=== PATIENT | female | born 1945 | race Caucasian/White ===

== ENCOUNTER 2021-06-27 00:18 | Inpatient (IN) | payer MEDICARE, OTHER, SELFPAY ==
--- NOTE | ~2021-06-27 | XR_ITS ---
EXAMINATION: XR CHEST CLINICAL INFORMATION: Possible aspiration. COMPARISON: None. TECHNIQUE: AP view of the chest was obtained. FINDINGS: The cardiomediastinal silhouette is within normal limits except for atherosclerotic disease of the thoracic aorta. There are questionable hazy airspace opacities in the left lower lobe/retrocardiac region with otherwise clear lungs. No pleural effusions or pneumothorax. No acute osseous abnormalities. XR/XR chest 1V IMPRESSION: Questionable hazy opacities in the left lower lobe in which developing infiltrate or aspiration cannot be excluded..
--- NOTE | ~2021-06-27 | US_ITS ---
EXAMINATION: US ABDOMEN LIMITED CLINICAL INFORMATION: Right upper quadrant pain, CT and cholelithiasis, thick wall/edema. (Gallbladder only per ordering). COMPARISON: CT abdomen and pelvis with contrast 06/27/2021. TECHNIQUE: Real-time imaging of the gallbladder. FINDINGS: The gallbladder is upper normal in size. There are gallstones. The gallbladder wall appears thickened and edematous. The gallbladder wall measures up to 0.6 cm. The communications technologist reports the patient is tender over the gallbladder. No pericholecystic fluid is seen. The common bile duct is normal in caliber measuring 0.6 cm US/US abdomen limited IMPRESSION: Gallstones, thickened edematous gallbladder wall and positive sonographic Mack's sign. Ultrasound appearance is concerning for acute cholecystitis. Further evaluation with HIDA scan may be helpful.
--- NOTE | ~2021-06-27 | MR_ITS ---
EXAMINATION: MR ABDOMEN WITHOUT CONTRAST CLINICAL INFORMATION: Elevated bilirubin. Rule out common bile duct stone. COMPARISON: Previous CT of the abdomen and pelvis and abdominal ultrasound from yesterday TECHNIQUE: MR abdomen is performed without gadolinium contrast. MRCP sequences were also performed. FINDINGS: LUNG BASES: The visualized lung bases are unremarkable. LIVER, GALLBLADDER, AND BILIARY TREE: The liver is normal in size, smooth in contour, and normal in signal. No focal hepatic lesion. The gallbladder is upper normal in size. There are gallstones in the gallbladder. There is gallbladder wall thickening and gallbladder wall edema. The gallbladder wall measures up to 9 mm in thickness. There is some stranding of the fat surrounding the gallbladder. There may be very mild intrahepatic biliary duct dilatation. The common bile duct does not appear dilated measuring 5 mm. No common bile duct stone is seen. The common bile duct abuts the gallbladder. There may be mass effect on the common bile duct/Mirizzi syndrome. There is a small amount of fluid seen surrounding the liver PANCREAS: Unremarkable. SPLEEN: Unremarkable. ADRENAL GLANDS: Unremarkable. KIDNEYS AND URETERS: The kidneys are normal in size and shape. No hydronephrosis. No perinephric stranding. GASTROINTESTINAL TRACT: There is diverticulosis of the colon. No bowel obstruction. There is a small amount of ascites adjacent to the liver. ABDOMINAL WALL: No significant hernia is appreciated. LYMPH NODES: No lymphadenopathy. VASCULAR: Unremarkable. OSSEOUS STRUCTURES: Marrow signal normal. There are degenerative changes of the spine. MR/MR MRCP IMPRESSION: Upper normal-size gallbladder, gallstones, gallbladder wall thickening and edema. Findings are suggestive of acute cholecystitis. Minimal intrahepatic biliary duct dilatation. The common bile duct does not appear dilated. No common bile duct stone is seen. There may be mass effect on the extrahepatic bile ducts from the abnormal gallbladder or Mirizzi syndrome. Small amount of ascites adjacent to the liver. Diverticulosis.
--- NOTE | ~2021-06-27 | CT_ITS ---
EXAMINATION: CT ABDOMEN AND PELVIS WITH CONTRAST CLINICAL INFORMATION: Left lower quadrant/mid abdominal pain. COMPARISON: None TECHNIQUE: Multidetector volumetric images were obtained from the superior aspect of the liver through the pubic symphysis following administration 85 mL of Omnipaque 350 intravenous contrast. Sagittal and coronal reformatted images were obtained on the technologist's workstation. Oral contrast: No This CT examination was performed using dose optimization techniques as appropriate, variously including the following: *Automated exposure control *Adjustment of mA and/or kV according to patient size (this includes techniques or standardized protocols for targeted exams where dose is matched to indication/reason for exam; i.e. extremities or head) *Use of iterative reconstruction technique DLP: 670 mGy-cm FINDINGS: LUNG BASES: The visualized lung bases are clear. Coronary artery calcifications. LIVER, GALLBLADDER, AND BILIARY TREE: The liver is normal in size, shape, and attenuation. No focal hepatic lesion or biliary ductal dilatation is present. Distended gallbladder. Multiple stones in the gallbladder lumen. Gallbladder wall thickening noted measuring 0.5 cm, with wall edema. PANCREAS: Unremarkable. SPLEEN: Unremarkable. ADRENAL GLANDS: Unremarkable right adrenal gland . Thickening throughout the left adrenal gland. KIDNEYS AND URETERS: The kidneys are normal in size, shape, and attenuation. No hydronephrosis, hydroureter, or calculi seen. No perinephric stranding. 0.6 cm hypoattenuating lesion at the midpole of the left kidney is too small to fully characterize. BLADDER: Unremarkable. GASTROINTESTINAL TRACT: The stomach is unremarkable. Normal caliber of the small bowel. No obstruction. Normal appendix. There is diffuse colonic diverticulosis. There is focal wall thickening at the splenic flexure of the colon with adjacent inflammation. No free air. No free fluid. ABDOMINAL WALL: No significant hernia is appreciated. LYMPH NODES: Normal. VASCULAR: Normal caliber aorta with moderate atherosclerotic calcifications. PELVIC VISCERA: Unremarkable. OSSEOUS STRUCTURES: No acute or suspicious osseous abnormality. Chronic appearing compression deformity of the L1 vertebral body. Degenerative changes of both hips. CT/CT abdomen pelvis w con IMPRESSION: 1. Diverticulitis at the splenic flexure of the colon. No free air or fluid collection. 2. Cholelithiasis. Somewhat distended gallbladder with wall thickening and edema. This is concerning for cholecystitis. This could be evaluated further with ultrasound. Fleischner guidelines were followed.
[2021-06-27 00:27] VITALS: BP 208/74; PULSE 69; RESP 16; TEMP 36.7; O2SAT 95; BMI 27.3
--- NOTE | 2021-06-27 00:29 | ECG_ITS ---
Test Reason : WEAKNESS Blood Pressure : / mmHG Vent. Rate : 059 BPM Atrial Rate : 059 BPM P-R Int : 144 ms QRS Dur : 080 ms QT Int : 432 ms P-R-T Axes : 100 034 054 degrees QTc Int : 427 ms Sinus bradycardia Otherwise normal ECG No previous ECGs available Referred By: Raegan Venegas Electronically Signed By:ARASH SIERRA MD
--- NOTE | 2021-06-27 00:47 | ED.ABDPAIN ---
HPI - Abdominal Pain General Chief Complaint: Abdominal Pain Stated Complaint: abdominal pain Time Seen by Provider: 06/27/21 00:29 Source: patient Mode of arrival: EMS History of Present Illness HPI narrative: 75-year-old female with diverticulosis noted on colonoscopy in 2014 and patient states she has had diverticulitis approximately 40 years ago and comes in with mild nausea throughout the day was able to eat toast in the morning and then attempted ease in apple in the afternoon and states she then developed worsening mid abdominal pain that she describes as crampy and increasingly constant in nature. She denies any previous surgical history denies any urinary pain/burning/frequency, and also denies any fever, chills, diarrhea and states that she has continued to pass flatus but had an episode of vomiting and route to the hospital. Related Data Allergies Allergy/AdvReac Type Severity Reaction Status Date / Time No Known Allergies Allergy Verified 06/27/21 00:29 Review of Systems Review of Systems Pertinent positives and negatives as stated in HPI 10 point review of systems is otherwise negative. Physical Exam Vital Signs: Vital Signs: Last Vital Signs Temp 98.1 F 06/27/21 00:27 Pulse 96 06/27/21 02:54 Resp 18 06/27/21 02:54 BP 163/77 H 06/27/21 02:54 Pulse Ox 97 06/27/21 02:54 BMI result Body Mass Index 27.3 VITAL SIGNS: Reviewed. GENERAL: Well developed, well nourished, in no acute distress. HEAD: Normocephalic/atraumatic EYES: PERRLA, EOMI OROPHARYNX: no oral lesions noted, posterior pharynx clear LUNGS: Normal breath sounds. No adventitious sounds or accessory muscle use. SpO2<95> CARDIOVASCULAR: Regular rate and rhythm without noted murmurs, no JVD or lower extremity edema. ABDOMEN: Soft, tenderness in mid to left lower quadrant without rebound, non-distended with bowel sounds. d NEUROLOGIC: Alert and oriented x 4. Course Course Course Narrative: 75-year-old female with history and clinical presentation consistent with diverticulitis, possible renal colic/SBO but less likely. Review of all investigations significant for diverticulitis as well as findings cholecystitis. Patient informed of all results and will be admitted after discussion with General surgery who is accepting her admission. On re-evaluation patient is pain is much improved and she has received antibiotics. MDM - Abdominal Pain Lab Data Result diagrams: 06/27/21 01:02 06/27/21 01:02 Labs: Lab Results 06/27/21 06/27/21 06/27/21 Range/Units 01:02 01:02 01:02 WBC 14.2 H (4.8-10.8) X10*3/uL RBC 3.98 L (4.20-5.50) X10*6/uL Hgb 12.6 (12.0-16.0) g/dl Hct 37.7 (37.0-47.0) % MCV 94.7 (80.0-98.0) fL MCH 31.7 (27.0-33.0) pg MCHC 33.4 (31.0-35.0) g/dl RDW 12.7 (11.0-16.0) % Plt Count 261 (160-400) X10*3/uL MPV 9.3 L (9.4-12.3) fL Immature Gran % (Auto) 0.3 (0.0-0.4) % Neut % (Auto) 84.3 H (45-73) % Lymph % (Auto) 9.5 L (20-40) % [place] % (Auto) 5.4 (2-11) % Eos % (Auto) 0.1 (0-4) % Baso % (Auto) 0.4 (0-2) % Lymph # (Auto) 1.4 (1.2-4.9) X10*3/uL [place] # (Auto) 0.8 (0.1-1.2) X10*3/uL Eos # (Auto) 0.0 (0.0-0.4) X10*3/uL Baso # (Auto) 0.1 (0.0-0.2) X10*3/uL Abs Immat Gran (auto) 0.04 H (0.00-0.03) X10*3/uL Absolute Neuts (auto) 11.9 H (2.0-8.3) x10*3/uL Absolute Nucleated RBC 0.000 (0.0-0.012) X10*3/uL Nucleated RBC % (auto) 0.0 (0.0-0.2) /100WBC Sodium 140 (135-145) mmol/L Potassium 4.3 (3.3-5.1) mmol/L Chloride 104 (96-108) mmol/L Carbon Dioxide 25 (22-29) mmol/L Anion Gap 15 (12-20) BUN 14 (9-16) mg/dL Creatinine 0.79 (0.5-1.4) mg/dL Estim Creat Clear Calc 65.7 Estimated GFR > 60 Random Glucose 262 H (60-115) mg/dL Lactic Acid 1.5 (0.5-2.0) mmol/L Calcium 10.3 H (8.4-10.2) mg/dL Total Bilirubin 0.4 (0.0-1.0) mg/dL AST 18 (5-31) U/L ALT 17 (0-31) U/L Alkaline Phosphatase 60 (39-117) U/L Total Protein 6.9 (6.5-8.0) g/dL Albumin 4.0 (3.5-5.0) g/dL Lipase 21 (8-78) U/L ECG Data Attestation: I personally reviewed and interpreted this ECG as follows: Prior ECG tracings: not available for review Interpretation: Sinus bradycardia, HR-59, no STEMI, SD/QRS/QTC are within normal limits. Discharge Plan Discharge Clinical Impression: Diverticulitis, Acute cholecystitis Patient Disposition: Admitted As Inpatient [facility] Past Medical History Source: nursing notes reviewed Social History Social History Advance Directives: No
[2021-06-27] MEDS: Ketorolac Tromethamine 30 MG/ML VIAL 15 MG IVPUSH (01:09)
[2021-06-27 01:10] LABS: Basophils Absolute Auto 0.1 X10*3/uL (0.0-0.2); Basophils Percent Auto 0.4 % (0-2); Eosinophils Percent Auto 0.1 % (0-4); Hematocrit 37.7 % (37.0-47.0); Hemoglobin 12.6 g/dl (12.0-16.0); Imm Gran Abs Auto 0.04 X10*3/uL (0.00-0.03); Imm Gran Pct Auto 0.3 % (0.0-0.4); Lymphocytes Absolute Auto 1.4 X10*3/uL (1.2-4.9); Lymphocytes Percent Auto 9.5 % (20-40); MANUAL DIFF FLAG NO; Mean Corpuscular HGB Conc 33.4 g/dl (31.0-35.0); Mean Corpuscular Hemoglobin 31.7 pg (27.0-33.0); Mean Corpuscular Volume 94.7 fL (80.0-98.0); Mean Platelet Volume 9.3 fL (9.4-12.3); Monocytes Absolute Auto 0.8 X10*3/uL (0.1-1.2); Monocytes Percent Auto 5.4 % (2-11); Neutrophils Absolute Auto 11.9 x10*3/uL (2.0-8.3); Neutrophils Percent Auto 84.3 % (45-73); Platelet Count 261 X10*3/uL (160-400); Red Blood Count 3.98 X10*6/uL (4.20-5.50); Red Cell Distribution Width 12.7 % (11.0-16.0); White Blood Count 14.2 X10*3/uL (4.8-10.8)
[2021-06-27] MEDS: HYDROmorphone HCl 0.5 MG/0.5 ML SYRINGE 0.25 MG IVPUSH (01:10)
[2021-06-27] MEDS: 0.9 % Sodium Chloride 1,000 ML 999 ML IV (01:10)
[2021-06-27 01:22] LABS: Lactic Acid 1.5 mmol/L (0.5-2.0)
[2021-06-27 01:28] LABS: Alanine Aminotransferase 17 U/L (0-31); Alkaline Phosphatase 60 U/L (39-117); Anion Gap 15 (12-20); Aspartate Amino Transferase 18 U/L (5-31); Bilirubin Total 0.4 mg/dL (0.0-1.0); Blood Urea Nitrogen 14 mg/dL (9-16); Calcium 10.3 mg/dL (8.4-10.2); Carbon Dioxide 25 mmol/L (22-29); Chloride 104 mmol/L (96-108); Creatinine Clr Calc Pharmacy 65.7; Estimated Glomerular Filt Rate > 60; Glucose Random 262 mg/dL (60-115); Lipase 21 U/L (8-78); Potassium 4.3 mmol/L (3.3-5.1); Sodium 140 mmol/L (135-145); Total Protein 6.9 g/dL (6.5-8.0)
[2021-06-27] MEDS: Piperacillin Sodium/Tazobactam 3.375 GM in 0.9 % Sodium Chloride 50 ML IV ×4 (02:17→21:01)
[2021-06-27 02:54] VITALS: BP 163/77; PULSE 96; RESP 18; O2SAT 97
[2021-06-27] MEDS: iohexoL 350 MG/ML 100 ML INFUS..BTL 85 ML IV (03:33)
[2021-06-27 04:49] LABS: COVID-19 Test Negative (Negative); IDNOW Serial# 9DD0AD1C
[2021-06-27] MEDS: Morphine Sulfate 4 MG/ML CARTRIDGE IVPUSH ×2 (05:28→16:33)
[2021-06-27] MEDS: 0.9 % Sodium Chloride 1,000 ML 100 ML IVCONT ×3 (05:29→23:51)
[2021-06-27 07:06] VITALS: BP 139/75; PULSE 88; RESP 14; O2SAT 96
--- NOTE | 2021-06-27 07:51 | PC.NURSE ---
took over care of this pt at 0700
--- NOTE | 2021-06-27 09:34 | PHA.MEDREC ---
Pharmacy Consult ? Medication Reconciliation Pharmacy has completed the medication reconciliation. Patient has not take metformin in a few days due to having to receive contrast dye. Patient does not know when she last had it. She reports that the doctor is stop her bupropion for some neuro surgery. All medications were confirmed with [facility]. Kristina Ferro, PetrosD
[2021-06-27] MEDS: Famotidine/PF 20 MG/2 ML VIAL IVPUSH ×2 (09:55→20:54)
--- NOTE | 2021-06-27 10:25 | P.HPGS_ITS ---
History of Present Illness History of Present Illness Date of Service: 06/27/21 <Candy Chavez PA-C - Last Filed: 06/27/21 11:31> 06/30/21 <Bobby Umana MD - Last Filed: 06/30/21 16:31> Chief complaint: Diverticulitis <Candy Chavez PA-C - Last Filed: 06/27/21 11:31> Narrative: Micki Lara is a 75 year old female with PMH of HTN, HLD, DM who presented to the ED with complaints of abdominal pain. Patient reports she ate an apple and developed mid abdominal pain that she first thought was natali gestion. She described it as a crampy, achey pain in nature.?Nothing alleviated the pain. The pain gradually worsened throughout the day and she called EMS. She vomited 1x in the ambulance. She denies fevers or chills but felt clammy at home. She denies diarrhea, change in bowel habits. She endorses lack of appetite yesterday due to the pain. In the ED, work up included a CT scan which demonstra sadiq focal wall thickening at the splenic flexure of the colon with adjacent inflammation as well as a distended gallbladder with gallstones and gallbladder wall edema. She had a leukocytosis of 14.2. LFTs were normal. She had a colonoscopy in [address] Zelaya where scattered diverticulosis was noted. This morning, the pain is improved. 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 She is unsure of the name of this. She sees a neurologist for this. <Candy Chavez PA-C - Last Filed: 06/27/21 11:31> Review of Systems Verdana 4l Constitutional: Verdana 4d Constitutional: Verdana 4d Verdana 4d Denies chills, Denies fever(s) and Reports poor appetite Verdana 4Il <Candy Chavez PA-C - Last Filed: 06/27/21 11:31> Verdana 4d Verdana 4l ENT: Verdana 4d Denies dizziness Verdana 4Il <Candy Chavez PA-C - Last Filed: 06/27/21 11:31> Verdana 4d Verdana 4l Cardiovascular: Verdana 4d Cardiovascular: Verdana 4d Verdana 4d Denies chest pain, Denies palpitations and Denies dyspnea Verdana 4Il <JEFERSON Garsia Last Filed: 06/27/21 11:31> Verdana 4d Verdana 4l Respiratory: Verdana 4d Verdana 4d Respiratory: Verdana 4d Denies cough and Denies dyspnea Verdana 4Il <JEFERSON Garsia Last Filed: 06/27/21 11:31> Verdana 4d Verdana 4l Gastrointestinal: Verdana 4d Gastrointestinal: Verdana 4d Verdana 4d Reports as per HPI, Denies hematochezia, Denies change in stool character, Denies diarrhea and Denies hematemesis Verdana 4Il <JEFERSON Garsia Last Filed: 06/27/21 11:31> Verdana 4d Verdana 4l Genitourinary: Verdana 4d Verdana 4d Genitourinary: Verdana 4d Denies hematuria and Denies dysuria Verdana 4Il <JEFERSON Garsia Last Filed: 06/27/21 11:31> Verdana 4d Verdana 4l Integumentary/Breasts: Verdana 4d Skin/Breast: Verdana 4d Verdana 4d Denies rash and Denies jaundice Verdana 4Il <JEFERSON Garsia Last Filed: 06/27/21 11:31> Verdana 4d Verdana 4l Neurologic: Verdana 4d Denies dizziness Verdana 4Il <JEFERSON Garsia Last Filed: 06/27/21 11:31> Verdana 4d Verdana 4l Endocrine: Verdana 4d Verdana 4d Endocrine: Verdana 4d Denies palpitations Verdana 4Il <JEFERSON Garsia Last Filed: 06/27/21 11:31> Verdana 4d [facility] Past Medical History Medical History: Medical History Diabetes Hyperlipidemia Hypertension Parkinsonian features <Candy Chavez PA-C - Last Filed: 06/27/21 11:31> Social History Social History: Social History Household Members: Spouse Housing: House Do you presently have visiting nurse or other home services: No Patient Tobacco Use Status: Never used Tobacco service: No Current occupational status: unemployed <Candy Chavez PA-C - Last Filed: 06/27/21 11:31> Meds Allergies/Adverse reactions: Allergies Allergy/AdvReac Type Severity Reaction Status Date / Time No Known Allergies Allergy Verified 06/27/21 00:29 <Candy Chavez PA-C - Last Filed: 06/27/21 11:31> Active Medications: Current Medications Famotidine (Famotidine/Pf 20 Mg/2 Ml Vial) 20 mg IVPUSH BID [facility] Last Admin: 06/27/21 09:55 Dose: 20 mg Documented by: Sodium Chloride (Ns) 1,000 mls @ 100 mls/hr IVCONT .Q10H [facility] Last Admin: 06/27/21 05:29 Dose: 100 mls/hr Documented by: Piperacillin Sod/Tazobactam (Sod 3.375 gm/ Sodium Chloride) 50 mls @ 100 mls/hr IV Q6H [facility] Last Admin: 06/27/21 09:55 Dose: 100 mls/hr Documented by: Morphine Sulfate (Morphine Sulfate 4 Mg/Ml Cartridge) 4 mg IVPUSH Q4H PRN; Protocol PRN Reason: Pain, Severe (Pain Scale 7-10) Last Admin: 06/27/21 05:28 Dose: 4 mg Documented by: Ondansetron HCl (Ondansetron Hcl 4 Mg/2 Ml Vial) 4 mg IVPUSH Q8H PRN PRN Reason: Nausea and Vomiting Sodium Chloride (0.9 % Sodium Chloride Flush 3 Ml Syringe) 3 ml IVFLUSH QSHIFT [facility] Last Admin: 06/27/21 09:50 Dose: Not Given Documented by: Charlette Chavez PA-C - Last Filed: 06/27/21 11:31> Home medications: Home Medications Medication Instructions Recorded Confirmed Last Taken Type aspirin 81 mg 81 mg PO DAILY 06/27/21 06/27/21 06/26/21 History chewable tablet cyanocobalamin 1,000 mcg PO 06/27/21 06/27/21 06/26/21 History (vitamin B-12) DAILY 1,000 mcg tablet glipizide 2.5 mg 2.5 mg PO DAILY 06/27/21 06/27/21 06/26/21 History tablet, extended release 24 hr hydrochlorothiazi 12.5 mg PO DAILY 06/27/21 06/27/21 06/26/21 History de 12.5 mg tablet irbesartan 300 mg 300 mg PO DAILY 06/27/21 06/27/21 06/26/21 History tablet metformin 750 mg 750 mg PO DAILY 06/27/21 06/27/21 Unknown History tablet,extended release 24 hr pravastatin 40 mg 40 mg PO BEDTIME 06/27/21 06/27/21 06/26/21 History tablet sitagliptin 100 1 tab PO DAILY 06/27/21 06/27/21 06/26/21 History mg tablet (Januvia) <JEFERSON Garsia Last Filed: 06/27/21 11:31> Physical Exam Verdana 4l Vital Signs: Verdana 4d Verdana 4d Vital Signs: Verdana 4d Verdana 4Bd Last Vital Signs Verdana 4d [employer] New 4d [employer] New 4d Temp 98.1 F 06/27/21 00:27 [employer] New 4d Pulse 88 06/27/21 07:06 [employer] New 4d Resp 14 06/27/21 07:06 BP 139/75 06/27/21 07:06 Pulse Ox 96 06/27/21 07:06 BMI result Body Mass Index 27.3 <JEFERSON Garsia Last Filed: 06/27/21 11:31> Const: General: no acute distress, well developed and alert <JEFERSON Garsia Last Filed: 06/27/21 11:31> Orientation/consciousness: patient oriented x3 <JEFERSON Garsia Last Filed: 06/27/21 11:31> Eyes: Sclerae: sclerae normal <JEFERSON Garsia Last Filed: 06/27/21 11:31> Resp: Effort & Inspection: normal respiratory effort <JEFERSON Garsia Last Filed: 06/27/21 11:31> GI: Inspection: Yes normal to inspection and No distended <JEFERSON Garsia Last Filed: 06/27/21 11:31> Palpation (GI): Soft to palpation, Tenderness to palpation present (GI) in the RUQ (marked); Negative for Mack's sign negative, no guarding and not rigid <JEFERSON Garsia Last Filed: 06/27/21 11:31> Percussion: Yes normal to percussion <JEFERSON Garsia Last Filed: 06/27/21 11:31> Skin: General skin exam: no rashes or lesions noted <JEFERSON Garsia Last Filed: 06/27/21 11:31> Neuro: General: patient oriented x3 <JEFERSON Garsia Last Filed: 06/27/21 11:31> Extrem: General: Yes no clubbing, cyanosis or edema <JEFERSON Garsia Last Filed: 06/27/21 11:31> Results Results Labs: Short CBC 06/27/21 Range/Units 01:02 WBC 14.2 H (4.8-10.8) X10*3/uL Hgb 12.6 (12.0-16.0) g/dl Hct 37.7 (37.0-47.0) % Plt Count 261 (160-400) X10*3/uL BMP 06/27/21 01:02 Sodium 140 Potassium 4.3 Chloride 104 Carbon Dioxide 25 BUN 14 Creatinine 0.79 Calcium 10.3 H Liver Function 06/27/21 Range/Units 01:02 Total Bilirubin 0.4 (0.0-1.0) mg/dL AST 18 (5-31) U/L ALT 17 (0-31) U/L Alkaline Phosphatase 60 (39-117) U/L Albumin 4.0 (3.5-5.0) g/dL <JEFERSON Garsia Last Filed: 06/27/21 11:31> Assessment and Plan (1) Diverticulitis: Status: Acute <JEFERSON Garsia Last Filed: 06/27/21 11:31> (2) Acute cholecystitis: Status: Acute <Candy Chavez PA-C - Last Filed: 06/27/21 11:31> She has had some all pain, mostly upper abdomen x2 days She seems to describe more tenderness the right side than the left I have reviewed her imaging studies - some mild inflammatory changes around the colon in the area of the splenic flexure And ultrasound findings of the gallbladder suggestive of acute cholecystitis She currently says that she feels much better Had a long discussion with her about options including cholecystectomy and IV antibiotic treatment Explained to her the technique of laparoscopic cholecystectomy and possible open along with the risks, benefits and alternatives She does state that she feels much better and does not have severe pain or tenderness She wants to continue with IV antibiotic treatment for now She will be re-evaluated every day She otherwise is hemodynamic stable Follow labs Patient seen and examined independently <Bobby Umana MD - Last Filed: 06/30/21 16:31> Plan 75 year old female with abd pain found to have leukocytosis and distended GB with wall thickening and diverticulitis on CT scan. She is actually very tender in the RUQ, the remainder of her abdomen is benign and she has no peritoneal signs. Will await ABD US to further eval GB. This appears to be the source of her pain given exam findings. Will continue supportive measures with IVF, IV zosyn and NPO status. Further plan dependent on imaging results. Discussed options for treating acute cholecystitis including observation and IV abx versus laparoscopic cholecystectomy possible open. This was also discussed with her Baljinder. Patient comfortable with plan. Patient discussed with Dr. Umana. <Candy Chavez PA-C - Last Filed: 06/27/21 11:31> Quality Stroke Does the patient have a stroke diagnosis?: No <Candy Chavez PA-C - Last Filed: 06/27/21 11:31> VTE Prior VTE?: No <JEFERSON Garsia Last Filed: 06/27/21 11:31> VTE Risk Level:: Surgical - low <JEFERSON Garsia Last Filed: 06/27/21 11:31> VTE Device Contraindication: N/A - Device Ordered <JEFERSON Garsia Filed: 06/27/21 11:31> VTE Drug Contraindication: N/A - Med Ordered <Candy Chavez PA-C - Last Filed: 06/27/21 11:31> Procedures Date of Service Date of Service: 06/27/21 <Candy Chavez PA-C - Last Filed: 06/27/21 11:31>
--- NOTE | 2021-06-27 10:25 | PM.HPGS ---
History of Present Illness History of Present Illness Date of Service: 06/27/21 <Candy Chavez PA-C - Last Filed: 06/27/21 11:31> 06/30/21 <Bobby Umana MD - Last Filed: 06/30/21 16:31> Chief complaint: Diverticulitis <Candy Chavez PA-C - Last Filed: 06/27/21 11:31> Narrative: Micki Lara is a 75 year old female with PMH of HTN, HLD, DM who presented to the ED with complaints of abdominal pain. Patient reports she ate an apple and developed mid abdominal pain that she first thought was indigestion. She described it as a crampy, achey pain in nature.?Nothing alleviated the pain. The pain gradually worsened throughout the day and she called EMS. She vomited 1x in the ambulance. She denies fevers or chills but felt clammy at home. She denies diarrhea, change in bowel habits. She endorses lack of appetite yesterday due to the pain. In the ED, work up included a CT scan which demonstrated focal wall thickening at the splenic flexure of the colon with adjacent inflammation as well as a distended gallbladder with gallstones and gallbladder wall edema. She had a leukocytosis of 14.2. LFTs were normal. She had a colonoscopy in [address] Zelaya where scattered diverticulosis was noted. This morning, the pain is improved. 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 She is unsure of the name of this. She sees a neurologist for this. <Candy Chavez PA-C - Last Filed: 06/27/21 11:31> Review of Systems Constitutional: Constitutional: Denies chills, Denies fever(s) and Reports poor appetite <Candy Chavez PA-C - Last Filed: 06/27/21 11:31> ENT: Denies dizziness <JEFERSON Garsia Last Filed: 06/27/21 11:31> Cardiovascular: Cardiovascular: Denies chest pain, Denies palpitations and Denies dyspnea <Candy Chavez PA-C - Last Filed: 06/27/21 11:31> Respiratory: Respiratory: Denies cough and Denies dyspnea <Candy Chavez PA-C Last Filed: 06/27/21 11:31> Gastrointestinal: Gastrointestinal: Reports as per HPI, Denies hematochezia, Denies change in stool character, Denies diarrhea and Denies hematemesis <JEFERSON Garsia Last Filed: 06/27/21 11:31> Genitourinary: Genitourinary: Denies hematuria and Denies dysuria <JEFERSON Garsia Last Filed: 06/27/21 11:31> Integumentary/Breasts: Skin/Breast: Denies rash and Denies jaundice <Candy Chavez PA-C Filed: 06/27/21 11:31> Neurologic: Denies dizziness <JEFERSON Garsia Last Filed: 06/27/21 11:31> Endocrine: Endocrine: Denies palpitations <JEFERSON Garsia Filed: 06/27/21 11:31> [facility] Past Medical History Medical History: Medical History Diabetes Hyperlipidemia Hypertension Parkinsonian features <Candy Chavez PA-C Last Filed: 06/27/21 11:31> Social History Social History: Social History Household Members: Spouse Housing: House Do you presently have visiting nurse or other home services: No Patient Tobacco Use Status: Never used Tobacco service: No Current occupational status: unemployed <JEFERSON Garsia Last Filed: 06/27/21 11:31> Meds Allergies/Adverse reactions: Allergies Allergy/AdvReac Type Severity Reaction Status Date / Time No Known Allergies Allergy Verified 06/27/21 00:29 <JEFERSON Garsia Last Filed: 06/27/21 11:31> Active Medications: Current Medications Famotidine (Famotidine/Pf 20 Mg/2 Ml Vial) 20 mg IVPUSH BID MUKESH Last Admin: 06/27/21 09:55 Dose: 20 mg Documented by: Sodium Chloride (Ns) 1,000 mls @ 100 mls/hr IVCONT .Q10H [facility] Last Admin: 06/27/21 05:29 Dose: 100 mls/hr Documented by: Piperacillin Sod/Tazobactam (Sod 3.375 gm/ Sodium Chloride) 50 mls @ 100 mls/hr IV Q6H [facility] Last Admin: 06/27/21 09:55 Dose: 100 mls/hr Documented by: Morphine Sulfate (Morphine Sulfate 4 Mg/Ml Cartridge) 4 mg IVPUSH Q4H PRN; Protocol PRN Reason: Pain, Severe (Pain Scale 7-10) Last Admin: 06/27/21 05:28 Dose: 4 mg Documented by: Ondansetron HCl (Ondansetron Hcl 4 Mg/2 Ml Vial) 4 mg IVPUSH Q8H PRN PRN Reason: Nausea and Vomiting Sodium Chloride (0.9 % Sodium Chloride Flush 3 Ml Syringe) 3 ml IVFLUSH QSHIFT [facility] Last Admin: 06/27/21 09:50 Dose: Not Given Documented by: Charlette Chavez PA-C - Last Filed: 06/27/21 11:31> Home medications: Home Medications Medication Instructions Recorded Confirmed Last Taken Type aspirin 81 mg chewable tablet 81 mg PO DAILY 06/27/21 06/27/21 06/26/21 History cyanocobalamin (vitamin B-12) 1,000 mcg PO DAILY 06/27/21 06/27/21 06/26/21 History 1,000 mcg tablet glipizide 2.5 mg tablet, extended 2.5 mg PO DAILY 06/27/21 06/27/21 06/26/21 History release 24 hr hydrochlorothiazide 12.5 mg tablet 12.5 mg PO DAILY 06/27/21 06/27/21 06/26/21 History irbesartan 300 mg tablet 300 mg PO DAILY 06/27/21 06/27/21 06/26/21 History metformin 750 mg tablet,extended 750 mg PO DAILY 06/27/21 06/27/21 Unknown History release 24 hr pravastatin 40 mg tablet 40 mg PO BEDTIME 06/27/21 06/27/21 06/26/21 History sitagliptin 100 mg tablet (Januvia) 1 tab PO DAILY 06/27/21 06/27/21 06/26/21 History <Candy Chavez PA-C - Last Filed: 06/27/21 11:31> Physical Exam Vital Signs: Vital Signs: Last Vital Signs Temp 98.1 F 06/27/21 00:27 Pulse 88 06/27/21 07:06 Resp 14 06/27/21 07:06 BP 139/75 06/27/21 07:06 Pulse Ox 96 06/27/21 07:06 BMI result Body Mass Index 27.3 <Candy KathyJEFERSON gonzáles Cherry Last Filed: 06/27/21 11:31> Const: General: no acute distress, well developed and alert <Candy JEFERSON Chavez Cherry Last Filed: 06/27/21 11:31> Orientation/consciousness: patient oriented x3 <SERGO GarsiaArelis Carey Last Filed: 06/27/21 11:31> Eyes: Sclerae: sclerae normal <SERGO GarsiaArelis Carey Last Filed: 06/27/21 11:31> Resp: Effort & Inspection: normal respiratory effort <Candy NIKO ChavezSapna Carey Last Filed: 06/27/21 11:31> GI: Inspection: Yes normal to inspection and No distended <Candy KathySERGO gonzálesArelis Carey Last Filed: 06/27/21 11:31> Palpation (GI): Soft to palpation, Tenderness to palpation present (GI) in the RUQ (marked); Negative for Mack's sign negative, no guarding and not rigid <Candy Chavez PA-C Cherry Last Filed: 06/27/21 11:31> Percussion: Yes normal to percussion <Candy Chavez PA-C Cherry Last Filed: 06/27/21 11:31> Skin: General skin exam: no rashes or lesions noted <Candy Chavez PA-C Cherry Last Filed: 06/27/21 11:31> Neuro: General: patient oriented x3 <Candy Chavez PA-C Cherry Last Filed: 06/27/21 11:31> Extrem: General: Yes no clubbing, cyanosis or edema <Candy Chavez PA-C Cherry Last Filed: 06/27/21 11:31> Results Results Labs: Short CBC 06/27/21 Range/Units 01:02 WBC 14.2 H (4.8-10.8) X10*3/uL Hgb 12.6 (12.0-16.0) g/dl Hct 37.7 (37.0-47.0) % Plt Count 261 (160-400) X10*3/uL BMP 06/27/21 01:02 Sodium 140 Potassium 4.3 Chloride 104 Carbon Dioxide 25 BUN 14 Creatinine 0.79 Calcium 10.3 H Liver Function 06/27/21 Range/Units 01:02 Total Bilirubin 0.4 (0.0-1.0) mg/dL AST 18 (5-31) U/L ALT 17 (0-31) U/L Alkaline Phosphatase 60 (39-117) U/L Albumin 4.0 (3.5-5.0) g/dL <Candy Chavez PA-C - Last Filed: 06/27/21 11:31> Assessment and Plan (1) Diverticulitis: Status: Acute <Candy Chavez PA-C - Last Filed: 06/27/21 11:31> (2) Acute cholecystitis: Status: Acute <Candy Chavez PA-C - Last Filed: 06/27/21 11:31> She has had some all pain, mostly upper abdomen x2 days She seems to describe more tenderness the right side than the left I have reviewed her imaging studies - some mild inflammatory changes around the colon in the area of the splenic flexure And ultrasound findings of the gallbladder suggestive of acute cholecystitis She currently says that she feels much better Had a long discussion with her about options including cholecystectomy and IV antibiotic treatment Explained to her the technique of laparoscopic cholecystectomy and possible open along with the risks, benefits and alternatives She does state that she feels much better and does not have severe pain or tenderness She wants to continue with IV antibiotic treatment for now She will be re-evaluated every day She otherwise is hemodynamic stable Follow labs Patient seen and examined independently <Bobby Umana MD - Last Filed: 06/30/21 16:31> Plan 75 year old female with abd pain found to have leukocytosis and distended GB with wall thickening and diverticulitis on CT scan. She is actually very tender in the RUQ, the remainder of her abdomen is benign and she has no peritoneal signs. Will await ABD US to further eval GB. This appears to be the source of her pain given exam findings. Will continue supportive measures with IVF, IV zosyn and NPO status. Further plan dependent on imaging results. Discussed options for treating acute cholecystitis including observation and IV abx versus laparoscopic cholecystectomy possible open. This was also discussed with her Baljinder. Patient comfortable with plan. Patient discussed with Dr. Umana. <Candy Chavez PA-C - Last Filed: 06/27/21 11:31> Quality Stroke Does the patient have a stroke diagnosis?: No <Candy Chavez PA-C - Last Filed: 06/27/21 11:31> VTE Prior VTE?: No <Candy Chavez PA-C - Last Filed: 06/27/21 11:31> VTE Risk Level:: Surgical - low <Candy Chavez PA-C - Last Filed: 06/27/21 11:31> VTE Device Contraindication: N/A - Device Ordered <Candy Chavez PA-C - Last Filed: 06/27/21 11:31> VTE Drug Contraindication: N/A - Med Ordered <Candy Chavez PA-C - Last Filed: 06/27/21 11:31> Procedures Date of Service Date of Service: 06/27/21 <Candy Chavez PA-C - Last Filed: 06/27/21 11:31>
[2021-06-27 10:31] VITALS: BP 150/73; PULSE 90; RESP 15; TEMP 37.3; O2SAT 95
--- NOTE | 2021-06-27 14:35 | MHC.CM.PN ---
CM MET WITH PT WHO REPORTS SHE LIVES AT HOME WITH HER AND IS INDEPENDENT WITH CARE SHE REPORTS SHE HAS NO SERVICES AND USES A WALKER TO AMBULATE PT CONFIRMS HER PCP IS [facility] PT DOES NOT HAVE A HCP AND DECLINES TO COMPLETE ONE TODAY SHE SAYS SHE IS DISCUSSING IT WITH FAMILY AND HAS PLANS TO COMPLETE ONE IMM DELIVERED, ORIGINAL AT BEDSIDE, COPY SENT TO [facility] CURRENT DC PLAN IS HOME WITH NO SERVICES FAMILY TO TRANSPORT
[2021-06-27 18:29] LABS: Glucose, Whole Blood 191 mg/dL (60-115)
[2021-06-27] MEDS: Pravastatin Sodium 40 MG TABLET PO (20:54)
[2021-06-27 21:23] LABS: Glucose, Whole Blood 194 mg/dL (60-115)
[2021-06-27 22:40] VITALS: BP 152/80; PULSE 91; RESP 18; TEMP 36.6; O2SAT 97
--- NOTE | 2021-06-27 23:56 | PC.NURSE ---
This rn took over patients care at 1900, patient alert and oriented, denies any nausea, pain or discomfort at this time, vss. IVF NS @ 100 running through 20LAC. Patient currently NPO. Call carranza within reach.
[2021-06-28] MEDS: Piperacillin Sodium/Tazobactam 3.375 GM in 0.9 % Sodium Chloride 50 ML IV ×4 (01:47→21:40)
[2021-06-28 07:10] LABS: Hematocrit 36.5 % (37.0-47.0); Mean Corpuscular HGB Conc 32.9 g/dl (31.0-35.0); Mean Corpuscular Volume 94.3 fL (80.0-98.0); Mean Platelet Volume 9.4 fL (9.4-12.3); Platelet Count 275 X10*3/uL (160-400); Red Blood Count 3.87 X10*6/uL (4.20-5.50); Red Cell Distribution Width 12.9 % (11.0-16.0); White Blood Count 11.3 X10*3/uL (4.8-10.8)
[2021-06-28 07:38] LABS: Albumin Level 3.4 g/dL (3.5-5.0); Anion Gap 11 (12-20); Bilirubin Direct 2.9 mg/dL (0.0-0.5); Bilirubin Total 3.4 mg/dL (0.0-1.0); Blood Urea Nitrogen 16 mg/dL (9-16); Carbon Dioxide 27 mmol/L (22-29); Chloride 109 mmol/L (96-108); Creatinine Clr Calc Pharmacy 73.1; Estimated Glomerular Filt Rate > 60; Glucose Random 217 mg/dL (60-115); Potassium 4.3 mmol/L (3.3-5.1); Sodium 143 mmol/L (135-145); Total Protein 6.1 g/dL (6.5-8.0)
[2021-06-28 07:40] LABS: Glucose, Whole Blood 181 mg/dL (60-115)
[2021-06-28 08:05] LABS: Alanine Aminotransferase 130 U/L (0-31); Alkaline Phosphatase 153 U/L (39-117); Aspartate Amino Transferase 135 U/L (5-31); Calcium 9.3 mg/dL (8.4-10.2)
--- NOTE | 2021-06-28 08:33 | PC.NURSE ---
pt has a purewick in place , urine draining 400 ml pink tinged urine into suction canister . RN made aware. new purewick placed
[2021-06-28 08:38] VITALS: BP 169/75; PULSE 89; RESP 20; TEMP 36.1; O2SAT 96
--- NOTE | 2021-06-28 09:21 | PM.PNGS ---
Subjective Subjective Date of Service: 06/28/21 <Candy Chavez PA-C - Last Filed: 06/28/21 09:25> 06/28/21 <Bobby Umana MD - Last Filed: 06/28/21 18:06> Interval history: Pain overall improved but still some persistent RUQ pain. Hungry. <Candy Chvaez PA-C - Last Filed: 06/28/21 09:25> Physical Exam Vital Signs: Vital Signs: Last Vital Signs Temp 97 F 06/28/21 08:38 Pulse 89 06/28/21 08:38 Resp 20 06/28/21 08:38 BP 169/75 H 06/28/21 08:38 Pulse Ox 96 06/28/21 08:38 BMI result Body Mass Index 27.3 <JEFERSON Garsia Last Filed: 06/28/21 09:25> Const: General: comfortable, no acute distress and alert <Candy Chavez PA-C - Last Filed: 06/28/21 09:25> Orientation/consciousness: patient oriented x3 <Candy Chavez PA-C - Last Filed: 06/28/21 09:25> GI: Inspection: No distended <JEFERSON Garsia Last Filed: 06/28/21 09:25> Palpation (GI): Soft to palpation, Tenderness to palpation present (GI) in the RUQ, no guarding and not rigid <Candy Chavez PA-C - Last Filed: 06/28/21 09:25> Percussion: Yes normal to percussion <JEFERSON Garsia Last Filed: 06/28/21 09:25> Skin: General skin exam: no rashes or lesions noted <JEFERSON Garsia Last Filed: 06/28/21 09:25> Neuro: General: patient oriented x3 <JEFERSON Garsia Last Filed: 06/28/21 09:25> Extrem: General: Yes no clubbing, cyanosis or edema <JEFERSON Garsia Last Filed: 06/28/21 09:25> Objective Data Active Medications Cyanocobalamin (Cyanocobalamin (Vitamin B-12) 1,000 Mcg Tablet) 1,000 mcg PO DAILY [facility] Dextrose (Dextrose 50 % 25 Gm/50 Ml Syringe) 25 gm IVPUSH Q15M PRN; Protocol PRN Reason: per Hypoglycemia Standing Ord. Famotidine (Famotidine/Pf 20 Mg/2 Ml Vial) 20 mg IVPUSH BID [facility] Last Admin: 06/27/21 20:54 Dose: 20 mg Documented by: CARLOS Glucose (Glucose Gel 15 Gm Gel..Gram.) 15 gm PO Q15M PRN; Protocol PRN Reason: per Hypoglycemia Standing Ord. Hydrochlorothiazide (Hydrochlorothiazide 12.5 Mg Tablet) 12.5 mg PO DAILY [facility]; Protocol Sodium Chloride (Ns) 1,000 mls @ 100 mls/hr IVCONT .Q10H [facility] Last Admin: 06/27/21 23:51 Dose: 100 mls/hr Documented by: CARLOS Piperacillin Sod/Tazobactam (Sod 3.375 gm/ Sodium Chloride) 50 mls @ 100 mls/hr IV Q6H [facility] Last Infusion: 06/28/21 02:29 Dose: 0 mls/hr Documented by: CARLOS Cefotetan Disodium 2 gm/ (Sodium Chloride) 50 mls @ 100 mls/hr IV PREOP [facility] Stop: 06/28/21 23:00 Acetaminophen (Ofirmev) 1,000 mg in 100 mls @ 400 mls/hr IV Q6H PRN PRN Reason: Pain, Mild (Pain Scale 1-3) Insulin Human Lispro (Insulin Lispro 100 Unit/Ml 3 Ml Vial) 0 unit SUBCUT QIDACHS [facility]; Protocol Last Admin: 06/27/21 21:43 Dose: Not Given Documented by: CARLOS Non-Admin Reason: NPO Comments: patient npo since last night Morphine Sulfate (Morphine Sulfate 4 Mg/Ml Cartridge) 4 mg IVPUSH Q4H PRN; Protocol PRN Reason: Pain, Severe (Pain Scale 7-10) Last Admin: 06/27/21 16:33 Dose: 4 mg Documented by: N-RAMSK Ondansetron HCl (Ondansetron Hcl 4 Mg/2 Ml Vial) 4 mg IVPUSH Q8H PRN PRN Reason: Nausea and Vomiting Pravastatin Sodium (Pravastatin Sodium 40 Mg Tablet) 40 mg PO BEDTIME [facility] Last Admin: 06/27/21 20:54 Dose: 40 mg Documented by: CARLOS Sodium Chloride (0.9 % Sodium Chloride Flush 3 Ml Syringe) 3 ml IVFLUSH QSHIFT [facility] Last Admin: 06/27/21 23:52 Dose: Not Given Documented by: CARLOS Non-Admin Reason: IV Running Valsartan (Valsartan 160 Mg Tablet) 160 mg PO DAILY [facility] <Candy Chavez PA-C - Last Filed: 06/28/21 09:25> Labs CBC & Chem 7: : 06/28/21 06:48 06/28/21 06:48 <Candy Chavez PA-C - Last Filed: 06/28/21 09:25> Labs: Laboratory Results - last 24 hr 06/27/21 06/27/21 06/28/21 18:14 21:19 06:48 MCV 94.3 MCH 31.0 MCHC 32.9 RDW 12.9 Plt Count 275 MPV 9.4 Absolute Nucleated RBC 0.000 Nucleated RBC % (auto) 0.0 Anion Gap Estim Creat Clear Calc Estimated GFR POC Glucose 191 H 194 H Random Glucose Calcium Total Bilirubin Direct Bilirubin AST ALT Alkaline Phosphatase Total Protein Albumin 06/28/21 06/28/21 06:48 07:35 MCV MCH MCHC RDW Plt Count MPV Absolute Nucleated RBC Nucleated RBC % (auto) Anion Gap 11 L Estim Creat Clear Calc 73.1 Estimated GFR > 60 POC Glucose 181 H Random Glucose 217 H Calcium 9.3 D Total Bilirubin 3.4 H Direct Bilirubin 2.9 H AST 135 H ALT 130 H Alkaline Phosphatase 153 H D Total Protein 6.1 L Albumin 3.4 L <JEFERSON Garsia Last Filed: 06/28/21 09:25> Microbiology Microbiology Results: Microbiology 06/27/21 01:13 Blood Culture - Preliminary Blood - Venous No growth after 24 hours. 06/27/21 01:13 Blood Culture - Preliminary Blood - Venous No growth after 24 hours. <JEFERSON Garsia Last Filed: 06/28/21 09:25> Procedures Date of Service Date of Service: 06/28/21 <Candy Chavez PA-C - Last Filed: 06/28/21 09:25> Progress Note: A&P Assessment and plan (1) Acute cholecystitis: Status: Acute <Candy Chavez PA-C - Last Filed: 06/28/21 09:25> (2) Diverticulitis: Status: Acute <Candy Chavez PA-C - Last Filed: 06/28/21 09:25> (3) Elevated bilirubin: Status: Acute <Candy Chavez PA-C - Last Filed: 06/28/21 09:25> Assessment and Plan: Patient seen and examined earlier Plan for cholecystectomy canceled because of elevated bilirubin MRCP ordered Patient otherwise subjectively feels better although with some pain and tenderness Does not look septic Seen and examined independently <Bobby Umana MD - Last Filed: 06/28/21 18:06> Assessment and Plan: 75 year old female admitted for epigastric/periumbilical abd pain found to have acute cholecystitis and diverticulitis on imaging. Patient seems more symptomatic from gallbladder as she is tender in RUQ and remainder of abd is benign. US confirmed gallbladder distention, wall thickening and impacted stone. Today, bilirubin is significantly elevated. Will hold off on CCY today. MRCP ordered to r/o CBD stone. Possible GI consult if present for ERCP. Cont IV zosyn, IVF. Trend LFTs. Discussed with patient and Baljinder. <Candy Chavez PA-C - Last Filed: 06/28/21 09:25> Fall Risk Details Current Medications: Current Medications Cyanocobalamin (Cyanocobalamin (Vitamin B-12) 1,000 Mcg Tablet) 1,000 mcg PO DAILY [facility] Dextrose (Dextrose 50 % 25 Gm/50 Ml Syringe) 25 gm IVPUSH Q15M PRN; Protocol PRN Reason: per Hypoglycemia Standing Ord. Famotidine (Famotidine/Pf 20 Mg/2 Ml Vial) 20 mg IVPUSH BID [facility] Last Admin: 06/27/21 20:54 Dose: 20 mg Documented by: Glucose (Glucose Gel 15 Gm Gel..Gram.) 15 gm PO Q15M PRN; Protocol PRN Reason: per Hypoglycemia Standing Ord. Hydrochlorothiazide (Hydrochlorothiazide 12.5 Mg Tablet) 12.5 mg PO DAILY [facility]; Protocol Sodium Chloride (Ns) 1,000 mls @ 100 mls/hr IVCONT .Q10H [facility] Last Admin: 06/27/21 23:51 Dose: 100 mls/hr Documented by: Piperacillin Sod/Tazobactam (Sod 3.375 gm/ Sodium Chloride) 50 mls @ 100 mls/hr IV Q6H [facility] Last Infusion: 06/28/21 02:29 Dose: Infused Documented by: Cefotetan Disodium 2 gm/ (Sodium Chloride) 50 mls @ 100 mls/hr IV PREOP [facility] Stop: 06/28/21 23:00 Acetaminophen (Ofirmev) 1,000 mg in 100 mls @ 400 mls/hr IV Q6H PRN PRN Reason: Pain, Mild (Pain Scale 1-3) Insulin Human Lispro (Insulin Lispro 100 Unit/Ml 3 Ml Vial) 0 unit SUBCUT QIDACHS [facility]; Protocol Last Admin: 06/27/21 21:43 Dose: Not Given Documented by: Morphine Sulfate (Morphine Sulfate 4 Mg/Ml Cartridge) 4 mg IVPUSH Q4H PRN; Protocol PRN Reason: Pain, Severe (Pain Scale 7-10) Last Admin: 06/27/21 16:33 Dose: 4 mg Documented by: Ondansetron HCl (Ondansetron Hcl 4 Mg/2 Ml Vial) 4 mg IVPUSH Q8H PRN PRN Reason: Nausea and Vomiting Pravastatin Sodium (Pravastatin Sodium 40 Mg Tablet) 40 mg PO BEDTIME [facility] Last Admin: 06/27/21 20:54 Dose: 40 mg Documented by: Sodium Chloride (0.9 % Sodium Chloride Flush 3 Ml Syringe) 3 ml IVFLUSH QSHIFT [facility] Last Admin: 06/27/21 23:52 Dose: Not Given Documented by: Valsartan (Valsartan 160 Mg Tablet) 160 mg PO DAILY [facility] <Candy Chavez PA-C - Last Filed: 06/28/21 09:25> Time Spent With Patient Time: Total time spent is greater than 50% in coordination of care (as documented) at patient's floor/unit and/or counseling patient: <Candy Chavez PA-C - Last Filed: 06/28/21 09:25> Time with patient: 15 - 24 minutes <Candy Chavez PA-C - Last Filed: 06/28/21 09:25> Quality Stroke Does the patient have a stroke diagnosis?: No <Candy Chavez PA-C - Last Filed: 06/28/21 09:25> VTE Prior VTE?: No <Candy Chavez PA-C - Last Filed: 06/28/21 09:25> VTE Risk Level:: Surgical - low <Candy Chavez PA-C - Last Filed: 06/28/21 09:25> VTE Device Contraindication: N/A - Device Ordered <Candy Chavez PA-C - Last Filed: 06/28/21 09:25> VTE Drug Contraindication: N/A - Med Ordered <Candy Chavez PA-C - Last Filed: 06/28/21 09:25>
[2021-06-28] MEDS: Famotidine/PF 20 MG/2 ML VIAL IVPUSH ×2 (09:35→22:44)
[2021-06-28] MEDS: Cyanocobalamin (Vitamin B-12) 1,000 MCG TABLET 1000 MCG PO (09:35)
[2021-06-28] MEDS: Valsartan 160 MG TABLET PO (09:35)
[2021-06-28] MEDS: hydroCHLOROthiazide 12.5 MG TABLET PO (09:35)
--- NOTE | 2021-06-28 10:52 | PC.NURSE ---
Pt A&Ox3, flat affect, urine noted to be pink hued in color using pure wick, pure wick changed with AM care. MD made aware of urine, plan for UA. Pt offers no complaints of pain at this time. Medicated as per MAR orders. Plan for ERCP later today, NPO since yesterday. Call carranza within reach, will continue to monitor.
[2021-06-28 11:45] LABS: Appearance Urine CLEAR; Color Urine DK YELLOW; Glucose Urine UA NEG (NEG); Leukocyte Esterase Urine NEG (NEG); Nitrite Urine NEG (NEG); Specific Gravity - Urine >= 1.030 (1.005-1.025); Urine Blood NEG (NEG); Urine Ketones 15 MG/DL (NEG); Urine Protein TRACE MG/DL (NEG-TRACE)
[2021-06-28 12:26] LABS: Glucose, Whole Blood 169 mg/dL (60-115)
[2021-06-28] MEDS: 0.9 % Sodium Chloride 1,000 ML 100 ML IVCONT (13:48)
[2021-06-28 18:00] LABS: Glucose, Whole Blood 163 mg/dL (60-115)
--- NOTE | 2021-06-28 18:06 | PM.EVENT ---
Event Note Date of Service: 06/28/21 Event Note: Patient seen and examined Says she is comfortable Some tenderness with deep palpation the right upper quadrant No fever MRCP done earlier - no obvious CBD stones, question of Mirrizzi's syndrome (?)to explain elevated bilirubin She continues to look well Repeat LFTs tomorrow as well as CBC Continue antibiotics for now Okay to have clear liquids Discussed with patient and her
[2021-06-28 18:25] VITALS: BP 162/76; PULSE 80; RESP 15; O2SAT 92
--- NOTE | 2021-06-28 20:03 | PC.NURSE ---
Assumed care of pt at 1900. Pt awake and alert, in NAD. Attempted to call report to inpatient RN, awaiting call back.
--- NOTE | 2021-06-28 20:35 | PC.NURSE ---
Report called to inpatient RN. Pt to floor via wc in stable condition w/ all belongings
[2021-06-28 21:11] VITALS: BP 185/89; PULSE 85; RESP 18; TEMP 37.1; O2SAT 94
[2021-06-28 21:20] LABS: Glucose, Whole Blood 187 mg/dL (60-115)
[2021-06-28] MEDS: Morphine Sulfate 4 MG/ML CARTRIDGE IVPUSH (21:40)
[2021-06-28] MEDS: Pravastatin Sodium 40 MG TABLET PO (22:44)
[2021-06-29] VITALS (7 sets, daily range): BP systolic 167–180; BP diastolic 72–84; PULSE 78–86; RESP 18; TEMP 36.1–37.1; O2SAT 93–98
[2021-06-29] MEDS: 0.9 % Sodium Chloride 1,000 ML 100 ML IVCONT ×2 (02:01→14:22)
[2021-06-29] MEDS: Piperacillin Sodium/Tazobactam 3.375 GM in 0.9 % Sodium Chloride 50 ML IV ×4 (02:04→19:59)
[2021-06-29 07:30] LABS: Hemoglobin 11.5 g/dl (12.0-16.0); Mean Corpuscular HGB Conc 32.9 g/dl (31.0-35.0); Mean Corpuscular Hemoglobin 30.6 pg (27.0-33.0); Mean Corpuscular Volume 93.1 fL (80.0-98.0); Mean Platelet Volume 9.3 fL (9.4-12.3); Platelet Count 273 X10*3/uL (160-400); Red Blood Count 3.76 X10*6/uL (4.20-5.50); Red Cell Distribution Width 12.8 % (11.0-16.0); White Blood Count 10.4 X10*3/uL (4.8-10.8)
[2021-06-29 07:34] LABS: INTERNATIONAL NORM RATIO 1.2 (0.9-1.1); Prothrombin Time 13.5 SEC (9.9-13.0)
[2021-06-29 07:48] LABS: Glucose, Whole Blood 142 mg/dL (60-115)
[2021-06-29 07:50] LABS: Alanine Aminotransferase 92 U/L (0-31); Albumin Level 3.3 g/dL (3.5-5.0); Alkaline Phosphatase 153 U/L (39-117); Anion Gap 12 (12-20); Aspartate Amino Transferase 51 U/L (5-31); Bilirubin Direct 1.1 mg/dL (0.0-0.5); Bilirubin Total 1.5 mg/dL (0.0-1.0); Blood Urea Nitrogen 15 mg/dL (9-16); Carbon Dioxide 25 mmol/L (22-29); Chloride 108 mmol/L (96-108); Creatinine Clr Calc Pharmacy 79.8; Estimated Glomerular Filt Rate > 60; Glucose Random 155 mg/dL (60-115); Potassium 3.8 mmol/L (3.3-5.1); Sodium 141 mmol/L (135-145)
[2021-06-29] MEDS: hydroCHLOROthiazide 12.5 MG TABLET PO (08:45)
[2021-06-29] MEDS: Famotidine/PF 20 MG/2 ML VIAL IVPUSH ×2 (08:45→19:59)
[2021-06-29] MEDS: Valsartan 160 MG TABLET PO (08:45)
[2021-06-29] MEDS: Cyanocobalamin (Vitamin B-12) 1,000 MCG TABLET 1000 MCG PO (08:45)
[2021-06-29] MEDS: 0.9 % Sodium Chloride Flush 3 ML SYRINGE IVFLUSH ×2 (08:45→17:01)
--- NOTE | 2021-06-29 09:17 | PM.PNGS ---
Subjective Subjective Date of Service: 06/29/21 Interval history: She states that she continues to feel better Still with some tenderness but improved No fever Physical Exam Vital Signs: Vital Signs: Last Vital Signs Temp 97 F 06/29/21 07:19 Pulse 81 06/29/21 07:19 Resp 18 06/29/21 07:19 BP 168/79 H 06/29/21 07:19 Pulse Ox 98 06/29/21 07:19 BMI result Body Mass Index 27.3 Const: General: healthy appearing, comfortable and no acute distress Resp: Effort & Inspection: normal respiratory effort Cardio: Rate: regular rate GI: Other: Soft, nondistended, no guarding rebound, mild tenderness on deep palpation on the right upper quadrant Objective Data Active Medications Cyanocobalamin (Cyanocobalamin (Vitamin B-12) 1,000 Mcg Tablet) 1,000 mcg PO DAILY [facility] Last Admin: 06/29/21 08:45 Dose: 1,000 mcg Documented by: ROBERTO Dextrose (Dextrose 50 % 25 Gm/50 Ml Syringe) 25 gm IVPUSH Q15M PRN; Protocol PRN Reason: per Hypoglycemia Standing Ord. Famotidine (Famotidine/Pf 20 Mg/2 Ml Vial) 20 mg IVPUSH BID [facility] Last Admin: 06/29/21 08:45 Dose: 20 mg Documented by: ROBERTO Glucose (Glucose Gel 15 Gm Gel..Gram.) 15 gm PO Q15M PRN; Protocol PRN Reason: per Hypoglycemia Standing Ord. Hydrochlorothiazide (Hydrochlorothiazide 12.5 Mg Tablet) 12.5 mg PO DAILY [facility]; Protocol Last Admin: 06/29/21 08:45 Dose: 12.5 mg Documented by: ROBERTO Sodium Chloride (Ns) 1,000 mls @ 100 mls/hr IVCONT .Q10H [facility] Last Admin: 06/29/21 02:01 Dose: 100 mls/hr Documented by: KEILA Piperacillin Sod/Tazobactam (Sod 3.375 gm/ Sodium Chloride) 50 mls @ 100 mls/hr IV Q6H [facility] Last Admin: 06/29/21 08:44 Dose: 100 mls/hr Documented by: ROBERTO Acetaminophen (Ofirmev) 1,000 mg in 100 mls @ 400 mls/hr IV Q6H PRN PRN Reason: Pain, Mild (Pain Scale 1-3) Insulin Human Lispro (Insulin Lispro 100 Unit/Ml 3 Ml Vial) 0 unit SUBCUT QIDACHS [facility]; Protocol Last Admin: 06/29/21 08:45 Dose: Not Given Documented by: ROBERTO Non-Admin Reason: No Insulin Coverage Morphine Sulfate (Morphine Sulfate 4 Mg/Ml Cartridge) 4 mg IVPUSH Q4H PRN; Protocol PRN Reason: Pain, Severe (Pain Scale 7-10) Last Admin: 06/28/21 21:40 Dose: 4 mg Documented by: KEILA Ondansetron HCl (Ondansetron Hcl 4 Mg/2 Ml Vial) 4 mg IVPUSH Q8H PRN PRN Reason: Nausea and Vomiting Pravastatin Sodium (Pravastatin Sodium 40 Mg Tablet) 40 mg PO BEDTIME [facility] Last Admin: 06/28/21 22:44 Dose: 40 mg Documented by: KEILA Sodium Chloride (0.9 % Sodium Chloride Flush 3 Ml Syringe) 3 ml IVFLUSH QSHIFT [facility] Last Admin: 06/29/21 08:45 Dose: 3 ml Documented by: ROBERTO Valsartan (Valsartan 160 Mg Tablet) 160 mg PO DAILY [facility] Last Admin: 06/29/21 08:45 Dose: 160 mg Documented by: ROBERTO Labs CBC & Chem 7: 06/29/21 07:08 06/29/21 07:08 Labs: Laboratory Results - last 24 hr 06/28/21 06/28/21 06/28/21 10:59 12:23 17:56 MCV MCH MCHC RDW Plt Count MPV Absolute Nucleated RBC Nucleated RBC % (auto) PT INR Anion Gap Estim Creat Clear Calc Estimated GFR POC Glucose 169 H 163 H Random Glucose Calcium Total Bilirubin Direct Bilirubin AST ALT Alkaline Phosphatase Total Protein Albumin Urine Color DK YELLOW Urine Appearance CLEAR Urine pH 6.0 Ur Specific Campbell >= 1.030 H Urine Protein TRACE Urine Glucose (UA) NEG Urine Ketones 15 Urine Blood NEG Urine Nitrite NEG Ur Leukocyte Esterase NEG 06/28/21 06/29/21 06/29/21 21:14 07:04 07:08 MCV MCH MCHC RDW Plt Count MPV Absolute Nucleated RBC Nucleated RBC % (auto) PT INR Anion Gap 12 Estim Creat Clear Calc 79.8 Estimated GFR > 60 POC Glucose 187 H 142 H Random Glucose 155 H Calcium 9.0 Total Bilirubin 1.5 H Direct Bilirubin 1.1 H AST 51 H ALT 92 H Alkaline Phosphatase 153 H Total Protein 6.0 L Albumin 3.3 L Urine Color Urine Appearance Urine pH Ur Specific Campbell Urine Protein Urine Glucose (UA) Urine Ketones Urine Blood Urine Nitrite Ur Leukocyte Esterase 06/29/21 06/29/21 07:08 07:08 MCV 93.1 MCH 30.6 MCHC 32.9 RDW 12.8 Plt Count 273 MPV 9.3 L Absolute Nucleated RBC 0.000 Nucleated RBC % (auto) 0.0 PT 13.5 H INR 1.2 H Anion Gap Estim Creat Clear Calc Estimated GFR POC Glucose Random Glucose Calcium Total Bilirubin Direct Bilirubin AST ALT Alkaline Phosphatase Total Protein Albumin Urine Color Urine Appearance Urine pH Ur Specific Campbell Urine Protein Urine Glucose (UA) Urine Ketones Urine Blood Urine Nitrite Ur Leukocyte Esterase Microbiology Microbiology Results: Microbiology 06/27/21 01:13 Blood Culture - Preliminary Blood - Venous No growth after 48 hours. 06/27/21 01:13 Blood Culture - Preliminary Blood - Venous No growth after 48 hours. Procedures Date of Service Date of Service: 06/29/21 Progress Note: A&P Assessment and plan (1) Acute cholecystitis: Status: Acute (2) Elevated bilirubin: Status: Acute Assessment and Plan: MRCP does not show obvious CBD stones Bilirubin much improved Clinical course suggests passage of stones to the common bile duct Pain and tenderness have improved significantly WBC down to normal Will discuss option of proceeding with laparoscopic cholecystectomy as an inpatient GI consult Fall Risk Details Current Medications: Current Medications Cyanocobalamin (Cyanocobalamin (Vitamin B-12) 1,000 Mcg Tablet) 1,000 mcg PO DAILY [facility] Last Admin: 06/29/21 08:45 Dose: 1,000 mcg Documented by: Dextrose (Dextrose 50 % 25 Gm/50 Ml Syringe) 25 gm IVPUSH Q15M PRN; Protocol PRN Reason: per Hypoglycemia Standing Ord. Famotidine (Famotidine/Pf 20 Mg/2 Ml Vial) 20 mg IVPUSH BID [facility] Last Admin: 06/29/21 08:45 Dose: 20 mg Documented by: Glucose (Glucose Gel 15 Gm Gel..Gram.) 15 gm PO Q15M PRN; Protocol PRN Reason: per Hypoglycemia Standing Ord. Hydrochlorothiazide (Hydrochlorothiazide 12.5 Mg Tablet) 12.5 mg PO DAILY [facility]; Protocol Last Admin: 06/29/21 08:45 Dose: 12.5 mg Documented by: Sodium Chloride (Ns) 1,000 mls @ 100 mls/hr IVCONT .Q10H [facility] Last Admin: 06/29/21 02:01 Dose: 100 mls/hr Documented by: Piperacillin Sod/Tazobactam (Sod 3.375 gm/ Sodium Chloride) 50 mls @ 100 mls/hr IV Q6H [facility] Last Admin: 06/29/21 08:44 Dose: 100 mls/hr Documented by: Acetaminophen (Ofirmev) 1,000 mg in 100 mls @ 400 mls/hr IV Q6H PRN PRN Reason: Pain, Mild (Pain Scale 1-3) Insulin Human Lispro (Insulin Lispro 100 Unit/Ml 3 Ml Vial) 0 unit SUBCUT QIDACHS [facility]; Protocol Last Admin: 06/29/21 08:45 Dose: Not Given Documented by: Morphine Sulfate (Morphine Sulfate 4 Mg/Ml Cartridge) 4 mg IVPUSH Q4H PRN; Protocol PRN Reason: Pain, Severe (Pain Scale 7-10) Last Admin: 06/28/21 21:40 Dose: 4 mg Documented by: Ondansetron HCl (Ondansetron Hcl 4 Mg/2 Ml Vial) 4 mg IVPUSH Q8H PRN PRN Reason: Nausea and Vomiting Pravastatin Sodium (Pravastatin Sodium 40 Mg Tablet) 40 mg PO BEDTIME [facility] Last Admin: 06/28/21 22:44 Dose: 40 mg Documented by: Sodium Chloride (0.9 % Sodium Chloride Flush 3 Ml Syringe) 3 ml IVFLUSH QSHIFT [facility] Last Admin: 06/29/21 08:45 Dose: 3 ml Documented by: Valsartan (Valsartan 160 Mg Tablet) 160 mg PO DAILY [facility] Last Admin: 06/29/21 08:45 Dose: 160 mg Documented by: Time Spent With Patient Time: Total time spent is greater than 50% in coordination of care (as documented) at patient's floor/unit and/or counseling patient: Time with patient: 15 - 24 minutes Quality Stroke Does the patient have a stroke diagnosis?: No VTE Prior VTE?: No VTE Risk Level:: Surgical - low VTE Device Contraindication: N/A - Device Ordered VTE Drug Contraindication: N/A - Med Ordered
[2021-06-29 11:39] LABS: Glucose, Whole Blood 231 mg/dL (60-115)
--- NOTE | 2021-06-29 15:45 | MHC.CM.PN ---
EMR REVIEWED, PER SURGICAL PT OKAYED FOR CLEAR LIQUIDS, PLAN FOR REPEAT LABS IN AM AND GI CONSULT TO DETERMINE IF SHE WILL HAVE A LAP CHOLEY WHILE INPT, NO D/C PLANNED FOR TODAY. CM MET W/PT WHO REPORTS SHE DOES NOT NEED VNA HOWEVER IS OKAY W/VNA SERVICES IF RECOMMENDED BY HOSPITALIST OR SURGEON, CM WILL CONT TO FOLLOW D/C NEEDS.
[2021-06-29 15:56] LABS: Glucose, Whole Blood 211 mg/dL (60-115)
--- NOTE | 2021-06-29 16:23 | PM.EVENT ---
Event Note Date of Service: 06/30/21 Event Note: She continues to feel better although with some mild pain in the right upper quadrant Abdomen soft, some tenderness in right upper quadrant WBC normal LFTs much improved Clinical course suggestive of excision of stone to the common bile duct MRI does not show any CBD stones Explained to patient we can do cholecystectomy tomorrow to prevent future recurrences Reviewed technique of laparoscopic cholecystectomy, possible open cholecystectomy Explained risks including but not limited to bleeding, infections, injury to other organs including bowel, liver, bile duct, pneumonia, inherent risks of anesthesia, as well as the benefits and alternatives Discussed with Baljinder Will repeat LFTs tomorrow Scheduled for lap shyann tomorrow Await GI input
[2021-06-29] MEDS: Morphine Sulfate 4 MG/ML CARTRIDGE IVPUSH (17:01)
[2021-06-29 19:47] LABS: Glucose, Whole Blood 255 mg/dL (60-115)
[2021-06-29] MEDS: Pravastatin Sodium 40 MG TABLET PO (19:59)
[2021-06-29] MEDS: Insulin Lispro 100 UNIT/ML 3 ML VIAL SUBCUT (20:00)
[2021-06-30] VITALS (12 sets, daily range): BP systolic 148–200; BP diastolic 68–94; PULSE 70–83; RESP 15–89; TEMP 36.5–37.3; O2SAT 91–98
[2021-06-30] MEDS: 0.9 % Sodium Chloride 1,000 ML 100 ML IVCONT (00:28)
[2021-06-30] MEDS: Piperacillin Sodium/Tazobactam 3.375 GM in 0.9 % Sodium Chloride 50 ML IV ×3 (02:09→19:21)
[2021-06-30 07:13] LABS: Alanine Aminotransferase 63 U/L (0-31); Albumin Level 3.1 g/dL (3.5-5.0); Alkaline Phosphatase 131 U/L (39-117); Aspartate Amino Transferase 21 U/L (5-31); Bilirubin Direct 0.7 mg/dL (0.0-0.5); Total Protein 5.6 g/dL (6.5-8.0)
[2021-06-30 07:37] LABS: Glucose, Whole Blood 133 mg/dL (60-115)
[2021-06-30] MEDS: hydroCHLOROthiazide 12.5 MG TABLET PO (09:05)
[2021-06-30] MEDS: Valsartan 160 MG TABLET PO (09:05)
[2021-06-30] MEDS: Famotidine/PF 20 MG/2 ML VIAL IVPUSH ×2 (09:05→21:50)
[2021-06-30] MEDS: Morphine Sulfate 4 MG/ML CARTRIDGE IVPUSH ×2 (09:13→19:23)
--- NOTE | 2021-06-30 09:28 | PM.PNGS ---
Subjective Subjective Date of Service: 06/30/21 Interval history: Says she continues to feel better No significant pain although she says she feels tenderness when she presses on her right upper quadrant No fever Physical Exam Vital Signs: Vital Signs: Last Vital Signs Temp 98.6 F 06/30/21 07:19 Pulse 83 06/30/21 07:19 Resp 17 06/30/21 07:19 BP 180/91 H 06/30/21 07:19 Pulse Ox 95 06/30/21 07:19 BMI result Body Mass Index 27.3 Const: General: comfortable and no acute distress Eyes: Sclerae: sclerae normal Resp: Effort & Inspection: normal respiratory effort Cardio: Rate: regular rate GI: Other: Mild tenderness to deep palpation right upper quadrant Palpation (GI): Soft to palpation, not firm and no guarding Objective Data Active Medications Cyanocobalamin (Cyanocobalamin (Vitamin B-12) 1,000 Mcg Tablet) 1,000 mcg PO DAILY [facility] Last Admin: 06/30/21 09:05 Dose: Not Given Documented by: ROBERTO Non-Admin Reason: NPO Dextrose (Dextrose 50 % 25 Gm/50 Ml Syringe) 25 gm IVPUSH Q15M PRN; Protocol PRN Reason: per Hypoglycemia Standing Ord. Famotidine (Famotidine/Pf 20 Mg/2 Ml Vial) 20 mg IVPUSH BID [facility] Last Admin: 06/30/21 09:05 Dose: 20 mg Documented by: ROBERTO Glucose (Glucose Gel 15 Gm Gel..Gram.) 15 gm PO Q15M PRN; Protocol PRN Reason: per Hypoglycemia Standing Ord. Hydrochlorothiazide (Hydrochlorothiazide 12.5 Mg Tablet) 12.5 mg PO DAILY [facility]; Protocol Last Admin: 06/30/21 09:05 Dose: 12.5 mg Documented by: ROBERTO Piperacillin Sod/Tazobactam (Sod 3.375 gm/ Sodium Chloride) 50 mls @ 100 mls/hr IV Q6H [facility] Last Admin: 06/30/21 09:06 Dose: 100 mls/hr Documented by: ROBERTO Acetaminophen (Ofirmev) 1,000 mg in 100 mls @ 400 mls/hr IV Q6H PRN PRN Reason: Pain, Mild (Pain Scale 1-3) Cefotetan Disodium 2 gm/ (Sodium Chloride) 50 mls @ 100 mls/hr IV PREOP ONE Stop: 06/30/21 14:41 Insulin Human Lispro (Insulin Lispro 100 Unit/Ml 3 Ml Vial) 0 unit SUBCUT QIDACHS [facility]; Protocol Last Admin: 06/30/21 09:01 Dose: Not Given Documented by: ROBERTO Non-Admin Reason: No Insulin Coverage Morphine Sulfate (Morphine Sulfate 4 Mg/Ml Cartridge) 4 mg IVPUSH Q4H PRN; Protocol PRN Reason: Pain, Severe (Pain Scale 7-10) Last Admin: 06/30/21 09:13 Dose: 4 mg Documented by: ROBERTO Ondansetron HCl (Ondansetron Hcl 4 Mg/2 Ml Vial) 4 mg IVPUSH Q8H PRN PRN Reason: Nausea and Vomiting Pravastatin Sodium (Pravastatin Sodium 40 Mg Tablet) 40 mg PO BEDTIME [facility] Last Admin: 06/29/21 19:59 Dose: 40 mg Documented by: GE Sodium Chloride (0.9 % Sodium Chloride Flush 3 Ml Syringe) 3 ml IVFLUSH QSHIFT [facility] Last Admin: 06/30/21 09:02 Dose: Not Given Documented by: ROBERTO Non-Admin Reason: IV Running Valsartan (Valsartan 160 Mg Tablet) 160 mg PO DAILY [facility] Last Admin: 06/30/21 09:05 Dose: 160 mg Documented by: ROBERTO Labs CBC & Chem 7: 06/29/21 07:08 06/29/21 07:08 Labs: Laboratory Results - last 24 hr 06/29/21 06/29/21 06/29/21 11:32 15:48 19:36 POC Glucose 231 H 211 H 255 H Total Bilirubin Direct Bilirubin AST ALT Alkaline Phosphatase Total Protein Albumin 06/30/21 06/30/21 05:51 07:33 POC Glucose 133 H Total Bilirubin 1.0 Direct Bilirubin 0.7 H AST 21 D ALT 63 H Alkaline Phosphatase 131 H Total Protein 5.6 L Albumin 3.1 L Microbiology Microbiology Results: Microbiology 06/27/21 01:13 Blood Culture - Preliminary Blood - Venous No growth after 48 hours. 06/27/21 01:13 Blood Culture - Preliminary Blood - Venous No growth after 48 hours. Procedures Date of Service Date of Service: 06/30/21 Progress Note: A&P Assessment and plan (1) Acute cholecystitis: Status: Acute Assessment and Plan: Bilirubin normal Likely may have passed a stone as suggested by clinical course with decrease in bilirubin She wants to proceed with laparoscopic cholecystectomy as an inpatient I reviewed with her the technique of this procedure. I explained the risks including but not limited to bleeding, infections, bowel injury, injury to the liver and the bile duct, as well as the benefits and alternatives I have discussed the plan as well with her Fall Risk Details Current Medications: Current Medications Cyanocobalamin (Cyanocobalamin (Vitamin B-12) 1,000 Mcg Tablet) 1,000 mcg PO DAILY [facility] Last Admin: 06/30/21 09:05 Dose: Not Given Documented by: Dextrose (Dextrose 50 % 25 Gm/50 Ml Syringe) 25 gm IVPUSH Q15M PRN; Protocol PRN Reason: per Hypoglycemia Standing Ord. Famotidine (Famotidine/Pf 20 Mg/2 Ml Vial) 20 mg IVPUSH BID [facility] Last Admin: 06/30/21 09:05 Dose: 20 mg Documented by: Glucose (Glucose Gel 15 Gm Gel..Gram.) 15 gm PO Q15M PRN; Protocol PRN Reason: per Hypoglycemia Standing Ord. Hydrochlorothiazide (Hydrochlorothiazide 12.5 Mg Tablet) 12.5 mg PO DAILY [facility]; Protocol Last Admin: 06/30/21 09:05 Dose: 12.5 mg Documented by: Piperacillin Sod/Tazobactam (Sod 3.375 gm/ Sodium Chloride) 50 mls @ 100 mls/hr IV Q6H [facility] Last Admin: 06/30/21 09:06 Dose: 100 mls/hr Documented by: Acetaminophen (Ofirmev) 1,000 mg in 100 mls @ 400 mls/hr IV Q6H PRN PRN Reason: Pain, Mild (Pain Scale 1-3) Cefotetan Disodium 2 gm/ (Sodium Chloride) 50 mls @ 100 mls/hr IV PREOP ONE Stop: 06/30/21 14:41 Insulin Human Lispro (Insulin Lispro 100 Unit/Ml 3 Ml Vial) 0 unit SUBCUT QIDACHS [facility]; Protocol Last Admin: 06/30/21 09:01 Dose: Not Given Documented by: Morphine Sulfate (Morphine Sulfate 4 Mg/Ml Cartridge) 4 mg IVPUSH Q4H PRN; Protocol PRN Reason: Pain, Severe (Pain Scale 7-10) Last Admin: 06/30/21 09:13 Dose: 4 mg Documented by: Ondansetron HCl (Ondansetron Hcl 4 Mg/2 Ml Vial) 4 mg IVPUSH Q8H PRN PRN Reason: Nausea and Vomiting Pravastatin Sodium (Pravastatin Sodium 40 Mg Tablet) 40 mg PO BEDTIME [facility] Last Admin: 06/29/21 19:59 Dose: 40 mg Documented by: Sodium Chloride (0.9 % Sodium Chloride Flush 3 Ml Syringe) 3 ml IVFLUSH QSHIFT [facility] Last Admin: 06/30/21 09:02 Dose: Not Given Documented by: Valsartan (Valsartan 160 Mg Tablet) 160 mg PO DAILY [facility] Last Admin: 06/30/21 09:05 Dose: 160 mg Documented by: Time Spent With Patient Time: Total time spent is greater than 50% in coordination of care (as documented) at patient's floor/unit and/or counseling patient: Time with patient: 15 - 24 minutes Quality Stroke Does the patient have a stroke diagnosis?: No VTE Prior VTE?: No VTE Risk Level:: Surgical - low VTE Device Contraindication: N/A - Device Ordered VTE Drug Contraindication: N/A - Med Ordered
--- NOTE | 2021-06-30 10:46 | P.CONAN_ITS ---
[facility] Active Problems Active Problems: All Active Problems (Updated 06/28/21 @ 09:22 by Candy Chavez PA-C) Elevated bilirubin (Acute) Diverticulitis (Acute) Acute cholecystitis (Acute) Past Medical History Medical History Diabetes Hyperlipidemia Hypertension Parkinsonian features Social History Social History Household Members: Spouse Housing: House Do you presently have visiting nurse or other home services: No Patient Tobacco Use Status: Never used Tobacco service: No Current occupational status: unemployed Meds Allergies Allergy/AdvReac Type Severity Reaction Status Date / Time No Known Allergies Allergy Verified 06/27/21 00:29 Active Medications: Current Medications Cyanocobalamin (Cyanocobalamin (Vitamin B-12) 1,000 Mcg Tablet) 1,000 mcg PO DAILY [facility] Last Admin: 06/30/21 09:05 Dose: Not Given Documented by: Dextrose (Dextrose 50 % 25 Gm/50 Ml Syringe) 25 gm IVPUSH Q15M PRN; Protocol PRN Reason: per Hypoglycemia Standing Ord. Famotidine (Famotidine/Pf 20 Mg/2 Ml Vial) 20 mg IVPUSH BID [facility] Last Admin: 06/30/21 09:05 Dose: 20 mg Documented by: Glucose (Glucose Gel 15 Gm Gel..Gram.) 15 gm PO Q15M PRN; Protocol PRN Reason: per Hypoglycemia Standing Ord. Hydrochlorothiazide (Hydrochlorothiazide 12.5 Mg Tablet) 12.5 mg PO DAILY [facility]; Protocol Last Admin: 06/30/21 09:05 Dose: 12.5 mg Documented by: Piperacillin Sod/Tazobactam (Sod 3.375 gm/ Sodium Chloride) 50 mls @ 100 mls/hr IV Q6H [facility] Last Infusion: 06/30/21 10:34 Dose: Infused Documented by: Acetaminophen (Ofirmev) 1,000 mg in 100 mls @ 400 mls/hr IV Q6H PRN PRN Reason: Pain, Mild (Pain Scale 1-3) Cefotetan Disodium 2 gm/ (Sodium Chloride) 50 mls @ 100 mls/hr IV PREOP ONE Stop: 06/30/21 14:41 Insulin Human Lispro (Insulin Lispro 100 Unit/Ml 3 Ml Vial) 0 unit SUBCUT QIDACHS [facility]; Protocol Last Admin: 06/30/21 09:01 Dose: Not Given Documented by: Morphine Sulfate (Morphine Sulfate 4 Mg/Ml Cartridge) 4 mg IVPUSH Q4H PRN; Protocol PRN Reason: Pain, Severe (Pain Scale 7-10) Last Admin: 06/30/21 09:13 Dose: 4 mg Documented by: Ondansetron HCl (Ondansetron Hcl 4 Mg/2 Ml Vial) 4 mg IVPUSH Q8H PRN PRN Reason: Nausea and Vomiting Pravastatin Sodium (Pravastatin Sodium 40 Mg Tablet) 40 mg PO BEDTIME [facility] Last Admin: 06/29/21 19:59 Dose: 40 mg Documented by: Sodium Chloride (0.9 % Sodium Chloride Flush 3 Ml [facility]ringe) [facility] Admin: 06/30/21 09:02 Dose: Not Given Documented by: Valsartan (Valsartan 160 Mg Tablet) 160 mg PO DAILY [facility] Last Admin: 06/30/21 09:05 Dose: 160 mg Documented by: Home Medications Medication Instructions Recorded Confirmed Last Taken Type aspirin 81 mg 81 mg PO DAILY 06/27/21 06/27/21 06/26/21 History chewable tablet cyanocobalamin 1,000 mcg PO 06/27/21 06/27/21 06/26/21 History (vitamin B-12) DAILY 1,000 mcg tablet glipizide 2.5 mg 2.5 mg PO DAILY 06/27/21 06/27/21 06/26/21 History tablet, extended release 24 hr hydrochlorothiazi 12.5 mg PO DAILY 06/27/21 06/27/21 06/26/21 History de 12.5 mg tablet irbesartan 300 mg 300 mg PO DAILY 06/27/21 06/27/21 06/26/21 History tablet metformin 750 mg 750 mg PO DAILY 06/27/21 06/27/21 Unknown History tablet,extended release 24 hr pravastatin 40 mg 40 mg PO BEDTIME 06/27/21 06/27/21 06/26/21 History tablet sitagliptin 100 1 tab PO DAILY 06/27/21 06/27/21 06/26/21 History mg tablet (Januvia) Exam Exam Date and Time: June 30, 2021 1046 Height,Weight and Vital Signs: Height 5 ft 7 in Weight 79.379 kg Last Vital Signs Temp 98.6 F 06/30/21 07:19 Pulse 83 06/30/21 07:19 Resp 17 06/30/21 07:19 BP 180/91 H 06/30/21 07:19 Pulse Ox 95 06/30/21 07:19 Pertinent Lab Results Pertinent Lab Results: Laboratory Tests 06/27/21 06/27/21 06/27/21 01:02 01:02 01:02 WBC 14.2 H RBC 3.98 L Hgb 12.6 Hct 37.7 MCV 94.7 MCH 31.7 MCHC 33.4 RDW 12.7 Plt Count 261 MPV 9.3 L Immature Gran % (Auto) 0.3 Neut % (Auto) 84.3 H Lymph % (Auto) 9.5 L Boyd % (Auto) 5.4 Eos % (Auto) 0.1 Baso % (Auto) 0.4 Lymph # (Auto) 1.4 Boyd # (Auto) 0.8 Eos # (Auto) 0.0 Baso # (Auto) 0.1 Abs Immat Gran (auto) 0.04 H Absolute Neuts (auto) 11.9 H Absolute Nucleated RBC 0.000 Nucleated RBC % (auto) 0.0 PT INR Sodium 140 Potassium 4.3 Chloride 104 Carbon Dioxide 25 Anion Gap 15 BUN 14 Creatinine 0.79 Estim Creat Clear Calc 65.7 Estimated GFR > 60 POC Glucose Random Glucose 262 H Lactic Acid 1.5 Calcium 10.3 H Total Bilirubin 0.4 Direct Bilirubin AST 18 ALT 17 Alkaline Phosphatase 60 Total Protein 6.9 Albumin 4.0 Lipase 21 Urine Color Urine Appearance Urine pH Ur Specific Fluker Urine Protein Urine Glucose (UA) Urine Ketones Urine Blood Urine Nitrite Ur Leukocyte Esterase COVID-19 ([facility]) COVID-19 Clin Com 06/27/21 06/27/21 06/27/21 04:31 18:14 21:19 WBC RBC Hgb Hct MCV MCH MCHC RDW Plt Count MPV Immature Gran % (Auto) Neut % (Auto) Lymph % (Auto) Boyd % (Auto) Eos % (Auto) Baso % (Auto) Lymph # (Auto) Boyd # (Auto) Eos # (Auto) Baso # (Auto) Abs Immat Gran (auto) Absolute Neuts (auto) Absolute Nucleated RBC Nucleated RBC % (auto) PT INR Sodium Potassium Chloride Carbon Dioxide Anion Gap BUN Creatinine Estim Creat Clear Calc Estimated GFR POC Glucose 191 H 194 H Random Glucose Lactic Acid Calcium Total Bilirubin Direct Bilirubin AST ALT Alkaline Phosphatase Total Protein Albumin Lipase Urine Color Urine Appearance Urine pH Ur Specific Fluker Urine Protein Urine Glucose (UA) Urine Ketones Urine Blood Urine Nitrite Ur Leukocyte Esterase COVID-19 ([facility]) Negative COVID-19 Clin Com See Note 06/28/21 06/28/21 06/28/21 06:48 06:48 07:35 WBC 11.3 H RBC 3.87 L Hgb 12.0 Hct 36.5 L MCV 94.3 MCH 31.0 MCHC 32.9 RDW 12.9 Plt Count 275 MPV 9.4 Immature Gran % (Auto) Neut % (Auto) Lymph % (Auto) Boyd % (Auto) Eos % (Auto) Baso % (Auto) Lymph # (Auto) Boyd # (Auto) Eos # (Auto) Baso # (Auto) Abs Immat Gran (auto) Absolute Neuts (auto) Absolute Nucleated RBC 0.000 Nucleated RBC % (auto) 0.0 PT INR Sodium 143 Potassium 4.3 Chloride 109 H Carbon Dioxide 27 Anion Gap 11 L BUN 16 Creatinine 0.71 Estim Creat Clear Calc 73.1 Estimated GFR > 60 POC Glucose 181 H Random Glucose 217 H Lactic Acid Calcium 9.3 D Total Bilirubin 3.4 H Direct Bilirubin 2.9 H AST 135 H ALT 130 H Alkaline Phosphatase 153 H D Total Protein 6.1 L Albumin 3.4 L Lipase Urine Color Urine Appearance Urine pH Ur Specific Fluker Urine Protein Urine Glucose (UA) Urine Ketones Urine Blood Urine Nitrite Ur Leukocyte Esterase COVID-19 ([facility]) COVID-19 Clin Com 06/28/21 06/28/21 06/28/21 10:59 12:23 17:56 WBC RBC Hgb Hct MCV MCH MCHC RDW Plt Count MPV Immature Gran % (Auto) Neut % (Auto) Lymph % (Auto) Boyd % (Auto) Eos % (Auto) Baso % (Auto) Lymph # (Auto) Boyd # (Auto) Eos # (Auto) Baso # (Auto) Abs Immat Gran (auto) Absolute Neuts (auto) Absolute Nucleated RBC Nucleated RBC % (auto) PT INR Sodium Potassium Chloride Carbon Dioxide Anion Gap BUN Creatinine Estim Creat Clear Calc Estimated GFR POC Glucose 169 H 163 H Random Glucose Lactic Acid Calcium Total Bilirubin Direct Bilirubin AST ALT Alkaline Phosphatase Total Protein Albumin Lipase Urine Color DK YELLOW Urine Appearance CLEAR Urine pH 6.0 Ur Specific Fluker >= 1.030 H Urine Protein TRACE Urine Glucose (UA) NEG Urine Ketones 15 Urine Blood NEG Urine Nitrite NEG Ur Leukocyte Esterase NEG COVID-19 ([facility]) COVID-19 Clin Com 06/28/21 06/29/21 06/29/21 21:14 07:04 07:08 WBC RBC Hgb Hct MCV MCH MCHC RDW Plt Count MPV Immature Gran % (Auto) Neut % (Auto) Lymph % (Auto) Boyd % (Auto) Eos % (Auto) Baso % (Auto) Lymph # (Auto) Boyd # (Auto) Eos # (Auto) Baso # (Auto) Abs Immat Gran (auto) Absolute Neuts (auto) Absolute Nucleated RBC Nucleated RBC % (auto) PT INR Sodium 141 Potassium 3.8 Chloride 108 Carbon Dioxide 25 Anion Gap 12 BUN 15 Creatinine 0.65 Estim Creat Clear Calc 79.8 Estimated GFR > 60 POC Glucose 187 H 142 H Random Glucose 155 H Lactic Acid Calcium 9.0 Total Bilirubin 1.5 H Direct Bilirubin 1.1 H AST 51 H ALT 92 H Alkaline Phosphatase 153 H Total Protein 6.0 L Albumin 3.3 L Lipase Urine Color Urine Appearance Urine pH Ur Specific Fluker Urine Protein Urine Glucose (UA) Urine Ketones Urine Blood Urine Nitrite Ur Leukocyte Esterase COVID-19 ([facility]) COVID-19 Clin Com 06/29/21 06/29/21 06/29/21 07:08 07:08 11:32 WBC 10.4 RBC 3.76 L Hgb 11.5 L Hct 35.0 L MCV 93.1 MCH 30.6 MCHC 32.9 RDW 12.8 Plt Count 273 MPV 9.3 L Immature Gran % (Auto) Neut % (Auto) Lymph % (Auto) Boyd % (Auto) Eos % (Auto) Baso % (Auto) Lymph # (Auto) Boyd # (Auto) Eos # (Auto) Baso # (Auto) Abs Immat Gran (auto) Absolute Neuts (auto) Absolute Nucleated RBC 0.000 Nucleated RBC % (auto) 0.0 PT 13.5 H INR 1.2 H Sodium Potassium Chloride Carbon Dioxide Anion Gap BUN Creatinine Estim Creat Clear Calc Estimated GFR POC Glucose 231 H Random Glucose Lactic Acid Calcium Total Bilirubin Direct Bilirubin AST ALT Alkaline Phosphatase Total Protein Albumin Lipase Urine Color Urine Appearance Urine pH Ur Specific Fluker Urine Protein Urine Glucose (UA) Urine Ketones Urine Blood Urine Nitrite Ur Leukocyte Esterase COVID-19 ([facility]) COVID-19 [employer] 06/29/21 06/29/21 06/30/21 15:48 19:36 05:51 WBC RBC Hgb Hct MCV MCH MCHC RDW Plt Count MPV Immature Gran % (Auto) Neut % (Auto) Lymph % (Auto) Boyd % (Auto) Eos % (Auto) Baso % (Auto) Lymph # (Auto) Boyd # (Auto) Eos # (Auto) Baso # (Auto) Abs Immat Gran (auto) Absolute Neuts (auto) Absolute Nucleated RBC Nucleated RBC % (auto) PT INR Sodium Potassium Chloride Carbon Dioxide Anion Gap BUN Creatinine Estim Creat Clear Calc Estimated GFR POC Glucose 211 H 255 H Random Glucose Lactic Acid Calcium Total Bilirubin 1.0 Direct Bilirubin 0.7 H AST 21 D ALT 63 H Alkaline Phosphatase 131 H Total Protein 5.6 L Albumin 3.1 L Lipase Urine Color Urine Appearance Urine pH Ur Specific Fluker Urine Protein Urine Glucose (UA) Urine Ketones Urine Blood Urine Nitrite Ur Leukocyte Esterase COVID-19 ([facility]) COVID-[employer] 06/30/21 07:33 WBC RBC Hgb Hct MCV MCH MCHC RDW Plt Count MPV Immature Gran % (Auto) Neut % (Auto) Lymph % (Auto) Boyd % (Auto) Eos % (Auto) Baso % (Auto) Lymph # (Auto) Boyd # (Auto) Eos # (Auto) Baso # (Auto) Abs Immat Gran (auto) Absolute Neuts (auto) Absolute Nucleated RBC Nucleated RBC % (auto) PT INR Sodium Potassium Chloride Carbon Dioxide Anion Gap BUN Creatinine Estim Creat Clear Calc Estimated GFR POC Glucose 133 H Random Glucose Lactic Acid Calcium Total Bilirubin Direct Bilirubin AST ALT Alkaline Phosphatase Total Protein Albumin Lipase Urine Color Urine Appearance Urine pH Ur Specific Fluker Urine Protein Urine Glucose (UA) Urine Ketones Urine Blood Urine Nitrite Ur Leukocyte Esterase COVID-19 ([facility]ULFO) COVID-[employer] Airway Mallampati Class: II TM Dist: >3cm Neck ROM: Full Loose/Missing/Broken Teeth: No Heart: RRR Lungs: CTA Assessment and Plan Assessment Anesthesia Assessment: Anesthesia Plan Discussed and Chart Reviewed Final Anesthetic Review NPO: Yes ASA Class: II Final Preanesthetic Review: Meds/Allgs Chart Reviewed, Consent Obtained/Reviewed and Anes Risks/Benef Reviewed Patient Risk: Low Procedure Risk: Intermediate Anesthetic Plan Anesthetic Plan: GA Disposition: Standard PACU
[2021-06-30 12:16] LABS: Glucose, Whole Blood 131 mg/dL (60-115)
--- NOTE | 2021-06-30 14:36 | P.OP_ITS ---
Operative Note Operative Note Date of Service: 06/30/21 Narrative: Preop diagnosis: Acute cholecystitis, recent elevated bilirubin Postop diagnosis: Acute cholecystitis, with gallbladder hydrops, severe induration , edema and thickening of the gallbladder Procedure: Laparoscopic cholecystectomy Surgeon: Bobby Umana MD The patient is a 75 year female who had been initially admitted because of upper abdominal pain. A CT scan did suggest acute cholecystitis and possible diver ticulitis of the left part of the transverse colon. She had an ultrasound also suggested acute cholecystitis. She did not have left upper quadrant pain after repeat exam so it was decided that she will proceed with cholecystectomy. Her, she had a bump in her bilirubin status was canceled. This was followed and this had normalized this morning. We therefore pain to her that we can proceed with laparoscopic cholecystectomy and she wanted to proceed. She understood technique of the procedure. She aware of the risks, benefits, and alternatives. She was brought to the operating room placed supine on the table under general anesthesia via endotracheal tube. The abdomen is prepped and draped in the usual sterile fashion. A surgical time-out was done. The patient received Cefotan 2 g IV preoperatively I made a short supraumbilical incision using blade 15. And this carried down through the full-thickness skin subcutaneous fat down to the fascia. The fascia was incised. The peritoneum was entered. Through this incision a Dana port introduced. Pneumoperitoneum was introduced to a pressure of 15 mm hg. From here on the rest of procedure was done under vision with the laparoscope. With laparoscopic visualization, I proceeded to put a 5/12 mm port in the epigastric area below the subcostal margin through a small stab incision. 5 mm ports were also introduced through small stab incisions in the subcostal margin along the anterior axillary line and the midclavicular line. Graspers were placed through these working ports. The patient was placed in head-up and [id number] position Examination of the left upper quadrant showed that the gallbladder was markedly distended, and very edematous. We were unable to grasp this because of the marked distention so we had to decompressed with a needle. Clear fluid was aspirated had consistent with gallbladder hydrops. I was then able to apply a grasper at the fundus of the gallbladder and this was used used to retract the gallbladder cephalad. Another grasper was placed towards the parts of the gallbladder. Gallbladder is very edematous and congested. This was consistent with acute cholecystitis. There was note of a lot of indurated fat surrounding the neck of the gallbladder and tightening this to the liver edge. We had to carefully did dissect this with the [place] dissector to clear up the entire gallbladder wall anteriorly. We had to do a lot of dissection in the neck of the gallbladder into and this took an extended period of time because of the very indurated fatty areolar tissue surrounding this There was note of a lot of oozing encountered because of the acute inflammation as we have continued to dissect. Eventually, as able to clearly define the cystic duct along with its confluence with the neck of the gallbladder. There was also note of what appeared to be a thrombosed thin artery immediately adjacent to this. I continued to dissect the cystic duct to make sure that we had clearly define its confluence with the neck of the gallbladder. By doing so were able to achieve a critical view of the hepatocystic triangle been there were no other structures in this area that would represent the common bile duct or any other vital structure. We continued to bluntly dissect the area surrounding the inferior edge of the gallbladder as well as the ductal made sure that we had the anatomy well- defined. Once this was achieved, applied clips with 2 clips being applied distally the cystic duct was subtracted bleeding clips. The thin tubular structure next to this was also clipped and was transected between clips and was deemed to be the cystic artery Traction on the gallbladder wall away from the liver bed, I proceeded to continue to bluntly dissect the inferior edge of the gallbladder until was able to reach the interface of the gallbladder wall and the liver bed. We had to carefully divide and cauterized thick fibrous tissue representing part of the rind of the gallbladder to allow as to reach the interface of the gallbladder 1 liver bed. Eventually it as able to reach this interface and I used electrocautery to wide and incised the rind surrounding the gallbladder. There was very thick rind what we had to carefully separate from the gallbladder wall and we had to carefully define a plane of dissection between the gallbladder wall and the liver bed along this using a combination of blunt dissection with the tip of the spatula and the electrocautery itself. We continued to dissect and rise as we went along because of the persistent oozing on the inflammatory rind of the gallbladder as we dissected. We eventually reached the fundus and the entire gallbladder was completely from the liver bed. I retrieved the gallbladder through an endobag through the umbilical incision which we had to lengthen as well to allow as to extract the specimen I reinserted all ports and re-insufflated I examined the subhepatic space. There was note of a lot of clots from the earlier oozing which we suction out, and irrigated Four quadrants and there was no pathology seen. There is no evidence of any bowel injury or any bile leak I continued to observe the subhepatic space until hemostasis was ensured I suction out remaining all irrigant fluid I desufflated the port sites. I removed all ports under vision with the laparoscope. I removed the umbilical port last. The fascia of the incision was closed with a running Dexon 0 stitch Skin closure was achieved on all incisions using Dexon 4-0 subcuticular sutures. Steri-Strips and dressings were applied. All incisions were infiltrated with Marcaine 0.5% for postop analgesia. The procedure was then completed The patient tolerated well with no complication noted. Initial and final counts of sponges and instruments were correct. Estimated blood loss about 200 cc The patient was extubated without difficulty and transferred to the recovery room with stable vital signs.
[2021-06-30] MEDS: ondansetron HCL 4 MG/2 ML VIAL IVPUSH (14:57)
[2021-06-30] MEDS: Scopolamine 1.5 MG PATCH.TD.3 TRANSDERMA (14:57)
[2021-06-30] MEDS: fentaNYL citrate/PF 100 MCG/2 ML VIAL 50 MCG IVPUSH ×2 (15:10→15:22)
--- NOTE | 2021-06-30 15:32 | MHC.CLN ---
NUTRITION CONSULT FOR SKIN ISSUE. PATIENT WITH REDNESS TO ABDOMINAL FOLDS. NO OPEN PRESSURE INJURY. NO NEW NUTRITION INTERVENTIONS. FOLLOW FOR DIET ADVANCEMENT.
[2021-06-30] MEDS: hydrALAZINE HCl 20 MG/ML VIAL 5 MG IVPUSH ×2 (15:42→15:45)
[2021-06-30] MEDS: 0.9 % Sodium Chloride Flush 3 ML SYRINGE IVFLUSH (16:27)
[2021-06-30 16:36] LABS: Glucose, Whole Blood 157 mg/dL (60-115)
--- NOTE | 2021-06-30 16:42 | P.CONIM_ITS ---
History of Present Illness Data of Consult Service Date: 06/30/21 Requesting physician: Bobby Umana Primary Care Provider: Carla Constantino NP HPI Reason for consult: medical manegement- htn , dm 75-year-old female with past medical history of hypertension, borderline diabetes hyperlipidemia- she came to the hospital because of abdominal pain found to have elevated lft;s, acute cholecystitis status post laparoscopic surgery- medical management consult was called. Patient seen and examine still has abdominal soreness after the surgery, status post cholecystectomy, denies any nausea vomiting or fever or chills or cough or phlegm or weakness or numbness. lab imaging reviewed: LFTs improving MRCP seems negative for CBD stone but shows suspectedMirizzi syndrome.? abdominal ultrasound: Acute cholecystitis Review of Systems Verdana 4l Review of Systems: Verdana 4d as above. Verdana 4d Yes Verdana 4d all other systems are reviewed and are negative [facility] Medical History Diabetes Hyperlipidemia Hypertension Parkinsonian features Pertinent family history: Denies any family history of hypertension, diabetes. Social History Household Members: Spouse Housing: House Do you presently have visiting nurse or other home services: No Patient Tobacco Use Status: Never used Tobacco service: No Current occupational status: unemployed Meds Allergies Allergy/AdvReac Type Severity Reaction Status Date / Time No Known Allergies Allergy Verified 06/27/21 00:29 Active Medications: Current Medications Albuterol Sulfate (Albuterol Sulfate (0.083%) 2.5 Mg/3 Ml Vial.Neb) 2.5 mg INHALE ONCE PRN PRN Reason: Wheezing Cyanocobalamin (Cyanocobalamin (Vitamin B-12) 1,000 Mcg Tablet) 1,000 mcg PO DAILY [facility] Last Admin: 06/30/21 09:05 Dose: Not Given Documented by: Dextrose (Dextrose 50 % 25 Gm/50 Ml Syringe) 25 gm IVPUSH Q15M PRN; Protocol PRN Reason: per Hypoglycemia Standing Ord. Famotidine (Famotidine/Pf 20 Mg/2 Ml Vial) 20 mg IVPUSH BID [facility] Last Admin: 06/30/21 09:05 Dose: 20 mg Documented by: Fentanyl (Fentanyl Citrate/Pf 100 Mcg/2 Ml Vial) 50 mcg IVPUSH Q5M PRN; Protocol PRN Reason: Pain, Severe (Pain Scale 7-10) Last Admin: 06/30/21 15:22 Dose: 50 mcg Documented by: Fentanyl (Fentanyl Citrate/Pf 100 Mcg/2 Ml Vial) 25 mcg IVPUSH Q5M PRN; Protocol PRN Reason: Pain, Moderate (Pain Scale 4-6 Glucose (Glucose Gel 15 Gm Gel..Gram.) 15 gm PO Q15M PRN; Protocol PRN Reason: per Hypoglycemia Standing Ord. Hydrochlorothiazide (Hydrochlorothiazide 12.5 Mg Tablet) 12.5 mg PO DAILY [facility]; Protocol Last Admin: 06/30/21 09:05 Dose: 12.5 mg Documented by: Piperacillin Sod/Tazobactam (Sod 3.375 gm/ Sodium Chloride) 50 mls @ 100 mls/hr IV Q6H [facility] Last Admin: 06/30/21 15:34 Dose: Not Given Documented by: Insulin Human Lispro (Insulin Lispro 100 Unit/Ml 3 Ml Vial) 0 unit SUBCUT QIDACHS [facility]; Protocol Last Admin: 06/30/21 13:19 Dose: Not Given Documented by: Morphine Sulfate (Morphine Sulfate 4 Mg/Ml Cartridge) 4 mg IVPUSH Q4H PRN; Protocol PRN Reason: Pain, Severe (Pain Scale 7-10) Last Admin: 06/30/21 09:13 Dose: 4 mg Documented by: Ondansetron HCl (Ondansetron Hcl 4 Mg/2 Ml Vial) 4 mg IVPUSH Q8H PRN PRN Reason: Nausea and Vomiting Oxycodone HCl (Oxycodone Hcl Immed Release 5 Mg Tablet) 10 mg PO ONCE PRN PRN Reason: Pain, Severe (Pain Scale 7-10) Oxycodone HCl (Oxycodone Hcl Immed Release 5 Mg Tablet) 5 mg PO ONCE PRN PRN Reason: Pain, Severe (Pain Scale 7-10) Oxycodone HCl (Oxycodone Hcl Immed Release 5 Mg Tablet) 10 mg PO Q4H PRN PRN Reason: Pain, Moderate (Pain Scale 4-6 Pravastatin Sodium (Pravastatin Sodium 40 Mg Tablet) 40 mg PO BEDTIME [facility] Last Admin: 06/29/21 19:59 Dose: 40 mg Documented by: Sodium Chloride (0.9 % Sodium Chloride Flush 3 Ml Syringe) 3 ml IVFLUSH QSHIFT [facility] Last Admin: 06/30/21 16:27 Dose: 3 ml Documented by: Valsartan (Valsartan 160 Mg Tablet) 160 mg PO DAILY [facility] Last Admin: 06/30/21 09:05 Dose: 160 mg Documented by: Home Medications Medication Instructions Recorded Confirmed Last Taken Type aspirin 81 mg 81 mg PO DAILY 06/27/21 06/27/21 06/26/21 History chewable tablet cyanocobalamin 1,000 mcg PO 06/27/21 06/27/21 06/26/21 History (vitamin B-12) DAILY 1,000 mcg tablet glipizide 2.5 mg 2.5 mg PO DAILY 06/27/21 06/27/21 06/26/21 History tablet, extended release 24 hr hydrochlorothiazi 12.5 mg PO DAILY 06/27/21 06/27/21 06/26/21 History de 12.5 mg tablet irbesartan 300 mg 300 mg PO DAILY 06/27/21 06/27/21 06/26/21 History tablet metformin 750 mg 750 mg PO DAILY 06/27/21 06/27/21 Unknown History tablet,extended release 24 hr pravastatin 40 mg 40 mg PO BEDTIME 06/27/21 06/27/21 06/26/21 History tablet sitagliptin 100 1 tab PO DAILY 06/27/21 06/27/21 06/26/21 History mg tablet (Januvia) Physical Exam Verdana 4l Vital Signs and Narrative: Verdana 4d Verdana 4d Vital Signs: Verdana 4d Verdana 4Bd Last Vital Signs Verdana 4d Field Coil Winder New 4d Field Coil Winder New 4d Temp 98.2 F 06/30/21 16:19 Field Coil Winder New 4d Pulse 81 06/30/21 16:19 Field Coil Winder New 4d Resp 16 06/30/21 16:19 BP 149/72 H 06/30/21 16:19 Pulse Ox 98 06/30/21 16:19 BMI result Body Mass Index 27.3 Appearance: Alert.? Oriented X3.? not in distress.? Eyes: Pupils equal, round and reactive to light.? Sclera nonicteric.? ENT: Pharynx normal.? Moist mucous membranes. cvs: rrr, [id number] , no murmur res: clear to auscultation ,no rhonchii or wheezing abd: no rebound or guarding ,mild tenderness/soarness in opertion area, no er ythema or discharge, bs present. ext pulses present , no cyanosis ,Gait well balanced well coordinated. neuro: axo3 , nonfocal. Results Labs CBC and Chem 7: 06/29/21 07:08 06/29/21 07:08 Labs: Laboratory Results - last 24 hr 06/29/21 06/30/21 06/30/21 19:36 05:51 07:33 POC Glucose 255 H 133 H Total Bilirubin 1.0 Direct Bilirubin 0.7 H AST 21 D ALT 63 H Alkaline Phosphatase 131 H Total Protein 5.6 L Albumin 3.1 L Blood Type Antibody Screen Antibody Identification Antigen Identification Crossmatch (AHG) 06/30/21 06/30/21 06/30/21 09:22 11:41 16:32 POC Glucose 131 H 157 H Total Bilirubin Direct Bilirubin AST ALT Alkaline Phosphatase Total Protein Albumin Blood Type A Positive Antibody Screen POSITIVE Antibody Identification Anti-E Antigen Identification c Antigen - POSITIVE Crossmatch (AHG) See Detail Imaging Radiologist's Impressions: Impressions Chest X-Ray 06/30/21 11:08 IMPRESSION: Questionable hazy opacities in the left lower lobe in which developing infiltrate or aspiration cannot be excluded.. Assessment and Plan (1) Elevated bilirubin: Status: Acute (2) Acute cholecystitis: Status: Acute Plan 75-year-old female with past medical history of hypertension, borderline diabetes hyperlipidemia- she came to the hospital because of abdominal pain found to have elevated lft's,acute cholecystitis status post laparoscopic surgery. 1. acute Cholecystitis: status post surgery lap shyann Day 1 LFTs improving probably might have passed the stone says abdominal pain better than before continue Zosyn, pain control with morphine, p.r.n. Zofran for nausea. 2.htn: Continue home meds .hold hctz 3.dm : fs 100-150 fs with adjusted sliding scale coverage. 4. hlp: continue pravastatin DVT prophylaxis: scd as per primary team. patient management discussed with patient in detail length she understand and in agreement with the above plan, time spent 70 minute. Staff consult but euvolemic on the level of GI in on and and the no initial H&P or what hypertension diabetes cholesterol the II at the continued medication
--- NOTE | 2021-06-30 17:36 | PM.EVENT ---
Event Note Date of Service: 06/30/21 Event Note: seen postop underwent lap shyann for acute cholecystitis earlier seems to have good pain control awake looks well stable VS pain mgt Baljinder qureshi
[2021-06-30] MEDS: Insulin Lispro 100 UNIT/ML 3 ML VIAL SUBCUT (17:38)
[2021-06-30 20:09] LABS: Glucose, Whole Blood 150 mg/dL (60-115)
[2021-06-30] MEDS: Pravastatin Sodium 40 MG TABLET PO (21:50)
[2021-07-01] VITALS (9 sets, daily range): BP systolic 139–170; BP diastolic 67–90; PULSE 74–91; RESP 15–18; TEMP 36.3–37.5; O2SAT 92–98
[2021-07-01] MEDS: 0.9 % Sodium Chloride Flush 3 ML SYRINGE IVFLUSH ×3 (00:03→22:53)
[2021-07-01] MEDS: Piperacillin Sodium/Tazobactam 3.375 GM in 0.9 % Sodium Chloride 50 ML IV ×4 (01:59→22:52)
[2021-07-01] MEDS: Morphine Sulfate 4 MG/ML CARTRIDGE IVPUSH (04:40)
[2021-07-01] MEDS: oxyCODONE HCl Immed Release 5 MG TABLET 10 MG PO ×4 (06:50→17:31)
[2021-07-01] MEDS: Famotidine/PF 20 MG/2 ML VIAL IVPUSH ×2 (06:51→22:53)
[2021-07-01] MEDS: Cyanocobalamin (Vitamin B-12) 1,000 MCG TABLET 1000 MCG PO (06:51)
[2021-07-01] MEDS: Valsartan 160 MG TABLET PO (06:51)
--- NOTE | 2021-07-01 07:38 | P.PNIM_ITS ---
Subjective Subjective Date of Service: 07/01/21 Interval History: htn , dm, hlp Review of Systems abd pain seems mproving, eating breakfast this morning Physical Exam Verdana 4l Vital Signs: Verdana 4d Verdana 4d Vital Signs: Verdana 4d Verdana 4Bd Last Vital Signs Verdana 4d Brakes Inspector New 4d Brakes Inspector New 4d Temp 97.4 F 07/01/21 03:56 Brakes Inspector New 4d Pulse 74 07/01/21 03:56 Brakes Inspector New 4d Resp 18 07/01/21 03:56 BP 149/70 H 07/01/21 03:56 Pulse Ox 94 07/01/21 03:56 BMI result Body Mass Index 27.3 Appearance: Alert.? Oriented X3.? not in distress.? Eyes: Pupils equal, round and reactive to light.? Sclera nonicteric.? ENT: Pharynx normal.? Moist mucous membranes. cvs: rrr, [id number] , no murmur res: clear to auscultation ,no rhonchii or wheezing abd: no rebound or guarding ,mild tenderness/soarness seems improved , no erythema or discharge, bs present. ext pulses present , no cyanosis ,Gait well balanced well coordinated. neuro: axo3 , nonfocal. Objective Data Active Medications Albuterol Sulfate (Albuterol Sulfate (0.083%) 2.5 Mg/3 Ml Vial.Neb) 2.5 mg INHALE ONCE PRN PRN Reason: Wheezing Cyanocobalamin (Cyanocobalamin (Vitamin B-12) 1,000 Mcg Tablet) 1,000 mcg PO DAILY [facility] Last Admin: 07/01/21 06:51 Dose: 1,000 mcg Documented by: KOBI Dextrose (Dextrose 50 % 25 Gm/50 Ml Syringe) 25 gm IVPUSH Q15M PRN; Protocol PRN Reason: per Hypoglycemia Standing Ord. Dextrose (Dextrose 50 % 25 Gm/50 Ml Syringe) 25 gm IVPUSH Q15M PRN; Protocol PRN Reason: per Hypoglycemia Standing Ord. Famotidine (Famotidine/Pf 20 Mg/2 Ml Vial) 20 mg IVPUSH BID [facility] Last Admin: 07/01/21 06:51 Dose: 20 mg Documented by: KOBI Fentanyl (Fentanyl Citrate/Pf 100 Mcg/2 Ml Vial) 50 mcg IVPUSH Q5M PRN; Protocol PRN Reason: Pain, Severe (Pain Scale 7-10) Last Admin: 06/30/21 15:22 Dose: 50 mcg Documented by: MUNDO Fentanyl (Fentanyl Citrate/Pf 100 Mcg/2 Ml Vial) 25 mcg IVPUSH Q5M PRN; Protocol PRN Reason: Pain, Moderate (Pain Scale 4-6 Glucose (Glucose Gel 15 Gm Gel..Gram.) 15 gm PO Q15M PRN; Protocol PRN Reason: per Hypoglycemia Standing Ord. Glucose (Glucose Gel 15 Gm Gel..Gram.) 15 gm PO Q15M PRN; Protocol PRN Reason: per Hypoglycemia Standing Ord. Hydrochlorothiazide (Hydrochlorothiazide 12.5 Mg Tablet) 12.5 mg PO DAILY [facility]; Protocol Last Admin: 06/30/21 09:05 Dose: 12.5 mg Documented by: ROBERTO Piperacillin Sod/Tazobactam (Sod 3.375 gm/ Sodium Chloride) 50 mls @ 100 mls/hr IV Q6H [facility] Last Infusion: 07/01/21 07:25 Dose: 0 mls/hr Documented by: RAFAEL Insulin Human Lispro (Insulin Lispro 100 Unit/Ml 3 Ml Vial) 0 unit SUBCUT QIDACHS [facility]; Protocol Last Admin: 06/30/21 21:56 Dose: Not Given Documented by: JEANNIE Non-Admin Reason: No Insulin Coverage Morphine Sulfate (Morphine Sulfate 4 Mg/Ml Cartridge) 4 mg IVPUSH Q4H PRN; Protocol PRN Reason: Pain, Severe (Pain Scale 7-10) Last Admin: 07/01/21 04:40 Dose: 4 mg Documented by: JEANNIE Ondansetron HCl (Ondansetron Hcl 4 Mg/2 Ml Vial) 4 mg IVPUSH Q8H PRN PRN Reason: Nausea and Vomiting Oxycodone HCl (Oxycodone Hcl Immed Release 5 Mg Tablet) 5 mg PO ONCE PRN PRN Reason: Pain, Severe (Pain Scale 7-10) Oxycodone HCl (Oxycodone Hcl Immed Release 5 Mg Tablet) 10 mg PO Q4H PRN PRN Reason: Pain, Moderate (Pain Scale 4-6 Pravastatin Sodium (Pravastatin Sodium 40 Mg Tablet) 40 mg PO BEDTIME [facility] Last Admin: 06/30/21 21:50 Dose: 40 mg Documented by: HALLIERISEzekiel Sodium Chloride (0.9 % Sodium Chloride Flush 3 Ml Syringe) 3 ml IVFLUSH QSHIFT [facility] Last Admin: 07/01/21 06:51 Dose: Not Given Documented by: KOBI Non-Admin Reason: IV Running Valsartan (Valsartan 160 Mg Tablet) 160 mg PO DAILY [facility] Last Admin: 07/01/21 06:51 Dose: 160 mg Documented by: KOBI Labs CBC & Chem 7: 06/29/21 07:08 07/01/21 08:07 Labs: Laboratory Results - last 24 hr 06/30/21 06/30/21 06/30/21 09:22 11:41 16:32 POC Glucose 131 H 157 H Blood Type A Positive Antibody Screen POSITIVE Antibody Identification Anti-E Antigen Identification c Antigen - POSITIVE Crossmatch (AHG) See Detail 06/30/21 19:59 POC Glucose 150 H Blood Type Antibody Screen Antibody Identification Antigen Identification Crossmatch (AHG) Assessment and Plan (1) Elevated bilirubin: Status: Acute (2) Diverticulitis: Status: Acute (3) Acute cholecystitis: Status: Acute Plan 75-year-old female with past medical history of hypertension, borderline diabetes hyperlipidemia- she came to the hospital because of abdominal pain found to have elevated lft's,acute cholecystitis status post laparoscopic surgery. 1. acute ? Cholecystitis: ?status post surgery lap shyann? Day 2 ?LFTs improving probably might have passed the stone ?says abdominal pain better than before ?on Zosyn-further antiobiotics as per primary team , pain control with morphine, p.r.n. Zofran for nausea. 2.htn: ? Continue home meds .hold hctz 3.dm : fs 150-200 fs with? adjusted sliding scale coverage. 4.? hlp:? continue pravastatin ?DVT prophylaxis: scd as per primary team. ? will sign off now, please call us for any questions. above management discussed with the primary team in detail length. Quality Stroke Does the patient have a stroke diagnosis?: No VTE Prior VTE?: No VTE Risk Level:: Surgical - low VTE Device Contraindication: N/A - Device Ordered VTE Drug Contraindication: N/A - Med Ordered
--- NOTE | 2021-07-01 08:04 | P.PNGS_ITS ---
Subjective Subjective Date of Service: 07/01/21 <Candy Chavez PA-C - Last Filed: 07/01/21 08:11> 07/01/21 <Bobby Umana MD - Last Filed: 07/01/21 16:19> Interval history: Very sore this morning at incision sites. Awaiting analgesics this morning. Pre operative pain gone. Tolerating clears. Has not been OOB. <Candy Chavez PA-C - Last Filed: 07/01/21 08:11> Physical Exam Verdana 4l Vital Signs: Verdana 4d Verdana 4d Vital Signs: Verdana 4d Verdana 4Bd Last Vital Signs Verdana 4d Resin Mixer New 4d Resin Mixer New 4d Temp 97.4 F 07/01/21 03:56 Resin Mixer New 4d Pulse 74 07/01/21 03:56 Resin Mixer New 4d Resp 18 07/01/21 03:56 BP 149/70 H 07/01/21 03:56 Pulse Ox 94 07/01/21 03:56 BMI result Body Mass Index 27.3 <Candy Chavez PA-C - Last Filed: 07/01/21 08:11> Const: General: comfortable, no acute distress and alert <JEFERSON Garsia Last Filed: 07/01/21 08:11> Orientation/consciousness: patient oriented x3 <JEFERSON Garsia Last Filed: 07/01/21 08:11> Resp: Effort & Inspection: normal respiratory effort <Candy Chavez PA-C - Last Filed: 07/01/21 08:11> Cardio: Rate: regular rate <JEFERSON Garsia Last Filed: 07/01/21 08:11> GI: Inspection: No distended and Yes incision (dressings intact) <JEFERSON Garsia Last Filed: 07/01/21 08:11> Palpation (GI): Soft to palpation, Tenderness to palpation present (GI) (incisional), no guarding and not rigid <JEFERSON Garsia Last Filed: 07/01/21 08:11> Percussion: Yes normal to percussion <Candy Chavez PA-C - Last Filed: 07/01/21 08:11> Skin: General skin exam: no rashes or lesions noted <JEFERSON Garsia Last Filed: 07/01/21 08:11> Neuro: General: patient oriented x3 <JEFERSON Garsia Last Filed: 07/01/21 08:11> Extrem: General: Yes no clubbing, cyanosis or edema <Candy Chavez PA-C - Last Filed: 07/01/21 08:11> Objective Data Active Medications Albuterol Sulfate (Albuterol Sulfate (0.083%) 2.5 Mg/3 Ml Vial.Neb) 2.5 mg INHALE ONCE PRN PRN Reason: Wheezing Amlodipine Besylate (Amlodipine Besylate 10 Mg Tablet) 10 mg PO DAILY [facility]; Protocol Cyanocobalamin (Cyanocobalamin (Vitamin B-12) 1,000 Mcg Tablet) 1,000 mcg PO DAILY [facility] Last Admin: 07/01/21 06:51 Dose: 1,000 mcg Documented by: KOBI Dextrose (Dextrose 50 % 25 Gm/50 Ml Syringe) 25 gm IVPUSH Q15M PRN; Protocol PRN Reason: per Hypoglycemia Standing Ord. Dextrose (Dextrose 50 % 25 Gm/50 Ml Syringe) 25 gm IVPUSH Q15M PRN; Protocol PRN Reason: per Hypoglycemia Standing Ord. Famotidine (Famotidine/Pf 20 Mg/2 Ml Vial) 20 mg IVPUSH BID [facility] Last Admin: 07/01/21 06:51 Dose: 20 mg Documented by: KOBI Fentanyl (Fentanyl Citrate/Pf 100 Mcg/2 Ml Vial) 50 mcg IVPUSH Q5M PRN; Protocol PRN Reason: Pain, Severe (Pain Scale 7-10) Last Admin: 06/30/21 15:22 Dose: 50 mcg Documented by: MUNDO Fentanyl (Fentanyl Citrate/Pf 100 Mcg/2 Ml Vial) 25 mcg IVPUSH Q5M PRN; Protocol PRN Reason: Pain, Moderate (Pain Scale 4-6 Glucose (Glucose Gel 15 Gm Gel..Gram.) 15 gm PO Q15M PRN; Protocol PRN Reason: per Hypoglycemia Standing Ord. Glucose (Glucose Gel 15 Gm Gel..Gram.) 15 gm PO Q15M PRN; Protocol PRN Reason: per Hypoglycemia Standing Ord. Hydrochlorothiazide (Hydrochlorothiazide 12.5 Mg Tablet) 12.5 mg PO DAILY [facility]; Protocol Last Admin: 06/30/21 09:05 Dose: 12.5 mg Documented by: ROBERTO Piperacillin Sod/Tazobactam (Sod 3.375 gm/ Sodium Chloride) 50 mls @ 100 mls/hr IV Q6H [facility] Last Infusion: 07/01/21 07:25 Dose: 0 mls/hr Documented by: RAFAEL Insulin Human Lispro (Insulin Lispro 100 Unit/Ml 3 Ml Vial) 0 unit SUBCUT QIDACHS [facility]; Protocol Last Admin: 06/30/21 21:56 Dose: Not Given Documented by: JEANNIE Non-Admin Reason: No Insulin Coverage Morphine Sulfate (Morphine Sulfate 4 Mg/Ml Cartridge) 4 mg IVPUSH Q4H PRN; Protocol PRN Reason: Pain, Severe (Pain Scale 7-10) Last Admin: 07/01/21 04:40 Dose: 4 mg Documented by: JEANNIE Ondansetron HCl (Ondansetron Hcl 4 Mg/2 Ml Vial) 4 mg IVPUSH Q8H PRN PRN Reason: Nausea and Vomiting Oxycodone HCl (Oxycodone Hcl Immed Release 5 Mg Tablet) 5 mg PO ONCE PRN PRN Reason: Pain, Severe (Pain Scale 7-10) Oxycodone HCl (Oxycodone Hcl Immed Release 5 Mg Tablet) 10 mg PO Q4H PRN PRN Reason: Pain, Moderate (Pain Scale 4-6 Last Admin: 07/01/21 07:48 Dose: 10 mg Documented by: RAFAEL Pravastatin Sodium (Pravastatin Sodium 40 Mg Tablet) 40 mg PO BEDTIME [facility] Last Admin: 06/30/21 21:50 Dose: 40 mg Documented by: JEANNIE Sodium Chloride (0.9 % Sodium Chloride Flush 3 Ml Syringe) 3 ml IVFLUSH QSHIFT [facility] Last Admin: 07/01/21 06:51 Dose: Not Given Documented by: KOBI Non-Admin Reason: IV Running Valsartan (Valsartan 160 Mg Tablet) 160 mg PO DAILY [facility] Last Admin: 07/01/21 06:51 Dose: 160 mg Documented by: KOBI <Candy Chavez PA-C - Last Filed: 07/01/21 08:11> Labs CBC & Chem 7: : 06/29/21 07:08 07/01/21 08:07 <Candy Chavez PA-C - Last Filed: 07/01/21 08:11> Labs: Laboratory Results - last 24 hr 06/30/21 06/30/21 06/30/21 09:22 11:41 16:32 POC Glucose 131 H 157 H Blood Type A Positive Antibody Screen POSITIVE Antibody Identification Anti-E Antigen Identification c Antigen - POSITIVE Crossmatch (AHG) See Detail 06/30/21 19:59 POC Glucose 150 H Blood Type Antibody Screen Antibody Identification Antigen Identification Crossmatch (AHG) <Candy Chavez PA-C - Last Filed: 07/01/21 08:11> Procedures Date of Service Date of Service: 07/01/21 <Candy Chavez PA-C - Last Filed: 07/01/21 08:11> Progress Note: A&P Assessment and plan (1) Acute cholecystitis: Status: Acute <Candy Chavez PA-C - Last Filed: 07/01/21 08:11> Assessment and Plan: Sore mostly on the umbilical incision No events overnight Tolerating oral intake PT to evaluate patient as she has not been out of bed since admission Looks well otherwise Pain management Seen and examined independently - agree with SERGO Chavez <Bobby Umana MD - Last Filed: 07/01/21 16:19> (2) Elevated bilirubin: Status: Acute <Candy Chavez PA-C - Last Filed: 07/01/21 08:11> (3) Diverticulitis: Status: Acute <Candy Chavez PA-C - Last Filed: 07/01/21 08:11> Plan 75 year old female admitted for epigastric/periumbilical abd pain found to have acute cholecystitis and diverticulitis on imaging. Seemed to be symptompatic from GB. US confirmed gallbladder distention, wall thickening and impacted stone. She developed hyperbilirubinemia thought to be secondary to mirizzi syndrome vs passed stone. Bili almost normalized. Now POD #1 s/p lap shyann found to have gallbladder hydrops, severe induration , edema and thickening of the gallbladder. She is sore this morning. VSS. Abd exam benign with appropriate postop tenderness, dressings intact. Encouraged OOB/ambulation and is use. Will consult PT. Thinking about going home today- will reassess for possible discharge if tolerating solid diet and OOB and ambulating without difficulty. Patient comfortable with plan. <Candy Chavez PA-C - Last Filed: 07/01/21 08:11> Fall Risk Details Current Medications: Current Medications Albuterol Sulfate (Albuterol Sulfate (0.083%) 2.5 Mg/3 Ml Vial.Neb) 2.5 mg INHALE ONCE PRN PRN Reason: Wheezing Amlodipine Besylate (Amlodipine Besylate 10 Mg Tablet) 10 mg PO DAILY [facility]; Protocol Cyanocobalamin (Cyanocobalamin (Vitamin B-12) 1,000 Mcg Tablet) 1,000 mcg PO DAILY [facility] Last Admin: 07/01/21 06:51 Dose: 1,000 mcg Documented by: Dextrose (Dextrose 50 % 25 Gm/50 Ml Syringe) 25 gm IVPUSH Q15M PRN; Protocol PRN Reason: per Hypoglycemia Standing Ord. Dextrose (Dextrose 50 % 25 Gm/50 Ml Syringe) 25 gm IVPUSH Q15M PRN; Protocol PRN Reason: per Hypoglycemia Standing Ord. Famotidine (Famotidine/Pf 20 Mg/2 Ml Vial) 20 mg IVPUSH BID [facility] Last Admin: 07/01/21 06:51 Dose: 20 mg Documented by: Fentanyl (Fentanyl Citrate/Pf 100 Mcg/2 Ml Vial) 50 mcg IVPUSH Q5M PRN; Protocol PRN Reason: Pain, Severe (Pain Scale 7-10) Last Admin: 06/30/21 15:22 Dose: 50 mcg Documented by: Fentanyl (Fentanyl Citrate/Pf 100 Mcg/2 Ml Vial) 25 mcg IVPUSH Q5M PRN; Pro tocol PRN Reason: Pain, Moderate (Pain Scale 4-6 Glucose (Glucose Gel 15 Gm Gel..Gram.) 15 gm PO Q15M PRN; Protocol PRN Reason: per Hypoglycemia Standing Ord. Glucose (Glucose Gel 15 Gm Gel..Gram.) 15 gm PO Q15M PRN; Protocol PRN Reason: per Hypoglycemia Standing Ord. Hydrochlorothiazide (Hydrochlorothiazide 12.5 Mg Tablet) 12.5 mg PO DAILY [facility]; Protocol Last Admin: 06/30/21 09:05 Dose: 12.5 mg Documented by: Piperacillin Sod/Tazobactam (Sod 3.375 gm/ Sodium Chloride) 50 mls @ 100 mls/hr IV Q6H [facility] Last Infusion: 07/01/21 07:25 Dose: Infused Documented by: Insulin Human Lispro (Insulin Lispro 100 Unit/Ml 3 Ml Vial) 0 unit SUBCUT QIDACHS [facility]; Protocol Last Admin: 06/30/21 21:56 Dose: Not Given Documented by: Morphine Sulfate (Morphine Sulfate 4 Mg/Ml Cartridge) 4 mg IVPUSH Q4H PRN; Protocol PRN Reason: Pain, Severe (Pain Scale 7-10) Last Admin: 07/01/21 04:40 Dose: 4 mg Documented by: Ondansetron HCl (Ondansetron Hcl 4 Mg/2 Ml Vial) 4 mg IVPUSH Q8H PRN PRN Reason: Nausea and Vomiting Oxycodone HCl (Oxycodone Hcl Immed Release 5 Mg Tablet) 5 mg PO ONCE PRN PRN Reason: Pain, Severe (Pain Scale 7-10) Oxycodone HCl (Oxycodone Hcl Immed Release 5 Mg Tablet) 10 mg PO Q4H PRN PRN Reason: Pain, Moderate (Pain Scale 4-6 Last Admin: 07/01/21 07:48 Dose: 10 mg Documented by: Pravastatin Sodium (Pravastatin Sodium 40 Mg Tablet) 40 mg PO BEDTIME [facility] Last Admin: 06/30/21 21:50 Dose: 40 mg Documented by: Sodium Chloride (0.9 % Sodium Chloride Flush 3 Ml Syringe) 3 ml IVFLUSH QSHIFT [facility] Last Admin: 07/01/21 06:51 Dose: Not Given Documented by: Valsartan (Valsartan 160 Mg Tablet) 160 mg PO DAILY [facility] Last Admin: 07/01/21 06:51 Dose: 160 mg Documented by: <Candy Chavez PA-C - Last Filed: 07/01/21 08:11> Time Spent With Patient Time: Total time spent is greater than 50% in coordination of care (as documented) at patient's floor/unit and/or counseling patient: <Candy Chavez PA-C - Last Filed: 07/01/21 08:11> Time with patient: 15 - 24 minutes <Candy Chavez PA-C - Last Filed: 07/01/21 08:11> Quality Stroke Does the patient have a stroke diagnosis?: No <Candy Chavez PA-C - Last Filed: 07/01/21 08:11> VTE Prior VTE?: No <Candy Chavez PA-C - Last Filed: 07/01/21 08:11> VTE Risk Level:: Surgical - low <Candy Chavez PA-C - Last Filed: 07/01/21 08:11> VTE Device Contraindication: N/A - Device Ordered <JEFERSON Garsia Last Filed: 07/01/21 08:11> VTE Drug Contraindication: N/A - Med Ordered <JEFERSON Garsia Last Filed: 07/01/21 08:11>
[2021-07-01 08:36] LABS: Anion Gap 13 (12-20); Blood Urea Nitrogen 10 mg/dL (9-16); Calcium 8.6 mg/dL (8.4-10.2); Carbon Dioxide 28 mmol/L (22-29); Chloride 102 mmol/L (96-108); Creatinine Clr Calc Pharmacy 76.3; Estimated Glomerular Filt Rate > 60; Glucose Random 139 mg/dL (60-115); Potassium 3.7 mmol/L (3.3-5.1); Sodium 139 mmol/L (135-145)
[2021-07-01 08:39] LABS: Glucose, Whole Blood 140 mg/dL (60-115)
--- NOTE | 2021-07-01 09:03 | HO.POSTANES ---
Post Anesthesia Evaluation Post Anesthesia Evaluation Vital Signs: Vital Signs Temp Pulse Resp BP Pulse Ox 07/01/21 08:00 98.5 F 78 18 98 07/01/21 03:56 97.4 F 74 18 149/70 H 94 07/01/21 00:00 97.4 F 77 18 150/70 H 96 Anesthesia: General Endotracheal-GETA Mental Status: Awake Pain Control: Satisfactory Nausea/Vomiting: None Hydration: Adequate Anesthesia-Related Issues: No Anes. Related Issues
[2021-07-01] MEDS: amLODIPine Besylate 10 MG TABLET PO (09:52)
[2021-07-01 11:29] LABS: Glucose, Whole Blood 208 mg/dL (60-115)
[2021-07-01] MEDS: Insulin Lispro 100 UNIT/ML 3 ML VIAL SUBCUT ×3 (11:35→22:52)
[2021-07-01] MEDS: metFORMIN HCl ER 750 MG TAB.ER.24H PO (12:02)
--- NOTE | 2021-07-01 14:12 | MHC.CM.PN ---
CM MET W/PT TO DISCUSS PT REC'S FOR STR, PT DECLINING STR AT THIS TIME AND REPORTS SHE WILL THINK ABOUT IT, PT REPORTS SHE PREFERS TO D/C HOME W/SERVICES AND FURTHER REPORTS SHE IS HAVING PAIN AND CAN NOT THINK ABOUT IT, CM REQUESTED TO CONTACT PT'S JAKUB HOWEVER SHE DOES NOT WANT CM TO CONTACT HIM AT THIS TIME. CM HAS PROVIDED PT W/LIST OF SNF'S FROM [facility].
--- NOTE | 2021-07-01 16:05 | MHC.CM.PN ---
CM REACHED OUT TO PT'S JAKUB PT STILL UNABLE TO DECIDE ON SNF PREFERENCES, JAUKB HAS BEEN SENT LIST OF FACILITIES VIA [employer] TO [facility], REFERRALS HAVE BEEN SENT AND JAKUB WILL DISCUSS W/PT AND CALL CM OR NURSES STATION WITH PREFERENCES. CM TO CONT TO FOLLOW D/C NEEDS
--- NOTE | 2021-07-01 16:19 | P.EN_ITS ---
Event Note Date of Service: 07/04/21 Event Note: Patient evaluated by Physical therapy - deemed to be unsafe to be home as she has difficulty with ambulation and is unsteady Rehab therefore recommended I explained this to patient She is very hesitant about this and does not want to go to rehab She says that she is he to go home I explained to her that it would be unsafe for to go home and be unsteady Case discussed with security operations manager as well Continue pain management Explained to patient discharge instructions
[2021-07-01 16:36] LABS: Glucose, Whole Blood 237 mg/dL (60-115)
[2021-07-01 20:38] LABS: Glucose, Whole Blood 202 mg/dL (60-115)
[2021-07-01] MEDS: Pravastatin Sodium 40 MG TABLET PO (22:52)
[2021-07-02] MEDS: Piperacillin Sodium/Tazobactam 3.375 GM in 0.9 % Sodium Chloride 50 ML IV ×4 (02:58→20:14)
[2021-07-02 03:59] VITALS: BP 148/77; PULSE 80; RESP 16; TEMP 36.4; O2SAT 96
[2021-07-02 07:01] VITALS: BP 155/74; PULSE 80; RESP 18; TEMP 36; O2SAT 96
[2021-07-02 07:30] LABS: Glucose, Whole Blood 141 mg/dL (60-115)
[2021-07-02] MEDS: metFORMIN HCl ER 750 MG TAB.ER.24H PO (08:38)
[2021-07-02] MEDS: Valsartan 160 MG TABLET PO (08:38)
[2021-07-02] MEDS: Famotidine/PF 20 MG/2 ML VIAL IVPUSH ×2 (08:39→20:14)
[2021-07-02] MEDS: Cyanocobalamin (Vitamin B-12) 1,000 MCG TABLET 1000 MCG PO (08:39)
[2021-07-02] MEDS: 0.9 % Sodium Chloride Flush 3 ML SYRINGE IVFLUSH ×3 (08:39→20:15)
[2021-07-02] MEDS: oxyCODONE HCl Immed Release 5 MG TABLET 10 MG PO ×2 (08:57→20:31)
[2021-07-02 11:17] VITALS: BP 150/72; PULSE 89; RESP 20; TEMP 36.1; O2SAT 96
[2021-07-02 11:24] LABS: Glucose, Whole Blood 231 mg/dL (60-115)
[2021-07-02] MEDS: Insulin Lispro 100 UNIT/ML 3 ML VIAL SUBCUT ×3 (11:34→20:15)
--- NOTE | 2021-07-02 15:16 | P.PNGS_ITS ---
Subjective Subjective Date of Service: 07/02/21 Interval history: doing ok but complaining of pain still tolerating po diet though Physical Exam Verdana 4l Vital Signs: Verdana 4d Verdana 4d Vital Signs: Verdana 4d Verdana 4Bd Last Vital Signs Verdana 4d Roller Bearing Inspector New 4d Roller Bearing Inspector New 4d Temp 97 F 07/02/21 11:17 Roller Bearing Inspector New 4d Pulse 89 07/02/21 11:17 Roller Bearing Inspector New 4d Resp 20 07/02/21 11:17 BP 150/72 H 07/02/21 11:17 Pulse Ox 96 07/02/21 11:17 BMI result Body Mass Index 27.3 GI: Other: abdo soft nondistended tneder right side incisions look fine Objective Data Active Medications Albuterol Sulfate (Albuterol Sulfate (0.083%) 2.5 Mg/3 Ml Vial.Neb) 2.5 mg INHALE ONCE PRN PRN Reason: Wheezing Cyanocobalamin (Cyanocobalamin (Vitamin B-12) 1,000 Mcg Tablet) 1,000 mcg PO DAILY [facility] Last Admin: 07/02/21 08:39 Dose: 1,000 mcg Documented by: TREVA Dextrose (Dextrose 50 % 25 Gm/50 Ml Syringe) 25 gm IVPUSH Q15M PRN; Protocol PRN Reason: per Hypoglycemia Standing Ord. Dextrose (Dextrose 50 % 25 Gm/50 Ml Syringe) 25 gm IVPUSH Q15M PRN; Protocol PRN Reason: per Hypoglycemia Standing Ord. Famotidine (Famotidine/Pf 20 Mg/2 Ml Vial) 20 mg IVPUSH BID [facility] Last Admin: 07/02/21 08:39 Dose: 20 mg Documented by: TREVA Fentanyl (Fentanyl Citrate/Pf 100 Mcg/2 Ml Vial) 50 mcg IVPUSH Q5M PRN; Protocol PRN Reason: Pain, Severe (Pain Scale 7-10) Last Admin: 06/30/21 15:22 Dose: 50 mcg Documented by: MUNDO Fentanyl (Fentanyl Citrate/Pf 100 Mcg/2 Ml Vial) 25 mcg IVPUSH Q5M PRN; Protocol PRN Reason: Pain, Moderate (Pain Scale 4-6 Glucose (Glucose Gel 15 Gm Gel..Gram.) 15 gm PO Q15M PRN; Protocol PRN Reason: per Hypoglycemia Standing Ord. Glucose (Glucose Gel 15 Gm Gel..Gram.) 15 gm PO Q15M PRN; Protocol PRN Reason: per Hypoglycemia Standing Ord. Hydrochlorothiazide (Hydrochlorothiazide 12.5 Mg Tablet) 12.5 mg PO DAILY [facility]; Protocol Last Admin: 06/30/21 09:05 Dose: 12.5 mg Documented by: ROBERTO Piperacillin Sod/Tazobactam (Sod 3.375 gm/ Sodium Chloride) 50 mls @ 100 mls/hr IV Q6H [facility] Last Infusion: 07/02/21 14:26 Dose: 0 mls/hr Documented by: TREVA Insulin Human Lispro (Insulin Lispro 100 Unit/Ml 3 Ml Vial) 0 unit SUBCUT QIDACHS [facility]; Protocol Last Admin: 07/02/21 11:34 Dose: 2 unit Documented by: MONSERRAT Metformin HCl (Metformin Hcl Er 750 Mg Tab.Er.24h) 750 mg PO DAILY [facility] Last Admin: 07/02/21 08:38 Dose: 750 mg Documented by: TREVA Ondansetron HCl (Ondansetron Hcl 4 Mg/2 Ml Vial) 4 mg IVPUSH Q8H PRN PRN Reason: Nausea and Vomiting Oxycodone HCl (Oxycodone Hcl Immed Release 5 Mg Tablet) 5 mg PO ONCE PRN PRN Reason: Pain, Severe (Pain Scale 7-10) Oxycodone HCl (Oxycodone Hcl Immed Release 5 Mg Tablet) 10 mg PO Q4H PRN PRN Reason: Pain, Moderate (Pain Scale 4-6 Last Admin: 07/02/21 08:57 Dose: 10 mg Documented by: TREVA Pravastatin Sodium (Pravastatin Sodium 40 Mg Tablet) 40 mg PO BEDTIME [facility] Last Admin: 07/01/21 22:52 Dose: 40 mg Documented by: OFELIA Sodium Chloride (0.9 % Sodium Chloride Flush 3 Ml Syringe) [address] [facility] Last Admin: 07/02/21 14:55 Dose: 3 ml Documented by: TREVA Valsartan (Valsartan 160 Mg Tablet) 160 mg PO DAILY [facility] Last Admin: 07/02/21 08:38 Dose: 160 mg Documented by: TREVA Labs CBC & Chem 7: 06/29/21 07:08 07/01/21 08:07 Labs: Laboratory Results - last 24 hr 07/01/21 07/01/21 07/02/21 16:28 20:22 07:03 POC Glucose 237 H 202 H 141 H 07/02/21 11:17 POC Glucose 231 H Microbiology Microbiology Results: Microbiology 06/27/21 01:13 Blood Culture - Final Blood - Venous No growth after 5 days. 06/27/21 01:13 Blood Culture - Final Blood - Venous No growth after 5 days. Procedures Date of Service Date of Service: 07/02/21 Progress Note: A&P Assessment and plan (1) Acute cholecystitis: Status: Acute Plan 75 year old female with acute cholecystitis s/p lap appy doing well - plan dc home tomorrow Fall Risk Details Current Medications: Current Medications Albuterol Sulfate (Albuterol Sulfate (0.083%) 2.5 Mg/3 Ml Vial.Neb) 2.5 mg INHALE ONCE PRN PRN Reason: Wheezing Cyanocobalamin (Cyanocobalamin (Vitamin B-12) 1,000 Mcg Tablet) 1,000 mcg PO DAILY [facility] Last Admin: 07/02/21 08:39 Dose: 1,000 mcg Documented by: Dextrose (Dextrose 50 % 25 Gm/50 Ml Syringe) 25 gm IVPUSH Q15M PRN; Protocol PRN Reason: per Hypoglycemia Standing Ord. Dextrose (Dextrose 50 % 25 Gm/50 Ml Syringe) 25 gm IVPUSH Q15M PRN; Protocol PRN Reason: per Hypoglycemia Standing Ord. Famotidine (Famotidine/Pf 20 Mg/2 Ml Vial) 20 mg IVPUSH BID [facility] Last Admin: 07/02/21 08:39 Dose: 20 mg Documented by: Fentanyl (Fentanyl Citrate/Pf 100 Mcg/2 Ml Vial) 50 mcg IVPUSH Q5M PRN; Protocol PRN Reason: Pain, Severe (Pain Scale 7-10) Last Admin: 06/30/21 15:22 Dose: 50 mcg Documented by: Fentanyl (Fentanyl Citrate/Pf 100 Mcg/2 Ml Vial) 25 mcg IVPUSH Q5M PRN; Protocol PRN Reason: Pain, Moderate (Pain Scale 4-6 Glucose (Glucose Gel 15 Gm Gel..Gram.) 15 gm PO Q15M PRN; Protocol PRN Reason: per Hypoglycemia Standing Ord. Glucose (Glucose Gel 15 Gm Gel..Gram.) 15 gm PO Q15M PRN; Protocol PRN Reason: per Hypoglycemia Standing Ord. Hydrochlorothiazide (Hydrochlorothiazide 12.5 Mg Tablet) 12.5 mg PO DAILY [facility]; Protocol Last Admin: 06/30/21 09:05 Dose: 12.5 mg Documented by: Piperacillin Sod/Tazobactam (Sod 3.375 gm/ Sodium Chloride) 50 mls @ 100 mls/hr IV Q6H [facility] Last Infusion: 07/02/21 14:26 Dose: Infused Documented by: Insulin Human Lispro (Insulin Lispro 100 Unit/Ml 3 Ml Vial) 0 unit SUBCUT QIDACHS [facility]; Protocol Last Admin: 07/02/21 11:34 Dose: 2 unit Documented by: Metformin HCl (Metformin Hcl Er 750 Mg Tab.Er.24h) 750 mg PO DAILY [facility] Last Admin: 07/02/21 08:38 Dose: 750 mg Documented by: Ondansetron HCl (Ondansetron Hcl 4 Mg/2 Ml Vial) 4 mg IVPUSH Q8H PRN PRN Reason: Nausea and Vomiting Oxycodone HCl (Oxycodone Hcl Immed Release 5 Mg Tablet) 5 mg PO ONCE PRN PRN Reason: Pain, Severe (Pain Scale 7-10) Oxycodone HCl (Oxycodone Hcl Immed Release 5 Mg Tablet) 10 mg PO Q4H PRN PRN Reason: Pain, Moderate (Pain Scale 4-6 Last Admin: 07/02/21 08:57 Dose: 10 mg Documented by: Pravastatin Sodium (Pravastatin Sodium 40 Mg Tablet) 40 mg PO BEDTIME [facility] Last Admin: 07/01/21 22:52 Dose: 40 mg Documented by: Sodium Chloride (0.9 % Sodium Chloride Flush 3 Ml Syringe) 3 ml IVFLUSH QSHIFT [facility] Last Admin: 07/02/21 14:55 Dose: 3 ml Documented by: Valsartan (Valsartan 160 Mg Tablet) 160 mg PO DAILY [facility] Last Admin: 07/02/21 08:38 Dose: 160 mg Documented by: Time Spent With Patient Time: Total time spent is greater than 50% in coordination of care (as documented) at patient's floor/unit and/or counseling patient: Time with patient: 15 - 24 minutes Quality Stroke Does the patient have a stroke diagnosis?: No VTE Prior VTE?: No VTE Risk Level:: Surgical - low VTE Device Contraindication: N/A - Device Ordered VTE Drug Contraindication: N/A - Med Ordered
--- NOTE | 2021-07-02 15:21 | P.DS_ITS ---
DS: Providers Provider Date of Service: 07/03/21 Date of admission: 06/27/21 04:56 Date of discharge: 07/03/21 Primary care physician: Carla Constantino NP Admitting clinician: Lindsay Betancur Consults: 06/30/21 14:48 Consult to Hospitalist Routine Consulting Provider: Hospitalist Reason For Exam: Hypertension, borderline diabetes Attending physician on discharge: Lindsay Betancur Discharging clinician: Lindsay Betancur DS: Diagnosis Discharge Diagnosis (1) Acute cholecystitis: Start date: 06/27/21 Status: Acute DS: Summary Hospital Course Hospital Course: BRIEF HPI: Micki Lara is a 75 year old female with PMH of HTN, HLD, DM who presented to the ED with complaints of abdominal pain. Patient reports she ate an apple and developed mid abdominal pain that she first thought was indigestion. She described it as a crampy, achey pain in nature. Nothing alleviated the pain. The pain gradually worsened throughout the day and she called EMS. She vomited 1x in the ambulance. She denies fevers or chills but felt clammy at home. She denies diarrhea, change in bowel habits. She endorses lack of appetite yesterday due to the pain. In the ED, work up included a CT scan which demonstrated focal wall thickening at the splenic flexure of the colon with adjacent inflammation as well as a distended gallbladder with gallstones and gallbladder wall edema. She had a leukocytosis of 14.2. LFTs were normal. She had a colonoscopy in [address] Zelaya where scattered diverticulosis was noted. This morning, the pain is improved. She reports a history of a neurocognitive disease and is unsure of diagnosis. HOSPITAL COURSE: She was admitted to the surgical service for further evaluation and treatment of the acute cholecystitis and possible diverticulitis.?She had an ultrasound which also suggested acute cholecystitis.?She was started on IV zosyn empirically, kept NPO and on IVF. Given she had significant tenderness in the RUQ, it was thought she was symptomatic from the cholecystitis. It was therefore recommended to proceed with cholecystectomy.? However, she had a bump in her bilirubin and the procedure was canceled.? 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 Her bilirubin was followed and normalized.?She was therefore added onto the OR schedule for laparoscopic cholecystectomy, possible open that day and she wanted to proceed.?? On 06/30/21, a laparoscopic cholecystectomy was performed by Dr. Umana without complication. She was found to have gallbladder hydrops, severe induration and edema and thickening of the gallbladder intraoperatively. The patient tolerated the procedure well, completed routine recovery in PACU and was admitted for observation. She had an uncomplicated but slow recovery course. She reported difficulty with incisional pain but the pain prior to surgery had resolved. She was tolerating a solid diet. Her WBC count normalized. Her abdomen was benign with appropriate post op tenderness and dressings were intact. She was requiring a lot of assistance and therefore a PT consult was obtained. They recommended STR upon discharge to maximize function and safety at home as she had decreased strength and safety awareness and was a high fall risk. The patient agreed to this. She was transferred to on 07/02/21 in stable condition. She is to follow up with Dr. Umana in office in 2 weeks. Status at Discharge Functional status at discharge: independent ambulation Time Spent with Patient Time attestation: Total time spent providing and/or coordinating discharge services: Discharge coordination time: Less than 30 minutes Quality: Stroke Does the patient have a stroke diagnosis?: No Reason for No Anti-thrombotic at DC: Not indicated Reason for No Anticoagulant at DC: Not indicated Reason for No Anti-thrombotic by Day Two: Not indicated Reason for No Statin at DC: Not indicated Physical Exam Vital Signs: Vital Signs: Last Vital Signs Temp 97 F 07/02/21 11:17 Pulse 89 07/02/21 11:17 Resp 20 07/02/21 11:17 BP 150/72 H 07/02/21 11:17 Pulse Ox 96 07/02/21 11:17 BMI result Body Mass Index 27.3 Const: Orientation/consciousness: oriented to person, oriented to place and oriented to time Resp: Effort & Inspection: normal respiratory effort and able to speak in complete sentences Auscultation: clear to auscultation bilaterally Cardio: Rate: regular rate Rhythm: regular rhythm Heart sounds: S1 normal heart sound present and S2 normal heart sound present GI: Inspection: Yes normal to inspection Palpation (GI): Soft to palpation and Tenderness to palpation present (GI) in the RUQ Auscultation: normal bowel sounds Skin: General skin exam: jaundice Neuro: General: oriented to person, oriented to place and oriented to time DS: Data Data Completed and Pending Pending studies at discharge: Pending at discharge 06/30/21 13:42 Surgical [PTH] Routine Labs on day of discharge: Laboratory Results - last 24 hr 07/01/21 07/01/21 07/02/21 16:28 20:22 07:03 POC Glucose 237 H 202 H 141 H 07/02/21 11:17 POC Glucose [address] scan - pelvis: Radiologist's impression: ITS Impressions Abdomen/Pelvis CT 06/27/21 03:37 IMPRESSION: 1. Diverticulitis at the splenic flexure of the colon. No free air or fluid collection. 2. Cholelithiasis. Somewhat distended gallbladder with wall thickening and edema. This is concerning for cholecystitis. This could be evaluated further with ultrasound. Fleischner guidelines were followed. Abdomen Ultrasound 06/27/21 09:07 IMPRESSION: Gallstones, thickened edematous gallbladder wall and positive sonographic Mack's sign. Ultrasound appearance is concerning for acute cholecystitis. Further evaluation with HIDA scan may be helpful. Cholangiopancreatography MRI 06/28/21 12:12 IMPRESSION: Upper normal-size gallbladder, gallstones, gallbladder wall thickening and edema. Findings are suggestive of acute cholecystitis. Minimal intrahepatic biliary duct dilatation. The common bile duct does not appear dilated. No common bile duct stone is seen. There may be mass effect on the extrahepatic bile ducts from the abnormal gallbladder or Mirizzi syndrome. Small amount of ascites adjacent to the liver. Diverticulosis. Chest X-Ray 06/30/21 11:08 IMPRESSION: Questionable hazy opacities in the left lower lobe in which developing infiltrate or aspiration cannot be excluded.. Discharge Plan Discharge Patient Disposition: [facility] Discharge Diagnosis: acute cholecystitis, s/p lap cholecystectomy Referrals: Carla Constantino NP [Primary Care Provider] - 1 Week Bobby Umana MD [Physician] - 2 Weeks Discharge Medications: Continued pravastatin 40 mg Tablet 40 mg PO BEDTIME 0RF cyanocobalamin (vitamin B-12) 1,000 mcg Tablet 1,000 mcg PO DAILY 0RF glipizide 2.5 mg Tablet Extended Release 24 Hr 2.5 mg PO DAILY 0RF aspirin 81 mg Tablet,Chewable 81 mg PO DAILY 0RF irbesartan 300 mg Tablet 300 mg PO DAILY 0RF metformin 750 mg Tablet Extended Release 24 Hr 750 mg PO DAILY 0RF Januvia 100 mg tablet 1 tab PO DAILY 0RF hydrochlorothiazide 12.5 mg Tablet 12.5 mg PO DAILY 0RF Diet: diabetic diet and low fat, low cholesterol Activity on Discharge: No heavy lifting Stand Alone Forms: Patient Portal Discharge page Activity Restrictions/Additional Instructions: If the incision area is tender, you may apply an ice pack for short intervals (No more than 20 minutes on, followed by at least 20 minutes off). Do not apply heat. Do not use creams, lotions, or topical antibiotics unless instructed to do so by your surgeon. These can cause infection or allergic reaction. Ok to shower 24 hours after your surgery. Remove bandaids in 2 days and replace. You have steri strips (small white cloth strips) covering your incision- these will fall off ~1 week. Follow up in office with Dr. Umana in 2 weeks. ([phone]) No heavy lifting (>10-20lbs)! Call Your Doctor If: -Your temperature exceeds 101.5? F -You experience excessive pain or swelling -You have an unexpected reaction to medication -You have excessive bleeding -You experience continued vomiting/nausea -Your incision begins to separate -Your incision shows signs of infection such as increased redness, swelling, excessive pain, drainage (light blood or clear fluid is normal) or heat Care Plan Goals: Return to baseline health and gradual return to activity following recovery period. Health Concerns: acute cholecystitis, diabetes mellitus Plan of Treatment: s/p laparoscopic cholecystectomy 06/30/21 Transfer to [facility] F/u in office in [address] Umana Assessment: Improving
[2021-07-02 15:45] VITALS: BP 143/66; PULSE 84; RESP 18; TEMP 36.9; O2SAT 91
[2021-07-02 16:39] LABS: Glucose, Whole Blood 215 mg/dL (60-115)
[2021-07-02 19:05] VITALS: BP 138/69; PULSE 93; RESP 18; TEMP 37.1; O2SAT 91
[2021-07-02 19:19] LABS: Glucose, Whole Blood 292 mg/dL (60-115)
[2021-07-02] MEDS: Pravastatin Sodium 40 MG TABLET PO (20:15)
[2021-07-02 23:39] VITALS: BP 155/72; PULSE 80; RESP 17; TEMP 36.6; O2SAT 97
[2021-07-03] VITALS (8 sets, daily range): BP systolic 114–178; BP diastolic 62–87; PULSE 71–88; RESP 17–20; TEMP 36.4–37.2; O2SAT 94–98
[2021-07-03] MEDS: Piperacillin Sodium/Tazobactam 3.375 GM in 0.9 % Sodium Chloride 50 ML IV ×4 (01:50→20:49)
[2021-07-03 07:16] LABS: Glucose, Whole Blood 226 mg/dL (60-115)
[2021-07-03] MEDS: Insulin Lispro 100 UNIT/ML 3 ML VIAL SUBCUT ×3 (08:30→16:18)
[2021-07-03] MEDS: Cyanocobalamin (Vitamin B-12) 1,000 MCG TABLET 1000 MCG PO (08:30)
[2021-07-03] MEDS: Famotidine/PF 20 MG/2 ML VIAL IVPUSH ×2 (08:30→20:48)
[2021-07-03] MEDS: oxyCODONE HCl Immed Release 5 MG TABLET 10 MG PO ×3 (08:31→20:56)
[2021-07-03] MEDS: Valsartan 160 MG TABLET PO (08:32)
[2021-07-03] MEDS: metFORMIN HCl ER 750 MG TAB.ER.24H PO (08:32)
[2021-07-03] MEDS: 0.9 % Sodium Chloride Flush 3 ML SYRINGE IVFLUSH ×3 (08:33→20:59)
[2021-07-03 11:41] LABS: Glucose, Whole Blood 201 mg/dL (60-115)
--- NOTE | 2021-07-03 16:08 | MHC.CM.PN ---
PER NOTES, PLAN IS FOR PT TO GO TO STR. PT REPORTING SHE IS UNSURE SHE WANTS TO GO CM CONTACTED PTS , [facility], WHO REPORTS THE PT HAS HAD THESE PHYSICAL DIFFICULTIES FOR YEARS DUE TO ANOTHER MEDICAL CONDITION. HE REPORTS IT HAS BEEN THREE YEARS SINCE THE PT HAS BEEN ABLE TO TRANSFER/WALK INDEPENDENTLY AND AT HOME SHE USES A WHEELCHAIR. [facility] WILL PICK PT UP TOMORROW DC PLAN IS HOME WITH [facility] JAKUB ALSO ASKS THAT HER CELL PHONE BE SEARCHED FOR HE REPORTS SHE LOST HER IPHONE WHILE HERE AND WHEN HER SON TRACKS IT, IT APPEARS TO BE IN HER ROOM. CM WILL SEARCH FURTHER
[2021-07-03 16:09] LABS: Glucose, Whole Blood 203 mg/dL (60-115)
--- NOTE | 2021-07-03 16:21 | P.PNGS_ITS ---
Subjective Subjective Date of Service: 07/03/21 Interval history: feels better less pain and tolerating po diet etc Physical Exam Verdana 4l Vital Signs: Verdana 4d Verdana 4d Vital Signs: Verdana 4d Verdana 4Bd Last Vital Signs Verdana 4d Cut Off Machine Operator New 4d Bernice New 4d Temp 99.0 F 07/03/21 15:51 Cut Off Machine Operator New 4d Pulse 82 07/03/21 15:51 Cut Off Machine Operator New 4d Resp 18 07/03/21 15:51 BP 175/77 H 07/03/21 15:51 Pulse Ox 96 07/03/21 15:51 BMI result Body Mass Index 27.3 GI: Other: abdo soft nondistended, mild tenderness ruq active bowel sounds Objective Data Active Medications Albuterol Sulfate (Albuterol Sulfate (0.083%) 2.5 Mg/3 Ml Vial.Neb) 2.5 mg INHALE ONCE PRN PRN Reason: Wheezing Cyanocobalamin (Cyanocobalamin (Vitamin B-12) 1,000 Mcg Tablet) 1,000 mcg PO DAILY [facility] Last Admin: 07/03/21 08:30 Dose: 1,000 mcg Documented by: TREVA Dextrose (Dextrose 50 % 25 Gm/50 Ml Syringe) 25 gm IVPUSH Q15M PRN; Protocol PRN Reason: per Hypoglycemia Standing Ord. Dextrose (Dextrose 50 % 25 Gm/50 Ml Syringe) 25 gm IVPUSH Q15M PRN; Protocol PRN Reason: per Hypoglycemia Standing Ord. Famotidine (Famotidine/Pf 20 Mg/2 Ml Vial) 20 mg IVPUSH BID [facility] Last Admin: 07/03/21 08:30 Dose: 20 mg Documented by: TREVA Fentanyl (Fentanyl Citrate/Pf 100 Mcg/2 Ml Vial) 50 mcg IVPUSH Q5M PRN; Protocol PRN Reason: Pain, Severe (Pain Scale 7-10) Last Admin: 06/30/21 15:22 Dose: 50 mcg Documented by: MUNDO Fentanyl (Fentanyl Citrate/Pf 100 Mcg/2 Ml Vial) 25 mcg IVPUSH Q5M PRN; Protocol PRN Reason: Pain, Moderate (Pain Scale 4-6 Glucose (Glucose Gel 15 Gm Gel..Gram.) 15 gm PO Q15M PRN; Protocol PRN Reason: per Hypoglycemia Standing Ord. Glucose (Glucose Gel 15 Gm Gel..Gram.) 15 gm PO Q15M PRN; Protocol PRN Reason: per Hypoglycemia Standing Ord. Hydrochlorothiazide (Hydrochlorothiazide 12.5 Mg Tablet) 12.5 mg PO DAILY [facility]; Protocol Last Admin: 06/30/21 09:05 Dose: 12.5 mg Documented by: ROBERTO Piperacillin Sod/Tazobactam (Sod 3.375 gm/ Sodium Chloride) 50 mls @ 100 mls/hr IV Q6H [facility] Last Infusion: 07/03/21 15:10 Dose: 0 mls/hr Documented by: TREVA Insulin Human Lispro (Insulin Lispro 100 Unit/Ml 3 Ml Vial) 0 unit SUBCUT QIDACHS [facility]; Protocol Last Admin: 07/03/21 16:18 Dose: 2 unit Documented by: TREVA Metformin HCl (Metformin Hcl Er 750 Mg Tab.Er.24h) 750 mg PO DAILY [facility] Last Admin: 07/03/21 08:32 Dose: 750 mg Documented by: TREVA Ondansetron HCl (Ondansetron Hcl 4 Mg/2 Ml Vial) 4 mg IVPUSH Q8H PRN PRN Reason: Nausea and Vomiting Oxycodone HCl (Oxycodone Hcl Immed Release 5 Mg Tablet) 5 mg PO ONCE PRN PRN Reason: Pain, Severe (Pain Scale 7-10) Oxycodone HCl (Oxycodone Hcl Immed Release 5 Mg Tablet) 10 mg PO Q4H PRN PRN Reason: Pain, Moderate (Pain Scale 4-6 Last Admin: 07/03/21 16:13 Dose: 10 mg Documented by: TREVA Pravastatin Sodium (Pravastatin Sodium 40 Mg Tablet) 40 mg PO BEDTIME [facility] Last Admin: 07/02/21 20:15 Dose: 40 mg Documented by: CASTILEzekiel Sodium Chloride (0.9 % Sodium Chloride Flush 3 Ml Syringe) 3 ml IVFLUSH QSHIFT [facility] Last Admin: 07/03/21 16:21 Dose: 3 ml Documented by: TREVA Valsartan (Valsartan 160 Mg Tablet) 160 mg PO DAILY [facility] Last Admin: 07/03/21 08:32 Dose: 160 mg Documented by: TREVA Labs CBC & Chem 7: 06/29/21 07:08 07/01/21 08:07 Labs: Laboratory Results - last 24 hr 07/02/21 07/02/21 07/03/21 16:36 19:07 07:06 POC Glucose 215 H 292 H 226 H 07/03/21 07/03/21 11:27 16:04 POC Glucose 201 H 203 H Procedures Date of Service Date of Service: 07/03/21 Progress Note: A&P Assessment and plan (1) Acute cholecystitis: Status: Acute Plan 75 year old female s/p lap shyann for cholecystitis - doing well from surgical perspective. pt unsteady on feet and acting a little confused. ? to go to short term rehab. caseworker discussed with her who says this is her baseli ne and he is fine for her to come home tomorrow and he will care for her at home. Plan will be to have her see PT a bit tomorrow and then dc home . cont with po pain meds prn and diet. she agrees Fall Risk Details Current Medications: Current Medications Albuterol Sulfate (Albuterol Sulfate (0.083%) 2.5 Mg/3 Ml Vial.Neb) 2.5 mg INHALE ONCE PRN PRN Reason: Wheezing Cyanocobalamin (Cyanocobalamin (Vitamin B-12) 1,000 Mcg Tablet) 1,000 mcg PO DAILY [facility] Last Admin: 07/03/21 08:30 Dose: 1,000 mcg Documented by: Dextrose (Dextrose 50 % 25 Gm/50 Ml Syringe) 25 gm IVPUSH Q15M PRN; Protocol PRN Reason: per Hypoglycemia Standing Ord. Dextrose (Dextrose 50 % 25 Gm/50 Ml Syringe) 25 gm IVPUSH Q15M PRN; Protocol PRN Reason: per Hypoglycemia Standing Ord. Famotidine (Famotidine/Pf 20 Mg/2 Ml Vial) 20 mg IVPUSH BID [facility] Last Admin: 07/03/21 08:30 Dose: 20 mg Documented by: Fentanyl (Fentanyl Citrate/Pf 100 Mcg/2 Ml Vial) 50 mcg IVPUSH Q5M PRN; Protocol PRN Reason: Pain, Severe (Pain Scale 7-10) Last Admin: 06/30/21 15:22 Dose: 50 mcg Documented by: Fentanyl (Fentanyl Citrate/Pf 100 Mcg/2 Ml Vial) 25 mcg IVPUSH Q5M PRN; Protocol PRN Reason: Pain, Moderate (Pain Scale 4-6 Glucose (Glucose Gel 15 Gm Gel..Gram.) 15 gm PO Q15M PRN; Protocol PRN Reason: per Hypoglycemia Standing Ord. Glucose (Glucose Gel 15 Gm Gel..Gram.) 15 gm PO Q15M PRN; Protocol PRN Reason: per Hypoglycemia Standing Ord. Hydrochlorothiazide (Hydrochlorothiazide 12.5 Mg Tablet) 12.5 mg PO DAILY [facility]; Protocol Last Admin: 06/30/21 09:05 Dose: 12.5 mg Documented by: Piperacillin Sod/Tazobactam (Sod 3.375 gm/ Sodium Chloride) 50 mls @ 100 mls/hr IV Q6H [facility] Last Infusion: 07/03/21 15:10 Dose: Infused Documented by: Insulin Human Lispro (Insulin Lispro 100 Unit/Ml 3 Ml Vial) 0 unit SUBCUT QIDACHS [facility]; Protocol Last Admin: 07/03/21 16:18 Dose: 2 unit Documented by: Metformin HCl (Metformin Hcl Er 750 Mg Tab.Er.24h) 750 mg PO DAILY [facility] Last Admin: 07/03/21 08:32 Dose: 750 mg Documented by: Ondansetron HCl (Ondansetron Hcl 4 Mg/2 Ml Vial) 4 mg IVPUSH Q8H PRN PRN Reason: Nausea and Vomiting Oxycodone HCl (Oxycodone Hcl Immed Release 5 Mg Tablet) 5 mg PO ONCE PRN PRN Reason: Pain, Severe (Pain Scale 7-10) Oxycodone HCl (Oxycodone Hcl Immed Release 5 Mg Tablet) 10 mg PO Q4H PRN PRN Reason: Pain, Moderate (Pain Scale 4-6 Last Admin: 07/03/21 16:13 Dose: 10 mg Documented by: Pravastatin Sodium (Pravastatin Sodium 40 Mg Tablet) 40 mg PO BEDTIME [facility] Last Admin: 07/02/21 20:15 Dose: 40 mg Documented by: Sodium Chloride (0.9 % Sodium Chloride Flush 3 Ml Syringe) 3 ml IVFLUSH QSHIFT [facility] Last Admin: 07/03/21 16:21 Dose: 3 ml Documented by: Valsartan (Valsartan 160 Mg Tablet) 160 mg PO DAILY [facility] Last Admin: 07/03/21 08:32 Dose: 160 mg Documented by: Time Spent With Patient Time: Total time spent is greater than 50% in coordination of care (as documented) at patient's floor/unit and/or counseling patient: Time with patient: 25 - 35 minutes Quality Stroke Does the patient have a stroke diagnosis?: No Reason for No Anti-thrombotic by Day Two: Not indicated VTE Prior VTE?: No VTE Risk Level:: Surgical - low VTE Device Contraindication: N/A - Device Ordered VTE Drug Contraindication: N/A - Med Ordered
[2021-07-03 19:54] LABS: Glucose, Whole Blood 182 mg/dL (60-115)
[2021-07-03] MEDS: Pravastatin Sodium 40 MG TABLET PO (20:48)
[2021-07-04] VITALS (7 sets, daily range): BP systolic 161–190; BP diastolic 79–99; PULSE 78–93; RESP 16–18; TEMP 36.4–38.4; O2SAT 91–94
[2021-07-04] MEDS: Piperacillin Sodium/Tazobactam 3.375 GM in 0.9 % Sodium Chloride 50 ML IV ×2 (02:07→06:50)
[2021-07-04] MEDS: oxyCODONE HCl Immed Release 5 MG TABLET 10 MG PO ×4 (02:14→14:57)
[2021-07-04] MEDS: metFORMIN HCl ER 750 MG TAB.ER.24H PO (06:50)
[2021-07-04] MEDS: Valsartan 160 MG TABLET PO (06:50)
[2021-07-04] MEDS: Cyanocobalamin (Vitamin B-12) 1,000 MCG TABLET 1000 MCG PO (06:50)
[2021-07-04] MEDS: Famotidine/PF 20 MG/2 ML VIAL IVPUSH (06:50)
--- NOTE | 2021-07-04 07:51 | P.PNGS_ITS ---
Subjective Subjective Date of Service: 07/04/21 <Candy Chavez PA-C - Last Filed: 07/04/21 07:54> 07/04/21 <Bobby Umana MD - Last Filed: 07/04/21 08:51> Interval history: Still needing max assistance for ambulation per RN. Patient feels ok. No events over weekend. <Candy Chavez PA-C - Last Filed: 07/04/21 07:54> Physical Exam Verdana 4l Vital Signs: Verdana 4d Verdana 4d Vital Signs: Verdana 4d Verdana 4Bd Last Vital Signs Verdana 4d Inspector Brake Lining New 4d Inspector Brake Lining New 4d Temp 99.3 F 07/04/21 04:11 Inspector Brake Lining New 4d Pulse 80 07/04/21 03:48 Inspector Brake Lining New 4d Resp 18 07/04/21 03:48 BP 161/79 H 07/04/21 03:48 Pulse Ox 94 07/04/21 03:48 BMI result Body Mass Index 27.3 <Candy Chavez PA-C - Last Filed: 07/04/21 07:54> Const: General: no acute distress and alert <Candy Chavez PA-C - Last Filed: 07/04/21 07:54> Orientation/consciousness: patient oriented x3 <JEFERSON Garsia Last Filed: 07/04/21 07:54> Resp: Effort & Inspection: normal respiratory effort <Candy Chavez PA-C - Last Filed: 07/04/21 07:54> GI: Inspection: No distended and Yes incision (clean) <Candy Chavez PA-C - Last Filed: 07/04/21 07:54> Palpation (GI): Soft to palpation <JEFERSON Garsia Last Filed: 07/04/21 07:54> Skin: General skin exam: no rashes or lesions noted <JEFERSON Garsia Last Filed: 07/04/21 07:54> Neuro: General: patient oriented x3 and moves all extremities <JEFERSON Garsia Last Filed: 07/04/21 07:54> Objective Data Active Medications Albuterol Sulfate (Albuterol Sulfate (0.083%) 2.5 Mg/3 Ml Vial.Neb) 2.5 mg INHALE ONCE PRN PRN Reason: Wheezing Cyanocobalamin (Cyanocobalamin (Vitamin B-12) 1,000 Mcg Tablet) 1,000 mcg PO DAILY [facility] Last Admin: 07/04/21 06:50 Dose: 1,000 mcg Documented by: KOBI Dextrose (Dextrose 50 % 25 Gm/50 Ml Syringe) 25 gm IVPUSH Q15M PRN; Protocol PRN Reason: per Hypoglycemia Standing Ord. Dextrose (Dextrose 50 % 25 Gm/50 Ml Syringe) 25 gm IVPUSH Q15M PRN; Protocol PRN Reason: per Hypoglycemia Standing Ord. Famotidine (Famotidine/Pf 20 Mg/2 Ml Vial) 20 mg IVPUSH BID [facility] Last Admin: 07/04/21 06:50 Dose: 20 mg Documented by: KOBI Fentanyl (Fentanyl Citrate/Pf 100 Mcg/2 Ml Vial) 50 mcg IVPUSH Q5M PRN; Protocol PRN Reason: Pain, Severe (Pain Scale 7-10) Last Admin: 06/30/21 15:22 Dose: 50 mcg Documented by: MUNDO Fentanyl (Fentanyl Citrate/Pf 100 Mcg/2 Ml Vial) 25 mcg IVPUSH Q5M PRN; Protocol PRN Reason: Pain, Moderate (Pain Scale 4-6 Glucose (Glucose Gel 15 Gm Gel..Gram.) 15 gm PO Q15M PRN; Protocol PRN Reason: per Hypoglycemia Standing Ord. Glucose (Glucose Gel 15 Gm Gel..Gram.) 15 gm PO Q15M PRN; Protocol PRN Reason: per Hypoglycemia Standing Ord. Hydrochlorothiazide (Hydrochlorothiazide 12.5 Mg Tablet) 12.5 mg PO DAILY [facility]; Protocol Last Admin: 06/30/21 09:05 Dose: 12.5 mg Documented by: ROBERTO Piperacillin Sod/Tazobactam (Sod 3.375 gm/ Sodium Chloride) 50 mls @ 100 mls/hr IV Q6H [facility] Last Infusion: 07/04/21 07:24 Dose: 100 mls/hr Documented by: KOBI Insulin Human Lispro (Insulin Lispro 100 Unit/Ml 3 Ml Vial) 0 unit SUBCUT QIDACHS [facility]; Protocol Last Admin: 07/03/21 20:59 Dose: Not Given Documented by: JOSEFINA Non-Admin Reason: No Insulin Coverage Metformin HCl (Metformin Hcl Er 750 Mg Tab.Er.24h) 750 mg PO DAILY [facility] Last Admin: 07/04/21 06:50 Dose: 750 mg Documented by: KOBI Ondansetron HCl (Ondansetron Hcl 4 Mg/2 Ml Vial) 4 mg IVPUSH Q8H PRN PRN Reason: Nausea and Vomiting Oxycodone HCl (Oxycodone Hcl Immed Release 5 Mg Tablet) 5 mg PO ONCE PRN PRN Reason: Pain, Severe (Pain Scale 7-10) Oxycodone HCl (Oxycodone Hcl Immed Release 5 Mg Tablet) 10 mg PO Q4H PRN PRN Reason: Pain, Moderate (Pain Scale 4-6 Last Admin: 07/04/21 06:49 Dose: 10 mg Documented by: KOBI Pravastatin Sodium (Pravastatin Sodium 40 Mg Tablet) 40 mg PO BEDTIME [facility] Last Admin: 07/03/21 20:48 Dose: 40 mg Documented by: JOSEFINA Sodium Chloride (0.9 % Sodium Chloride Flush 3 Ml Syringe) 3 ml IVFLUSH QSHIFT [facility] Last Admin: 07/04/21 06:50 Dose: Not Given Documented by: KOBI Non-Admin Reason: IV Running Valsartan (Valsartan 160 Mg Tablet) 160 mg PO DAILY [facility] Last Admin: 07/04/21 06:50 Dose: 160 mg Documented by: KOBI <Candy Chavez PA-C - Last Filed: 07/04/21 07:54> Labs CBC & Chem 7: : 06/29/21 07:08 07/01/21 08:07 <Candy Chavez PA-C - Last Filed: 07/04/21 07:54> Labs: Laboratory Results - last 24 hr 07/03/21 07/03/21 07/03/21 11:27 16:04 19:41 POC Glucose 201 H 203 H 182 H <Candy Chavez PA-C - Last Filed: 07/04/21 07:54> Procedures Date of Service Date of Service: 07/04/21 <Candy Chavez PA-C - Last Filed: 07/04/21 07:54> Progress Note: A&P Assessment and plan (1) Elevated bilirubin: Status: Acute <Candy Chavez PA-C - Last Filed: 07/04/21 07:54> (2) Acute cholecystitis: Status: Acute <Candy Chavez PA-C - Last Filed: 07/04/21 07:54> Assessment and Plan: No events during the weekend Good GI function Good pain control However, still unable to stand up on her own without assistance Had a long discussion with her and her Baljinder She normally ambulates with a walker at home I therefore explained to them that it may be unsafe for her to go home as she is not back to baseline Seems to need maximum assistance even when just standing up Case rediscussed with case managers and physical therapy <Bobby Umana MD - Last Filed: 07/04/21 08:51> Plan 75 year old female s/p lap shyann for cholecystitis - doing well from surgical perspective. Original plan was for DC to STR per PT recs however thinks she is at baseline and they have been managing at home. Will have PT reassess and discuss with family. Plan for d/c today, STR or home with services. <Candy Chavez PA-C - Last Filed: 07/04/21 07:54> Fall Risk Details Current Medications: Current Medications Albuterol Sulfate (Albuterol Sulfate (0.083%) 2.5 Mg/3 Ml Vial.Neb) 2.5 mg INHALE ONCE PRN PRN Reason: Wheezing Cyanocobalamin (Cyanocobalamin (Vitamin B-12) 1,000 Mcg Tablet) 1,000 mcg PO DAILY [facility] Last Admin: 07/04/21 06:50 Dose: 1,000 mcg Documented by: Dextrose (Dextrose 50 % 25 Gm/50 Ml Syringe) 25 gm IVPUSH Q15M PRN; Protocol PRN Reason: per Hypoglycemia Standing Ord. Dextrose (Dextrose 50 % 25 Gm/50 Ml Syringe) 25 gm IVPUSH Q15M PRN; Protocol PRN Reason: per Hypoglycemia Standing Ord. Famotidine (Famotidine/Pf 20 Mg/2 Ml Vial) 20 mg IVPUSH BID [facility] Last Admin: 07/04/21 06:50 Dose: 20 mg Documented by: Fentanyl (Fentanyl Citrate/Pf 100 Mcg/2 Ml Vial) 50 mcg IVPUSH Q5M PRN; Protocol PRN Reason: Pain, Severe (Pain Scale 7-10) Last Admin: 06/30/21 15:22 Dose: 50 mcg Documented by: Fentanyl (Fentanyl Citrate/Pf 100 Mcg/2 Ml Vial) 25 mcg IVPUSH Q5M PRN; Protocol PRN Reason: Pain, Moderate (Pain Scale 4-6 Glucose (Glucose Gel 15 Gm Gel..Gram.) 15 gm PO Q15M PRN; Protocol PRN Reason: per Hypoglycemia Standing Ord. Glucose (Glucose Gel 15 Gm Gel..Gram.) 15 gm PO Q15M PRN; Protocol PRN Reason: per Hypoglycemia Standing Ord. Hydrochlorothiazide (Hydrochlorothiazide 12.5 Mg Tablet) 12.5 mg PO DAILY [facility]; Protocol Last Admin: 06/30/21 09:05 Dose: 12.5 mg Documented by: Piperacillin Sod/Tazobactam (Sod 3.375 gm/ Sodium Chloride) 50 mls @ 100 mls/hr IV Q6H [facility] Last Infusion: 07/04/21 07:24 Dose: Infused Documented by: Insulin Human Lispro (Insulin Lispro 100 Unit/Ml 3 Ml Vial) 0 unit SUBCUT QIDACHS [facility]; Protocol Last Admin: 07/03/21 20:59 Dose: Not Given Documented by: Metformin HCl (Metformin Hcl Er 750 Mg Tab.Er.24h) 750 mg PO DAILY [facility] Last Admin: 07/04/21 06:50 Dose: 750 mg Documented by: Ondansetron HCl (Ondansetron Hcl 4 Mg/2 Ml Vial) 4 mg IVPUSH Q8H PRN PRN Reason: Nausea and Vomiting Oxycodone HCl (Oxycodone Hcl Immed Release 5 Mg Tablet) 5 mg PO ONCE PRN PRN Reason: Pain, Severe (Pain Scale 7-10) Oxycodone HCl (Oxycodone Hcl Immed Release 5 Mg Tablet) 10 mg PO Q4H PRN PRN Reason: Pain, Moderate (Pain Scale 4-6 Last Admin: 07/04/21 06:49 Dose: 10 mg Documented by: Pravastatin Sodium (Pravastatin Sodium 40 Mg Tablet) 40 mg PO BEDTIME [facility] Last Admin: 07/03/21 20:48 Dose: 40 mg Documented by: Sodium Chloride (0.9 % Sodium Chloride Flush 3 Ml Syringe) 3 ml IVFLUSH QSHIFT [facility] Last Admin: 07/04/21 06:50 Dose: Not Given Documented by: Valsartan (Valsartan 160 Mg Tablet) 160 mg PO DAILY [facility] Last Admin: 07/04/21 06:50 Dose: 160 mg Documented by: <Candy Chavez PA-C - Last Filed: 07/04/21 07:54> Time Spent With Patient Time: Total time spent is greater than 50% in coordination of care (as documented) at patient's floor/unit and/or counseling patient: <Candy Chavez PA-C - Last Filed: 07/04/21 07:54> Time with patient: 15 - 24 minutes <Candy Chavez PA-C - Last Filed: 07/04/21 07:54> Quality Stroke Does the patient have a stroke diagnosis?: No <Candy Chavez PA-C - Last Filed: 07/04/21 07:54> Reason for No Anti-thrombotic by Day Two: Not indicated <Candy Chavez PA-C - Last Filed: 07/04/21 07:54> VTE Prior VTE?: No <Candy Chavez PA-C - Last Filed: 07/04/21 07:54> VTE Risk Level:: Surgical - low <JEFERSON Garsia Last Filed: 07/04/21 07:54> VTE Device Contraindication: N/A - Device Ordered <JEFERSON Garsia Last Filed: 07/04/21 07 :54> VTE Drug Contraindication: N/A - Med Ordered <JEFERSON Garsia Last Filed: 07/04/21 07:54>
[2021-07-04 07:59] LABS: Glucose, Whole Blood 280 mg/dL (60-115)
[2021-07-04] MEDS: Insulin Lispro 100 UNIT/ML 3 ML VIAL SUBCUT (07:59)
--- NOTE | 2021-07-04 11:22 | P.DS_ITS ---
DS: Providers Provider Date of Service: 07/04/21 <Candy Chavez PA-C - Last Filed: 07/04/21 11:22> Date of admission: 06/27/21 04:56 <Candy Chavez PA-C - Last Filed: 07/04/21 11:22> Primary care physician: Carla Constantino NP <Candy Chavez PA-C - Last Filed: 07/04/21 11:22> Attending physician on admission: Bobby Umana <Candy Chavez PA-C - Last Filed: 07/04/21 11:22> Consults: 06/30/21 14:48 Consult to Hospitalist Routine Consulting Provider: Hospitalist Reason For Exam: Hypertension, borderline diabetes <Candy Chavez PA-C - Last Filed: 07/04/21 11:22> Discharging clinician: Bobby Umana <Candy Chavez PA-C - Last Filed: 07/04/21 11:22> Lindsay Betancur <Lindsay Betancur MD - Last Filed: 07/03/21 12:47> DS: Diagnosis Discharge Diagnosis (1) Acute cholecystitis: Status: Acute <Candy Chavez PA-C - Last Filed: 07/04/21 11:22> (2) Elevated bilirubin: Status: Acute <Candy Chavez PA-C - Last Filed: 07/04/21 11:22> (3) Diverticulitis: Status: Acute <JEFERSON Garsia Last Filed: 07/04/21 11:22> DS: Summary Hospital Course Hospital Course: BRIEF HPI: Micki Lara is a 75 year old female with PMH of HTN, HLD, DM who presented to the ED with complaints of abdominal pain. Patient reports she ate an apple and developed mid abdominal pain that she first thought was indigestion. She described it as a crampy, achey pain in nature. Nothing alleviated the pain. The pain gradually worsened throughout the day and she called EMS. She vomited 1x in the ambulance. She denies fevers or chills but fel t clammy at home. She denies diarrhea, change in bowel habits. She endorses lack of appetite yesterday due to the pain. In the ED, work up included a CT scan which demonstrated focal wall thickening at the splenic flexure of the colon with adjacent inflammation as well as a distended gallbladder with gallstones and gallbladder wall edema. She had a leukocytosis of 14.2. LFTs were normal. She had a colonoscopy in [address] Zelaya where scattered diverticulosis was noted. This morning, the pain is improved. She reports a history of a neurocognitive disease and is unsure of diagnosis. HOSPITAL COURSE: She was admitted to the surgical service for further evaluation and treatment of the acute cholecystitis and possible diverticulitis.?She had an ultrasound which also suggested acute cholecystitis.?She was started on IV zosyn empirically, kept NPO and on IVF. Given she had significant tenderness in the RUQ, it was thought she was symptomatic from the cholecystitis. It was therefore recommended to proceed with cholecystectomy.? However, she had a bump in her bilirubin and the procedure was canceled.? 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 Her bilirubin was followed and normalized.?She was therefore added onto the OR schedule for laparoscopic cholecystectomy, possible open that day and she wanted to proceed.?? On 06/30/21, a laparoscopic cholecystectomy was performed by Dr. Umana without complication. She was found to have gallbladder hydrops, severe induration and edema and thickening of the gallbladder intraoperatively. The patient tolerated the procedure well, completed routine recovery in PACU and was admitted for observation. She had an uncomplicated but slow recovery course. She reported difficulty with incisional pain but the pain prior to surgery had resolved. She was tolerating a solid diet. Her WBC count normalized. Her abdomen was benign with appropriate post op tenderness and incisions were clean. She was requiring a lot of assistance and therefore a PT consult was obtained. They recommended STR upon discharge to maximize function and safety at home as she had decreased strength and safety awareness and was a high fall risk. The patient agreed to this. She remained inpatient for pain control. On the day of discharge, she was tolerating a solid diet, had good pain control and benign abdomen. She continued to require assistance with ambulation which was not at her baseline and therefore transfer to [facility] was continued. She was transferred in stable condition. She is to follow up with Dr. Umana in office in 2 weeks. <Candy Chavez PA-C - Last Filed: 07/04/21 11:22> Status at Discharge Functional status at discharge: uses cane/walker <Candy Chavez PA-C - Last Filed: 07/04/21 11:22> Overall status at discharge: patient is not back to baseline <Candy Chavez PA-C - Last Filed: 07/04/21 11:22> patient is progressing back to baseline <Lindsay Betancur MD - Last Filed: 07/03/21 12:47> Time Spent with Patient Time attestation: Total time spent providing and/or coordinating discharge services: <Candy Chavez PA-C - Last Filed: 07/04/21 11:22> Discharge coordination time: Greater than 30 minutes <Candy Chavez PA-C - Last Filed: 07/04/21 11:22> Quality: Stroke Does the patient have a stroke diagnosis?: No <Candy Chavez PA-C - Last Filed: 07/04/21 11:22> Reason for No Anti-thrombotic at DC: Not indicated <Lindsay Betancur MD - Last Filed: 07/03/21 12:47> Reason for No Anticoagulant at DC: Not indicated <Lindsay Betancur MD - Last Filed: 07/03/21 12:47> Reason Not Initiating IV-Tpa: Not indicated <Lindsay Betancur MD - Last Filed: 07/03/21 12:47> Reason for No Anti-thrombotic by Day Two: Not indicated <Lindsay Betancur MD - Last Filed: 07/03/21 12:47> Reason for No Statin at DC: Not indicated <Lindsay Betancur MD - Last Filed: 07/03/21 12:47> Physical Exam Verdana 4l Vital Signs: Verdana 4d Verdana 4d Vital Signs: Verdana 4d Verdana 4Bd Last Vital Signs Verdana 4d Pantry Goods Maker New 4d Pantry Goods Maker New 4d Temp 98.5 F 07/01/21 08:00 Pantry Goods Maker New 4d Pulse 78 07/01/21 10:04 Pantry Goods Maker New 4d Resp 18 07/01/21 08:00 BP 151/90 H 07/01/21 10:04 Pulse Ox 98 07/01/21 10:04 BMI result Body Mass Index 27.3 <Candy Chavez PA-C - Last Filed: 07/04/21 11:22> Const: General: comfortable, no acute distress and alert <JEFERSON Garsia Last Filed: 07/04/21 11:22> Orientation/consciousness: patient oriented x3 <Candy Chavez PA-C - Last Filed: 07/04/21 11:22> Resp: Effort & Inspection: normal respiratory effort <Candy Chavez PA-C - Last Filed: 07/04/21 11:22> GI: Other: mild tenderness ruq but overall soft nondistended <Lindsay Betancur MD - Last Filed: 07/03/21 12:47> Inspection: No distended and Yes incision (dressings intact) <Candy Chavez PA-C - Last Filed: 07/04/21 11:22> Palpation (GI): Soft to palpation, Tenderness to palpation present (GI) (incisional, mild), no guarding and not rigid <Candy Chavez PA-C - Last Filed: 07/04/21 11:22> Percussion: Yes normal to percussion <Candy Chavez PA-C - Last Filed: 07/04/21 11:22> Skin: General skin exam: no rashes or lesions noted <Candy Chavez PA-C - Last Filed: 07/04/21 11:22> Neuro: General: patient oriented x3 <Candy Chavez PA-C - Last Filed: 07/04/21 11:22> DS: Data Data Completed and Pending Pending studies at discharge: Pending at discharge 06/30/21 13:42 Surgical [PTH] Routine <JEFESRON Garsia Last Filed: 07/04/21 11:22> Labs on day of discharge: Laboratory Results - last 24 hr 06/30/21 06/30/21 06/30/21 09:22 11:41 16:32 Sodium Potassium Chloride Carbon Dioxide Anion Gap BUN Creatinine Estim Creat Clear Calc Estimated GFR POC Glucose 131 H 157 H Random Glucose Calcium Blood Type A Positive Antibody Screen POSITIVE Antibody Identification Anti-E Antigen Identification c Antigen - POSITIVE Crossmatch (AHG) See Detail 06/30/21 07/01/21 07/01/21 19:59 08:05 08:07 Sodium 139 Potassium 3.7 Chloride 102 Carbon Dioxide 28 Anion Gap 13 BUN 10 Creatinine 0.68 Estim Creat Clear Calc 76.3 Estimated GFR > 60 POC Glucose 150 H 140 H Random Glucose 139 H Calcium 8.6 Blood Type Antibody Screen Antibody Identification Antigen Identification Crossmatch (AHG) Preliminary micro results at discharge 06/27/21 01:13 Blood Culture - Preliminary Blood - Venous No growth after 48 hours. 06/27/21 01:13 Blood Culture - Preliminary Blood - Venous No growth after 48 hours. <Candy Chavez PA-C - Last Filed: 07/04/21 11:22> Imaging CT scan - pelvis: Radiologist's impression: ITS Impressions Abdomen/Pelvis CT 06/27/21 03:37 IMPRESSION: 1. Diverticulitis at the splenic flexure of the colon. No free air or fluid collection. 2. Cholelithiasis. Somewhat distended gallbladder with wall thickening and edema. This is concerning for cholecystitis. This could be evaluated further with ultrasound. Fleischner guidelines were followed. Abdomen Ultrasound 06/27/21 09:07 IMPRESSION: Gallstones, thickened edematous gallbladder wall and positive sonographic Mack's sign. Ultrasound appearance is concerning for acute cholecystitis. Further evaluation with HIDA scan may be helpful. Cholangiopancreatography MRI 06/28/21 12:12 IMPRESSION: Upper normal-size gallbladder, gallstones, gallbladder wall thickening and edema. Findings are suggestive of acute cholecystitis. Minimal intrahepatic biliary duct dilatation. The common bile duct does not appear dilated. No common bile duct stone is seen. There may be mass effect on the extrahepatic bile ducts from the abnormal gallbladder or Mirizzi syndrome. Small amount of ascites adjacent to the liver. Diverticulosis. Chest X-Ray 06/30/21 11:08 IMPRESSION: Questionable hazy opacities in the left lower lobe in which developing infiltrate or aspiration cannot be excluded.. <Lindsay Betancur MD - Last Filed: 07/03/21 12:47> Discharge Plan Discharge Anticipated Discharge Date/Time: 07/03/21 12:28 <Candy Chavez PA-C - Last Filed: 07/04/21 11:22> Patient Disposition: Xfer SNF <Candy Chavez PA-C - Last Filed: 07/04/21 11:22> Discharge Diagnosis: acute cholecystitis, s/p lap cholecystectomy <Candy Chavez PA-C - Last Filed: 07/04/21 11:22> acute cholecystitis, s/p lap cholecystectomy <Lindsay Betancur MD - Last Filed: 07/03/21 12:47> Referrals: Carla Constantino NP [Primary Care Provider] - 1 Week Bobby Umana MD [Physician] - 2 Weeks <Candy Chavez PA-C - Last Filed: 07/04/21 11:22> Discharge Medications: Continued pravastatin 40 mg Tablet 40 mg PO BEDTIME 0RF cyanocobalamin (vitamin B-12) 1,000 mcg Tablet 1,000 mcg PO DAILY 0RF glipizide 2.5 mg Tablet Extended Release 24 Hr 2.5 mg PO DAILY 0RF aspirin 81 mg Tablet,Chewable 81 mg PO DAILY 0RF irbesartan 300 mg Tablet 300 mg PO DAILY 0RF metformin 750 mg Tablet Extended Release 24 Hr 750 mg PO DAILY 0RF Januvia 100 mg tablet 1 tab PO DAILY 0RF hydrochlorothiazide 12.5 mg Tablet 12.5 mg PO DAILY 0RF <Candy Chavez PA-C - Last Filed: 07/04/21 11:22> Discharge Orders: Discharge Order (Routine); Ordered 07/04/21 Ordered By: Lindsay Betancur <Candy Chavez PA-C - Last Filed: 07/04/21 11:22> Diet: diabetic diet and low fat, low cholesterol <Candy Chavez PA-C - Last Filed: 07/04/21 11:22> diabetic diet and low fat, low cholesterol <Lindsay Betancur MD - Last Filed: 07/03/21 12:47> Activity on Discharge: No heavy lifting <JEFERSON Garsia Last Filed: 07/04/21 11:22> No heavy lifting <Lindsay Betancur MD - Last Filed: 07/03/21 12:47> Stand Alone Forms: Patient Portal Discharge page <JEFERSON Garsia Last Filed: 07/04/21 11:22> Activity Restrictions/Additional Instructions: If the incision area is tender, you may apply an ice pack for short intervals (No more than 20 minutes on, followed by at least 20 minutes off). Do not apply heat. Do not use creams, lotions, or topical antibiotics unless instructed to do so by your surgeon. These can cause infection or allergic reaction. Ok to shower 24 hours after your surgery. Remove bandaids in 2 days and replace. You have steri strips (small white cloth strips) covering your incision- these will fall off ~1 week. Follow up in office with Dr. Umana in 2 weeks. ([phone]) No heavy lifting (>10-20lbs)! Call Your Doctor If: -Your temperature exceeds 101.5? F -You experience excessive pain or swelling -You have an unexpected reaction to medication -You have excessive bleeding -You experience continued vomiting/nausea -Your incision begins to separate -Your incision shows signs of infection such as increased redness, swelling, excessive pain, drainage (light blood or clear fluid is normal) or heat <JEFERSON Garsia Last Filed: 07/04/21 11:22> Care Plan Goals: Return to baseline health and gradual return to activity following recovery period. <JEFERSON Garsia Last Filed: 07/04/21 11:22> Health Concerns: acute cholecystitis, diabetes mellitus <JEFRESON Garsia Last Filed: 07/04/21 11:22> Plan of Treatment: s/p laparoscopic cholecystectomy 06/30/21 Transfer to [facility] F/u in office in [address] Umana <JEFERSON Garsia Last Filed: 07/04/21 11:22> Assessment: Improving <JEFERSON Garsia Last Filed: 07/04/21 11:22>
[2021-07-04 11:25] LABS: Glucose, Whole Blood 233 mg/dL (60-115)
--- NOTE | 2021-07-04 13:07 | MHC.CM.PN ---
COVID VACCINATION: PFIZER 07/22 08/13 05/12 INFORMATION ADDED TO [facility]
--- NOTE | 2021-07-04 13:41 | MHC.CM.PN ---
Addendum entered by Magaly Perkins 07/04/21 16:06: 07/03 imm in chart Original Note: PATIENT ASSIGNED HER SPOUSE AND SON HCP AGENTS. COPY UPLOADED INTO [employer] AND PLACED IN PATIENT CHART
--- NOTE | 2021-07-04 14:45 | MHC.CM.PN ---
PATIENT AND SPOUSE ACCEPT [facility]ED OFFER.FACILITY IS GOING FOR AUTH. CURRENTLY AWAITING AUTH AND JENNIFER HILL. RN AWARE. SPOUSE IS CURRENTLY SEARCHING FOR PATIENT'S PHONE CALL TO SECURITY AT [phone] TO INQUIRE IF FOUND, THEY WILL CALL THIS RESOURCING CONSULTANT BACK (JUAN I PHONE WITH JUAN CASE. MAY BE RANDLE OR SQUIGGLY LINES ON THE CASE
[2021-07-04 15:16] LABS: COVID-19 Test Negative (Negative)
--- NOTE | 2021-07-04 15:31 | MHC.CM.PN ---
Addendum entered by Magaly Perkins 07/04/21 15:52: 2030 IS TOO LATE FOR [facility] TO TRANSPORT, IT WAS DISCOVERED BY THERON RAMIREZTRAN THAT INSURANCE IS MEDICARE PRIME. 1700 REQUEST MADE. EMMANUEL AYON ([phone]) IS AWARE OF PLAN. Addendum entered by Magaly Perkins 07/04/21 15:36: [facility] CAN DO 2030. INFORMATION RELAYED TO EMMANUEL AYON, LIAISON [phone] Original Note: CALL TO LEANNE @ [phone] TO REQUEST A 1700 VETERINARY EPIDEMIOLOGIST FROM [facility] TO THERON SMITHJuan A
[2021-07-04 16:12] LABS: Glucose, Whole Blood 193 mg/dL (60-115)
== END 2021-07-04 17:38 | disposition skilled nursing facility (03) | DRG 418 ==
LOC: HO.ED 04:19 → HO.EDOVER 05:09 → HO.S3 06-28 18:11
PROVIDERS: Internal Medicine; Physician Assistant Surgical; Surgery; Admitting Provider Surgery; Emergency Provider Student in an Organized Health Care Education/Training Program; PCP Nurse Practitioner Family; Visit Provider Surgery
PROC: 0FT44ZZ Resection of Gallbladder, Percutaneous Endoscopic Approach (ICD-10-PCS; CPT 47562; principal; 2021-06-30 12:30)
DX: K81.0 Acute cholecystitis (principal); K82.1 Hydrops of gallbladder; K57.32 Diverticulitis of large intestine without perforation or abscess without bleeding; E78.5 Hyperlipidemia, unspecified; I10 Essential (primary) hypertension; E11.9 Type 2 diabetes mellitus without complications; Z20.822 Contact with and (suspected) exposure to COVID-19; Z87.891 Personal history of nicotine dependence; Z79.82 Long term (current) use of aspirin; Z79.84 Long term (current) use of oral hypoglycemic drugs; Z79.899 Other long term (current) drug therapy
CPT/HCPCS: 36415; 71045; 74177; 74181; 76705; 80048; 80053; 80076; 81003; 82947; 83605; 83690; 85025; 85027; 85610; 86850; 86870; 86900; 86901; 86902; 86905; 86920; 86922; 87040; 87635; 88304; 93005; 96361; 96374; 96375; 97116; 97163; 99024; 99284; 99285; J1170; J1885; J2270; J2405; J2543; J2550; J3010; Q9967

== ENCOUNTER → 2021-07-20 09:36 | Outpatient (BNVA) | payer MEDICARE, SELFPAY | PROVIDERS: PCP Nurse Practitioner Family; Visit Provider Surgery | DX: Z48.815 Encounter for surgical aftercare following surgery on the digestive system (principal); Z90.49 Acquired absence of other specified parts of digestive tract | CPT/HCPCS: 99212 ==

== ENCOUNTER 2023-02-16 10:24 | Inpatient (IN) | payer MEDICARE, OTHER, SELFPAY ==
[2023-02-16] VITALS (42 sets, daily range): BP systolic 89–239; BP diastolic 54–130; PULSE 68–138; RESP 12–21; TEMP 36.2–36.9; O2SAT 91–97; BMI 29.2; BMI 28.8
--- NOTE | ~2023-02-16 | MR_ITS ---
EXAMINATION: MR BRAIN WITHOUT CONTRAST MR ANGIOGRAPHY BRAIN WITHOUT CONTRAST CLINICAL INFORMATION: Headache. Confusion. Hypertension. COMPARISON: CTA head and neck from 02/16/2023. TECHNIQUE: MRI of the brain was obtained using routine sequences without contrast. 3D [id number] MR angiography was performed through the brain without the use of intravenous gadolinium. 3D postprocessing including acquisition of multiplanar MIP reformats are obtained at the technologist workstation and utilized for image interpretation. Stenoses are assessed in accordance with NASCET criteria unless otherwise indicated. FINDINGS: Brain MRI: Moderately motion degraded exam. No focal restricted diffusion is demonstrated to suggest acute or subacute cerebral ischemia. No evidence of acute or chronic hemorrhagic products on heme-sensitive imaging. Chronic lacunar infarcts of the bilateral lentiform nuclei and cerebellar hemispheres. Confluent periventricular, deep white matter, and brainstem T2 FLAIR hyperintensity consistent with underlying microangiopathy. There is a degree of generalized cerebral volume loss with prominence of both the ventricles and sulcal spaces. However, there appears to be mildly disproportionate prominence of the ventricles. The posterior callosal angle is decreased (65 degrees) when measured on a corrected coronal image, orthogonal to the anterior commissure-posterior commissure line. Small arachnoid cyst in the anterior aspect of the right middle cranial fossa. No additional abnormal mass effect. No midline shift. Normal appearance of the pituitary gland. Normal positioning of the cerebellar tonsils. Normal arterial and venous vascular flow voids are present. Normal, homogeneous marrow signal. Mild mucosal thickening of the paranasal sinuses. No signal abnormalities within the mastoids. Left-sided lens extraction. Head MRA: Significantly motion degraded exam without. No diagnostic vascular imaging was obtained. MR/MR head/brain wo con IMPRESSION: 1. No acute intracranial abnormalities. 2. Extensive underlying microangiopathy. Chronic lacunar infarcts of the deep nuclei and cerebellum. 3. There is a degree of generalized cerebral volume loss with prominence of both the ventricles and sulcal spaces. However, there appears to be mildly disproportionate prominence of the ventricles. Recommend correlation with potential superimposed normal pressure hydrocephalus. 4. Significantly motion degraded MRA exam. No diagnostic vascular imaging was obtained.
--- NOTE | ~2023-02-16 | CT_ITS ---
EXAMINATION: CT ANGIOGRAM NECK WITH CONTRAST CT ANGIOGRAM BRAIN WITH CONTRAST CLINICAL INFORMATION: Headache, elevated blood pressure. Confused. Rule out bleed and stroke. COMPARISON: None. TECHNIQUE: Test bolus sequences followed by intravenous administration 70 mL of Omnipaque 350. Helical imaging was performed in the axial plane from the thoracic inlet to the skull vertex. Delayed postcontrast imaging of the head was also performed. The data was processed at the instructional technologist workstation for generation of MIP sequences. Angled MIPs and volume rendered reformatted images were also generated at an offline 3D workstation. Stenoses are assessed in accordance with NASCET criteria unless otherwise indicated. This CT examination was performed using dose optimization techniques as appropriate, variously including the following: *Automated exposure control *Adjustment of mA and/or kV according to patient size (this includes techniques or standardized protocols for targeted exams where dose is matched to indication/reason for exam; i.e. extremities or head) *Use of iterative reconstruction technique DLP: mGy-cm FINDINGS: Head CT: There is no intracranial hemorrhage, large acute infarction, or mass lesion. The ventricles are normal in size and configuration without evidence of hydrocephalus. There is no abnormal enhancement. Advanced chronic microangiopathic changes are seen within the white matter. Chronic lacunar infarcts are seen within the right cerebellum, bilateral basal ganglia, bilateral thalami. There is an arachnoid cyst in the right middle cranial fossa with mild suspected in the adjacent temporal lobe parenchyma. The visualized paranasal sinuses and mastoid air cells are clear. Neck CTA: The aortic arch and great vessel origins are patent with atheromatous changes noted. Mild beaded morphology is seen involving the bilateral cervical internal carotid arteries compatible with fibromuscular dysplasia type changes. 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 Atheromatous changes are seen at the bilateral carotid siphons without stenosis. Atheromatous changes are seen involving both vertebral arteries without significant stenosis. The left vertebral artery appears significantly dominant. Head CTA: No large vessel occlusion is seen. Significant atheromatous changes are seen along the intradural left vertebral artery without stenosis. The basilar artery is patent. The anterior and posterior circulations are patent. No large vessel occlusion is seen. There is a 2 mm aneurysm at the right MCA bifurcation. There is approximately moderate stenosis of the right P1 P2 [employer] junction. Non-vascular findings: No consolidation is seen within the upper lungs. There is pleural-parenchymal thickening at the right more the left lung apices. Advanced degenerative changes are seen within the spine. CT/CT angio head neck stroke IMPRESSION: CT HEAD: No intracranial hemorrhage or large acute infarction. Background changes of advanced chronic microangiopathy. Chronic lacunar infarcts seen within the right cerebellum, bilateral basal ganglia, and bilateral thalami. 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 CTA HEAD: No large vessel occlusion or significant stenosis within the intracranial circulation. Moderate stenosis of the right P1 P2 [employer] junction. 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 This critical result was discussed with Dr. Hung on 02/16/2023 11:01 AM, and it was ascertained that the content and urgency of the report was understood at the time of direct communication.
--- NOTE | ~2023-02-16 | XR_ITS ---
EXAMINATION: XR ABDOMEN KUB CLINICAL INDICATION: Abdominal pain COMPARISON: Previous CT of the abdomen and pelvis June 2021 TECHNIQUE: AP view of the abdomen. FINDINGS: There are no dilated loops of bowel to suggest obstruction. There is no evidence of free air. There is excreted contrast in the bladder. There is high attenuation material in the lower midline pelvis and perineal region. This probably represents stool outside the patient, possibly in the diaper. Clinical correlation recommended. Surgical clips in the right upper quadrant probably from cholecystectomy. There is curvature of the lumbar spine to the right degenerative changes. There is a L1 compression fracture and and question L2 vertebral body compression fracture. Old left anterior 11th rib fracture. XR/XR abdomen 1V IMPRESSION: No evidence of obstruction or free air. Probable stool outside the patient. L1 and question L2 vertebral body compression fractures.
--- NOTE | ~2023-02-16 | CT_ITS ---
EXAMINATION: CT HEAD WITHOUT CONTRAST (STROKE PROTOCOL) CLINICAL INFORMATION: Stroke protocol. COMPARISON: None available. TECHNIQUE: Contiguous axial imaging was performed from the skull base to vertex without intravenous administration of contrast. This CT examination was performed using dose optimization techniques as appropriate, variously including the following: *Automated exposure control *Adjustment of mA and/or kV according to patient size (this includes techniques or standardized protocols for targeted exams where dose is matched to indication/reason for exam; i.e. extremities or head) *Use of iterative reconstruction technique DLP: 778 mGy-cm FINDINGS: There is no midline shift. There is no mass effect. There is no hemorrhage. The basal cisterns appear patent. The posterior fossa is grossly within normal limits. No extra-axial collection is seen. Diffuse areas of decreased attenuation in the white matter consistent with ischemic change and areas of old infarct. There is felt to be preservation of the sanchez-white matter differentiation CT/CT head for stroke IMPRESSION: Negative acute noncontrast CT of the brain. Note is made of atrophy and moderate white matter ischemic changes. This critical result was discussed with Dr Hung at 10:46 AM hours on 02/16/2023. It was ascertained that the content and urgency of the report was understood at the time of direct communication.
--- NOTE | ~2023-02-16 | MR_ITS ---
EXAMINATION: MR BRAIN WITHOUT CONTRAST MR ANGIOGRAPHY BRAIN WITHOUT CONTRAST CLINICAL INFORMATION: Headache. Confusion. Hypertension. COMPARISON: CTA head and neck from 02/16/2023. TECHNIQUE: MRI of the brain was obtained using routine sequences without contrast. 3D [id number] MR angiography was performed through the brain without the use of intravenous gadolinium. 3D postprocessing including acquisition of multiplanar MIP reformats are obtained at the technologist workstation and utilized for image interpretation. Stenoses are assessed in accordance with NASCET criteria unless otherwise indicated. FINDINGS: Brain MRI: Moderately motion degraded exam. No focal restricted diffusion is demonstrated to suggest acute or subacute cerebral ischemia. No evidence of acute or chronic hemorrhagic products on heme-sensitive imaging. Chronic lacunar infarcts of the bilateral lentiform nuclei and cerebellar hemispheres. Confluent periventricular, deep white matter, and brainstem T2 FLAIR hyperintensity consistent with underlying microangiopathy. There is a degree of generalized cerebral volume loss with prominence of both the ventricles and sulcal spaces. However, there appears to be mildly disproportionate prominence of the ventricles. The posterior callosal angle is decreased (65 degrees) when measured on a corrected coronal image, orthogonal to the anterior commissure-posterior commissure line. Small arachnoid cyst in the anterior aspect of the right middle cranial fossa. No additional abnormal mass effect. No midline shift. Normal appearance of the pituitary gland. Normal positioning of the cerebellar tonsils. Normal arterial and venous vascular flow voids are present. Normal, homogeneous marrow signal. Mild mucosal thickening of the paranasal sinuses. No signal abnormalities within the mastoids. Left-sided lens extraction. Head MRA: Significantly motion degraded exam without. No diagnostic vascular imaging was obtained. MR/MR angio head wo con IMPRESSION: 1. No acute intracranial abnormalities. 2. Extensive underlying microangiopathy. Chronic lacunar infarcts of the deep nuclei and cerebellum. 3. There is a degree of generalized cerebral volume loss with prominence of both the ventricles and sulcal spaces. However, there appears to be mildly disproportionate prominence of the ventricles. Recommend correlation with potential superimposed normal pressure hydrocephalus. 4. Significantly motion degraded MRA exam. No diagnostic vascular imaging was obtained.
--- NOTE | ~2023-02-16 | XR_ITS ---
EXAMINATION: XR CHEST CLINICAL INFORMATION: Shortness of breath COMPARISON: Previous chest x-ray June 2021 TECHNIQUE: Frontal view of the chest was obtained. FINDINGS: The cardiac and mediastinal contours are stable. There is scarring or chronic subsegmental atelectasis at the left lung base similar to previous chest x-ray. The lungs are otherwise clear. There is no pleural effusion or pneumothorax. There are degenerative changes spine. There are soft tissue calcifications adjacent to the left proximal humerus. XR/XR chest 1V IMPRESSION: Scarring or chronic subsegmental atelectasis at the left lung base.
--- NOTE | 2023-02-16 10:30 | ECG_ITS ---
Test Reason : STROKE ALERT Blood Pressure : / mmHG Vent. Rate : 082 BPM Atrial Rate : 082 BPM P-R Int : 194 ms QRS Dur : 078 ms QT Int : 398 ms P-R-T Axes : 055 034 043 degrees QTc Int : 464 ms Normal sinus rhythm Low voltage QRS Possible Inferior infarct , age undetermined Cannot rule out Anterior infarct , age undetermined Abnormal ECG When compared with ECG of 27-JUN-2021 00:49, No significant change was found Referred By: Jeronimo Hung Electronically Signed By:NAIMA FREDERICK
--- NOTE | 2023-02-16 10:30 | ED_ITS ---
HPI - Neuro Symptoms/Deficit General Chief Complaint: Stroke Stated Complaint: STROKE ALERT Time Seen by Provider: 02/16/23 10:29 Source: EMS Mode of arrival: EMS Limitations: other (Confusion) History of Present Illness HPI Narrative: 77-year-old female history of diabetes mellitus, Parkinson's disease, hypertension, stroke sent to emergency department by ambulance for evaluation of possible stroke. Information came from the paramedics. Patient's was concerned that the patient was confused, complaining of a headache and abdominal pain. Apparently the patient had a stroke approximately 1 year prior the was worried that patient was having another stroke. The patient woke up with the symptoms and the noticed confusion approximately 1-1/2 hours prior to the patient coming to the emergency department. The patient was oriented to person, she was able to tell me her date of and age but was not able to tell me the month or year. She did complain of a headache but could not give me details. Paramedics stated the patient blood pressure was 220/110. Patient has normal symmetric strength in her upper extremity, she is able to hold her lower extremities minimally up against gravity but appears to be symmetric. Related Data Home Medications Medication Instructions Recorded Confirmed aspirin 81 mg chewable tablet 81 mg PO DAILY 06/27/21 06/27/21 cyanocobalamin (vitamin B-12) 1,000 mcg PO DAILY 06/27/21 06/27/21 1,000 mcg tablet glipizide 2.5 mg tablet, extended 2.5 mg PO DAILY 06/27/21 06/27/21 release 24 hr hydrochlorothiazide 12.5 mg tablet 12.5 mg PO DAILY 06/27/21 06/27/21 irbesartan 300 mg tablet 300 mg PO DAILY 06/27/21 06/27/21 metformin 750 mg tablet,extended 750 mg PO DAILY 06/27/21 06/27/21 release 24 hr pravastatin 40 mg tablet 40 mg PO BEDTIME 06/27/21 06/27/21 sitagliptin phosphate 100 mg 1 tab PO DAILY 06/27/21 06/27/21 tablet (Januvia) Allergies Allergy/AdvReac Type Severity Reaction Status Date / Time No Known Allergies Allergy Verified 07/20/21 09:57 Review of Systems 2 Review of Systems: Yes all other systems are reviewed and are negative [facility] Past Medical History Medical History Parkinsonian features Diabetes Hyperlipidemia Hypertension Surgical History Status post laparoscopic cholecystectomy History of laparoscopic cholecystectomy (~06/30/21) Social History Social History Household Members: Spouse Housing: House Do you presently have visiting nurse or other home services: No Patient Tobacco Use Status: Never used Tobacco Smoked in Last 30 Days: No Use of substances other than those prescribed or required for medical reasons: No Advance Directives: No service: No Current occupational status: unemployed Physical Exam 2 Vital Signs: Vital Signs: Last Vital Signs Pulse 98 02/16/23 12:43 Resp 16 02/16/23 12:10 BP 197/101 H 02/16/23 12:43 Pulse Ox 93 02/16/23 12:10 O2 Del Method Room Air 02/16/23 12:10 BMI result Body Mass Index 29.2 Exam: General: Awake, alert in no distress Head: Normocephalic, atraumatic EENT: PERRL, Lids normal, sclera normal, conjunctiva normal, nose normal , ears normal, throat without erythema or exudates Neck: Supple, no adenopathy, trachea midline and nontender Lung: breath sounds symmetric, no wheezing, rales or rhonchi Chest: symmetric movement, nontender Heart: regular rate and rhythm, normal S1, S2 no murmurs or rubs Abdomen: soft, non-tender, nondistended, normal bowel sounds Back: no vertebral tenderness, no CVAT Extremities: no deformities, moves all extremities symmetrically Skin: no rashes, no lesion, normal color and warmth Neuro: Awake, alert, oriented to person, appears confused, cranial nerves intact, moves upper extremities symmetrically, able to hold her arms up against gravity. Is able to only minimally hold both lower extremities up against gravity but symmetric Psych: Pleasant, cooperative Medications Administered Generic Name Dose Route Start Last Admin Trade Name Freq PRN Reason Stop Dose Admin Nicardipine HCl 25 mg/ Sodium 260 mls @ 0 mls/hr 02/16/23 11:45 02/16/23 12:07 Chloride IVCONT 5 mg/hr .Q0M MUKESH 52 mls/hr Administration Protocol Per Protocol Discontinued Medications Generic Name Dose Route Start Last Admin Trade Name Jd PRN Reason Stop Dose Admin Aspirin 162 mg 02/16/23 12:23 02/16/23 12:42 Aspirin 81 Mg Tab.Chew PO 02/16/23 12:24 162 mg ONCE STA Administration Iohexol 70 ml 02/16/23 10:45 02/16/23 10:47 Iohexol 350 Mg/Ml 100 Ml Infus..Btl IV 02/16/23 10:46 70 ml ONCE ONE Administration Medical Decision Making Medical Decision Making MDM Narrative: 77-year-old female history of diabetes mellitus, Parkinson's disease, hypertension, stroke sent to emergency department by ambulance for evaluation of possible stroke. Information came from the paramedics. Patient's was concerned that the patient was confused, complaining of a headache and abdominal pain. Apparently the patient had a stroke approximately 1 year prior the was worried that patient was having another stroke. The patient woke up with the symptoms and the noticed confusion approximately 1-1/2 hours prior to the patient coming to the emergency department. I ordered the following evaluation on the patient: CBC, BMP, liver panel, point of care glucose, PT/INR, PTT, troponin, urinalysis, CT scan of the brain without IV contrast, CT angiogram head and neck. 1147: Patient's laboratory evaluation was unremarkable. CT scan of the head revealed no acute bleed. 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 Sánchez who felt that the patient had hypertensive encephalopathy and recommended treating the patient's blood pressure. Patient was started on nicardipine as per protocol and I will discuss admission with the covering the covering internet cafe manager. 1244: I did discuss the patient's presentation with the covering internet cafe manager, Dr. Lyles and he will evaluate the patient emergency department admit the patient to the intensive care unit. Differential Diagnosis Differential Diagnoses: The differential diagnosis associated with the presentation includes Differential diagnosis includes but is not limited to stroke, intracranial bleed, mass effect, electrolyte abnormality, anemia, seizure, urinary tract infection, encephalopathy, hypertensive encephalopathy Admission/Observation Consideration of admission/observation: Escalation of care including admission/observation considered Consult Healthcare Provider Management of the patient was discussed with: Engraver [employer] Neurologist, Dr. Sánchez. Numberer And Wirer, Dr. Lyles Lab Data MDM Lab Attestation statement: I reviewed the patient's lab results. My interpretation patient's laboratory evaluation is as follows: CBC was normal. Glucose elevated 229. BUN creatinine were normal. 02/16/23 11:20 02/16/23 11:20 Labs: Lab Results 02/16/23 02/16/23 02/16/23 Range/Units 10:26 10:30 11:20 WBC 7.8 (4.8-10.8) X10*3/uL RBC 4.80 D (4.20-5.50) X10*6/uL Hgb 14.6 D (12.0-16.0) g/dl Hct 43.2 D (37.0-47.0) % MCV 90.0 (80.0-98.0) fL MCH 30.4 (27.0-33.0) pg MCHC 33.8 (31.0-35.0) g/dl RDW 13.2 (11.0-16.0) % Plt Count 204 D (160-400) X10*3/uL MPV 10.3 (9.4-12.3) fL Immature Gran % (Auto) 0.4 (0.0-0.4) % Neut % (Auto) 63.5 (45-73) % Lymph % (Auto) 21.3 (20-40) % [place] % (Auto) 12.3 H (2-11) % Eos % (Auto) 1.9 (0-4) % Baso % (Auto) 0.6 (0-2) % Lymph # (Auto) 1.7 (1.2-4.9) X10*3/uL [place] # (Auto) 1.0 (0.1-1.2) X10*3/uL Eos # (Auto) 0.2 (0.0-0.4) X10*3/uL Baso # (Auto) 0.1 (0.0-0.2) X10*3/uL Abs Immat Gran (auto) 0.03 (0.00-0.03) X10*3/uL Absolute Neuts (auto) 4.9 (2.0-8.3) x10*3/uL Absolute Nucleated RBC 0.000 (0.0-0.012) X10*3/uL Nucleated RBC % (auto) 0.0 (0.0-0.2) /100WBC Smear Tech's Comments VERIFIED PT 11.2 (11.1-13.3) SEC Whole Blood PT 12.1 (11.1-13.5) sec INR 0.9 (0.9-1.1) Whole Blood INR 1.0 (0.9-1.1) APTT 27.9 (26.0-36.4) SEC Sodium 137 (135-145) mmol/L Potassium 4.1 (3.3-5.1) mmol/L Chloride 103 (96-108) mmol/L Carbon Dioxide 26 (22-29) mmol/L Anion Gap 12 (12-20) BUN 11 (9-16) mg/dL Creatinine 0.78 (0.5-1.4) mg/dL Estim Creat Clear Calc 66.4 Estimated GFR > 60 POC Glucose 231 H (60-115) mg/dL Random Glucose 229 H (60-115) mg/dL Calcium 9.5 D (8.4-10.2) mg/dL Total Bilirubin 0.6 (0.0-1.0) mg/dL Direct Bilirubin 0.2 (0.0-0.5) mg/dL AST 29 (5-31) U/L ALT 32 H (0-31) U/L Alkaline Phosphatase 67 (39-117) U/L Total Creatine Kinase 97 (26-140) U/L Troponin I High Sens 8.8 (<3.5-17.0) ng/L Total Protein 7.5 (6.5-8.0) g/dL Albumin 4.2 (3.5-5.0) g/dL Independent Interpretation I performed an independent interpretation of an: EKG Interpretation: My independent interpretation patient's 12 EKG done at 11:08 is as follows: Normal sinus rhythm rate 82, normal IL interval, QRS duration QTC interval, no ST segment elevation, no ST segment depression, poor R-wave progression V1 through V3 consistent with old anterior wall IA, no PACs, no PVCs. Radiology Impression Discussion of test interpretation with radiology: I discussed test interpretation with the radiologist and I have reviewed the radiologist's reading. Radiologist Impression: CT angio head neck stroke IMPRESSION: CT HEAD: No intracranial hemorrhage or large acute infarction. Background changes of advanced chronic microangiopathy. Chronic lacunar infarcts seen within the right cerebellum, bilateral basal ganglia, and bilateral thalami. 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 CTA HEAD: No large vessel occlusion or significant stenosis within the intracranial circulation. Moderate stenosis of the right P1 P2 SAL[employer] SERVICE ASSOCIATE junction. 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 This critical result was discussed with Dr. Hung on 02/16/2023 11:01 AM, and it was ascertained that the content and urgency of the report was understood at the time of direct communication. Dictated By: KENDRICK MONTANO MD CT head for stroke IMPRESSION: Negative acute noncontrast CT of the brain. Note is made of atrophy and moderate white matter ischemic changes. This critical result was discussed with Dr Hung at 10:46 AM hours on 02/16/2023. It was ascertained that the content and urgency of the report was understood at the time of direct communication. Dictated By: Derik Marinelli MD NIH Stroke Scale Level of Consciousness: Alert Level of Consciousness Questions: Answers one question correctly Level of Consciousness Commands: Performs both tasks correctly Best Gaze: Normal Visual: No visual loss Facial Palsy: Normal Motor Arm (Right): No drift Motor Arm (Left): No drift Motor Leg (Right): Some effort against gravity Motor Leg (Left): Some effort against gravity Limb Ataxia: Absent Sensory: Normal Best Language: No aphasia Dysarthia: Normal Extinction and Inattention: No abnormality Score: 5 Critical Care Time Critical Care Time Critical Care Time: Yes Total Critical Care Time: 45 Attestation: Critical Care: The patient was critically ill with a high probability of imminent or life threatening deterioration. I spent greater than 30 minutes of discontinuous time evaluating the patient,delivering critical care at the bedside, discussing and evaluating pertinent data with consultants. Critical care time does not include time spent performing separately billable procedures or teaching. Total time spent performing critical care was 45 minutes. Discharge Plan Discharge Clinical Impression: Encephalopathy, hypertensive Patient Disposition: Admitted As Inpatient Prescriptions: No Action pravastatin 40 mg Tablet 40 mg PO BEDTIME cyanocobalamin (vitamin B-12) 1,000 mcg Tablet 1,000 mcg PO DAILY glipizide 2.5 mg Tablet Extended Release 24 Hr 2.5 mg PO DAILY aspirin 81 mg Tablet,Chewable 81 mg PO DAILY irbesartan 300 mg Tablet 300 mg PO DAILY metformin 750 mg Tablet Extended Release 24 Hr 750 mg PO DAILY Januvia 100 mg tablet 1 tab PO DAILY hydrochlorothiazide 12.5 mg Tablet 12.5 mg PO DAILY
[2023-02-16 10:33] LABS: Prothrombin Time Whole Bld POC 12.1 sec (11.1-13.5)
--- NOTE | 2023-02-16 10:37 | PC.NURSE ---
pt arrived via ems stroke alert fasted score 1. per ems reported pt appeared to be unable to form words (last known well approx [id number] per ). - thinners. hx stroke [address] Reeves to bedside upon arrival. axox4, neuros intact. iv established via ems. pt in CT scan at this time.
[2023-02-16] MEDS: iohexoL 350 MG/ML 100 ML INFUS..BTL 70 ML IV (10:47)
[2023-02-16 11:09] LABS: Glucose, Whole Blood 231 mg/dL (60-115)
--- NOTE | 2023-02-16 11:16 | PC.NURSE ---
Provider MD made aware of pt BP, awaiting further orders at this time
[2023-02-16 11:29] LABS: Basophils Absolute Auto 0.1 X10*3/uL (0.0-0.2); Basophils Percent Auto 0.6 % (0-2); Eosinophils Absolute Auto 0.2 X10*3/uL (0.0-0.4); Eosinophils Percent Auto 1.9 % (0-4); Hematocrit 43.2 % (37.0-47.0); Hemoglobin 14.6 g/dl (12.0-16.0); Imm Gran Abs Auto 0.03 X10*3/uL (0.00-0.03); Imm Gran Pct Auto 0.4 % (0.0-0.4); Lymphocytes Absolute Auto 1.7 X10*3/uL (1.2-4.9); Lymphocytes Percent Auto 21.3 % (20-40); MANUAL DIFF FLAG SCAN; Mean Corpuscular HGB Conc 33.8 g/dl (31.0-35.0); Mean Corpuscular Hemoglobin 30.4 pg (27.0-33.0); Mean Platelet Volume 10.3 fL (9.4-12.3); Monocytes Percent Auto 12.3 % (2-11); Neutrophils Absolute Auto 4.9 x10*3/uL (2.0-8.3); Neutrophils Percent Auto 63.5 % (45-73); PLT CLUMP 1; Red Cell Distribution Width 13.2 % (11.0-16.0); SCAN SMEAR FLAG 1
[2023-02-16 11:31] LABS: White Blood Count 7.8 X10*3/uL (4.8-10.8)
[2023-02-16 11:32] LABS: INTERNATIONAL NORM RATIO 0.9 (0.9-1.1); Prothrombin Time 11.2 SEC (11.1-13.3)
[2023-02-16 11:35] LABS: Partial Thromboplastin Time 27.9 SEC (26.0-36.4)
[2023-02-16 11:43] LABS: Alanine Aminotransferase 32 U/L (0-31); Albumin Level 4.2 g/dL (3.5-5.0); Alkaline Phosphatase 67 U/L (39-117); Anion Gap 12 (12-20); Aspartate Amino Transferase 29 U/L (5-31); Bilirubin Direct 0.2 mg/dL (0.0-0.5); Bilirubin Total 0.6 mg/dL (0.0-1.0); Blood Urea Nitrogen 11 mg/dL (9-16); Calcium 9.5 mg/dL (8.4-10.2); Carbon Dioxide 26 mmol/L (22-29); Chloride 103 mmol/L (96-108); Creatinine Clr Calc Pharmacy 66.4; Estimated Glomerular Filt Rate > 60; Glucose Random 229 mg/dL (60-115); Potassium 4.1 mmol/L (3.3-5.1); Sodium 137 mmol/L (135-145); Total Protein 7.5 g/dL (6.5-8.0)
--- NOTE | 2023-02-16 11:43 | P.CNNE_ITS ---
History of Present Illness Data of Consult Service Date: 02/16/23 Primary Care Provider: Carla Constantino NP HPI Reason for consult: Difficulty speaking 77 years old woman came to hospital with difficulty speaking. She said that she was not headache per some but yesterday she was having headache and this morning she was noted by family members that she was not speaking right and was sent to hospital. There was no complaint of any focal weakness or seizure. She did not have any cold or flu recently. Review of Systems 2 Review of Systems: No trauma, cold or flu-like illness, or seizure. [facility] Past Medical History Medical History Parkinsonian features Diabetes Hyperlipidemia Hypertension Surgical History Surgical History Status post laparoscopic cholecystectomy History of laparoscopic cholecystectomy (~06/30/21) Social History Social History Household Members: Spouse Housing: House Do you presently have visiting nurse or other home services: No Patient Tobacco Use Status: Never used Tobacco Smoked in Last 30 Days: No Use of substances other than those prescribed or required for medical reasons: No Advance Directives: No service: No Current occupational status: unemployed Meds Allergies Allergy/AdvReac Type Severity Reaction Status Date / Time No Known Allergies Allergy Verified 07/20/21 09:57 Home Medications Medication Instructions Recorded Confirmed Last Taken Type aspirin 81 mg chewable tablet 81 mg PO DAILY 06/27/21 06/27/21 06/26/21 History cyanocobalamin (vitamin B-12) 1,000 mcg PO DAILY 06/27/21 06/27/21 06/26/21 History 1,000 mcg tablet glipizide 2.5 mg tablet, extended 2.5 mg PO DAILY 06/27/21 06/27/21 06/26/21 History release 24 hr hydrochlorothiazide 12.5 mg tablet 12.5 mg PO DAILY 06/27/21 06/27/21 06/26/21 History irbesartan 300 mg tablet 300 mg PO DAILY 06/27/21 06/27/21 06/26/21 History metformin 750 mg tablet,extended 750 mg PO DAILY 01/24/22 01/24/22 Unknown History release 24 hr pravastatin 40 mg tablet 40 mg PO BEDTIME 06/27/21 06/27/21 06/26/21 History sitagliptin phosphate 100 mg 1 tab PO DAILY 06/27/21 06/27/21 06/26/21 History tablet (Januvia) Physical Exam 2 Vital Signs: Vital Signs: Last Vital Signs Pulse 83 02/16/23 11:15 Resp 16 02/16/23 10:59 BP 214/112 H 02/16/23 11:15 Pulse Ox 96 02/16/23 10:59 O2 Del Method Room Air 02/16/23 10:59 BMI result Body Mass Index 29.2 Neuro: Other: She is alert and awake with decreased spontaneity of speech and sometime making paraphasic errors. She was able to repeat and name. Comprehension was intact. Face was symmetrical. Visual amezcua are full. There was no pronator drift. [id number] testing was okay. Plantars were flexors. Results Labs 02/16/23 11:20 02/16/23 11:20 Labs: Short CBC 02/16/23 Range/Units 11:20 WBC 7.8 (4.8-10.8) X10*3/uL Hgb 14.6 D (12.0-16.0) g/dl Hct 43.2 D (37.0-47.0) % Microbiology Microbiology Results: CT of brain revealed significant cerebellar atrophy moderate cerebral atrophy and moderate to severe chronic microvascular ischemic changes. CTA did not reveal any large vessel disease. Assessment and Plan (1) Difficulty speaking: Status: Acute 77 years old woman with new onset of headache and difficulty speaking. When I saw her blood pressure was 234 systolic. This could be hypertensive encephalopathy or she could also have mild or small stroke. Differential diagnosis would also include any type of infection. I would recommend checking her temperature and appropriate blood test to rule out any sign of infection. If possible, an MRI of brain without contrast is recommended. Time Spent With Patient Time: Total time managing care of this patient today ____ minutes. Procedures Date of Service Date of Service: 02/16/23
[2023-02-16 11:44] LABS: Stroke Lab Use COMPLETE
[2023-02-16 11:47] LABS: Troponin-I High Sensitivity 8.8 ng/L (<3.5-17.0)
[2023-02-16 11:48] LABS: Platelet Count 204 X10*3/uL (160-400)
[2023-02-16 11:49] LABS: SLIDE REVIEW VERIFIED
[2023-02-16] MEDS: niCARdipine HCL 25 MG in 0.9 % Sodium Chloride 250 ML 52 MG IVCONT (12:07)
--- NOTE | 2023-02-16 12:11 | PC.NURSE ---
bp elevated 239/112. pt denies PEREZ/blurry vision. pt medicated per aug. BPs cycling q5 minutes. nsr on monitor 90 bpm.
[2023-02-16] MEDS: Aspirin 81 MG TAB.CHEW 162 MG PO (12:42)
--- NOTE | 2023-02-16 12:45 | PC.NURSE ---
aspirin given per order pt tolerated well po. vitals as documented. nsr on monitor 98 bpm. call carranza within reach.
--- NOTE | 2023-02-16 13:40 | PM.CCHP ---
History of Present Illness Date of Service: 02/16/23 Attending physician on admission: Lukas Lyles Chief Complaint: Patient complains of headache/ says confused 77-year-old female hypertensive with parkinsonism and a type 2 diabetic both of them on clear about medication patient apparently became somewhat confused in the 's estimation trouble putting together sentences he described and she is otherwise wheelchair-bound so other physical aspects are difficult to assess but he saw no asymmetry in her features and she has remained awake no witnessed seizure activity certainly no head trauma Laboratory work indicates metabolically normal With each new encounter with her it seemed being supple op with E did wax and wane and that seemed to have been the most prominent feature and with the MRI not showing any evidence of any posterior edema i.e. had significant doubts about the diagnosis of a PRES syndrome and chose to get CSF sampling which did show 2 white cells but it still it is a lymphocytosis and along with a modestly elevated protein of 57 normal glucose and we did rule out HSV by both by imaging as well as by PCR so there was no empiric use of acyclovir but I would could not in rule out the possibility of this being Lyme so I treated with a combination of ceftriaxone and doxycycline Review of Systems Review of Systems: Yes all other systems are reviewed and are negative [facility] Past Medical History Medical History Parkinsonian features Diabetes Hyperlipidemia Hypertension Surgical History Surgical History Status post laparoscopic cholecystectomy History of laparoscopic cholecystectomy (~06/30/21) Social History Social History Household Members: Unknown / Unable to assess Housing: Unknown / Unable to assess Do you presently have visiting nurse or other home services: No Unable to assess alcohol history related to: Unknown Patient Tobacco Use Status: Never used Tobacco Smoked in Last 30 Days: No Use of substances other than those prescribed or required for medical reasons: Unknown Substance Use Type: Unknown Last Used Substance: Unknown Currently Displaying Signs/Symptoms of Drug Intoxication Withdrawal: No Advance Directives: No Patient : No : No Poor oral hygiene: No service: No Current occupational status: unemployed Meds Allergies Allergy/AdvReac Type Severity Reaction Status Date / Time No Known Allergies Allergy Verified 07/20/21 09:57 Active Medications: Current Medications Dextrose (Dextrose 50 % 25 Gm/50 Ml Syringe) 25 gm IVPUSH STAT STA Stop: 02/16/23 13:36 Famotidine (Famotidine/Pf 20 Mg/2 Ml Vial) 20 mg IVPUSH BID MUKESH Nicardipine HCl 25 mg/ Sodium (Chloride) 260 mls @ 0 mls/hr IVCONT .Q0M [facility]; Protocol Last Titration: 02/16/23 13:26 Dose: 7.5 mg/hr, 78 mls/hr Lactated Ringer's (Lr) 1,000 mls @ 50 mls/hr IVCONT .Q20H MUKESH Insulin Human Lispro (Insulin Lispro 100 Unit/Ml 3 Ml Vial) 0 unit SUBCUT QIDACHS [facility]; Protocol Home Medications Medication Instructions Recorded Confirmed Last Taken Type aspirin 81 mg chewable tablet 81 mg PO DAILY 06/27/21 06/27/21 06/26/21 History irbesartan 300 mg tablet 300 mg PO DAILY 06/27/21 02/16/23 06/26/21 History metformin 750 mg tablet,extended 750 mg PO DAILY 06/27/21 02/16/23 Unknown History release 24 hr pravastatin 40 mg tablet 40 mg PO BEDTIME 06/27/21 02/16/23 06/26/21 History sitagliptin phosphate 100 mg 1 tab PO DAILY 06/27/21 02/16/23 06/26/21 History tablet (Januvia) amlodipine 5 mg tablet 5 mg PO DAILY 02/16/23 02/16/23 Unknown History bupropion HCl 150 mg 24 hr tablet, 150 mg PO QAM 02/16/23 02/16/23 Unknown History extended release carbidopa 25 mg-levodopa 100 mg 1 tab PO TID 02/16/23 02/16/23 Unknown History tablet glipizide 5 mg tablet, extended 5 mg PO DAILY 02/16/23 02/16/23 Unknown History release 24 hr hydrochlorothiazide 12.5 mg capsule 12.5 mg PO DAILY 02/16/23 02/16/23 Unknown History Physical Exam Vital Signs: Vital Signs: Last Vital Signs Pulse 101 H 02/16/23 13:26 Resp 17 02/16/23 12:52 BP 198/93 H 02/16/23 13:26 Pulse Ox 93 02/16/23 12:10 O2 Del Method Room Air 02/16/23 12:10 BMI result Body Mass Index 29.2 So cognitive function did wax and wane but there was definite confusion I do not detect true dysphasia Lungs remain clear without adventitious sounds Bedside echo shows globally normal systolic wall motion normal right ventricle no primary valve or pericardial disease Abdomen benign no organomegaly Symmetric neurological exam with normal tone and reflexes no evidence of cranial nerve involvement Results Labs 02/17/23 05:05 02/17/23 05:05 Labs: Laboratory Results - last 24 hr 02/16/23 02/16/23 02/16/23 10:26 10:30 11:20 MCV 90.0 MCH 30.4 MCHC 33.8 RDW 13.2 Plt Count 204 D MPV 10.3 Immature Gran % (Auto) 0.4 Neut % (Auto) 63.5 Lymph % (Auto) 21.3 Jefferson % (Auto) 12.3 H Eos % (Auto) 1.9 Baso % (Auto) 0.6 Lymph # (Auto) 1.7 Jefferson # (Auto) 1.0 Eos # (Auto) 0.2 Baso # (Auto) 0.1 Abs Immat Gran (auto) 0.03 Absolute Neuts (auto) 4.9 Absolute Nucleated RBC 0.000 Nucleated RBC % (auto) 0.0 Smear Tech's Comments VERIFIED PT 11.2 Whole Blood PT 12.1 INR 0.9 Whole Blood INR 1.0 APTT 27.9 Anion Gap 12 Estim Creat Clear Calc 66.4 Estimated GFR > 60 POC Glucose 231 H Random Glucose 229 H Calcium 9.5 D Total Bilirubin 0.6 Direct Bilirubin 0.2 AST 29 ALT 32 H Alkaline Phosphatase 67 Total Creatine Kinase 97 Total Protein 7.5 Albumin 4.2 Imaging Radiologist's Impressions: Impressions Head CT 02/16/23 10:38 IMPRESSION: Negative acute noncontrast CT of the brain. Note is made of atrophy and moderate white matter ischemic changes. This critical result was discussed with Dr Hung at 10:46 AM hours on 02/16/2023. It was ascertained that the content and urgency of the report was understood at the time of direct communication. Head/Neck CTA 02/16/23 10:43 IMPRESSION: CT HEAD: No intracranial hemorrhage or large acute infarction. Background changes of advanced chronic microangiopathy. Chronic lacunar infarcts seen within the right cerebellum, bilateral basal ganglia, and bilateral thalami. 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 CTA HEAD: No large vessel occlusion or significant stenosis within the intracranial circulation. Moderate stenosis of the right P1 P2 [employer] junction. 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 This critical result was discussed with Dr. Hung on 02/16/2023 11:01 AM, and it was ascertained that the content and urgency of the report was understood at the time of direct communication. Assessment and Plan (1) Encephalopathy associated with viral infection: Status: Acute (2) Status post laparoscopic cholecystectomy: Status: Acute (3) Hypertension associated with diabetes: Status: Acute (4) Type 2 diabetes mellitus: Status: Acute (5) Parkinsonism: Status: Acute Plan I am going to utilize the ceftriaxone and doxycycline and re-evaluate mental status at this point she has such sensitive drops in her blood pressure which to me was more dangerous that I am stopping the nicardipine drip and the mental status is restored I will also start to rebuild her oral medication regimen Time Spent With Patient Time: Total time managing care of this patient today _60___ minutes.
--- NOTE | 2023-02-16 14:27 | PC.NURSE ---
contacted Dr. Lyles to clarify order for dextrose; indication?
--- NOTE | 2023-02-16 14:28 | PC.NURSE ---
mri form filled with patient and ; faxed to mri.
--- NOTE | 2023-02-16 14:37 | PHA.MEDREC ---
Pharmacy Consult ? Medication Reconciliation Pharmacy has completed the medication reconciliation. Pt is very confused and per , not her baseline. She was only able to recall her diabetes meds. When i prompted her on her blood pressure meds, bupropion, and sinemet, she said they were familiar but advised I called her provider. I did notice that she had some blood pressure meds that were not filled for >90 days. I called the pharmacy and every RX was current, just that meds were not getting filled. I called Dr Constantino and reviewed med list with her office. I also got a fax from Dr Robledo the nuerologist confirming the sinemet. Pt states they dont take asa but it is on both med lists Randy
[2023-02-16] MEDS: Lactated Ringers 1,000 ML 50 ML IVCONT (15:06)
[2023-02-16] MEDS: niCARdipine HCL 25 MG in 0.9 % Sodium Chloride 250 ML 78 MG IVCONT (15:07)
--- NOTE | 2023-02-16 15:45 | PC.NURSE ---
pt to MRI with carlie Whelan and Catherine AKERS.
--- NOTE | 2023-02-16 16:34 | PC.NURSE ---
PT in MRI needed medication to tolerate scan 1mg ativan and 5mg haldol walked to MRI and given to OSWALD Alexander
[2023-02-16] MEDS: Haloperidol Lactate 5 MG/ML VIAL IVPUSH (16:45)
[2023-02-16] MEDS: LORazepam 2 MG/ML VIAL 1 MG IVPUSH (16:48)
--- NOTE | 2023-02-16 17:36 | PC.NURSE ---
At approx 1630 Pt was brought to MRI by nursing escort, monitors in place, Pt has been incont prior to being brought to MRI hygeine care provided, pt was incont again at MRI. Pt unable to lay still during MRI, multiple attempts of redirection given, unable to get images needed, medicated with ativan/haldol with no effect. Pt removed from MRI, pt has dislodged AC IV. Pt placed back onto portable monitor and brought to ICU by this advertising copywriter, pt transferred over to ICU bed and monitors.
[2023-02-16 17:59] LABS: Appearance Urine Clear; Color Urine Yellow; Glucose Urine UA 250 mg/dL (Negative); PH 7.5 (5.0-9.0); Urine Blood Negative (Negative)
[2023-02-16 18:00] LABS: Leukocyte Esterase Urine Small (1+) (Negative); Nitrite Urine Negative (Negative); Specific Gravity - Urine 1.015 (1.005-1.025); UMIC TRIGGER UACC YES; Urine Ketones 15 mg/dL (Negative); Urine Protein Negative (Neg-Trace)
[2023-02-16 18:14] LABS: Glucose, Whole Blood 239 mg/dL (60-115)
[2023-02-16] MEDS: dexmedeTOMIDidine HCL/NS 400 MCG/100 ML INFUS..BTL 20.83 MCG IVCONT (18:48)
[2023-02-16] MEDS: niCARdipine HCL 25 MG in 0.9 % Sodium Chloride 250 ML 26 MG IVCONT (19:00)
[2023-02-16 19:10] LABS: Bacteria Urine 4+ (None Seen); Hyaline Casts Urine 0-2 /LPF (0-2); RBC Urine 0-2 /HPF (0-2); UACC Culture Trigger YES
[2023-02-16] MEDS: levoFLOXacin/D5W 500 MG/100 ML PIGGYBACK 100 MG IV (19:47)
[2023-02-16 20:30] LABS: Glucose, Whole Blood 248 mg/dL (60-115)
[2023-02-16] MEDS: Midazolam HCl/PF 2 MG/2 ML VIAL IVPUSH (20:35)
[2023-02-16] MEDS: Albumin Human 25 % 100 ML IV (21:30)
[2023-02-16] MEDS: Phenylephrine HCL 20 MG in 0.9 % Sodium Chloride 250 ML 31.49 MG IVCONT (21:36)
[2023-02-16] MEDS: Nystatin Powder 15 GM BOTTLE 1 APPL TOPICAL (22:22)
[2023-02-16] MEDS: Famotidine/PF 20 MG/2 ML VIAL IVPUSH (22:22)
[2023-02-16 22:46] LABS: CSF Appearance Clear, Colorless; CSF Tube # 1
[2023-02-16 22:46] LABS: CSF Appearance Clear, Colorless; CSF Tube # 1
[2023-02-16 22:49] LABS: Anion Gap 14 (12-20); Blood Urea Nitrogen 8 mg/dL (9-16); Calcium 9.6 mg/dL (8.4-10.2); Carbon Dioxide 25 mmol/L (22-29); Chloride 102 mmol/L (96-108); Creatinine Clr Calc Pharmacy 67.7; Estimated Glomerular Filt Rate > 60; Glucose Random 233 mg/dL (60-115); Magnesium 1.9 mg/dL (1.6-2.6); Potassium 4.4 mmol/L (3.3-5.1); Sodium 137 mmol/L (135-145)
[2023-02-16 23:12] LABS: Glucose CSF 121 mg/dL
[2023-02-16 23:15] LABS: Appearance CSF CLEAR; CSF Tube # 4; CSF Volume 0.7 ML
[2023-02-16 23:16] LABS: Color CSF COLORLESS; Lymphocytes CSF 100 %; Red Blood Cell CSF 3 MM*3; White Blood Cell CSF 2 MM*3
[2023-02-16 23:23] LABS: Total Protein CSF 56.6 mg/dL (15-45)
[2023-02-16 23:24] LABS: Oligoclonal Serum Yes
[2023-02-17] VITALS (20 sets, daily range): BP systolic 131–181; BP diastolic 56–140; PULSE 72–117; RESP 12–24; TEMP 36.2–37.4; O2SAT 90–99
[2023-02-17 00:20] LABS: Glucose, Whole Blood 190 mg/dL (60-115)
[2023-02-17 00:27] LABS: Cryptococcus neoformans/gattii Not Detected (Not Detect.); Enterovirus Not Detected (Not Detect.); Escherichia coli K1 Not Detected (Not Detect.); Haemophilus influenzae Not Detected (Not Detect.); Herpes simplex virus 1 Not Detected (Not Detect.); Herpes simplex virus 2 Not Detected (Not Detect.); Human herpesvirus 6 Not Detected (Not Detect.); Human parechovirus Not Detected (Not Detect.); Listeria monocytogenes Not Detected (Not Detect.); Neisseria meningitidis Not Detected (Not Detect.); Streptococcus agalactiae Not Detected (Not Detect.); Streptococcus pneumoniae Not Detected (Not Detect.); Varicella zoster virus Not Detected (Not Detect.)
[2023-02-17] MEDS: KCl 20 mEq in 0.45% Sod 20 MEQ/1,000 ML IV.SOLN 42 MEQ IVCONT (02:50)
[2023-02-17] MEDS: Doxycycline Hyclate 100 MG in 0.9 % Sodium Chloride 250 ML 166.67 MG IV ×2 (02:54→13:26)
[2023-02-17] MEDS: cefTRIAXone sodium 2 GM in 0.9 % Sodium Chloride 50 ML IV (03:05)
[2023-02-17 05:16] LABS: VBG Base Excess 1.1 mmol/L; VBG HCO3 26 mmol/L (22-26); VBG pCO2 43 mmHg; VBG pH 7.38 (7.32-7.43); VBG pO2 47 mmHg
[2023-02-17 05:19] LABS: MANUAL DIFF FLAG NO
[2023-02-17 05:23] LABS: Venous Blood Gas Refer to POC result
[2023-02-17 05:23] LABS: Basophils Absolute Auto 0.1 X10*3/uL (0.0-0.2); Basophils Percent Auto 0.6 % (0-2); Eosinophils Absolute Auto 0.1 X10*3/uL (0.0-0.4); Eosinophils Percent Auto 1.8 % (0-4); Hematocrit 38.6 % (37.0-47.0); Imm Gran Abs Auto 0.02 X10*3/uL (0.00-0.03); Imm Gran Pct Auto 0.3 % (0.0-0.4); Lymphocytes Absolute Auto 1.6 X10*3/uL (1.2-4.9); Lymphocytes Percent Auto 20.1 % (20-40); Mean Corpuscular HGB Conc 33.7 g/dl (31.0-35.0); Mean Corpuscular Hemoglobin 30.4 pg (27.0-33.0); Mean Corpuscular Volume 90.2 fL (80.0-98.0); Mean Platelet Volume 9.1 fL (9.4-12.3); Monocytes Absolute Auto 1.1 X10*3/uL (0.1-1.2); Monocytes Percent Auto 13.8 % (2-11); Neutrophils Percent Auto 63.4 % (45-73); Platelet Count 272 X10*3/uL (160-400); Red Blood Count 4.28 X10*6/uL (4.20-5.50); Red Cell Distribution Width 13.3 % (11.0-16.0); White Blood Count 7.9 X10*3/uL (4.8-10.8)
[2023-02-17 05:43] LABS: Alanine Aminotransferase 25 U/L (0-31); Alkaline Phosphatase 55 U/L (39-117); Anion Gap 13 (12-20); Aspartate Amino Transferase 22 U/L (5-31); Bilirubin Total 0.8 mg/dL (0.0-1.0); Blood Urea Nitrogen 8 mg/dL (9-16); Calcium 9.3 mg/dL (8.4-10.2); Carbon Dioxide 26 mmol/L (22-29); Chloride 106 mmol/L (96-108); Creatinine Clr Calc Pharmacy 81.6; Estimated Glomerular Filt Rate > 60; Glucose Random 183 mg/dL (60-115); Phosphorus 2.8 mg/dL (2.7-4.5); Potassium 3.5 mmol/L (3.3-5.1); Sodium 141 mmol/L (135-145); Total Protein 6.8 g/dL (6.5-8.0)
[2023-02-17 06:12] LABS: Glucose, Whole Blood 160 mg/dL (60-115)
[2023-02-17 08:12] LABS: Glucose, Whole Blood 177 mg/dL (60-115)
[2023-02-17] MEDS: Insulin Lispro 100 UNIT/ML 3 ML VIAL SUBCUT ×4 (08:18→22:16)
[2023-02-17] MEDS: Famotidine/PF 20 MG/2 ML VIAL IVPUSH ×2 (08:18→22:17)
[2023-02-17] MEDS: Nystatin Powder 15 GM BOTTLE 1 APPL TOPICAL ×3 (08:19→22:22)
[2023-02-17 11:59] LABS: Glucose, Whole Blood 184 mg/dL (60-115)
--- NOTE | 2023-02-17 12:23 | PM.CCPN ---
Subjective Subjective Date of Service: 02/17/23 Interval History: 77-year-old female type 2 diabetic and hypertensive and underlying parkinsonism for which she is on Sinemet came in yesterday with waxing and waning confusion slight degree of agitation imaging studies negative including negative for hypertensive urgency and the CSF tap just showing mild lymphocytosis and mild protein elevation never empirically treating for Lyme with ceftriaxone and doxycycline and we did rule out herpes simplex and this morning her cognitive function is excellent pretty much back to baseline by 's description with no focal neurologic problems to the point where swallow eval was normal and we started her on clear liquids Critical Care Time (minutes): 45 Physical Exam Vital Signs: Vital Signs: Last Vital Signs Temp 99.3 F 02/17/23 12:00 Pulse 117 H 02/17/23 12:00 Resp 21 H 02/17/23 12:00 BP 181/107 H 02/17/23 12:00 Pulse Ox 95 02/17/23 12:00 O2 Del Method Room Air 02/17/23 12:00 O2 Flow Rate 2 02/17/23 05:00 BMI result Body Mass Index 28.8 No evidence of resting tremor cognitive function is good neurologic is symmetric Lungs and cardiac exam normal but blood pressure is slowly creeping up now up to 180 Abdomen soft no organomegaly good peripheral pulses good bilateral carotid upstrokes Objective Data Labs 02/17/23 05:05 02/17/23 05:05 Labs: Laboratory Results - last 24 hr 02/16/23 02/16/23 02/16/23 17:48 18:10 20:27 WBC RBC Hgb Hct MCV MCH MCHC RDW Plt Count MPV Immature Gran % (Auto) Neut % (Auto) Lymph % (Auto) Boyle % (Auto) Eos % (Auto) Baso % (Auto) Lymph # (Auto) Boyle # (Auto) Eos # (Auto) Baso # (Auto) Abs Immat Gran (auto) Absolute Neuts (auto) Absolute Nucleated RBC Nucleated RBC % (auto) VBG pH VBG pCO2 VBG pO2 VBG HCO3 VBG O2 Saturation VBG Base Excess Sodium Potassium Chloride Carbon Dioxide Anion Gap BUN Creatinine Estim Creat Clear Calc Estimated GFR POC Glucose 239 H 248 H Random Glucose Lactic Acid Calcium Phosphorus Magnesium Total Bilirubin AST ALT Alkaline Phosphatase Total Protein Albumin Urine Color Yellow Urine Appearance Clear Urine pH 7.5 Ur Specific [place] 1.015 Urine Protein Negative Urine Glucose (UA) 250 H Urine Ketones 15 Urine Blood Negative Urine Nitrite Negative Ur Leukocyte Esterase Small (1+) H Urine RBC 0-2 Urine WBC 6-10 Ur Squamous Epith Cells 3-5 Urine Bacteria 4+ Hyaline Casts 0-2 CSF Tube Number CSF Volume CSF Appearance CSF Color CSF WBC CSF RBC CSF Lymphocytes CSF Appearance (b) CSF Glucose CSF Total Protein CSF C.neoform/gat PCR CSF CMV DNA (PCR) CSF Enterovirus (PCR) CSF E. coli K1 (PCR) CSF H. influenzae (PCR) CSF HSV I (PCR) CSF HSV II (PCR) CSF HHV 6 (PCR) CSF L.monocytogenes PCR CSF N. meningitidis PCR CSF Parechovirus (PCR) CSF S. agalactiae (PCR) CSF S. pneumoniae (PCR) CSF VZV (PCR) 02/16/23 02/16/23 02/16/23 22:15 22:16 22:16 WBC RBC Hgb Hct MCV MCH MCHC RDW Plt Count MPV Immature Gran % (Auto) Neut % (Auto) Lymph % (Auto) Boyle % (Auto) Eos % (Auto) Baso % (Auto) Lymph # (Auto) Boyle # (Auto) Eos # (Auto) Baso # (Auto) Abs Immat Gran (auto) Absolute Neuts (auto) Absolute Nucleated RBC Nucleated RBC % (auto) VBG pH VBG pCO2 VBG pO2 VBG HCO3 VBG O2 Saturation VBG Base Excess Sodium Potassium Chloride Carbon Dioxide Anion Gap BUN Creatinine Estim Creat Clear Calc Estimated GFR POC Glucose Random Glucose Lactic Acid Calcium Phosphorus Magnesium Total Bilirubin AST ALT Alkaline Phosphatase Total Protein Albumin Urine Color Urine Appearance Urine pH Ur Specific [place] Urine Protein Urine Glucose (UA) Urine Ketones Urine Blood Urine Nitrite Ur Leukocyte Esterase Urine RBC Urine WBC Ur Squamous Epith Cells Urine Bacteria Hyaline Casts CSF Tube Number 1 4 1 CSF Volume 0.7 CSF Appearance CLEAR CSF Color COLORLESS CSF WBC 2 CSF RBC 3 CSF Lymphocytes 100 CSF Appearance (b) Clear, Colorless Clear, Colorless CSF Glucose 121 CSF Total Protein 56.6 H CSF C.neoform/gat PCR Not Detected CSF CMV DNA (PCR) Not Detected CSF Enterovirus (PCR) Not Detected CSF E. coli K1 (PCR) Not Detected CSF H. influenzae (PCR) Not Detected CSF HSV I (PCR) Not Detected CSF HSV II (PCR) Not Detected CSF HHV 6 (PCR) Not Detected CSF L.monocytogenes PCR Not Detected CSF N. meningitidis PCR Not Detected CSF Parechovirus (PCR) Not Detected CSF S. agalactiae (PCR) Not Detected CSF S. pneumoniae (PCR) Not Detected CSF VZV (PCR) Not Detected 02/16/23 02/17/23 02/17/23 22:26 00:15 05:05 WBC 7.9 RBC 4.28 Hgb 13.0 Hct 38.6 MCV 90.2 MCH 30.4 MCHC 33.7 RDW 13.3 Plt Count 272 D MPV 9.1 L Immature Gran % (Auto) 0.3 Neut % (Auto) 63.4 Lymph % (Auto) 20.1 Boyle % (Auto) 13.8 H Eos % (Auto) 1.8 Baso % (Auto) 0.6 Lymph # (Auto) 1.6 Boyle # (Auto) 1.1 Eos # (Auto) 0.1 Baso # (Auto) 0.1 Abs Immat Gran (auto) 0.02 Absolute Neuts (auto) 5.0 Absolute Nucleated RBC 0.000 Nucleated RBC % (auto) 0.0 VBG pH VBG pCO2 VBG pO2 VBG HCO3 VBG O2 Saturation VBG Base Excess Sodium 137 141 Potassium 4.4 3.5 D Chloride 102 106 Carbon Dioxide 25 26 Anion Gap 14 13 BUN 8 L 8 L Creatinine 0.76 0.63 Estim Creat Clear Calc 67.7 81.6 Estimated GFR > 60 > 60 POC Glucose 190 H Random Glucose 233 H 183 H Lactic Acid 2.0 Calcium 9.6 9.3 Phosphorus 3.0 2.8 Magnesium 1.9 2.0 Total Bilirubin 0.8 AST 22 ALT 25 Alkaline Phosphatase 55 Total Protein 6.8 Albumin 4.0 Urine Color Urine Appearance Urine pH Ur Specific [place] Urine Protein Urine Glucose (UA) Urine Ketones Urine Blood Urine Nitrite Ur Leukocyte Esterase Urine RBC Urine WBC Ur Squamous Epith Cells Urine Bacteria Hyaline Casts CSF Tube Number CSF Volume CSF Appearance CSF Color CSF WBC CSF RBC CSF Lymphocytes CSF Appearance (b) CSF Glucose CSF Total Protein CSF C.neoform/gat PCR CSF CMV DNA (PCR) CSF Enterovirus (PCR) CSF E. coli K1 (PCR) CSF H. influenzae (PCR) CSF HSV I (PCR) CSF HSV II (PCR) CSF HHV 6 (PCR) CSF L.monocytogenes PCR CSF N. meningitidis PCR CSF Parechovirus (PCR) CSF S. agalactiae (PCR) CSF S. pneumoniae (PCR) CSF VZV (PCR) 02/17/23 02/17/23 02/17/23 05:11 06:08 08:08 WBC RBC Hgb Hct MCV MCH MCHC RDW Plt Count MPV Immature Gran % (Auto) Neut % (Auto) Lymph % (Auto) Boyle % (Auto) Eos % (Auto) Baso % (Auto) Lymph # (Auto) Boyle # (Auto) Eos # (Auto) Baso # (Auto) Abs Immat Gran (auto) Absolute Neuts (auto) Absolute Nucleated RBC Nucleated RBC % (auto) VBG pH 7.38 VBG pCO2 43 VBG pO2 47 VBG HCO3 26 VBG O2 Saturation 77.0 VBG Base Excess 1.1 Sodium Potassium Chloride Carbon Dioxide Anion Gap BUN Creatinine Estim Creat Clear Calc Estimated GFR POC Glucose 160 H 177 H Random Glucose Lactic Acid Calcium Phosphorus Magnesium Total Bilirubin AST ALT Alkaline Phosphatase Total Protein Albumin Urine Color Urine Appearance Urine pH Ur Specific [place] Urine Protein Urine Glucose (UA) Urine Ketones Urine Blood Urine Nitrite Ur Leukocyte Esterase Urine RBC Urine WBC Ur Squamous Epith Cells Urine Bacteria Hyaline Casts CSF Tube Number CSF Volume CSF Appearance CSF Color CSF WBC CSF RBC CSF Lymphocytes CSF Appearance (b) CSF Glucose CSF Total Protein CSF C.neoform/gat PCR CSF CMV DNA (PCR) CSF Enterovirus (PCR) CSF E. coli K1 (PCR) CSF H. influenzae (PCR) CSF HSV I (PCR) CSF HSV II (PCR) CSF HHV 6 (PCR) CSF L.monocytogenes PCR CSF N. meningitidis PCR CSF Parechovirus (PCR) CSF S. agalactiae (PCR) CSF S. pneumoniae (PCR) CSF VZV (PCR) 02/17/23 11:55 WBC RBC Hgb Hct MCV MCH MCHC RDW Plt Count MPV Immature Gran % (Auto) Neut % (Auto) Lymph % (Auto) Boyle % (Auto) Eos % (Auto) Baso % (Auto) Lymph # (Auto) Boyle # (Auto) Eos # (Auto) Baso # (Auto) Abs Immat Gran (auto) Absolute Neuts (auto) Absolute Nucleated RBC Nucleated RBC % (auto) VBG pH VBG pCO2 VBG pO2 VBG HCO3 VBG O2 Saturation VBG Base Excess Sodium Potassium Chloride Carbon Dioxide Anion Gap BUN Creatinine Estim Creat Clear Calc Estimated GFR POC Glucose 184 H Random Glucose Lactic Acid Calcium Phosphorus Magnesium Total Bilirubin AST ALT Alkaline Phosphatase Total Protein Albumin Urine Color Urine Appearance Urine pH Ur Specific [place] Urine Protein Urine Glucose (UA) Urine Ketones Urine Blood Urine Nitrite Ur Leukocyte Esterase Urine RBC Urine WBC Ur Squamous Epith Cells Urine Bacteria Hyaline Casts CSF Tube Number CSF Volume CSF Appearance CSF Color CSF WBC CSF RBC CSF Lymphocytes CSF Appearance (b) CSF Glucose CSF Total Protein CSF C.neoform/gat PCR CSF CMV DNA (PCR) CSF Enterovirus (PCR) CSF E. coli K1 (PCR) CSF H. influenzae (PCR) CSF HSV I (PCR) CSF HSV II (PCR) CSF HHV 6 (PCR) CSF L.monocytogenes PCR CSF N. meningitidis PCR CSF Parechovirus (PCR) CSF S. agalactiae (PCR) CSF S. pneumoniae (PCR) CSF VZV (PCR) Microbiology Microbiology Results: Microbiology 02/16/23 22:16 Cerebrospinal Fluid Gram Stain - Final 02/16/23 22:16 Cerebrospinal Fluid Fluid Description - Preliminary Progress Note: A&P Assessment and plan (1) Parkinsonism: Status: Acute (2) Type 2 diabetes mellitus: Status: Acute (3) Hypertension associated with diabetes: Status: Acute (4) Encephalopathy associated with viral infection: Status: Acute (5) Status post laparoscopic cholecystectomy: Status: Acute Plan Restoring ARB drug and adding spironolactone as she is relatively hypokalemic maybe there is an element of hyperaldosteronism and in addition restoring the Sinemet at previous dose and keeping ceftriaxone and doxycycline on board as we await PCR result Quality Stroke Does the patient have a stroke diagnosis?: No VTE Prior VTE?: No VTE Risk Level:: Medical - moderate - high VTE Device Contraindication: N/A - Device Ordered VTE Drug Contraindication: Treatment Not Tolerated
[2023-02-17] MEDS: Losartan Potassium 25 MG TABLET PO (13:21)
[2023-02-17] MEDS: Carbidopa/Levodopa 25/100 TABLET 1 TAB PO ×2 (13:21→22:16)
[2023-02-17] MEDS: Spironolactone 25 MG TABLET PO (13:21)
[2023-02-17 15:57] LABS: Glucose, Whole Blood 197 mg/dL (60-115)
--- NOTE | 2023-02-17 17:04 | PM.EVENT ---
Event Note Date of Service: 02/17/23 Event Note: d2 77yo F with HTN, DM2, Parkinsonism presenting with agitated delirium + HTN urgency that have resolved CSF with mild lymphocytosis + mild protein elevation, meningitis/encephalitis PCR panel negative empirically on doxy + ceftriaxone for possible Lyme, CSF + serum Lyme serology pending along with WNV + EEE serology on clears, advance as tolerated downgraded to IMC Time Spent With Patient Time: Total time managing care of this patient today ____ minutes.
[2023-02-17 20:25] LABS: Glucose, Whole Blood 219 mg/dL (60-115)
[2023-02-18] VITALS (7 sets, daily range): BP systolic 137–200; BP diastolic 70–100; PULSE 76–92; RESP 14–18; TEMP 36–36.7; O2SAT 94–97
[2023-02-18] MEDS: cefTRIAXone sodium 2 GM in 0.9 % Sodium Chloride 50 ML IV (02:53)
[2023-02-18] MEDS: Doxycycline Hyclate 100 MG in 0.9 % Sodium Chloride 250 ML 166.67 MG IV ×2 (03:23→14:04)
[2023-02-18] MEDS: KCl 20 mEq in 0.45% Sod 20 MEQ/1,000 ML IV.SOLN 42 MEQ IVCONT (03:48)
--- NOTE | 2023-02-18 05:32 | PC.NURSE ---
ASSUMED CARE OF PT AT 1900. PT IS CONFUSED AND DISORIENTED X3. BELIEVES SHE IS AT HOME. IS RESISTENT TO CARE. EXTREMITIES STIFF WHEN TURNING PT SIDE TO SIDE. HAS BEEN INCONTINENT OF URINE. SABA REMOVD YESTERDAY AND SHE IS DTV #3 AT 0900. SKIN IS INTACT WITH FUNGAL RASH ABD FOLDS AND UNDER BREASTS. NYSTATIN APPLIED. SECOND IV INSERTED LEFT LOWER ARM. PT VERY RESISTIVE TO IV INSERTION AND PULLED AWAY MAKING IT DIFFICULT TO INSERT. ON DOXY IV AND ROCEPHIN. CONTINUOUS IV FLUIDS WITH KCL INFUSING ORDERED.
[2023-02-18] MEDS: Famotidine/PF 20 MG/2 ML VIAL IVPUSH ×2 (08:11→20:10)
[2023-02-18] MEDS: Insulin Lispro 100 UNIT/ML 3 ML VIAL SUBCUT ×4 (08:12→21:10)
[2023-02-18] MEDS: Nystatin Powder 15 GM BOTTLE 1 APPL TOPICAL ×3 (08:12→20:35)
[2023-02-18] MEDS: Spironolactone 25 MG TABLET PO (08:12)
[2023-02-18] MEDS: Losartan Potassium 50 MG TABLET PO (08:12)
[2023-02-18] MEDS: Carbidopa/Levodopa 25/100 TABLET 1 TAB PO ×2 (08:12→20:10)
[2023-02-18] MEDS: amLODIPine Besylate 5 MG TABLET PO (08:12)
[2023-02-18 08:13] LABS: Glucose, Whole Blood 201 mg/dL (60-115)
--- NOTE | 2023-02-18 09:32 | MHC.CM.PN ---
Patient is here with Encephalopathy and s/s of Confusion;CM spoke with /HCP/Baljinder @ [phone] and addressed IMM with him (original will be mailed certified letter to Baljinder and a copy has been placed on the chart). Patient lives in a house with her /HCP/ and she uses a walker at times but mostly a w/c. Patient was recently at [facility] and had [facility] in the recent past; Home/new referral to [facility] vs [facility] pending PT eval is the tentative plan. CM has initiated and will follow for dc planning. PCP is /[employer] Carla Constantino.
--- NOTE | 2023-02-18 10:23 | P.PNIM_ITS ---
Subjective Subjective Date of Service: 02/18/23 Interval History: alert tolerating liquids moving all extremities denies pain no fever Review of Systems Review of Systems: Yes all other systems are reviewed and are negative Physical Exam 2 Vital Signs: Vital Signs: Last Vital Signs Temp 97.1 F 02/18/23 08:00 Pulse 85 02/18/23 08:00 Resp 16 02/18/23 08:00 BP 151/70 H 02/18/23 08:00 Pulse Ox 97 02/18/23 08:00 O2 Del Method Room Air 02/18/23 08:00 O2 Flow Rate 2 02/17/23 05:00 BMI result Body Mass Index 28.8 Gen: in no acute distress HEENT: sclera anicteric, moist mucus membranes Neck: supple Lungs: clear to auscultation bilaterally Heart: regular rate and rhythm, no murmurs Abd: soft, non-tender, non-distended Ext: no edema Skin: warm/well-perfused Neuro: alert and oriented to self and place ( I'm told I'm at [facility] ); gives date as 02/17/22 Psych: appropriate affect Objective Data Active Medications Amlodipine Besylate (Amlodipine Besylate 5 Mg Tablet) 5 mg PO DAILY [facility]; Protocol Last Admin: 02/18/23 08:12 Dose: 5 mg Documented By: ROBB Carbidopa/Levodopa (Carbidopa/Levodopa 25/100 Tablet) 1 tab PO BID [facility] Last Admin: 02/18/23 08:12 Dose: 1 tab Documented By: ROBB Dextrose (Dextrose 50 % 25 Gm/50 Ml Syringe) 25 gm IVPUSH Q15M PRN PRN Reason: per Hypoglycemia Standing Ord. Famotidine (Famotidine/Pf 20 Mg/2 Ml Vial) 20 mg IVPUSH BID [facility] Last Admin: 02/18/23 08:11 Dose: 20 mg Documented By: ROBB Doxycycline Hyclate 100 mg/ (Sodium Chloride) 250 mls @ 166.67 mls/hr IV Q12H [facility] Last Infusion: 02/18/23 05:31 Dose: Infused Documented By: CORTNEY Ceftriaxone Sodium 2 gm/ (Sodium Chloride) 50 mls @ 100 mls/hr IV Q24H [facility] Last Infusion: 02/18/23 03:40 Dose: Infused Documented By: CORTNEY Potassium Chloride/Sodium Chloride (Kcl 20 Meq In 0.45% Sod) 20 meq in 1,000 mls @ 42 mls/hr IVCONT .[id number] [facility] Last Admin: 02/18/23 03:48 Dose: 42 mls/hr Documented By: CORTNEY Insulin Human Lispro (Insulin Lispro 100 Unit/Ml 3 Ml Vial) 0 unit SUBCUT QIDACHS [facility]; Protocol Last Admin: 02/18/23 08:12 Dose: 4 unit Documented By: ROBB Losartan Potassium (Losartan Potassium 50 Mg Tablet) 50 mg PO DAILY [facility]; Protocol Last Admin: 02/18/23 08:12 Dose: 50 mg Documented By: ROBB Nystatin (Nystatin Powder 15 Gm Bottle) 1 appl TOPICAL TID [facility] Last Admin: 02/18/23 08:12 Dose: 1 appl Documented By: ROBB Spironolactone (Spironolactone 25 Mg Tablet) 25 mg PO DAILY [facility]; Protocol Last Admin: 02/18/23 08:12 Dose: 25 mg Documented By: ROBB Labs 02/17/23 05:05 02/17/23 05:05 Labs: Laboratory Results - last 24 hr 02/17/23 02/17/23 02/17/23 11:55 15:53 20:22 POC Glucose 184 H 197 H 219 H 02/18/23 07:32 POC Glucose 201 H Microbiology Microbiology Results: Microbiology 02/16/23 22:16 Gram Stain - Final Cerebrospinal Fluid CSF Examination - Final Fluid Description - Final CSF Culture - Preliminary No growth to date. 02/16/23 Unknown Urine Culture - Preliminary Urine clean catch - Urine sanchez top Culture too young to evaluate. Assessment and Plan (1) Encephalopathy, hypertensive: Status: Acute (2) Encephalopathy associated with viral infection: Status: Acute Plan 77yo F with HTN, DM2, Parkinsonism presenting with agitated delirium + HTN urgency suspicious for hypertensive encephalopathy admitted to ICU 02/16/23 on nicardipine drip and underwent LP downgraded to IMC 02/17/23 acute encephalopathy - suspect hypertensive but CSF showed mild lymphocytosis + mild protein elevation, meningitis/encephalitis PCR panel negative; Lyme serology from CSF + serum pending and ICU started pt on empiric ceftriaxone/doxycycline; also pending are WNV and EEE serologies though no specific treatment for these arborial infections - PT/OT evaluations in AM along with Neuro + ID consultations - advance diet HTN - amlodipine, losartan, spironolactone DM2 - drake-dose lispro Parkinsonism - carbidopa-levodopa VTE ppx - SCDs dispo - PT eval In my clinical judgment, the patient requires continued inpatient hospitalization for the following reasons: IV ABX, PT/OT evaluations, specialty consultation Time Spent With Patient Time: Total time managing care of this patient today __35__ minutes. Quality Stroke Does the patient have a stroke diagnosis?: No VTE Prior VTE?: No VTE Risk Level:: Medical - moderate - high VTE Device Contraindication: N/A - Device Ordered VTE Drug Contraindication: Treatment Not Tolerated
[2023-02-18 11:24] LABS: Glucose, Whole Blood 240 mg/dL (60-115)
[2023-02-18 16:33] LABS: Glucose, Whole Blood 275 mg/dL (60-115)
[2023-02-18] MEDS: Labetalol HCL 100 MG/20 ML VIAL 10 MG IVPUSH (20:23)
[2023-02-18 21:04] LABS: Glucose, Whole Blood 267 mg/dL (60-115)
[2023-02-19] VITALS (9 sets, daily range): BP systolic 158–228; BP diastolic 90–111; PULSE 78–90; RESP 16–20; TEMP 36–36.9; O2SAT 93–95
[2023-02-19] MEDS: Labetalol HCL 100 MG/20 ML VIAL 10 MG IVPUSH (01:18)
[2023-02-19] MEDS: cefTRIAXone sodium 2 GM in 0.9 % Sodium Chloride 50 ML IV (01:19)
[2023-02-19] MEDS: Doxycycline Hyclate 100 MG in 0.9 % Sodium Chloride 250 ML 166.67 MG IV ×2 (01:51→14:07)
[2023-02-19 07:41] LABS: Glucose, Whole Blood 238 mg/dL (60-115)
[2023-02-19] MEDS: Spironolactone 25 MG TABLET PO (07:54)
[2023-02-19] MEDS: amLODIPine Besylate 5 MG TABLET PO (07:54)
[2023-02-19] MEDS: Insulin Lispro 100 UNIT/ML 3 ML VIAL SUBCUT ×4 (07:54→20:07)
[2023-02-19] MEDS: Carbidopa/Levodopa 25/100 TABLET 1 TAB PO ×2 (07:54→20:08)
[2023-02-19] MEDS: Famotidine/PF 20 MG/2 ML VIAL IVPUSH (07:55)
[2023-02-19] MEDS: Losartan Potassium 50 MG TABLET PO ×2 (07:55→16:52)
[2023-02-19] MEDS: Nystatin Powder 15 GM BOTTLE 1 APPL TOPICAL ×3 (07:57→20:08)
[2023-02-19 11:43] LABS: Glucose, Whole Blood 286 mg/dL (60-115)
--- NOTE | 2023-02-19 15:19 | P.PNIM_ITS ---
Subjective Subjective Date of Service: 02/19/23 Interval History: Offers no acute complaints resting comfortably denies headache, no lightheadedness, no dizziness noted to have elevated blood pressures this morning, no chest pain, no palpitation tolerating diet, no nausea no vomiting or abdominal pain. Review of Systems All other system reviewed and negative. Physical Exam 2 Vital Signs: Vital Signs: Last Vital Signs Temp 96.8 F 02/19/23 10:56 Pulse 81 02/19/23 10:56 Resp 20 02/19/23 10:56 BP 158/95 H 02/19/23 10:56 Pulse Ox 95 02/19/23 10:56 O2 Del Method Room Air 02/19/23 10:56 O2 Flow Rate 2 02/17/23 05:00 BMI result Body Mass Index 28.8 Const: Other: Gen: Resting comfortably, in no acute distress Neck: supple Lungs: clear to auscultation bilaterally Heart: regular rate and rhythm, no murmurs Abd: soft, non-tender, non-distended Ext: no edema Skin: warm/well-perfused Neuro: Awake alert x3 Psych: appropriate affect Objective Data Active Medications Amlodipine Besylate (Amlodipine Besylate 5 Mg Tablet) 5 mg PO DAILY [facility]; Protocol Last Admin: 02/19/23 07:54 Dose: 5 mg Documented By: JETHRO Carbidopa/Levodopa (Carbidopa/Levodopa 25/100 Tablet) 1 tab PO BID [facility] Last Admin: 02/19/23 07:54 Dose: 1 tab Documented By: JETHRO Dextrose (Dextrose 50 % 25 Gm/50 Ml Syringe) 25 gm IVPUSH Q15M PRN PRN Reason: per Hypoglycemia Standing Ord. Famotidine (Famotidine/Pf 20 Mg/2 Ml Vial) 20 mg IVPUSH BID [facility] Last Admin: 02/19/23 07:55 Dose: 20 mg Documented By: JETHRO Doxycycline Hyclate 100 mg/ (Sodium Chloride) 250 mls @ 166.67 mls/hr IV Q12H [facility] Last Admin: 02/19/23 14:07 Dose: 166.67 mls/hr Documented By: JETHRO Ceftriaxone Sodium 2 gm/ (Sodium Chloride) 50 mls @ 100 mls/hr IV Q24H [facility] Last Infusion: 02/19/23 01:53 Dose: Infused Documented By: NATHANIEL Insulin Human Lispro (Insulin Lispro 100 Unit/Ml 3 Ml Vial) 0 unit SUBCUT QIDACHS [facility]; Protocol Last Admin: 02/19/23 11:51 Dose: 6 unit Documented By: JETHRO Losartan Potassium (Losartan Potassium 50 Mg Tablet) 50 mg PO DAILY [facility]; Protocol Last Admin: 02/19/23 07:55 Dose: 50 mg Documented By: JETHRO Nystatin (Nystatin Powder 15 Gm Bottle) 1 appl TOPICAL TID [facility] Last Admin: 02/19/23 14:09 Dose: 1 appl Documented By: JETHRO Spironolactone (Spironolactone 25 Mg Tablet) 25 mg PO DAILY [facility]; Protocol Last Admin: 02/19/23 07:54 Dose: 25 mg Documented By: JETHRO Labs 02/17/23 05:05 02/17/23 05:05 Labs: Laboratory Results - last 24 hr 02/18/23 02/18/23 02/19/23 16:23 20:55 07:38 POC Glucose 275 H 267 H 238 H 02/19/23 10:58 POC Glucose 286 H Microbiology Microbiology Results: Microbiology 02/16/23 22:16 Gram Stain - Final Cerebrospinal Fluid CSF Examination - Final Fluid Description - Final CSF Culture - Preliminary No growth after 2 days 02/16/23 Unknown Urine Culture - Final Urine clean catch - Urine sanchez top Assessment and Plan (1) Encephalopathy, hypertensive: Status: Acute (2) Encephalopathy associated with viral infection: Status: Acute Plan 77yo F with HTN, DM2, Parkinsonism presenting with agitated delirium + HTN urgency suspicious for hypertensive encephalopathy admitted to ICU 02/16/23 on nicardipine drip and underwent LP downgraded to IMC 02/17/23 acute encephalopathy suspect hypertensive but CSF showed mild lymphocytosis + mild protein elevation, meningitis/encephalitis PCR panel negative; Lyme serology from CSF + serum pending and ICU started pt on empiric ceftriaxone/doxycycline day 2; also pending are WNV and EEE serologies though no specific treatment for these arborial infections Seen by Neurology they fell symptoms likely due to hypertensive encephalopathy but recommend to obtain MRI to rule out acute stroke and to rule out underlying infection. 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 and generalized cerebral volume loss with prominence of both ventricles Seen by PT they recommend short-term rehab Follow ID input HTN urgency blood pressure remains elevated on amlodipine 5 mg, losartan 50 mg, and spironolactone 25 mg, hydrochlorothiazide held on admission, will increase dose of losartan to 50 DM2 -elevated blood sugars in 200 range, on lispro sliding scale, will resume home medications glipizide and Januvia, also on metformin 750 daily Parkinsonism - carbidopa-levodopa VTE ppx - SCDs dispo Short-term rehab In my clinical judgment, the patient requires continued inpatient hospitalization for the following reasons: IV ABX, specialty consultation Time Spent With Patient Time: Total time managing care of this patient today ____ minutes. Quality Stroke Does the patient have a stroke diagnosis?: No VTE Prior VTE?: No VTE Risk Level:: Medical - moderate - high VTE Device Contraindication: N/A - Device Ordered VTE Drug Contraindication: Treatment Not Tolerated
[2023-02-19] MEDS: buPROPion HCl XL 150 MG TAB.ER.24H PO (16:52)
[2023-02-19 16:53] LABS: Glucose, Whole Blood 286 mg/dL (60-115)
[2023-02-19 20:25] LABS: Glucose, Whole Blood 300 mg/dL (60-115)
[2023-02-19 22:34] LABS: Lyme Abs Screen <0.90 index
[2023-02-20] VITALS (7 sets, daily range): BP systolic 146–207; BP diastolic 75–98; PULSE 74–91; RESP 20; TEMP 36.1–36.6; O2SAT 92–97; BMI 28.7
[2023-02-20] MEDS: cefTRIAXone sodium 2 GM in 0.9 % Sodium Chloride 50 ML IV (03:27)
[2023-02-20] MEDS: Doxycycline Hyclate 100 MG in 0.9 % Sodium Chloride 250 ML 166.67 MG IV ×2 (03:34→15:06)
[2023-02-20] MEDS: Labetalol HCL 100 MG/20 ML VIAL 10 MG IVPUSH (06:52)
[2023-02-20] MEDS: amLODIPine Besylate 5 MG TABLET PO (08:08)
[2023-02-20] MEDS: Losartan Potassium 50 MG TABLET PO (08:08)
[2023-02-20] MEDS: Spironolactone 25 MG TABLET PO (08:08)
[2023-02-20] MEDS: SITagliptin Phosphate 100 MG TABLET PO (08:08)
[2023-02-20] MEDS: Carbidopa/Levodopa 25/100 TABLET 1 TAB PO ×2 (08:08→20:36)
[2023-02-20] MEDS: glipiZIDE XL 5 MG TAB.ER.24 PO (08:08)
[2023-02-20 08:09] LABS: Glucose, Whole Blood 263 mg/dL (60-115)
[2023-02-20] MEDS: buPROPion HCl XL 150 MG TAB.ER.24H PO (08:09)
[2023-02-20] MEDS: Nystatin Powder 15 GM BOTTLE 1 APPL TOPICAL ×3 (08:09→20:39)
[2023-02-20] MEDS: Famotidine/PF 20 MG/2 ML VIAL IVPUSH ×2 (08:09→20:36)
[2023-02-20] MEDS: Insulin Lispro 100 UNIT/ML 3 ML VIAL SUBCUT ×4 (08:09→20:36)
--- NOTE | 2023-02-20 10:48 | MHC.CM.PN ---
Addendum entered by Fanta Echavarria RN 02/20/23 10:57: d/c plan: home w/resump of [facility] vs [facility]. Original Note: per hospitalist pt may be medically cleared today however was declining [facility] and asking to go home, cm contacted pt's /primary caregiver Baljinder at 10:42am at number on file, Baljinder did report pt has been in w/c primarily since last Spring when she had two compression fx's/back, Baljinder did voic concerns regarding pt's elevated BP's and BS's and requested call from hospitalist, hospitalist aware and will reach out to Baljinder. cm will cont to follow d/c needs, snf aware pt may not be cleared fro d/c today.
[2023-02-20 11:20] LABS: Glucose, Whole Blood 345 mg/dL (60-115)
--- NOTE | 2023-02-20 15:17 | HO.PM.IMPN ---
Subjective Subjective Date of Service: 02/20/23 Interval History: Sitting comfortably offers no acute complaints denies headache, no dizziness, answers question appropriately, takes time to respond to questions, no acute events overnight. Review of Systems All other system reviewed and negative. Physical Exam Vital Signs: Vital Signs: Last Vital Signs Temp 96.9 F 02/20/23 10:41 Pulse 74 02/20/23 10:41 Resp 20 02/20/23 10:41 BP 163/75 H 02/20/23 10:41 Pulse Ox 95 02/20/23 10:41 O2 Del Method Room Air 02/20/23 10:41 O2 Flow Rate 2 02/17/23 05:00 BMI result Body Mass Index 28.7 Const: Other: Gen: Resting comfortably, in no acute distress Neck: supple Lungs: clear to auscultation bilaterally Heart: regular rate and rhythm, no murmurs Abd: soft, non-tender, non-distended Ext: no edema Skin: warm/well-perfused Neuro: Awake alert x3 Psych: appropriate affect Objective Data Active Medications Amlodipine Besylate (Amlodipine Besylate 10 Mg Tablet) 10 mg PO DAILY [facility]; Protocol Last Admin: 02/20/23 08:44 Dose: Not Given Documented By: JETHRO Non-Admin Reason: Previously Administered Bupropion HCl (Bupropion Hcl Xl 150 Mg Tab.Er.24h) 150 mg PO DAILY [facility] Last Admin: 02/20/23 08:09 Dose: 150 mg Documented By: JETHRO Carbidopa/Levodopa (Carbidopa/Levodopa 25/100 Tablet) 1 tab PO BID [facility] Last Admin: 02/20/23 08:08 Dose: 1 tab Documented By: JETHRO Dextrose (Dextrose 50 % 25 Gm/50 Ml Syringe) 25 gm IVPUSH Q15M PRN PRN Reason: per Hypoglycemia Standing Ord. Famotidine (Famotidine/Pf 20 Mg/2 Ml Vial) 20 mg IVPUSH BID [facility] Last Admin: 02/20/23 08:09 Dose: 20 mg Documented By: JETHRO Glipizide (Glipizide Xl 5 Mg Tab.Er.24) 5 mg PO DAILY [facility] Last Admin: 02/20/23 08:08 Dose: 5 mg Documented By: JETHRO Doxycycline Hyclate 100 mg/ (Sodium Chloride) 250 mls @ 166.67 mls/hr IV Q12H [facility] Last Infusion: 02/20/23 05:15 Dose: Infused Documented By: NAN Ceftriaxone Sodium 2 gm/ (Sodium Chloride) 50 mls @ 100 mls/hr IV Q24H [facility] Last Infusion: 02/20/23 04:00 Dose: Infused Documented By: NAN Insulin Human Lispro (Insulin Lispro 100 Unit/Ml 3 Ml Vial) 0 unit SUBCUT QIDACHS [facility]; Protocol Last Admin: 02/20/23 11:31 Dose: 8 unit Documented By: JETHRO Losartan Potassium (Losartan Potassium 50 Mg Tablet) 50 mg PO DAILY [facility]; Protocol Last Admin: 02/20/23 08:08 Dose: 50 mg Documented By: JETHRO Metformin HCl (Metformin Hcl Er 750 Mg Tab.Er.24h) 750 mg PO BEDTIME [facility] Nystatin (Nystatin Powder 15 Gm Bottle) 1 appl TOPICAL TID [facility] Last Admin: 02/20/23 08:09 Dose: 1 appl Documented By: JETHRO Sitagliptin Phosphate (Sitagliptin Phosphate 100 Mg Tablet) 100 mg PO DAILY [facility] Last Admin: 02/20/23 08:08 Dose: 100 mg Documented By: JETHRO Spironolactone (Spironolactone 25 Mg Tablet) 25 mg PO DAILY [facility]; Protocol Last Admin: 02/20/23 08:08 Dose: 25 mg Documented By: JETHRO Labs 02/17/23 05:05 02/17/23 05:05 Labs: Laboratory Results - last 24 hr 02/17/23 02/19/23 02/19/23 12:50 16:49 20:02 POC Glucose 286 H 300 H Lyme Screen IgG & IgM <0.90 Lyme Progressive Test TNP 02/20/23 02/20/23 07:44 10:44 POC Glucose 263 H 345 H Lyme Screen IgG & IgM Lyme Progressive Test Microbiology Microbiology Results: Microbiology 02/16/23 22:15 Fungal Identification - Preliminary Cerebrospinal Fluid 02/16/23 22:16 Gram Stain - Final Cerebrospinal Fluid CSF Examination - Final Fluid Description - Final CSF Culture - Final No growth after 3 days. Assessment and Plan (1) Encephalopathy, hypertensive: Status: Acute (2) Encephalopathy associated with viral infection: Status: Acute Plan 77yo F with HTN, DM2, Parkinsonism presenting with agitated delirium + HTN urgency suspicious for hypertensive encephalopathy admitted to ICU 02/16/23 on nicardipine drip and underwent LP downgraded to IMC 02/17/23 acute encephalopathy suspect hypertensive but CSF showed mild lymphocytosis + mild protein elevation, meningitis/encephalitis PCR panel negative; Lyme serology from CSF + serum pending and ICU started pt on empiric ceftriaxone/doxycycline WNV and EEE serologies are also pending, though no specific treatment for these arborial infections Seen by Neurology they fell symptoms likely due to hypertensive encephalopathy but recommend to obtain MRI to rule out acute stroke and to rule out underlying infection. 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 rAaujo recommends 10 days of by mouth doxycycline for encephalitis HTN urgency blood pressure remains elevated on amlodipine 5 mg, losartan 100 mg, and spironolactone 25 mg, hydrochlorothiazide held on admission, will increase dose of Norvasc to 10 mg and follow BP DM2 -elevated blood sugars in 200-300 range, on lispro sliding scale, continue home medications glipizide and Januvia, will resume metformin 750 daily continue diabetic diet Parkinsonism -continue carbidopa-levodopa VTE ppx - SCDs dispo Short-term rehab Spoke with patient's at bedside he is agreeable to Luciana Mosesws patient will be discharged to rehab In my clinical judgment, the patient requires continued inpatient hospitalization for the following reasons: IV ABX, blood pressure monitoring Time Spent With Patient Time: Total time managing care of this patient today ____ minutes. Quality Stroke Does the patient have a stroke diagnosis?: No VTE Prior VTE?: No VTE Risk Level:: Medical - moderate - high VTE Device Contraindication: N/A - Device Ordered VTE Drug Contraindication: Treatment Not Tolerated
--- NOTE | 2023-02-20 15:51 | W.PM.IDCN ---
History of Present Illness Data of Consult Service Date: 02/19/23 Requesting physician: Harleen Medina Primary Care Provider: Carla Constantino NP HPI Reason for consult: confusion She presents with confusion and difficulty speaking. There was concern over CVA as she had one year ago. SHe has HTN and Parkinsons and DM. Blood cultures are negative. Lyme is pending. Review of Systems Review of Systems: Yes Unobtainable due to mental condition PMFSH Past Medical History Medical History Parkinsonian features Diabetes Hyperlipidemia Hypertension Family History Family history: reviewed and not pertinent Surgical History Surgical History Status post laparoscopic cholecystectomy History of laparoscopic cholecystectomy (~06/30/21) Social History Social History Household Members: Unknown / Unable to assess Housing: Unknown / Unable to assess Do you presently have visiting nurse or other home services: No Unable to assess alcohol history related to: Unknown Patient Tobacco Use Status: Never used Tobacco Smoked in Last 30 Days: No Use of substances other than those prescribed or required for medical reasons: Unknown Substance Use Type: Unknown Last Used Substance: Unknown Currently Displaying Signs/Symptoms of Drug Intoxication Withdrawal: No Advance Directives: No Patient : No : No Poor oral hygiene: No service: No Current occupational status: unemployed Meds Allergies Allergy/AdvReac Type Severity Reaction Status Date / Time No Known Allergies Allergy Verified 07/20/21 09:57 Active Medications: Current Medications Amlodipine Besylate (Amlodipine Besylate 10 Mg Tablet) 10 mg PO DAILY [facility]; Protocol Last Admin: 02/20/23 08:44 Dose: Not Given Bupropion HCl (Bupropion Hcl Xl 150 Mg Tab.Er.24h) 150 mg PO DAILY [facility] Last Admin: 02/20/23 08:09 Dose: 150 mg Carbidopa/Levodopa (Carbidopa/Levodopa 25/100 Tablet) 1 tab PO BID [facility] Last Admin: 02/20/23 08:08 Dose: 1 tab Dextrose (Dextrose 50 % 25 Gm/50 Ml Syringe) 25 gm IVPUSH Q15M PRN PRN Reason: per Hypoglycemia Standing Ord. Doxycycline Monohydrate (Doxycycline Monohydrate 100 Mg Capsule) 100 mg PO Q12H [facility] Famotidine (Famotidine/Pf 20 Mg/2 Ml Vial) 20 mg IVPUSH BID [facility] Last Admin: 02/20/23 08:09 Dose: 20 mg Glipizide (Glipizide Xl 5 Mg Tab.Er.24) 5 mg PO DAILY [facility] Last Admin: 02/20/23 08:08 Dose: 5 mg Insulin Human Lispro (Insulin Lispro 100 Unit/Ml 3 Ml Vial) 0 unit SUBCUT QIDACHS [facility]; Protocol Last Admin: 02/20/23 11:31 Dose: 8 unit Losartan Potassium (Losartan Potassium 50 Mg Tablet) 50 mg PO DAILY [facility]; Protocol Last Admin: 02/20/23 08:08 Dose: 50 mg Metformin HCl (Metformin Hcl Er 750 Mg Tab.Er.24h) 750 mg PO BEDTIME [facility] Nystatin (Nystatin Powder 15 Gm Bottle) 1 appl TOPICAL TID [facility] Last Admin: 02/20/23 15:06 Dose: 1 appl Sitagliptin Phosphate (Sitagliptin Phosphate 100 Mg Tablet) 100 mg PO DAILY [facility] Last Admin: 02/20/23 08:08 Dose: 100 mg Spironolactone (Spironolactone 25 Mg Tablet) 25 mg PO DAILY [facility]; Protocol Last Admin: 02/20/23 08:08 Dose: 25 mg Home Medications Medication Instructions Recorded Confirmed Last Taken Type aspirin 81 mg chewable tablet 81 mg PO DAILY 06/27/21 06/27/21 06/26/21 History irbesartan 300 mg tablet 300 mg PO DAILY 06/27/21 02/16/23 06/26/21 History metformin 750 mg tablet,extended 750 mg PO DAILY 06/27/21 02/16/23 Unknown History release 24 hr pravastatin 40 mg tablet 40 mg PO BEDTIME 06/27/21 02/16/23 06/26/21 History sitagliptin phosphate 100 mg 1 tab PO DAILY 06/27/21 02/16/23 06/26/21 History tablet (Januvia) amlodipine 5 mg tablet 5 mg PO DAILY 02/16/23 02/16/23 Unknown History bupropion HCl 150 mg 24 hr tablet, 150 mg PO QAM 02/16/23 02/16/23 Unknown History extended release carbidopa 25 mg-levodopa 100 mg 1 tab PO TID 02/16/23 02/16/23 Unknown History tablet glipizide 5 mg tablet, extended 5 mg PO DAILY 02/16/23 02/16/23 Unknown History release 24 hr hydrochlorothiazide 12.5 mg capsule 12.5 mg PO DAILY 02/16/23 02/16/23 Unknown History Physical Exam Vital Signs: Vital Signs: Last Vital Signs Temp 97.2 F 02/20/23 15:39 Pulse 86 02/20/23 15:39 Resp 20 02/20/23 15:39 BP 146/78 H 02/20/23 15:39 Pulse Ox 92 02/20/23 15:39 O2 Del Method Room Air 02/20/23 15:39 O2 Flow Rate 2 02/17/23 05:00 BMI result Body Mass Index 28.7 Const: General: cooperative HEENT: Head: Yes normal to inspection Face and sinus: Yes normal facial exam Mouth: Normal oral and palatal mucosa present Teeth and gingiva: dentition normal Eyes: General: appearance normal, both eyes and all related structures Pupils: Equal, round and reactive pupils present Resp: Effort & Inspection: normal respiratory effort Cardio: Rate: regular rate Rhythm: regular rhythm GI: Palpation (GI): Soft to palpation and nontender : General: Yes no CVA tenderness Back/Spine/Pelvis: Back: no CVA tenderness Skin: General skin exam: no rashes or lesions noted Neuro: General: moves all extremities Cranial nerves: Yes Equal, round and reactive pupils present Extrem: General: Yes normal to inspection Psych: Other: confused Results Labs 02/17/23 05:05 02/17/23 05:05 Microbiology Microbiology Results: Microbiology 02/16/23 22:15 Cerebrospinal Fluid Fungal Identification - Preliminary 02/16/23 22:16 Cerebrospinal Fluid Gram Stain - Final 02/16/23 22:16 Cerebrospinal Fluid CSF Examination - Final 02/16/23 22:16 Cerebrospinal Fluid Fluid Description - Final 02/16/23 22:16 Cerebrospinal Fluid CSF Culture - Final No growth after 3 days. 02/16/23 Unknown Urine clean catch - Urine sanchez top Urine Culture - Final Assessment and Plan (1) Parkinsonism: Status: Acute (2) Encephalopathy, hypertensive: Status: Acute Plan She appears to have encephalopathy. There are no signs of bacterial infection at this time. Seizures,viral or tick borne infection possible. Neurology is evaluating for CVA. Would give po Doxycycline 100 mg bid for 10 days cover possible tick borne. Time Spent With Patient Time: Total time managing care of this patient today ____ minutes.
[2023-02-20 16:52] LABS: Glucose, Whole Blood 270 mg/dL (60-115)
[2023-02-20] MEDS: Doxycycline Monohydrate 100 MG CAPSULE PO (17:08)
[2023-02-20 20:35] LABS: Glucose, Whole Blood 291 mg/dL (60-115)
[2023-02-20] MEDS: metFORMIN HCl ER 750 MG TAB.ER.24H PO (20:36)
--- NOTE | 2023-02-21 | EEG_ITS ---
This is a 16-channel EEG with an EKG lead. The patient is reported awake and confused during the tracing. Background EEG rhythm is mixed theta, beta load amplitude with no obvious asymmetry or paroxysmal tendency. Photic stimulation does not produce any significant driving. Hyperventilation is not performed. Cardiac lead does not reveal any significant abnormality. No sharp wave spikes or paroxysmal tendency noted. IMPRESSION: Mild slowing with no evidence of seizure disorder. MD BECCA Valdez/YOLETTE / [id number]
[2023-02-21] MEDS: Labetalol HCL 100 MG/20 ML VIAL 10 MG IVPUSH (00:42)
[2023-02-21 03:12] VITALS: BP 184/82; PULSE 80; RESP 18; TEMP 36.4; O2SAT 98
[2023-02-21 03:19] VITALS: BP 176/80
[2023-02-21] MEDS: OLANZapine 10 MG VIAL 5 MG IM (05:35)
[2023-02-21] MEDS: Doxycycline Monohydrate 100 MG CAPSULE PO ×2 (05:35→17:08)
[2023-02-21 06:00] VITALS: BMI 29.6
[2023-02-21 07:24] VITALS: BP 152/90; PULSE 89; RESP 16; TEMP 36.4; O2SAT 94
[2023-02-21 07:42] LABS: Glucose, Whole Blood 179 mg/dL (60-115)
[2023-02-21] MEDS: Insulin Lispro 100 UNIT/ML 3 ML VIAL SUBCUT ×4 (08:14→23:10)
[2023-02-21] MEDS: buPROPion HCl XL 150 MG TAB.ER.24H PO (08:14)
[2023-02-21] MEDS: SITagliptin Phosphate 100 MG TABLET PO (08:14)
[2023-02-21] MEDS: Carbidopa/Levodopa 25/100 TABLET 1 TAB PO ×2 (08:14→23:06)
[2023-02-21] MEDS: glipiZIDE XL 5 MG TAB.ER.24 PO (08:14)
[2023-02-21] MEDS: Spironolactone 25 MG TABLET PO (08:14)
[2023-02-21] MEDS: amLODIPine Besylate 10 MG TABLET PO (08:14)
[2023-02-21] MEDS: Losartan Potassium 50 MG TABLET PO (08:14)
[2023-02-21] MEDS: Famotidine/PF 20 MG/2 ML VIAL IVPUSH ×2 (08:14→23:12)
[2023-02-21] MEDS: Nystatin Powder 15 GM BOTTLE 1 APPL TOPICAL ×3 (08:15→23:09)
[2023-02-21 11:25] VITALS: BP 144/75; PULSE 77; RESP 18; TEMP 36.5; O2SAT 95
[2023-02-21 11:38] LABS: Glucose, Whole Blood 203 mg/dL (60-115)
--- NOTE | 2023-02-21 13:12 | HO.PM.IMPN ---
Subjective Subjective Date of Service: 02/21/23 Interval History: Noted to be confused this morning was having difficulty expressing herself, she felt she had similar episode last Sunday and therefore was brought by to hospital, was able to give correct information regarding her medical history, denies headache, no dizziness, no fevers, no chills, no nausea no vomiting, denies pain. Review of Systems All other symptoms reviewed and negative Physical Exam Vital Signs: Vital Signs: Last Vital Signs Temp 97.7 F 02/21/23 11:25 Pulse 77 02/21/23 11:25 Resp 18 02/21/23 11:25 BP 144/75 H 02/21/23 11:25 Pulse Ox 95 02/21/23 11:25 O2 Del Method Room Air 02/21/23 11:25 O2 Flow Rate 2 02/17/23 05:00 BMI result Body Mass Index 29.6 Const: Other: Gen: Mild confusion, difficulty putting words together, in no acute distress Neck: supple, no JVD Lungs: clear to auscultation bilaterally Heart: regular rate and rhythm, no murmurs Abd: soft, non-tender, non-distended Ext: no edema Skin: warm/well-perfused Neuro: Awake alert x3, nonfocal exam, speech clear but had difficulty in expressing herself at a.m.briefly later resolved Psych: appropriate affect Objective Data Active Medications Amlodipine Besylate (Amlodipine Besylate 10 Mg Tablet) 10 mg PO DAILY [facility]; Protocol Last Admin: 02/21/23 08:14 Dose: 10 mg Documented By: CHAYO Bupropion HCl (Bupropion Hcl Xl 150 Mg Tab.Er.24h) 150 mg PO DAILY [facility] Last Admin: 02/21/23 08:14 Dose: 150 mg Documented By: CHAYO Carbidopa/Levodopa (Carbidopa/Levodopa 25/100 Tablet) 1 tab PO BID [facility] Last Admin: 02/21/23 08:14 Dose: 1 tab Documented By: CHAYO Dextrose (Dextrose 50 % 25 Gm/50 Ml Syringe) 25 gm IVPUSH Q15M PRN PRN Reason: per Hypoglycemia Standing Ord. Doxycycline Monohydrate (Doxycycline Monohydrate 100 Mg Capsule) 100 mg PO Q12H [facility] Last Admin: 02/21/23 05:35 Dose: 100 mg Documented By: NAN Famotidine (Famotidine/Pf 20 Mg/2 Ml Vial) 20 mg IVPUSH BID [facility] Last Admin: 02/21/23 08:14 Dose: 20 mg Documented By: CHAYO Glipizide (Glipizide Xl 5 Mg Tab.Er.24) 5 mg PO DAILY [facility] Last Admin: 02/21/23 08:14 Dose: 5 mg Documented By: CHAYO Insulin Human Lispro (Insulin Lispro 100 Unit/Ml 3 Ml Vial) 0 unit SUBCUT QIDACHS [facility]; Protocol Last Admin: 02/21/23 12:02 Dose: 4 unit Documented By: CHAYO Losartan Potassium (Losartan Potassium 50 Mg Tablet) 50 mg PO DAILY [facility]; Protocol Last Admin: 02/21/23 08:14 Dose: 50 mg Documented By: CHAYO Metformin HCl (Metformin Hcl Er 750 Mg Tab.Er.24h) 750 mg PO BEDTIME [facility] Last Admin: 02/20/23 20:36 Dose: 750 mg Documented By: NAN Nystatin (Nystatin Powder 15 Gm Bottle) 1 appl TOPICAL TID [facility] Last Admin: 02/21/23 08:15 Dose: 1 appl Documented By: CHAYO Sitagliptin Phosphate (Sitagliptin Phosphate 100 Mg Tablet) 100 mg PO DAILY [facility] Last Admin: 02/21/23 08:14 Dose: 100 mg Documented By: CHAYO Spironolactone (Spironolactone 25 Mg Tablet) 25 mg PO DAILY [facility]; Protocol Last Admin: 02/21/23 08:14 Dose: 25 mg Documented By: CHAYO Labs 02/17/23 05:05 02/17/23 05:05 Labs: Laboratory Results - last 24 hr 02/20/23 02/20/23 02/21/23 16:48 20:29 07:29 POC Glucose 270 H 291 H 179 H 02/21/23 11:23 POC Glucose 203 H Microbiology Microbiology Results: Microbiology 02/16/23 22:15 Fungal Identification - Preliminary Cerebrospinal Fluid Assessment and Plan (1) Encephalopathy, hypertensive: Status: Acute (2) Encephalopathy associated with viral infection: Status: Acute Plan 77yo F with HTN, DM2, Parkinsonism presenting with agitated delirium + HTN urgency suspicious for hypertensive encephalopathy admitted to ICU 02/16/23 on nicardipine drip and underwent LP downgraded to IMC 02/17/23 acute encephalopathy Patient confusion was resolved , but again this morning patient noted to have confusion with difficulty putting words together similar to her presentation Initially felt to have symptoms related to viral infection/hypertensive encephalopathy, CSF showed mild lymphocytosis + mild protein elevation, meningitis/encephalitis PCR panel negative; Lyme serology serum negative Lyme serology from CSF pending WNV and EEE serologies are also pending, though no specific treatment for these arborial infections ICU started pt on empiric ceftriaxone/doxycycline Seen by Neurology they fell symptoms likely due to hypertensive encephalopathy but recommend to obtain MRI to rule out acute stroke and to rule out underlying infection. 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 Araujo she recommend to discontinue antibiotics since serum Lyme serology negative, patient afebrile, normal WBC Spoke with Dr. Sánchez again today in regard to recurrent episodes of confusion he recommended EEG Likely symptoms due to progression of underlying Parkinson's disease with generalized brain atrophy HTN urgency blood pressure improved on amlodipine 10 mg, losartan 50 mg, and spironolactone 25 mg, hydrochlorothiazide held on admission,follow bp closley avoid hypotension DM2 -elevated blood sugars in 200 range, on lispro sliding scale, continue home medications glipizide and Januvia, and metformin 750 daily continue diabetic diet Parkinsonism -continue carbidopa-levodopa VTE ppx - SCDs dispo Short-term rehab Spoke with patient's at bedside he is agreeable to [facility] Blanco patient will be discharged to rehab when medically stable In my clinical judgment, the patient requires continued inpatient hospitalization for the following reasons: Recurrent episodes of encephalopathy need further testing including EEG Time Spent With Patient Time: Total time managing care of this patient today ____ minutes. Quality Stroke Does the patient have a stroke diagnosis?: No VTE Prior VTE?: No VTE Risk Level:: Medical - moderate - high VTE Device Contraindication: N/A - Device Ordered VTE Drug Contraindication: Treatment Not Tolerated
--- NOTE | 2023-02-21 13:28 | MHC.CM.PN ---
EMR REVIEWED, PER HOSPITALIST PT'S WANTS EEG DONE PRIOR TO DISCHARGE, TONE'S MEADOW UPDATED AND THEY WILL HAVE BED FOR PT TOMORROW, CM WILL CONT TO FOLLOW D/C NEEDS.
[2023-02-21 15:22] VITALS: BP 146/66; PULSE 88; RESP 18; TEMP 36.5; O2SAT 94
--- NOTE | 2023-02-21 16:15 | P.PNID_ITS ---
Subjective Subjective Date of Service: 02/21/23 Critical Care Time (minutes): 15 Comment: she is still encephalopathic Objective Data Labs 02/17/23 05:05 02/17/23 05:05 Labs: Laboratory Results - last 24 hr 02/20/23 02/20/23 02/21/23 16:48 20:29 07:29 POC Glucose 270 H 291 H 179 H 02/21/23 11:23 POC Glucose 203 H Microbiology Microbiology Results: Microbiology 02/16/23 22:15 Cerebrospinal Fluid Fungal Identification - Preliminary 02/16/23 22:16 Cerebrospinal Fluid Gram Stain - Final 02/16/23 22:16 Cerebrospinal Fluid CSF Examination - Final 02/16/23 22:16 Cerebrospinal Fluid Fluid Description - Final 02/16/23 22:16 Cerebrospinal Fluid CSF Culture - Final No growth after 3 days. 02/16/23 Unknown Urine clean catch - Urine sanchez top Urine Culture - Final Physical Exam 2 Vital Signs: Vital Signs: Last Vital Signs Temp 97.7 F 02/21/23 15:22 Pulse 88 02/21/23 15:22 Resp 18 02/21/23 15:22 BP 146/66 H 02/21/23 15:22 Pulse Ox 94 02/21/23 15:22 O2 Del Method Room Air 02/21/23 15:22 O2 Flow Rate 2 02/17/23 05:00 BMI result Body Mass Index 29.6 Const: General: cooperative HEENT: Head: Yes normal to inspection Resp: Effort & Inspection: normal respiratory effort Cardio: Rate: regular rate Rhythm: regular rhythm GI: Inspection: Yes normal to inspection Assessment and Plan Assessment and plan (1) Encephalopathy, hypertensive: Problem details: there is no fever or elevated WBC Status: Acute Plan There is no signs of infection so would give no antibiotics. Time Spent With Patient Time: Total time managing care of this patient today ____ minutes.
[2023-02-21 16:47] LABS: Glucose, Whole Blood 198 mg/dL (60-115)
[2023-02-21 19:11] VITALS: BP 148/77; PULSE 94; RESP 16; TEMP 36.3; O2SAT 94
[2023-02-21 20:39] LABS: Glucose, Whole Blood 178 mg/dL (60-115)
[2023-02-21 21:53] LABS: Lyme IgG CSF Immunoblot NO BANDS DETECTED; Lyme IgM CSF Immunoblot NO BANDS DETECTED
[2023-02-21] MEDS: metFORMIN HCl ER 750 MG TAB.ER.24H PO (23:07)
[2023-02-22] VITALS: BP 183/93; PULSE 85; RESP 18; TEMP 36.4; O2SAT 94
[2023-02-22 03:26] VITALS: BP 128/70; PULSE 68; RESP 20; TEMP 36.4; O2SAT 97
[2023-02-22] MEDS: Doxycycline Monohydrate 100 MG CAPSULE PO (05:14)
[2023-02-22 05:51] VITALS: BMI 29.7
[2023-02-22 07:36] LABS: Glucose, Whole Blood 176 mg/dL (60-115)
[2023-02-22 07:45] VITALS: BP 146/77; PULSE 82; RESP 16; TEMP 36.5
[2023-02-22] MEDS: amLODIPine Besylate 10 MG TABLET PO (08:19)
[2023-02-22] MEDS: Famotidine/PF 20 MG/2 ML VIAL IVPUSH (08:20)
[2023-02-22] MEDS: Insulin Lispro 100 UNIT/ML 3 ML VIAL SUBCUT ×2 (08:20→12:01)
[2023-02-22] MEDS: SITagliptin Phosphate 100 MG TABLET PO (08:20)
[2023-02-22] MEDS: buPROPion HCl XL 150 MG TAB.ER.24H PO (08:20)
[2023-02-22] MEDS: Carbidopa/Levodopa 25/100 TABLET 1 TAB PO (08:20)
[2023-02-22] MEDS: Losartan Potassium 50 MG TABLET PO (08:20)
[2023-02-22] MEDS: Spironolactone 25 MG TABLET PO (08:20)
[2023-02-22] MEDS: glipiZIDE XL 5 MG TAB.ER.24 PO (08:20)
[2023-02-22] MEDS: Nystatin Powder 15 GM BOTTLE 1 APPL TOPICAL (08:21)
[2023-02-22 11:35] VITALS: BP 132/79; PULSE 87; RESP 16; TEMP 36.7; O2SAT 95
[2023-02-22 11:40] LABS: Glucose, Whole Blood 220 mg/dL (60-115)
[2023-02-22 13:27] LABS: Oligoclonal Banding Absent (Absent)
[2023-02-22 14:09] LABS: West Nile Virus IgM Antibody <0.90 index (<0.90); West Nile Virus, IgG <1.30 index (<1.30)
--- NOTE | 2023-02-22 14:41 | P.DS_ITS ---
DS: Providers Provider Date of Service: 02/22/23 Date of admission: 02/16/23 13:35 Primary care physician: Carla Constantino NP Consults: 02/18/23 07:37 Consult to Infectious Diseases [place]ine [place]ing [place] [facility] [place] Reason for consultation: AMS, elev protein in CSF Consult to Neurology Routine Consulting Provider: [facility] Reason for consultation: AMS, elev protein in CSF DS: Diagnosis Discharge Diagnosis (1) Encephalopathy, hypertensive: Status: Acute DS: Summary Hospital Course Hospital Course: history of presenting illness: Date of Service: 02/16/23 Attending physician on admission: Lukas Lyles Chief Complaint: Patient complains of headache/ says confused 77-year-old female hypertensive with parkinsonism and a type 2 diabetic both of them on clear about medication patient apparently became somewhat confused in the 's estimation trouble putting together sentences he described and she is otherwise wheelchair-bound so other physical aspects are difficult to assess but he saw no asymmetry in her features and she has remained awake no witnessed seizure activity certainly no head trauma Laboratory work indicates metabolically normal With each new encounter with her it seemed being supple op with E did wax and wane and that seemed to have been the most prominent feature and with the MRI not showing any evidence of any posterior edema i.e. had significant doubts about the diagnosis of a PRES syndrome and chose to get CSF sampling which did show 2 white cells but it still it is a lymphocytosis and along with a modestly elevated protein of 57 normal glucose and we did rule out HSV by both by imaging as well as by PCR so there was no empiric use of acyclovir but I would could not in rule out the possibility of this being Lyme so I treated with a combination of ceftriaxone and doxycycline. hospital course: 77yo F with HTN, DM2, Parkinsonism presenting with agitated delirium + HTN urgency suspicious for hypertensive encephalopathy, admitted to ICU 02/16/23 on nicardipine drip and underwent LP downgraded to C 02/17/23 acute encephalopathy acute confusion resolved, patient treated for hypertensive urgency initially with nicardipine drip that was later discontinued, subsequently blood pressure medications adjusted now with stable blood pressure, an LP was obtained CSF showed mild lymphocytosis + mild protein elevation, meningitis/encephalitis PCR panel negative,Lyme serology serum negative, initially empirically treated with IV ceftriaxone and doxycycline subsequently seen by infectious disease since there was no infection noted antibiotics were discontinued, Lyme serology from CSF pending ,WNV and EEE serologies are also pending, though no specific treatment for these arborial infections, Seen by Neurology brain MRI obtained that showed no acute intracranial abnormality, showed extensive underlying micro angiopathy, 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 HTN urgency blood pressure improved continue amlodipine 10 mg, losartan 50 mg, and spironolactone 25 mg, follow BP closely DM2 - continue home medications glipizide ,januvia, and metformin 750 daily ,continue diabetic diet my, and monitor blood sugars Parkinsonism -continue carbidopa-levodopa recommend outpatient neurology follow- up. Time Spent with Patient Time attestation: Total time managing care of this patient today ____ minutes. Discharge coordination time: Greater than 30 minutes Quality: Safe Use of Opioids Does Pt have an Active Cancer Diagnosis on the Problem List?: No Quality: Stroke Does the patient have a stroke diagnosis?: No Physical Exam Vital Signs: Vital Signs: Last Vital Signs Temp 98.1 F 02/22/23 11:35 Pulse 87 02/22/23 11:35 Resp 16 02/22/23 11:35 BP 132/79 02/22/23 11:35 Pulse Ox 95 02/22/23 11:35 O2 Del Method Room Air 02/22/23 11:35 O2 Flow Rate 2 02/17/23 05:00 BMI result Body Mass Index 29.7 Const: Other: Gen: awake alert, in no acute distress Neck: supple, no JVD Lungs: clear to auscultation bilaterally Heart: regular rate and rhythm, no murmurs Abd: soft, non-tender, non-distended Ext: no edema Skin: warm/well-perfused Neuro: Awake alert x3, nonfocal exam, speech clear , at times has difficulty putting words together, with decreased spontaneity of speech. Psych: appropriate affect DS: Data Data Completed and Pending Completed studies during hospitalization [Text1]: Procedures Resection of Gallbladder, Percutaneous Endoscopic Approach (06/27/21) Labs on day of discharge: Laboratory Results - last 24 hr 02/16/23 02/17/23 02/21/23 22:15 12:50 16:36 POC Glucose 198 H CSF Oligoclonal Bands Absent CSF Lyme IgG (Immblot) NO BANDS DETECTED CSF Lyme IgG Bands Det TNP CSF Lyme IgM (Immblot) NO BANDS DETECTED CSF Lyme IgM Bands Det TNP West Nile Virus IgG Ab <1.30 West Nile Virus IgM Ab <0.90 02/21/23 02/22/23 02/22/23 20:26 07:32 11:36 POC Glucose 178 H 176 H 220 H CSF Oligoclonal Bands CSF Lyme IgG (Immblot) CSF Lyme IgG Bands Det CSF Lyme IgM (Immblot) CSF Lyme IgM Bands Det West Nile Virus IgG Ab West Nile Virus IgM Ab Preliminary micro results at discharge 02/16/23 22:15 Fungal Identification - Preliminary Cerebrospinal Fluid Discharge Plan Discharge Anticipated Discharge Date/Time: 02/21/23 07:51 Patient Disposition: Xfer Inpatient Rehab Fac Discharge Diagnosis: acute encephalopathy hypertensive urgency Parkinson's disease Referrals: Kitty BUCHANAN [Outside] - 1 Week [facility] [Outside] - 1 Week Carla Constantino NP [Primary Care Provider] - 1 Week Discharge Medications: New spironolactone 25 mg Tablet 25 mg PO DAILY Qty: 30 0RF Protocol: Hold for SBP< HOLD for SBP < : 90 amlodipine 10 mg Tablet 10 mg PO DAILY Qty: 30 0RF Protocol: Hold for SBP< HOLD for SBP < : 90 losartan 50 mg Tablet 50 mg PO DAILY Qty: 30 0RF Protocol: Hold for SBP< HOLD for SBP < : 90 Continued pravastatin 40 mg Tablet 40 mg PO BEDTIME aspirin 81 mg Tablet,Chewable 81 mg PO DAILY metformin 750 mg Tablet Extended Release 24 Hr 750 mg PO DAILY Januvia 100 mg tablet 1 tab PO DAILY glipizide 5 mg tablet extended release 24hr 5 mg PO DAILY carbidopa-levodopa 25-100 mg tablet 1 tab PO TID bupropion HCl 150 mg tablet extended release 24 hr 150 mg PO QAM Discontinued irbesartan 300 mg Tablet 300 mg PO DAILY amlodipine 5 mg tablet 5 mg PO DAILY hydrochlorothiazide 12.5 mg capsule 12.5 mg PO DAILY Discharge Orders: Discharge Order (Routine); Ordered 02/22/23 Ordered By: Harleen Medina Diet: Diabetic diet Activity on Discharge: As tolerated Stand Alone Forms: Patient Portal Discharge page Care Plan Goals: Acute encephalopathy resolved likely progression of underlying Parkinson's disease with cognitive impairment. Elevated blood pressure improved, medications adjusted ,follow BP closely. no acute infection Labs pending West Nile antibodies and Eastern equine IgG and IgM CSF Lyme IgG/IgM, albumin, CSF alpha -1 and 2 globulin, myelin protein and oligo clonal bands. Health Concerns: Parkinson's disease Hypertension Plan of Treatment: Outpatient follow-up with primary care physician call for appointment. Assessment: As above
--- NOTE | 2023-02-22 15:26 | MHC.CM.PN ---
Second IMM given 02/22. Pt is medically cleared for D/C to STR at [facility] today. Pts will transport her there (due to past incidence in ambulance with pt getting motion sickness).
[2023-02-22 18:33] LABS: Eastern Equine Encephal. IgG <1:16; Eastern Equine Encephal. IgM <1:16
[2023-02-24 16:04] LABS: Myelin Basic Protein <2.0 mcg/L (<=4.0)
[2023-02-28 13:39] LABS: VDRL Qualitative CSF Nonreactive (Nonreactive)
[2023-03-14 14:11] LABS: Total Protein, CSF 55
== END 2023-02-22 15:38 | DRG 78 ==
LOC: HO.ED 12:47 → HO.EDOVER 13:41 → HO.ICU 13:45 → HO.IMC 02-17 14:46
PROVIDERS: Family Medicine; Registered Nurse Community Health; Admitting Provider Internal Medicine Cardiovascular Disease; Emergency Provider Emergency Medicine Emergency Medical Services; PCP Nurse Practitioner Family; Visit Provider Hospitalist
DX: I67.4 Hypertensive encephalopathy (principal); F05 Delirium due to known physiological condition; I16.0 Hypertensive urgency; E78.5 Hyperlipidemia, unspecified; I10 Essential (primary) hypertension; G20 Parkinson's disease; E87.6 Hypokalemia; E11.69 Type 2 diabetes mellitus with other specified complication; Z99.3 Dependence on wheelchair; Z79.84 Long term (current) use of oral hypoglycemic drugs; Z79.899 Other long term (current) drug therapy
CPT/HCPCS: 36415; 70450; 70496; 70498; 70544; 70551; 71045; 74018; 80048; 80053; 80076; 81001; 82550; 82803; 82945; 82947; 83605; 83735; 83873; 83916; 84100; 84157; 84166; 84484; 85025; 85610; 85730; 86592; 86617; 86618; 86652; 86788; 86789; 87015; 87070; 87086; 87102; 87205; 87483; 89051; 93005; 95816; 97110; 97162; 97166; 97530; 97535; 99285; C1758; J0696; J1956; J2060; J2250; J2371; P9047; Q9967

== ENCOUNTER → 2023-02-16 13:35 | Outpatient (BNV) | payer MEDICARE, OTHER, SELFPAY | PROVIDERS: Admitting Provider Internal Medicine Cardiovascular Disease; Emergency Provider Emergency Medicine Emergency Medical Services; PCP Nurse Practitioner Family; Visit Provider Internal Medicine Cardiovascular Disease | DX: G93.49 Other encephalopathy (principal); B97.89 Other viral agents as the cause of diseases classified elsewhere; Z90.49 Acquired absence of other specified parts of digestive tract; E11.59 Type 2 diabetes mellitus with other circulatory complications; I15.2 Hypertension secondary to endocrine disorders; G20 Parkinson's disease | CPT/HCPCS: 99291 ==

== ENCOUNTER → 2023-02-16 13:35 | Outpatient (BNV) | payer MEDICARE, OTHER, SELFPAY | PROVIDERS: Admitting Provider Internal Medicine Cardiovascular Disease; Emergency Provider Emergency Medicine Emergency Medical Services; PCP Nurse Practitioner Family; Visit Provider Family Medicine | DX: I67.4 Hypertensive encephalopathy (principal) | CPT/HCPCS: 99232; 99233; 99239; 99499 ==

== ENCOUNTER → 2023-02-16 13:35 | Outpatient (BNV) | payer MEDICARE, OTHER, SELFPAY | PROVIDERS: Admitting Provider Internal Medicine Cardiovascular Disease; Emergency Provider Emergency Medicine Emergency Medical Services; PCP Nurse Practitioner Family; Visit Provider Internal Medicine | DX: I67.4 Hypertensive encephalopathy (principal) | CPT/HCPCS: 99222; 99231 ==

== ENCOUNTER 2023-06-26 11:31 | Emergency (ER) | payer MEDICARE, OTHER, SELFPAY ==
--- NOTE | ~2023-06-26 | CT_ITS ---
EXAMINATION: CT ANGIOGRAM HEAD CT ANGIOGRAM NECK CLINICAL INFORMATION: Reason for Exam Slow speech, confusion, rule out clot COMPARISON: None. TECHNIQUE: Test bolus sequences followed by intravenous administration 70 mL of Omnipaque 350. Helical imaging was performed in the axial plane from the aortic arch to the skull vertex. Delayed postcontrast imaging of the head was also performed. The data was processed at the pulmonary function technologist's workstation for generation of MIP sequences. Angled MIPs and volume rendered reformatted images were also generated at an offline 3D workstation. Stenoses are assessed in accordance with Salcedo et al. Quantification of Carotid Stenosis on CT Angiography. AJR 2006. 27(1):13-19. [address] CT examination was performed using dose optimization techniques as appropriate, variously including the following: *Automated exposure control *Adjustment of mA and/or kV according to patient size (this includes techniques or standardized protocols for targeted exams where dose is matched to indication/reason for exam; i.e. extremities or head) *Use of iterative reconstruction technique DLP: 1672 mGy-cm FINDINGS: CT HEAD: Redemonstrated moderate global cerebral volume loss and presumed advanced chronic microangiopathy with chronic lacunar infarcts in the deep sanchez nuclei. Redemonstrated chronic bilateral cerebellar lacunar infarcts. No new territorial loss of sanchez-white differentiation, noting white matter disease, limits assessment. No acute intracranial hemorrhage or extra-axial fluid collection. No pathologic intra-axial enhancement or regional oligemia. Left lens replacement with increased AP dimension of the posterior segment suggestive of axial myopia. Paranasal sinuses and mastoid air cells are well aerated. Osseous structures are intact. CTA HEAD: Moderate stenosis of the proximal right P2 COMPENSATION ASSOCIATE. Calcific plaque along the bilateral carotid siphons without associated stenosis. No proximal large vessel occlusion. Luminal irregularity of the distal intracranial arterial vasculature may be technical in etiology however underlying atherosclerotic disease is not excluded. The nondominant intradural right vertebral artery largely terminates in PICA. Calcific plaque along the intradural left vertebral artery without associated stenosis. No aneurysms and no high flow vascular malformations. Timing of the contrast bolus allows assessment of the major dural venous sinuses, which all opacify normally CTA NECK: Dental streak artifact obscures assessment of the distal cervical arterial vasculature. Two vessel branching pattern of the arch with left common carotid artery arising from the brachiocephalic trunk. Mild atherosclerotic disease of the aortic arch. Origins of the great vessels are widely patent. Partially calcified eccentric fibrofatty plaque mildly narrows the mid left common carotid artery. Widely patent right common carotid artery. Mild atherosclerotic disease at the carotid bifurcations without associated stenosis. The internal carotid arteries are patent. The left vertebral artery is dominant. The vertebral artery ostia are widely patent. Both vertebral arteries are widely patent throughout their extracranial cervical course. CT NECK: Age-indeterminate fracture of the right maxillary first premolar tooth violating the pump chamber with adjacent periodontal lucency. Heterogeneous thyroid gland with 4 mm left thyroid nodule below size criteria for imaging follow-up. Cervical spondylosis and diffuse idiopathic skeletal hyperostosis. Partially imaged enlargement of the main pulmonary artery which may be seen in the setting of pulmonary hypertension. CT/CT angio head neck stroke IMPRESSION: 1. No acute intracranial abnormality. Stable chronic findings as above. Please note the extent of white matter disease limits assessment for superimposed acute ischemia which would be better assessed on MRI. 2. Moderate stenosis of the proximal right P2 COMPENSATION ASSOCIATE. No proximal large vessel occlusion. 3. Atherosclerosis mildly narrows the mid left common carotid artery. 4. Age-indeterminate fracture of the right maxillary first premolar tooth violating the pump chamber with adjacent periodontal lucency. 5. Partially imaged enlargement of the main pulmonary artery which may be seen in the setting of pulmonary hypertension.
--- NOTE | ~2023-06-26 | CT_ITS ---
EXAMINATION: CT HEAD WITHOUT CONTRAST (STROKE PROTOCOL) . CLINICAL INFORMATION: Stroke protocol. Slow speech. Confusion. COMPARISON: Brain MRI imaging February 16, [address] February 16, 2023 TECHNIQUE: Contiguous axial imaging was performed from the skull base to vertex without intravenous administration of contrast. Today's examination is limited secondary to motion artifact. This CT examination was performed using dose optimization techniques as appropriate, variously including the following: *Automated exposure control *Adjustment of mA and/or kV according to patient size (this includes techniques or standardized protocols for targeted exams where dose is matched to indication/reason for exam; i.e. extremities or head) *Use of iterative reconstruction technique DLP: 1505 mGy-cm FINDINGS: There is no evidence of acute intracranial hemorrhage or territorial infarction. No abnormal mass effect or midline shift is appreciated. [place]-white differentiation is well preserved. No extra-axial fluid collections. The ventricular system and cortical sulci are prominent, consistent with age-appropriate volume loss. There are areas of low density in the periventricular and subcortical white matter, most consistent with sequelae of microvascular ischemic change. Soft tissues and osseous structures are unremarkable. There are calcifications of the cavernous internal carotid arteries. The visualized paranasal sinuses and mastoid air cells are well aerated. CT/CT head for stroke IMPRESSION: Chronic microvascular ischemic changes with no CT evidence of acute intracranial abnormality. Findings to be called to the ordering clinician by a [facility] Physician Gameplay Programmer.
--- NOTE | 2023-06-26 11:37 | ECG_ITS ---
Test Reason : STROKE ALERT Blood Pressure : / mmHG Vent. Rate : 088 BPM Atrial Rate : 088 BPM P-R Int : 184 ms QRS Dur : 080 ms QT Int : 380 ms P-R-T Axes : 057 043 033 degrees QTc Int : 459 ms Normal sinus rhythm with sinus arrhythmia Anterior infarct (cited on or before 16-FEB-2023) Abnormal ECG When compared with ECG of 16-FEB-2023 11:08, No significant change was found Referred By: Jeronimo Hung Electronically Signed By:Mack Johnson
--- NOTE | 2023-06-26 11:44 | ED.NEUROSD ---
HPI - Neuro Symptoms/Deficit General Chief Complaint: Stroke Stated Complaint: NGUYEN AL:T-1,SLOW SPEECH,UNABLE TO RECOL MEM Time Seen by Provider: 06/26/23 11:37 Source: patient and EMS Mode of arrival: EMS Limitations: no limitations History of Present Illness HPI Narrative: 77-year-old female history of diabetes mellitus, Parkinson's disease, hypertension, stroke sent to emergency department by ambulance for evaluation of possible stroke/stroke alert by the paramedics. Information came from the paramedics. Apparently the patient woke up this morning and had slow speech. She had weakness and trouble with memory. Patient's blood pressure was 181/100, heart rate was 101 105 beats per minute point of care glucose was 321. According the paramedics the patient's last known well time was 17:00 yesterday. The patient told me that her was concerned that maybe she had a TIA because she was not making sense this morning. On presentation to the emergency department she was oriented to person, place, month and year. She was able to tell me her age. She was able to identify objects. She did not have any focal weakness. The patient was admitted with a similar presentation on 02/16/2023. That time her symptoms included confusion for approximately 1-1/2 hours, headache and abdominal pain. CT scan of the head and CT angiogram head and neck were negative. Patient was hypertensive at that time the patient was admitted for hypertensive encephalopathy. MRI during that admission revealed no acute stroke but the patient did have extensive microangiopathy with chronic lacunar infarcts of the deep nuclei and cerebellum. Her discharge diagnosis at that time was hypertensive encephalopathy. Related Data Home Medications Medication Instructions Recorded Confirmed aspirin 81 mg chewable tablet 81 mg PO DAILY 06/27/21 06/27/21 metformin 750 mg tablet,extended 750 mg PO DAILY 06/27/21 02/16/23 release 24 hr pravastatin 40 mg tablet 40 mg PO BEDTIME 06/27/21 02/16/23 sitagliptin phosphate 100 mg 1 tab PO DAILY 06/27/21 02/16/23 tablet (Januvia) bupropion HCl 150 mg 24 hr tablet, 150 mg PO QAM 02/16/23 02/16/23 extended release carbidopa 25 mg-levodopa 100 mg 1 tab PO TID 02/16/23 02/16/23 tablet glipizide 5 mg tablet, extended 5 mg PO DAILY 02/16/23 02/16/23 release 24 hr Previous Rx's Medication Instructions Recorded amlodipine 10 mg tablet 10 mg PO DAILY #30 tabs 02/21/23 spironolactone 25 mg tablet 25 mg PO DAILY #30 tabs 02/21/23 losartan 50 mg tablet 50 mg PO DAILY #30 tabs 02/22/23 Allergies Allergy/AdvReac Type Severity Reaction Status Date / Time No Known Allergies Allergy Verified 07/20/21 09:57 Review of Systems Review of Systems: Yes all other systems are reviewed and are negative [facility] Past Medical History [facility] Narrative: Social history: She lives with her . She denies tobacco, alcohol and drug use. Medical History Parkinsonian features Diabetes Hyperlipidemia Hypertension Surgical History Status post laparoscopic cholecystectomy History of laparoscopic cholecystectomy (~06/30/21) Social History Social History Household Members: Unknown / Unable to assess Housing: Unknown / Unable to assess Do you presently have visiting nurse or other home services: No Unable to assess alcohol history related to: Unknown Patient Tobacco Use Status: Never used Tobacco Smoked in Last 30 Days: No Use of substances other than those prescribed or required for medical reasons: No Substance Use Type: Unknown Advance Directives: No Advance Directives Information Provided: Yes service: No Current occupational status: unemployed Physical Exam Vital Signs: Vital Signs: Last Vital Signs Temp 98.0 F 06/26/23 12:20 Pulse 91 06/26/23 12:48 Resp 20 06/26/23 12:48 BP 181/91 H 06/26/23 12:48 Pulse Ox 95 06/26/23 12:48 O2 Del Method Room Air 06/26/23 12:48 BMI result Body Mass Index 29.1 Vital signs were normal except for an elevated blood pressure of 181/91 Exam: General: Awake, alert in no distress Head: Normocephalic, atraumatic EENT: PERRL, Lids normal, sclera normal, conjunctiva normal, nose normal , ears normal, throat without erythema or exudates Neck: Supple, no adenopathy, no trachea midline or C-spine tenderness Lung: breath sounds symmetric, no wheezing, rales or rhonchi Chest: symmetric movement, nontender Heart: regular rate and rhythm, normal S1, S2 no murmurs or rubs Abdomen: soft, non-tender, nondistended, normal bowel sounds Back: no vertebral tenderness, no CVAT Extremities: no deformities, moves all extremities symmetrically Neuro: General: Awake, alert, oriented to person, place, year, patient's speech is normal, can identify objects without difficulty Cranial nerves: Cranial nerves 2-12 are intact Strength symmetric with decreased strength in lower extremities compared to the upper extremities Psych: Pleasant, cooperative Medications Administered Discontinued Medications Generic Name Dose Route Start Last Admin Trade Name Freq PRN Reason Stop Dose Admin Iohexol 100 ml 06/26/23 13:17 06/26/23 13:17 Iohexol 350 Mg/Ml 100 Ml Infus..Btl IV 06/26/23 13:18 70 ml ONCE ONE Administration Medical Decision Making Medical Decision Making MDM Narrative: 77-year-old female history of diabetes mellitus, Parkinson's disease, hypertension, stroke sent to emergency department by ambulance for evaluation of possible stroke. Patient's last well-known time was 17:00 hours yesterday. noted the patient was confused and had difficulty with her memory and was concerned that the patient was having a stroke. On presentation the patient was oriented, answered questions appropriately and her neurologic exam was nonfocal. Patient did have an elevated blood pressure of 184/98. Following evaluation was ordered: CBC, BMP, liver panel, CK, magnesium, PT/INR, PTT, troponin, ethanol level, point of care glucose, urinalysis, CT scan of the head without IV contrast, CT angiogram of the head and neck 13:54 My interpretation patient's laboratory evaluation is as follows: WBC elevated 13,700. Coags normal. Glucose elevated 280. Ethanol was below detectable limits. CT scan of the brain revealed no acute finding CT angiogram of the head and neck did not reveal any acute findings I did discuss the patient's presentation and workup with the covering neurologist, Dr. Glover. Given the negative workup previously and today's workup which was unremarkable, he recommended against admission for further evaluation of stroke or TIA He recommended ruling out toxic metabolic causes of her altered mental status and if this was negative he recommended discharging the patient home. 16:03 Patient's urinalysis was positive for protein and glucose. Microscopic revealed 0-5 WBCs, 6-10 squamous cells 1+ bacteria-this is a non clean catch specimen. At this time, the patient's workup was unremarkable and the patient will be discharged home with a diagnosis of TIA. She was advised to continue taking medications as prescribed in the fall the PCP for re-evaluation. Differential Diagnosis Differential Diagnoses: The differential diagnosis associated with the presentation includes Differential diagnosis includes but is not limited to stroke, TIA, anemia, metabolic disorder, urinary tract infection Admission/Observation Consideration of admission/observation: Escalation of care including admission/observation considered Lab Data MDM Lab Attestation statement: I reviewed the patient's lab results. 06/26/23 12:32 06/26/23 12:32 Labs: Lab Results 06/26/23 06/26/23 06/26/23 Range/Units 11:49 12:32 14:10 WBC 13.7 H (4.8-10.8) X10*3/uL RBC 4.47 (4.20-5.50) X10*6/uL Hgb 13.6 (12.0-16.0) g/dl Hct 40.7 (37.0-47.0) % MCV 91.1 (80.0-98.0) fL MCH 30.4 (27.0-33.0) pg MCHC 33.4 (31.0-35.0) g/dl RDW 13.0 (11.0-16.0) % Plt Count 339 (160-400) X10*3/uL MPV 9.2 L (9.4-12.3) fL Immature Gran % (Auto) 0.4 (0.0-0.4) % Neut % (Auto) 76.2 H (45-73) % Lymph % (Auto) 13.4 L (20-40) % Weston % (Auto) 9.6 (2-11) % Eos % (Auto) 0.1 (0-4) % Baso % (Auto) 0.3 (0-2) % Lymph # (Auto) 1.8 (1.2-4.9) X10*3/uL Weston # (Auto) 1.3 H (0.1-1.2) X10*3/uL Eos # (Auto) 0.0 (0.0-0.4) X10*3/uL Baso # (Auto) 0.0 (0.0-0.2) X10*3/uL Abs Immat Gran (auto) 0.05 H (0.00-0.03) X10*3/uL Absolute Neuts (auto) 10.5 H (2.0-8.3) x10*3/uL Absolute Nucleated RBC 0.000 (0.0-0.012) X10*3/uL Nucleated RBC % (auto) 0.0 (0.0-0.2) /100WBC PT 12.1 (11.1-13.3) SEC INR 1.0 (0.9-1.1) APTT 29.8 (26.0-36.4) SEC Sodium 138 (135-145) mmol/L Potassium 3.9 (3.3-5.1) mmol/L Chloride 101 (96-108) mmol/L Carbon Dioxide 27 (22-29) mmol/L Anion Gap 14 (12-20) BUN 9 (9-16) mg/dL Creatinine 0.77 (0.5-1.4) mg/dL Estim Creat Clear Calc 67.2 Estimated GFR > 60 POC Glucose 296 H (60-115) mg/dL Random Glucose 280 H (60-115) mg/dL Calcium 9.7 (8.4-10.2) mg/dL Magnesium 1.9 (1.6-2.6) mg/dL Total Bilirubin 0.4 (0.0-1.0) mg/dL Direct Bilirubin 0.2 (0.0-0.5) mg/dL AST 15 (5-31) U/L ALT 19 (0-31) U/L Alkaline Phosphatase 106 (39-117) U/L Total Creatine Kinase 59 (26-140) U/L Troponin I High Sens 15.4 D (<3.5-17.0) ng/L Total Protein 7.6 (6.5-8.0) g/dL Albumin 4.1 (3.5-5.0) g/dL Urine Color Yellow Urine Appearance Clear Urine pH 7.5 (5.0-9.0) Ur Specific Weston >= 1.030 H (1.005-1.025) Urine Protein 30 (1+) H (Neg-Trace) mg/dL Urine Glucose (UA) 500 H (Negative) mg/dL Urine Ketones Trace (Negative) mg/dL Urine Blood Negative (Negative) Urine Nitrite Negative (Negative) Ur Leukocyte Esterase Negative (Negative) Urine RBC 0-2 (0-2) /HPF Urine WBC 0-5 (0-5) /HPF Ur Squamous Epith Cells 6-10 (0-2) /HPF Urine Bacteria 1+ (None Seen) Hyaline Casts 0-2 (0-2) /LPF Ethyl Alcohol < 10 mg/dL Radiology Impression Discussion of test interpretation with radiology: I have reviewed the radiologist's reading. Radiologist Impression: CT head for stroke IMPRESSION: Chronic microvascular ischemic changes with no CT evidence of acute intracranial abnormality. Findings to be called to the ordering clinician by a [facility] Radiology Physician Credit Rating Inspector. Dictated By: Manuel Dougherty MD CT angio head neck stroke IMPRESSION: 1. No acute intracranial abnormality. Stable chronic findings as above. Please note the extent of white matter disease limits assessment for superimposed acute ischemia which would be better assessed on MRI. 2. Moderate stenosis of the proximal right P2 DATA ANALYTICS ARCHITECT. No proximal large vessel occlusion. 3. Atherosclerosis mildly narrows the mid left common carotid artery. 4. Age-indeterminate fracture of the right maxillary first premolar tooth violating the pump chamber with adjacent periodontal lucency. 5. Partially imaged enlargement of the main pulmonary artery which may be seen in the setting of pulmonary hypertension. Dictated By: Maria Del Rosario Crespo Independent Historian Clinical information obtained from an independent historian. History obtained from or confirmed by: EMS External Record Review External record reviewed: Inpatient record NIH Stroke Scale Level of Consciousness: Alert Level of Consciousness Questions: Answers both questions correctly Level of Consciousness Commands: Performs both tasks correctly Best Gaze: Normal Visual: No visual loss Facial Palsy: Normal Motor Arm (Right): No drift Motor Arm (Left): No drift Motor Leg (Right): No drift Motor Leg (Left): No drift Limb Ataxia: Absent Sensory: Normal Best Language: No aphasia Dysarthia: Normal Extinction and Inattention: No abnormality Score: 0 Critical Care Time Critical Care Time Critical Care Time: Yes Total Critical Care Time: 45 Attestation: Critical Care: The patient was critically ill with a high probability of imminent or life threatening deterioration. I spent greater than 30 minutes of discontinuous time evaluating the patient,delivering critical care at the bedside, discussing and evaluating pertinent data with consultants. Critical care time does not include time spent performing separately billable procedures or teaching. Total time spent performing critical care was 45 minutes. Discharge Plan Discharge Clinical Impression: Transient cerebral ischemia Patient Disposition: Home, Self-Care Instructions: Transient Ischemic Attack (ED) Additional Instructions: The CT scan of your brain did not reveal any new stroke or bleeding in the brain. The CT angiogram of your arteries of your head and neck did not reveal any large blood clots to explain your symptoms. You most likely had a transient ischemic attack (TIA) Continue taking medications as prescribed by your providers. Follow-up with your doctor in 2 days. Please return to the emergency department if your symptoms get worse or if you develop any symptoms that are concerning to you. Prescriptions: No Action pravastatin 40 mg Tablet 40 mg PO BEDTIME aspirin 81 mg Tablet,Chewable 81 mg PO DAILY metformin 750 mg Tablet Extended Release 24 Hr 750 mg PO DAILY Januvia 100 mg tablet 1 tab PO DAILY glipizide 5 mg tablet extended release 24hr 5 mg PO DAILY carbidopa-levodopa 25-100 mg tablet 1 tab PO TID bupropion HCl 150 mg tablet extended release 24 hr 150 mg PO QAM spironolactone 25 mg Tablet 25 mg PO DAILY Qty: 30 0RF Protocol: Hold for SBP< HOLD for SBP < : 90 amlodipine 10 mg Tablet 10 mg PO DAILY Qty: 30 0RF Protocol: Hold for SBP< HOLD for SBP < : 90 losartan 50 mg Tablet 50 mg PO DAILY Qty: 30 0RF Protocol: Hold for SBP< HOLD for SBP < : 90
[2023-06-26 12:01] LABS: Glucose, Whole Blood 296 mg/dL (60-115)
[2023-06-26 12:12] VITALS: BP 184/98; BP 189/101; PULSE 105; PULSE 98; RESP 19; TEMP 37.1; O2SAT 95; O2SAT 96; BMI 29.1
[2023-06-26 12:16] VITALS: PULSE 100; RESP 17; O2SAT 95
[2023-06-26 12:20] VITALS: BP 186/104; PULSE 97; RESP 10; TEMP 36.7; O2SAT 95
--- NOTE | 2023-06-26 12:30 | PC.NURSE ---
Pt comes in via ambulance from home, per EMS her family stated she went to bed around 5pm last night (06/25) and woke up this morning confused, forgetting daily tasks, increasing weakness. Per EMS she has a past history of TIA. Pt is alert to self, birthday, location and situations at this time. Medical Record Coder strength is equal bilaterally, PEERLA. Pt did become confused on exact date but was able to name the month and year. Pt recalls that when this happened last time she had to go to [facility] for rehab Pt endorses living at home with family, primarily using a wheelchair for ambulation. Denies pain at this time
[2023-06-26 12:40] LABS: MANUAL DIFF FLAG NO
--- NOTE | 2023-06-26 12:40 | PC.NURSE ---
Pt has significant excoriation under both breasts, warm to touch and moist. Pt endorses nystatin use over the past week which she states has improved the situation . Pt denies pain in that area at this time
[2023-06-26 12:42] LABS: Basophils Percent Auto 0.3 % (0-2); Eosinophils Percent Auto 0.1 % (0-4); Hematocrit 40.7 % (37.0-47.0); Hemoglobin 13.6 g/dl (12.0-16.0); Imm Gran Abs Auto 0.05 X10*3/uL (0.00-0.03); Imm Gran Pct Auto 0.4 % (0.0-0.4); Lymphocytes Absolute Auto 1.8 X10*3/uL (1.2-4.9); Lymphocytes Percent Auto 13.4 % (20-40); Mean Corpuscular HGB Conc 33.4 g/dl (31.0-35.0); Mean Corpuscular Hemoglobin 30.4 pg (27.0-33.0); Mean Corpuscular Volume 91.1 fL (80.0-98.0); Mean Platelet Volume 9.2 fL (9.4-12.3); Monocytes Absolute Auto 1.3 X10*3/uL (0.1-1.2); Monocytes Percent Auto 9.6 % (2-11); Neutrophils Absolute Auto 10.5 x10*3/uL (2.0-8.3); Neutrophils Percent Auto 76.2 % (45-73); Platelet Count 339 X10*3/uL (160-400); Red Blood Count 4.47 X10*6/uL (4.20-5.50); White Blood Count 13.7 X10*3/uL (4.8-10.8)
[2023-06-26 12:48] VITALS: BP 181/91; PULSE 91; RESP 20; O2SAT 95
[2023-06-26 12:51] LABS: Prothrombin Time 12.1 SEC (11.1-13.3)
[2023-06-26 12:54] LABS: Partial Thromboplastin Time 29.8 SEC (26.0-36.4)
--- NOTE | 2023-06-26 13:03 | PC.NURSE ---
Swallow eval completed with patient, patient was able to swallow teaspoons of water but had to take multiple swallows to drink 3 oz of water, did cough a few times but was able to clear throat effectively. Dr. Hung notified
[2023-06-26 13:07] LABS: Troponin-I High Sensitivity 15.4 ng/L (<3.5-17.0)
[2023-06-26] MEDS: iohexoL 350 MG/ML 100 ML INFUS..BTL IV (13:17)
[2023-06-26 13:18] LABS: Stroke Lab Use COMPLETE
[2023-06-26 13:24] LABS: Alanine Aminotransferase 19 U/L (0-31); Albumin Level 4.1 g/dL (3.5-5.0); Alkaline Phosphatase 106 U/L (39-117); Anion Gap 14 (12-20); Aspartate Amino Transferase 15 U/L (5-31); Bilirubin Direct 0.2 mg/dL (0.0-0.5); Bilirubin Total 0.4 mg/dL (0.0-1.0); Blood Urea Nitrogen 9 mg/dL (9-16); Calcium 9.7 mg/dL (8.4-10.2); Carbon Dioxide 27 mmol/L (22-29); Chloride 101 mmol/L (96-108); Creatinine Clr Calc Pharmacy 67.2; Estimated Glomerular Filt Rate > 60; Ethanol < 10 mg/dL; Glucose Random 280 mg/dL (60-115); Magnesium 1.9 mg/dL (1.6-2.6); Potassium 3.9 mmol/L (3.3-5.1); Sodium 138 mmol/L (135-145); Total Protein 7.6 g/dL (6.5-8.0)
[2023-06-26 14:18] LABS: Appearance Urine Clear; Color Urine Yellow; Glucose Urine UA 500 mg/dL (Negative); Leukocyte Esterase Urine Negative (Negative); Nitrite Urine Negative (Negative); PH 7.5 (5.0-9.0); Specific Gravity - Urine >= 1.030 (1.005-1.025); UMIC TRIGGER UACC YES; Urine Blood Negative (Negative); Urine Ketones Trace mg/dL (Negative); Urine Protein 30 (1+) mg/dL (Neg-Trace)
[2023-06-26 14:32] LABS: Bacteria Urine 1+ (None Seen); Hyaline Casts Urine 0-2 /LPF (0-2); RBC Urine 0-2 /HPF (0-2); WBC Urine 0-5 /HPF (0-5)
--- NOTE | 2023-06-26 14:35 | PC.NURSE ---
Pt assisted with using the bedpan, urine sent down. Pt repositioned in bed for comfort, rr even and unlabored, skin pwd, no apparent distress at this time. Awaiting further orders from
--- NOTE | 2023-06-26 14:49 | PC.NURSE ---
MD aware of blood pressures at this time, no new orders
[2023-06-30 13:44] LABS: Prothrombin Time Whole Bld POC 12.6 sec (11.1-13.5); ~PT, ~INR - Anti Coag Clinic 1.1 (0.9-1.1)
== END 2023-06-26 17:29 | disposition home or self-care (01) ==
PROVIDERS: Emergency Provider Emergency Medicine Emergency Medical Services; PCP Nurse Practitioner Family
DX: G45.9 Transient cerebral ischemic attack, unspecified (principal); E11.9 Type 2 diabetes mellitus without complications; I10 Essential (primary) hypertension; E78.5 Hyperlipidemia, unspecified; G20.C Parkinsonism, unspecified; Z79.02 Long term (current) use of antithrombotics/antiplatelets; Z79.82 Long term (current) use of aspirin; Z79.84 Long term (current) use of oral hypoglycemic drugs; Z79.899 Other long term (current) drug therapy
CPT/HCPCS: 36415; 70450; 70496; 70498; 80048; 80076; 80307; 81001; 82550; 82947; 83735; 84484; 85025; 85610; 85730; 93005; 99284; 99285; Q9967

== ENCOUNTER → 2023-06-26 11:37 | Outpatient (BNV) | payer MEDICARE, OTHER, SELFPAY | PROVIDERS: Emergency Provider Emergency Medicine Emergency Medical Services; PCP Nurse Practitioner Family; Visit Provider Internal Medicine Cardiovascular Disease | DX: I49.9 Cardiac arrhythmia, unspecified (principal) | CPT/HCPCS: 93010 ==

== ENCOUNTER 2023-07-10 22:42 | Emergency (ER) | payer MEDICARE, OTHER, SELFPAY ==
--- NOTE | 2023-07-10 | ECG_ITS ---
Test Reason : FALL Blood Pressure : / mmHG Vent. Rate : 096 BPM Atrial Rate : 096 BPM P-R Int : 178 ms QRS Dur : 084 ms QT Int : 378 ms P-R-T Axes : 050 037 029 degrees QTc Int : 477 ms Normal sinus rhythm Possible Inferior infarct , age undetermined Anterior infarct (cited on or before 16-FEB-2023) Abnormal ECG When compared with ECG of 26-JUN-2023 12:13, No significant change was found Referred By: Generic ED Physician Electronically Signed By:DARON HENDERSON
--- NOTE | ~2023-07-10 | XR_ITS ---
EXAMINATION: XR CHEST CLINICAL INFORMATION: Covid COMPARISON: Chest x-ray 02/16/2023 TECHNIQUE: Frontal view of the chest was obtained. FINDINGS: No significant abnormality is noted involving the heart, lungs, mediastinum, bony thorax or soft tissues. XR/XR chest 1V IMPRESSION: Unremarkable chest examination.
--- NOTE | ~2023-07-10 | XR_ITS ---
EXAMINATION: XR SACRUM AND COCCYX CLINICAL INFORMATION: Fall. Pain. COMPARISON: None available. TECHNIQUE: 2 views of the sacrum and 2 views of the coccyx were obtained. FINDINGS: The bony structures are osteopenic. There is mild sacroiliac degenerative change with mild subchondral sclerosis. There is mild lower lumbar disc degenerative change. No fracture is seen. The soft tissues are unremarkable. XR/XR sacrum coccyx min 2V IMPRESSION: No fracture or dislocation. Osteopenia and degenerative changes.
--- NOTE | ~2023-07-10 | CT_ITS ---
EXAMINATION: CT head/brain wo IV con CLINICAL INFORMATION: Reason for Exam fall COMPARISON: CT head 06/26/2023 TECHNIQUE: Contiguous axial imaging was performed from the skull base to vertex without intravenous contrast. Sagittal and coronal reformatted images were obtained. This CT examination was performed using dose optimization techniques as appropriate, variously including the following: * Automated exposure control * Adjustment of mA and/or kV according to patient size (this includes techniques or standardized protocols for targeted exams where dose is matched to indication/reason for exam; i.e. extremities or head) Use of iterative reconstruction technique DLP: 723.51 mGy-cm FINDINGS: Moderate lateral and third ventriculomegaly disproportionate to the convexity sulci with acute callosal angle and crowding of sulci near the vertex that can be correlated clinically for communicating hydrocephalus superimposed upon global cerebral volume loss. Patchy hypodensity in the subcortical and periventricular white matter, deep sanchez nuclei, and brainstem is nonspecific and may reflect a combination of chronic microangiopathy and transependymal CSF effusion. Redemonstrated chronic lacunar infarcts in the bilateral cerebellar hemispheres. Again seen prominence of the extra-axial CSF space in the anterior right middle cranial fossa with slight osseous thinning/remodeling the right sphenoid triangle and slight flattening along the right temporal pole suggestive of underlying arachnoid cyst. No territorial loss of sanchez-white differentiation. No acute intracranial hemorrhage or extra-axial fluid collection. No mass lesion, significant mass effect, or herniation pattern. Left lens replacement. Elongation of the posterior segment of the left globe suggestive of axial myopia. Mild patchy ethmoid air cell mucosal disease and partial opacification of the right nasal cavity. No mastoid effusion. Osseous structures are intact. CT/CT head/brain wo IV con IMPRESSION: No acute intracranial abnormality. Redemonstrated ventriculomegaly disproportionate to sulcal prominence with crowded sulci near the vertex and acute callosal angle raising suspicion for communicating hydrocephalus superimposed upon global cerebral volume loss that can be correlated clinically. Nonspecific white matter disease may reflect a combination of chronic microangiopathy and transependymal CSF effusion. Chronic lacunar infarcts in the cerebellar hemispheres. Arachnoid cyst in the right middle cranial fossa with mass effect along the right temporal pole.
[2023-07-10 22:55] VITALS: BP 160/90; PULSE 80; BMI 29.1
[2023-07-10 22:59] VITALS: BP 155/79; PULSE 94; RESP 18; TEMP 36.7; O2SAT 95
[2023-07-10 23:23] LABS: MANUAL DIFF FLAG NO
[2023-07-10 23:27] LABS: Basophils Percent Auto 0.4 % (0-2); Eosinophils Percent Auto 0.1 % (0-4); Hematocrit 41.6 % (37.0-47.0); Hemoglobin 13.8 g/dl (12.0-16.0); Imm Gran Abs Auto 0.03 X10*3/uL (0.00-0.03); Imm Gran Pct Auto 0.3 % (0.0-0.4); Lymphocytes Absolute Auto 0.9 X10*3/uL (1.2-4.9); Mean Corpuscular HGB Conc 33.2 g/dl (31.0-35.0); Mean Corpuscular Hemoglobin 30.3 pg (27.0-33.0); Mean Corpuscular Volume 91.2 fL (80.0-98.0); Mean Platelet Volume 9.5 fL (9.4-12.3); Monocytes Absolute Auto 1.2 X10*3/uL (0.1-1.2); Monocytes Percent Auto 10.6 % (2-11); Neutrophils Absolute Auto 9.1 x10*3/uL (2.0-8.3); Neutrophils Percent Auto 80.6 % (45-73); Platelet Count 271 X10*3/uL (160-400); Red Blood Count 4.56 X10*6/uL (4.20-5.50); White Blood Count 11.2 X10*3/uL (4.8-10.8)
[2023-07-10 23:51] LABS: Troponin-I High Sensitivity 9.9 ng/L (<3.5-17.0)
[2023-07-10 23:53] LABS: Alanine Aminotransferase 6 U/L (0-31); Albumin Level 3.7 g/dL (3.5-5.0); Alkaline Phosphatase 73 U/L (39-117); Anion Gap 17 (12-20); Aspartate Amino Transferase 37 U/L (5-31); Bilirubin Total 0.4 mg/dL (0.0-1.0); Blood Urea Nitrogen 10 mg/dL (9-16); Calcium 9.3 mg/dL (8.4-10.2); Carbon Dioxide 20 mmol/L (22-29); Chloride 102 mmol/L (96-108); Creatinine Clr Calc Pharmacy 63.8; Estimated Glomerular Filt Rate > 60; Glucose Random 280 mg/dL (60-115); Potassium 4.7 mmol/L (3.3-5.1); Sodium 134 mmol/L (135-145); Total Protein 7.7 g/dL (6.5-8.0)
[2023-07-11] VITALS (9 sets, daily range): BP systolic 146–205; BP diastolic 70–121; PULSE 88–109; RESP 14–20; TEMP 36.6–37.2; O2SAT 89–98
[2023-07-11 00:48] LABS: COVID-19 Test Positive (Negative); IDNOW Serial# 152EDE1D
[2023-07-11 00:55] LABS: IDNOW Serial# 08D9AD1C; Influenza A Negative (Negative); Influenza B2 Negative (Negative)
[2023-07-11 02:05] LABS: Appearance Urine Clear; Color Urine Yellow; Glucose Urine UA >=1000 mg/dL (Negative); Leukocyte Esterase Urine Negative (Negative); Nitrite Urine Negative (Negative); PH 5.5 (5.0-9.0); Specific Gravity - Urine >= 1.030 (1.005-1.025); UMIC TRIGGER UACC YES; Urine Blood Negative (Negative); Urine Ketones 15 mg/dL (Negative); Urine Protein 30 (1+) mg/dL (Neg-Trace)
[2023-07-11 02:10] LABS: Bacteria Urine None Seen (None Seen); Hyaline Casts Urine 0-2 /LPF (0-2); RBC Urine 0-2 /HPF (0-2); Squamous Epithelial Cell Urine 0-2 /HPF (0-2); WBC Urine 0-5 /HPF (0-5)
--- NOTE | 2023-07-11 02:25 | ED_ITS ---
HPI - General Adult General Chief complaint: Fall Stated complaint: Lift assist tx for increasing weakness, poss UTI Time Seen by Provider: 07/10/23 23:26 Source: patient, RN notes reviewed and old records reviewed Mode of arrival: EMS Limitations: no limitations History of Present Illness HPI narrative: 77-year-old female with past medical history with hip significant for hypertension, parkinsonism, type 2 diabetes presents for evaluation of weakness Per the patient and her who I spoke to via telephone, she was trying to transfer from the toilet back to her wheelchair when my legs gave out and I slid down. ? Patient's was standing next to her when this happened He states that she did not truly fall but rather slid down very slowly and he was sitting next to her trying to help her He states that she did not injure herself in any way The patient denies any pain She was seen here 2 weeks ago for stroke-like symptoms She had a negative workup and ultimately went home Patient reports that she feels great Related Data Home Medications Medication Instructions Recorded Confirmed aspirin 81 mg chewable tablet 81 mg PO DAILY 06/27/21 07/11/23 metformin 750 mg tablet,extended 750 mg PO DAILY 06/27/21 07/11/23 release 24 hr pravastatin 40 mg tablet 40 mg PO BEDTIME 06/27/21 07/11/23 sitagliptin phosphate 100 mg 1 tab PO DAILY 06/27/21 07/11/23 tablet (Januvia) bupropion HCl 150 mg 24 hr tablet, 150 mg PO QAM 02/16/23 07/11/23 extended release carbidopa 25 mg-levodopa 100 mg 1 tab PO TID 02/16/23 07/11/23 tablet glipizide 5 mg tablet, extended 5 mg PO DAILY 02/16/23 07/11/23 release 24 hr Previous Rx's Medication Instructions Recorded amlodipine 10 mg tablet 10 mg PO DAILY #30 tabs 02/21/23 losartan 50 mg tablet 50 mg PO DAILY #30 tabs 02/22/23 Allergies Allergy/AdvReac Type Severity Reaction Status Date / Time No Known Allergies Allergy Verified 07/20/21 09:57 Review of Systems 2 Constitutional: Constitutional: Denies chills, Denies fever(s) and Denies headache(s) Eyes: Eyes: Denies blurry vision ENT: Denies headache(s) Cardiovascular: Cardiovascular: Denies chest pain and Denies dyspnea Respiratory: Respiratory: Denies cough and Denies dyspnea Gastrointestinal: Gastrointestinal: Denies abdominal pain, Denies nausea and Denies vomiting Musculoskeletal: Musculoskeletal: Denies back pain Integumentary/Breasts: Skin/Breast: Denies rash Neurologic: Denies headache(s) [facility] Past Medical History Medical History Parkinsonian features Diabetes Hyperlipidemia Hypertension Surgical History Status post laparoscopic cholecystectomy History of laparoscopic cholecystectomy (~06/30/21) Social History Social History Household Members: Unknown / Unable to assess Housing: Unknown / Unable to assess Do you presently have visiting nurse or other home services: No Unable to assess alcohol history related to: Unknown Patient Tobacco Use Status: Never used Tobacco Substance Use Type: Unknown service: No Current occupational status: unemployed Physical Exam ED Vital Signs: Vital Signs - 24 hr 07/12/23 01:57 07/12/23 04:35 07/12/23 06:31 Temperature 98.3 F 97.8 F 97.9 F Pulse Rate 94 94 87 Respiratory Rate 16 18 16 Blood Pressure 134/53 L 146/61 H 131/57 L Pulse Oximetry 93 93 92 Oxygen Delivery Method Room Air Room Air Room Air 07/12/23 10:40 07/12/23 14:00 07/12/23 19:21 Temperature 98.6 F 98.9 F 98.5 F Pulse Rate 97 93 93 Respiratory Rate 16 16 18 Blood Pressure 169/78 H 117/78 146/59 H Pulse Oximetry 94 94 94 Oxygen Delivery Method Room Air Room Air Room Air BMI result Body Mass Index 29.1 Const General: healthy appearing, comfortable, no acute distress, alert and awake Nutritional Appearance: well nourished Orientation/consciousness: patient oriented x3 HENMT Head: Yes normocephalic and Yes atraumatic Eyes Eyelids: Yes eyelids normal Conjunctivae: conjunctivae normal Sclerae: sclerae normal Corneas: corneas normal Pupils: Equal, round and reactive pupils present EOM: EOMs intact bilaterally Neck Neck: Yes full ROM Resp Effort & Inspection: normal respiratory effort, able to speak in complete sentences and not labored Cardio Rate: regular rate Rhythm: regular rhythm GI Inspection: No distended Palpation (GI): Soft to palpation, not firm, nontender, no guarding and not rigid Skin General skin exam: no rashes or lesions noted and elasticity normal Neuro General: patient oriented x3 Cranial nerves: Yes CN's II-XII intact bilaterally, Yes Equal, round and reactive pupils present and Yes Bilaterally intact EOM present Cognition (Neuro): normal cognition Extrem Other: Moving all extremities well without any obvious deformities Course Reevaluation(s) Reevaluation #1: Patient reports feeling well, she has no traumatic injuries, workup is largely unremarkable with the exception of COVID-19 and a possible diagnosis of normal pressure hydrocephalus. I discussed with the patient's who is concerned for safety if the patient comes back tonight, he would like a physical therapy evaluation and case management to the patient for possible at home services. If the patient is cleared to go home he will be able to pick her up later today. The patient is comfortable with this plan Time: 02:43 Reevaluation #2: Patient will go home w/ VNA for SN and PT. Patient will be picked up by her . I agree with plan. Comfortable w/ DC Time: 14:18 Reevaluation #3: Discharge canceled. Nurse Vangie concern patient not able to ambulate on her own. Initial PT evaluation recommended rehab but patient can not afford to go to rehab. Will cancel discharge and put another physical therapy PT consult. Additional Reevaluation(s): 6:45 pm: Patient's O2 sat dropped to 89%. Plan was to sent to the hospital for COVID hypoxia. Dr. Kramer came to the ED and evaluated patient and states patient is not hypoxic. Patient stood up multiple times the O2 sat remained above 95%as per Dr. Kramer the hospitalists.. Presently does not recommend admission or dexemethasone. He states if patient's 02 saturation drops during the night than he patient be admitted to the night hospitalist. Patient can not be discharged. Patient is not a safe discharge. Repeat telephonic nurse case manager PT consult placed 07/12/2023 1600 --> Physician observation continues. CM pending. 07/13/2023 12:48 a.m. case management is having difficulty placing the patient due to COVID-19 diagnosis. I discussed possible admission for hydrocephalus with hospitalist, Dr. Anderson who declines admission at this time. This does appear to be a more chronic issue with hydrocephalus Medications Administered Generic Name Dose Route Start Last Admin Trade Name Titusq PRN Reason Stop Dose Admin Amlodipine Besylate 10 mg 07/11/23 23:45 07/12/23 10:42 Amlodipine Besylate 10 Mg Tablet PO 10 mg DAILY MUKESH Administration Protocol Aspirin 81 mg 07/12/23 09:00 07/12/23 10:42 Aspirin 81 Mg Tab.Chew PO 81 mg DAILY MUKESH Administration Bupropion HCl 150 mg 07/12/23 09:00 07/12/23 10:42 Bupropion Hcl Xl 150 Mg Tab.Er.24h PO 150 mg DAILY MUKESH Administration Carbidopa/Levodopa 1 tab 07/11/23 23:45 07/12/23 21:49 Carbidopa/Levodopa 25/100 Tablet PO 1 tab TID MUKESH Administration Glipizide 5 mg 07/12/23 09:00 07/12/23 10:42 Glipizide Xl 5 Mg Tab.Er.24 PO 5 mg DAILY MUKESH Administration Losartan Potassium 50 mg 07/11/23 23:45 07/12/23 10:42 Losartan Potassium 50 Mg Tablet PO 50 mg DAILY MUKESH Administration Protocol Metformin HCl 750 mg 07/12/23 09:00 07/12/23 10:43 Metformin Hcl Er 750 Mg Tab.Er.24h PO 750 mg DAILY MUKESH Administration Pravastatin Sodium 40 mg 07/12/23 21:00 07/12/23 21:49 Pravastatin Sodium 40 Mg Tablet PO 40 mg BEDTIME MUKESH Administration Sitagliptin Phosphate 100 mg 07/12/23 09:00 07/12/23 10:43 Sitagliptin Phosphate 100 Mg Tablet PO 100 mg DAILY MUKESH Administration Discontinued Medications Generic Name Dose Route Start Last Admin Trade Name Titusq PRN Reason Stop Dose Admin Dexamethasone Sodium Phosphate 6 mg 07/11/23 18:15 07/12/23 07:04 Dexamethasone Sod Phosphate 4 Mg/Ml Vial IVPUSH 07/11/23 18:16 Not Given ONCE ONE Medical Decision Making Medical Decision Making [facility] Narrative: 77-year-old female with past medical history significant for hypertension, parkinsonism, diabetes presents for evaluation of weakness. I spoke with the patient and her , they both have the same story the patient had weakness in her legs leading to a fall. She had no traumatic head strike or injury. A CT scan the brain showed some concern for hydrocephalus with an arachnoid cyst causing mass effect. I discussed with the [facility] physician who read the report, Dr. Crespo who reviewed the patient's images from 2 weeks ago as well and states that there has been essentially no change to the arachnoid cyst or the ventricular prominence. The patient's medical workup showed no significant lab abnormalities but she did test positive for COVID-19 which likely is the acute cause of her increased weakness. Her urine shows no evidence of UTI. I discussed with my attending, Dr. Dasilva given the abnormal CT scan findings. I also reviewed the patient's MRI from February which also showed evidence of hydrocephalus. I do not believe that the concern for hydrocephalus is an acute issue but the COVID-19 is the acute issue. However, the patient does have intermittent confusion, urinary incontinence and is unsteady on her feet so hydrocephalus is a possibility but these again, are chronic issues. The patient is not hypoxic, tachypneic or in any respiratory distress, she has not require admission for the COVID-19. Given that the concern for hydrocephalus appears to be chronic, the patient can follow-up with neurology as an outpatient regarding this. Differential Diagnosis Differential Diagnoses: The differential diagnosis associated with the presentation includes COVID-19 Weakness UTI Metabolic abnormality Intracranial hemorrhage Normal pressure hydrocephalus Admission/Observation Consideration of admission/observation: Escalation of care including admission/observation considered Considered admission for evaluation of normal pressure hydrocephalus although this was felt to not be an acute issue and the patient can follow-up outpatient Lab Data MDM Lab Attestation statement: I reviewed the patient's lab results. Mild leukocytosis to 11.2 K, no anemia or platelet abnormalities. Patient has a sodium of 134 but normal potassium. Her CO2 is low at 20. Her glucose is elevated to 280 but clinically has no evidence of DKA. Renal function within normal limits, troponin negative. 07/10/23 23:10 07/10/23 23:10 Labs: Lab Results 07/10/23 07/11/23 07/11/23 Range/Units 23:10 00:29 01:54 WBC 11.2 H (4.8-10.8) X10*3/uL RBC 4.56 (4.20-5.50) X10*6/uL Hgb 13.8 (12.0-16.0) g/dl Hct 41.6 (37.0-47.0) % MCV 91.2 (80.0-98.0) fL MCH 30.3 (27.0-33.0) pg MCHC 33.2 (31.0-35.0) g/dl RDW 13.0 (11.0-16.0) % Plt Count 271 (160-400) X10*3/uL MPV 9.5 (9.4-12.3) fL Immature Gran % (Auto) 0.3 (0.0-0.4) % Neut % (Auto) 80.6 H (45-73) % Lymph % (Auto) 8.0 L (20-40) % [place] % (Auto) 10.6 (2-11) % Eos % (Auto) 0.1 (0-4) % Baso % (Auto) 0.4 (0-2) % Lymph # (Auto) 0.9 L (1.2-4.9) X10*3/uL [place] # (Auto) 1.2 (0.1-1.2) X10*3/uL Eos # (Auto) 0.0 (0.0-0.4) X10*3/uL Baso # (Auto) 0.0 (0.0-0.2) X10*3/uL Abs Immat Gran (auto) 0.03 (0.00-0.03) X10*3/uL Absolute Neuts (auto) 9.1 H (2.0-8.3) x10*3/uL Absolute Nucleated RBC 0.000 (0.0-0.012) X10*3/uL Nucleated RBC % (auto) 0.0 (0.0-0.2) /100WBC Sodium 134 L (135-145) mmol/L Potassium 4.7 D (3.3-5.1) mmol/L Chloride 102 (96-108) mmol/L Carbon Dioxide 20 L (22-29) mmol/L Anion Gap 17 (12-20) BUN 10 (9-16) mg/dL Creatinine 0.81 (0.5-1.4) mg/dL Estim Creat Clear Calc 63.8 Estimated GFR > 60 Random Glucose 280 H (60-115) mg/dL Calcium 9.3 (8.4-10.2) mg/dL Total Bilirubin 0.4 (0.0-1.0) mg/dL AST 37 H (5-31) U/L ALT 6 (0-31) U/L Alkaline Phosphatase 73 (39-117) U/L Troponin I High Sens 9.9 (<3.5-17.0) ng/L Total Protein 7.7 (6.5-8.0) g/dL Albumin 3.7 (3.5-5.0) g/dL Urine Color Yellow Urine Appearance Clear Urine pH 5.5 (5.0-9.0) Ur Specific [place] >= 1.030 H (1.005-1.025) Urine Protein 30 (1+) H (Neg-Trace) mg/dL Urine Glucose (UA) >=1000 H (Negative) mg/dL Urine Ketones 15 (Negative) mg/dL Urine Blood Negative (Negative) Urine Nitrite Negative (Negative) Ur Leukocyte Esterase Negative (Negative) Urine RBC 0-2 (0-2) /HPF Urine WBC 0-5 (0-5) /HPF Ur Squamous Epith Cells 0-2 (0-2) /HPF Urine Bacteria None Seen (None Seen) Hyaline Casts 0-2 (0-2) /LPF COVID-19 (ARNULFO) Positive A (Negative) COVID-19 Clin Com See Note Influenza Type A (ROSSY) Negative (Negative) Influenza Type B (ROSSY) Negative (Negative) Influenza A & B Note See Note Independent Interpretation I performed an independent interpretation of an: EKG (Normal sinus rhythm with a rate of [address] segment elevations or depressions.) and CT Scan (No acute intracranial hemorrhage) Radiology Impression Discussion of test interpretation with radiology: I discussed test interpretation with the radiologist (Dr. Crespo reports no change in her CT scan from CT scan in June 26, 2023.) and I have reviewed the radiologist's reading. (Documented above) Discharge Plan Discharge Clinical Impression: COVID-19, Weakness Patient Disposition: Home, Self-Care Instructions: Hydrocephalus (DC), COVID-19 (Coronavirus Disease 2019) (ED) Additional Instructions: Micki tested positive for COVID-19 This is likely the cause of her increasing weakness today Your CT scan also showed concern for normal pressure hydrocephalus She needs to follow-up with neurology for this If she is diagnosed with this and confirmed, she may have improvement in mobility, incontinence and confusion with appropriate treatment Call the office of Dr. Sánchez to schedule follow-up Prescriptions: No Action pravastatin 40 mg Tablet 40 mg PO BEDTIME aspirin 81 mg Tablet,Chewable 81 mg PO DAILY metformin 750 mg Tablet Extended Release 24 Hr 750 mg PO DAILY Januvia 100 mg tablet 1 tab PO DAILY glipizide 5 mg tablet extended release 24hr 5 mg PO DAILY carbidopa-levodopa 25-100 mg tablet 1 tab PO TID bupropion HCl 150 mg tablet extended release 24 hr 150 mg PO QAM amlodipine 10 mg Tablet 10 mg PO DAILY Qty: 30 0RF Protocol: Hold for SBP< HOLD for SBP < : 90 losartan 50 mg Tablet 50 mg PO DAILY Qty: 30 0RF Protocol: Hold for SBP< HOLD for SBP < : 90 Referrals: Dianne BUCHANAN [Outside] Ct Sánchez MD [Physician] - (? normal pressure hydrocephalus) Interventions: ED Discharge Assessment Last Done: 07/11/23 14:57
--- NOTE | 2023-07-11 08:18 | PC.NURSE ---
PHYSICAL THERAPY IS AT BEDSIDE. PT AWARE OF PLAN OF CARE.
--- NOTE | 2023-07-11 09:45 | PC.NURSE ---
pt is a/o no sob/vipul noted speaks in full sentences. pt ate 100% of breakfast.
--- NOTE | 2023-07-11 10:10 | PC.NURSE ---
BUTTOCKS JESSI, NO OPEN AREAS NOTED. BARRIER CREAM APPLIED. MD AWARE
--- NOTE | 2023-07-11 14:00 | PC.NURSE ---
pt sen by hosp jimmy ([facility]). pt aware of plan of care for admission to hosp.
--- NOTE | 2023-07-11 15:26 | MHC.CM.ED ---
Received case management consult overnight. Patient came to the ER due to weakness. Found to be positive for Covid. Physical therapy eval completed. Short term rehab is recommended. Patient has not been inpatient in any facility in the past 30 days. Referral made to all 3 acute rehabs. No bed offers made at this time due to Covid. Spoke with patient's , Baljinder, via telephone at [phone]. Above information relayed to Baljinder. Private pay options discussed for long-term facility. Baljinder states patient will decline STR. Baljinder will come to the ER to transport patient home. Agreeable to referral to [facility] for long-term and physical therapy. Patient, Frances Gale aware. Continue to monitor for d/c needs.
--- NOTE | 2023-07-11 16:27 | PC.NURSE ---
pt cleansed. incontinent of loose stool. no indication that there's blood. pt is alert. able to follow commands. full 2 person assist for bed changing. stating that he can manage patient. patient unable to sit and stand with walker without full assist. balance poor. skin pwd, unlabored resp. no home health assistance available tonight. Provider made aware of of unsafe discharge and recommendation for case management.
--- NOTE | 2023-07-11 17:19 | PC.NURSE ---
Juan TROTTER aware that patient cannoe be discharged. Will speak withCM again.
--- NOTE | 2023-07-11 18:53 | MHC.CM.ED ---
Pt primary nurse and technician support association expressed concerns to CM at 1530 about patient's ability to safely go home and husbands ability to care for her. CM met with patient and . Pt very sleepy and unable to participate in CM interview. Pt 's /HCP Baljinder Lara tells CM that his is normally wheelchair bound for the past 3-4 years and is able to transfer to chair, bed and toilet with minimal assistance. Pt is unable to stand without 2 assist. Pt is very weak. uses a cane. Pt has been incontinent of urine and has been using a diaper for several years. does not feel he can take her home. PT recommends STR. Referrals made to acute rehabs, as patient has Standard Medicare and does not have a qualifying hospital stay. Acute rehabs declined patient admission. Reviewed private pay costs for both STR and Acute rehab. does not have the funds to private pay. SERGO Bean aware. Pt cannot be safely discharge home. SERGO Bean aware. Pt will remain overnight. CM following for safe discharge plans.
--- NOTE | 2023-07-11 19:46 | PC.NURSE ---
This RN took over pt care @ 1900. Pt ca&ox4, no signs of distress. Pt assisted and positioned for comfort into bed w/ previous RN. Pt given dinner tray. Plan of care ongoing.
--- NOTE | 2023-07-11 19:46 | PHA.MEDREC ---
Pharmacy Consult ? Medication Reconciliation Pharmacy has completed the medication reconciliation. Patient confirmed medications based on claim history. Petros MazariegosD
--- NOTE | 2023-07-11 19:51 | PC.NURSE ---
Previous RN stated med decadron was verbally d/c by provider, so it was not given.
--- NOTE | 2023-07-11 23:43 | PC.NURSE ---
Provider Zo notified of pts B/P. Meds ordered. Plan of care ongoing.
--- NOTE | 2023-07-12 00:46 | PC.NURSE ---
Meds given late d/t waiting for verification.
[2023-07-12] MEDS: Carbidopa/Levodopa 25/100 TABLET 1 TAB PO ×3 (00:50→21:49)
[2023-07-12] MEDS: Losartan Potassium 50 MG TABLET PO ×2 (00:51→10:42)
[2023-07-12] MEDS: amLODIPine Besylate 10 MG TABLET PO ×2 (00:51→10:42)
--- NOTE | 2023-07-12 00:56 | PC.NURSE ---
Pt medicated per aug. Plan of care ongoing.
[2023-07-12 01:57] VITALS: BP 134/53; PULSE 94; RESP 16; TEMP 36.8; O2SAT 93
--- NOTE | 2023-07-12 01:58 | PC.NURSE ---
Provider advised on pt B/P of 134/53. Plan of care ongoing.
[2023-07-12 04:35] VITALS: BP 146/61; PULSE 94; RESP 18; TEMP 36.6; O2SAT 93
[2023-07-12 06:31] VITALS: BP 131/57; PULSE 87; RESP 16; TEMP 36.6; O2SAT 92
[2023-07-12 10:40] VITALS: BP 169/78; PULSE 97; RESP 16; TEMP 37; O2SAT 94
[2023-07-12] MEDS: glipiZIDE XL 5 MG TAB.ER.24 PO (10:42)
[2023-07-12] MEDS: buPROPion HCl XL 150 MG TAB.ER.24H PO (10:42)
[2023-07-12] MEDS: Aspirin 81 MG TAB.CHEW PO (10:42)
[2023-07-12] MEDS: metFORMIN HCl ER 750 MG TAB.ER.24H PO (10:43)
[2023-07-12] MEDS: SITagliptin Phosphate 100 MG TABLET PO (10:43)
--- NOTE | 2023-07-12 10:49 | PC.NURSE ---
alert and oriented. patient resting quietly in room. incontinent of urine, complete bed change done. purewick in place. medicated per the mar, call carranza within reach
[2023-07-12 14:00] VITALS: BP 117/78; PULSE 93; RESP 16; TEMP 37.2; O2SAT 94
[2023-07-12 19:21] VITALS: BP 146/59; PULSE 93; RESP 18; TEMP 36.9; O2SAT 94
--- NOTE | 2023-07-12 19:24 | MHC.EDTECH ---
Patient bed pad changed and repositioned
[2023-07-12] MEDS: Pravastatin Sodium 40 MG TABLET PO (21:49)
--- NOTE | 2023-07-12 22:08 | MHC.CM.ED ---
[facility] cannot offer a bed. [facility] is willing to consider once patient is Covid recovered in 10 days (07/21). CM called Karrie Driscoll CM Hospice Case Manager for guidance, as patient continues to not meet admission criteria and CM has some concerns regarding safe discharge home. Karrie suggests that CM speak with regarding his ability to have help at home so his can safely go home, as it is not reasonable to have patient stay in ED for 9 more days. CM called and spoke to Baljinder Lara, and HCP. Baljinder thought his was being admitted. CM explained that his does not meet criteria for admission and was seen by [facility] Hospitalist. Baljinder tells CM that he has always cared for his and he can care for her now. Spoke at length about possible need for help at home, be it family, friends or loader helper sorting yard. Baljinder does not seem to understand that his is weakened from the Covid and it took 2 staff to assist her to stand. Baljinder believes his will be fine at home. Baljinder does not want his transported home via ambulance and states he can pick her up. CM did remind Baljinder that he told us he could not take her home last night because she could not pivot and needed 2 assist. states that he will see how she does and if he needs help, he will ask family and latter day friends. Baljinder seems somewhat confused as to what is is able to do now and what she could do to self transfer before she was ill. CM told Baljinder that CM would call him in the morning, that staff would evaluate patients ability to assist with transfer into w/c for transport home and would speak again about help in the home while is is recovering from Covid. CM spoke with Scottie TROTTER, who has some concerns over husbands decision making and ability to care for his in her current condition without help. Scottie received a telephone call from the patients granddaughter, who expressed concerns about both her grandparents ability to remain at home. Scottie did again speak with hospitalist about admission, but again, patient does not meet criteria for admission. CM will reassess situation in the morning regarding discharge to home with and need for VNA for home PT. No referrals yet placed pending discharge plan in the morning. Karrie Driscoll will follow up in the morning.
[2023-07-13 05:39] VITALS: BP 158/85; PULSE 90; TEMP 36.4; O2SAT 94
[2023-07-13] MEDS: SITagliptin Phosphate 100 MG TABLET PO (08:53)
[2023-07-13] MEDS: glipiZIDE XL 5 MG TAB.ER.24 PO (08:53)
[2023-07-13] MEDS: Losartan Potassium 50 MG TABLET PO (08:53)
[2023-07-13] MEDS: buPROPion HCl XL 150 MG TAB.ER.24H PO (08:53)
[2023-07-13] MEDS: Aspirin 81 MG TAB.CHEW PO (08:53)
[2023-07-13] MEDS: Carbidopa/Levodopa 25/100 TABLET 1 TAB PO ×2 (08:53→16:11)
[2023-07-13] MEDS: metFORMIN HCl ER 750 MG TAB.ER.24H PO (08:53)
[2023-07-13] MEDS: amLODIPine Besylate 10 MG TABLET PO (08:53)
--- NOTE | 2023-07-13 09:02 | MHC.EDTECH ---
patient was incontinent of urine. Changed gown and linens. Purewick in place.
[2023-07-13 11:29] VITALS: BP 153/75; PULSE 84; RESP 17; TEMP 37.1; O2SAT 96
--- NOTE | 2023-07-13 15:44 | MHC.CM.ED ---
Addendum entered by Shelli Pinon 07/13/23 17:39: Filed for self neglect with [facility]. Intake number [id number] Addendum entered by Shelli Pinon 07/13/23 17:11: Referral already made to [facility]. Patient agreeable. Addendum entered by Shelli Pinon 07/13/23 16:42: Pt transferred to W/C with nurse assist. CM received a telephone call from patients granddaughter, Kathy Lara, who is a nurse. Kathy tells CM that the family has had concerns about her grandparents living at home, that their is some hoarding and their ability to care for themselves, and have wanted them to move to [facility], but they have refused. Granddaughter aware that her grandmother does not meet criteria for admission and her insurance will not pay for STR, because she has not satisfied the 3 midnight rule. Also explained the only 1 acute rehab facility would consider her on 07/21, when she is Covid recovered, however, her grandmother is not a good candidate for acute rehab, as she needs to participate in 3 hours of rehab a day. CM discussed getting her grandmother a Life Alert. Will task a referral to [facility]. Granddaughter aware that her grandmother will be discharged to home. Original Note: is at bedside. Both patient and request discharge to home. Pt states she will transfer to W/C for discharge if she has her diaper on. Pt is refusing ambulance. CM explained that if patient has difficulty with transfer to w/c, then it would not be [facility] for to transport her home and that she should take an ambulance home. Pt is normally W/C bound at home for the past 4 years. again tells CM that if he needs help at home, he will call his daughter or friends. States he can hire help if necessary. Will referral for home PT. Family requests [facility], as they have had them in the past. CM will file with [facility] elder at risk. Both patient and are A&Ox3. Karrie Cedeño aware of discharge plan. Vikas TROTTER and primary RN aware of plan.
== END 2023-07-13 16:14 | disposition home or self-care (01) ==
PROVIDERS: Physician Assistant; Emergency Provider Emergency Medicine; PCP Nurse Practitioner Family
DX: U07.1 COVID-19 (principal); R53.1 Weakness; Z91.81 History of falling; I10 Essential (primary) hypertension; G20.A1 Parkinson's disease without dyskinesia, without mention of fluctuations; E11.9 Type 2 diabetes mellitus without complications; E78.5 Hyperlipidemia, unspecified
CPT/HCPCS: 36415; 70450; 71045; 72220; 80053; 81001; 84484; 85025; 87502; 87635; 93005; 97162; 99285

== ENCOUNTER → 2023-07-10 23:18 | Outpatient (BNV) | payer MEDICARE, OTHER, SELFPAY | PROVIDERS: Emergency Provider Emergency Medicine; PCP Nurse Practitioner Family; Visit Provider Internal Medicine | DX: R94.31 Abnormal electrocardiogram [ECG] [EKG] (principal) | CPT/HCPCS: 93010 ==

== ENCOUNTER 2024-01-30 16:11 | Emergency (ER) | payer MEDICARE, OTHER, SELFPAY ==
--- NOTE | ~2024-01-30 | CT_ITS ---
EXAMINATION: CT ABDOMEN AND PELVIS WITH CONTRAST CLINICAL INFORMATION: Lower GI bleed. COMPARISON: None available. TECHNIQUE: Multidetector volumetric images were obtained from the superior aspect of the liver through the pubic symphysis following administration 85 mL of Omnipaque 350 intravenous contrast. Sagittal and coronal reformatted images were obtained on the technologist's workstation. Oral contrast: No This CT examination was performed using dose optimization techniques as appropriate, variously including the following: *Automated exposure control *Adjustment of mA and/or kV according to patient size (this includes techniques or standardized protocols for targeted exams where dose is matched to indication/reason for exam; i.e. extremities or head) *Use of iterative reconstruction technique DLP: 626 mGy-cm FINDINGS: LUNG BASES: Mild bibasilar fibrotic streaks and/or atelectasis. No pleural effusion. Heart appears normal in size. Calcification of the aortic valve. No pericardial effusion. LIVER, GALLBLADDER, AND BILIARY TREE: The liver appears unremarkable in size, shape, and attenuation. No focal hepatic lesion or biliary ductal dilatation is appreciated. Status post cholecystectomy. PANCREAS: Unremarkable SPLEEN: Unremarkable ADRENAL GLANDS: Unremarkable KIDNEYS AND URETERS: Normal variant ptotic right kidney. The kidneys otherwise appear unremarkable in size, shape, and attenuation. No hydronephrosis, hydroureter, or calculi seen. BLADDER: Unremarkable GASTROINTESTINAL TRACT: Extensive colonic diverticulosis. Mild focal wall thickening and induration of surrounding fat involving a proximal sigmoid colon (images 53 through 57, series 2). Normal-appearing distal ileum and vermiform appendix. Approximately 2 cm diverticulum involving the second portion of the duodenum, without evidence of associated inflammation. ABDOMINAL WALL: Mild diastases of the rectus musculature. No significant hernia is appreciated. LYMPH NODES: No evidence of adenopathy by size criteria. VASCULAR: Unremarkable PELVIC VISCERA: Unremarkable OSSEOUS STRUCTURES: Decreased bone mineral density. Severe compression deformity of L2, new compared with June 27, 2021. Moderate to severe compression deformity of L1, unchanged. Degenerative changes of the spine, with mild lumbar dextrocurvature and grade 1 anterolisthesis of L4 on L5. Osteoarthritis of the hips, right worse than left. CT/CT abdomen pelvis w IV con IMPRESSION: Extensive colonic diverticulosis. Mild focal wall thickening and induration of surrounding fat involving a proximal sigmoid colon. The findings suggest diverticulitis; occult neoplasm at this location cannot be excluded entirely. Recommend GI consultation. Decreased bone mineral density. Severe compression deformity of L2, new compared with June 27, 2021. Moderate to severe compression deformity of L1, unchanged. Recommend clinical correlation. Additional findings, as above. Electronically signed by: Abdirahman Horne MD 01/30/2024 07:26 PM EDT
[2024-01-30 16:19] VITALS: BP 141/81; BP 142/96; PULSE 92; PULSE 98; RESP 18; TEMP 36.6; O2SAT 94; O2SAT 95
[2024-01-30 16:27] LABS: Glucose, Whole Blood 346 mg/dL (60-115)
--- NOTE | 2024-01-30 16:43 | ECG_ITS ---
Test Reason : GI BLEED Blood Pressure : / mmHG Vent. Rate : 091 BPM Atrial Rate : 091 BPM P-R Int : 188 ms QRS Dur : 078 ms QT Int : 374 ms P-R-T Axes : 056 035 029 degrees QTc Int : 460 ms Normal sinus rhythm Low voltage QRS Possible Inferior infarct (cited on or before 16-FEB-2023) Possible Anterolateral infarct (cited on or before 16-FEB-2023) Abnormal ECG When compared with ECG of 10-JUL-2023 23:18, No significant change was found Referred By: Luci Cleveland Electronically Signed By:NAIMA FREDERICK
[2024-01-30 17:40] LABS: MANUAL DIFF FLAG NO
[2024-01-30 17:44] LABS: Basophils Absolute Auto 0.1 X10*3/uL (0.0-0.2); Basophils Percent Auto 0.7 % (0-2); Eosinophils Absolute Auto 0.2 X10*3/uL (0.0-0.4); Eosinophils Percent Auto 1.6 % (0-4); Hematocrit 43.3 % (37.0-47.0); Hemoglobin 14.4 g/dl (12.0-16.0); Imm Gran Abs Auto 0.05 X10*3/uL (0.00-0.03); Imm Gran Pct Auto 0.5 % (0.0-0.4); Lymphocytes Absolute Auto 2.1 X10*3/uL (1.2-4.9); Mean Corpuscular HGB Conc 33.3 g/dl (31.0-35.0); Mean Corpuscular Hemoglobin 30.4 pg (27.0-33.0); Mean Corpuscular Volume 91.4 fL (80.0-98.0); Mean Platelet Volume 9.3 fL (9.4-12.3); Monocytes Absolute Auto 1.3 X10*3/uL (0.1-1.2); Monocytes Percent Auto 12.1 % (2-11); Neutrophils Absolute Auto 7.3 x10*3/uL (2.0-8.3); Neutrophils Percent Auto 66.1 % (45-73); OBS Int Ctl Valid YES; OBS1 POSITIVE (NEGATIVE); Platelet Count 300 X10*3/uL (160-400); Red Blood Count 4.74 X10*6/uL (4.20-5.50)
--- NOTE | 2024-01-30 17:44 | ED_ITS ---
HPI - General Adult General Chief complaint: GI Bleed Stated complaint: rectal bleed Time Seen by Provider: 01/30/24 16:29 Source: patient and EMS Mode of arrival: EMS Limitations: no limitations History of Present Illness ED Provider: Dr. Luci Cleveland HPI narrative: Patient comes to the emergency room complaining of rectal bleeding. 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 Patient states that she has significant pain in the rectal area and the last few hours, she has been having blood pouring out of her rectum. Patient denies being on blood thinners, only takes baby aspirin. Patient denies any chest pain or shortness of breath, no lightheadedness or dizziness. Patient denies any upper GI bleed. Related Data Home Medications ?Medication ?Instructions ?Recorded ?Confirmed aspirin 81 mg chewable tablet 81 mg PO DAILY 06/27/21 07/11/23 metformin 750 mg tablet,extended 750 mg PO DAILY 06/27/21 07/11/23 release 24 hr pravastatin 40 mg tablet 40 mg PO BEDTIME 06/27/21 07/11/23 sitagliptin phosphate 100 mg 1 tab PO DAILY 06/27/21 07/11/23 tablet (Januvia) bupropion HCl 150 mg 24 hr tablet, 150 mg PO QAM 02/16/23 07/11/23 extended release carbidopa 25 mg-levodopa 100 mg 1 tab PO TID 02/16/23 07/11/23 tablet glipizide 5 mg tablet, extended 5 mg PO DAILY 02/16/23 07/11/23 release 24 hr Previous Rx's ?Medication ?Instructions ?Recorded amlodipine 10 mg tablet 10 mg PO DAILY #30 tabs 02/21/23 losartan 50 mg tablet 50 mg PO DAILY #30 tabs 02/22/23 amoxicillin 500 mg-potassium 1 tab PO TID 10 days #30 tabs 01/30/24 clavulanate 125 mg tablet (Augmentin) lidocaine 5 % topical ointment 1 appl topical QID PRN pain #50 01/30/24 grams oxycodone 5 mg tablet 5 mg PO BID PRN pain #7 tabs 01/30/24 polyethylene glycol 3350 17 gram 17 g PO DAILY #14 ea 01/30/24 oral powder packet (Miralax) Allergies Allergy/AdvReac Type Severity Reaction Status Date / Time No Known Allergies Allergy Verified 01/30/24 16:23 Review of Systems 2 Review of Systems: Constitutional : No Weight loss, No Fever, No Chills, No Night Sweats, No Fatigue, No Malaise ENT/Mouth : No Hearing loss, No Ear Pain, No Nasal Congestion, No Sinus Pain, No Hoarseness, No sore throat, No Rhinorrhea, No Swallowing Difficulty Eyes: No Eye Pain, No Swelling, No Redness, No Foreign Body, No Discharge, No Vision Changes Cardiovascular : No Chest Pain, No SOB, No Dyspnea on Exertion, No Orthopnea, No Edema, No Palpitations Respiratory : No Cough, No Sputum, No Wheezing, No Smoke Exposure, No Dyspnea Gastrointestinal : No Nausea, No Vomiting, No Diarrhea, No Constipation, No abdominal Pain complaining of rectal bleeding and rectal pain Genitourinary : no irregular bleeding, No Dysuria, No Urinary Frequency, No Hematuria, No Urinary Incontinence, No Urgency, No Flank Pain, No Urinary Flow Changes, No Hesitancy Musculoskeletal : No joint pain, No Myalgias, No Joint Swelling Skin : No Skin Lesions, No rash Neuro : No Weakness, No Numbness, No Paresthesias, No Loss of Consciousness, No Dizziness, No Headache Psych : No Anxiety/Panic, No Depression, No SI/HI/AH/VH, No Social Issues, Heme/Lymph: No Bruising, No Bleeding,No Lymphadenopathy Endocrine : No Polyuria, No Polydipsia, No Temperature Intolerance PMFSH Past Medical History Medical History Parkinsonism Type 2 diabetes mellitus Hypertension associated with diabetes Parkinsonian features Diabetes Hyperlipidemia Hypertension Surgical History Status post laparoscopic cholecystectomy History of laparoscopic cholecystectomy (~06/30/21) Social History Social History Household Members: Unknown / Unable to assess Housing: Unknown / Unable to assess Do you presently have visiting nurse or other home services: No Unable to assess alcohol history related to: Unknown Patient Tobacco Use Status: Never used Tobacco Smoked in Last 30 Days: No Use of substances other than those prescribed or required for medical reasons: No Substance Use Type: Unknown Advance Directives: Yes Advance Directives on File: Yes Advance Directives Date on File: 07/05/21 Do you have a plan to hurt others: No Plan service: No Current occupational status: unemployed Physical Exam ED Vital Signs: Vital Signs - 24 hr 01/30/24 16:19 01/30/24 22:28 Temperature 97.8 F 98.5 F Pulse Rate 92 80 Respiratory Rate 18 14 Blood Pressure 141/81 H 145/82 H Pulse Oximetry 94 94 Oxygen Delivery Method Room Air Room Air BMI result Body Mass Index 30.0 Const Other: Appearance: Alert. Oriented X3. No acute distress. Eyes: Pupils equal, round and reactive to light. ENT: Pharynx normal. Neck: Normal inspection. Neck supple. No lymph nodes noted. No crepitus CVS: Normal heart rate and rhythm. Pulses normal. Normal S1 and S2 Respiratory: No respiratory distress. Breath sounds normal. No Wheezing. No rales Abdomen: Soft and nontender. No rigidity. No distention. Rectal exam, there was a large external hemorrhoid, howeve there is a small to moderate amount of blood in patient's briefs Skin: Skin warm and dry. Normal skin color. Normal skin turgor. Extremities: No lower extremity edema. No Lacerations. No Rash Neuro: Oriented X 3. No motor deficit. No sensory deficit. Moving all extremities. No slurred speech. CN 2 through 12 grossly intact Psych: calm, cooperative, normal affect Course Course Course Narrative: -all of patient's labs pending -I discussed the physical exam with the patient, patient agreeable to have the external hemorrhoid labs. However, I discussed with the patient that given that she has a moderate amount to rectal bleeding, there is a possibility that she may have internal hemorrhoids. Patient agreeable to labs and CT scan. Medications Administered Discontinued Medications Generic Name Dose Route Start Last Admin Trade Name Freq PRN Reason Stop Dose Admin Levofloxacin 500 mg in 100 mls @ 100 mls/hr 01/30/24 21:53 01/30/24 23:05 Levaquin IV 01/30/24 22:52 100 mls/hr ONCE ONE Administration Metronidazole 500 mg in 100 mls @ 100 mls/hr 01/30/24 21:53 01/30/24 23:05 Flagyl IV 01/30/24 22:52 100 mls/hr ONCE ONE Administration Iohexol 100 ml 01/30/24 18:39 01/30/24 18:39 Iohexol 350 Mg/Ml 100 Ml Infus..Btl IV 01/30/24 18:40 85 ml ONCE ONE Administration Lidocaine/Epinephrine 20 ml 01/30/24 19:09 01/30/24 19:32 Lidocaine Hcl 1%/Epi 1:100,000 20 Ml Vial INFILTRATI 01/30/24 19:10 20 ml ONCE ONE Administration Medical Decision Making Medical Decision Making [facility] Narrative: My interpretation of labs: White blood cell count slightly elevated 11.0, normal hemoglobin and hematocrit and platelets. Normal chemistry, glucose a bit elevated 345, LFTs normal troponin negative, guaiac positive for occult blood -CT scan: Extensive colonic diverticulitis, diverticulitis present, occult neoplasm can not be excluded, new L2 compression fractions when compared to imaging from June of 2021 -patient's hemorrhoid was injected with lidocaine with epinephrine 7 mL. It was lanced with an 11 size blade. Two large thrombi were extracted. Incision was packed and covered. -patient states that she did not suspect having diverticulitis. States that she has had atypical does in the past and usually her abdomen hurts. This time no abdominal pain, only rectal pain. However, patient does have rectal bleeding. Per CT scan, a neoplasm can not be ruled out. -I discussed the patient with Dr. Wakefield, patient being admitted When Dr. Wakefield was walking to the patient, patient states that her pain is well under controlled, does not have any abdominal pain, no longer having rectal pain. Patient would prefer to go home. -patient instructed to follow-up with surgery Differential Diagnosis Differential Diagnoses: The differential diagnosis associated with the presentation includes (Diverticulitis, diverticulosis, internal hemorrhoid, external hemorrhoid, neoplasm) Admission/Observation Consideration of admission/observation: Escalation of care including admission/observation considered Consult Healthcare Provider Management of the patient was discussed with: Hospitalist Lab Data [facility] Lab Attestation statement: I reviewed the patient's lab results. 01/30/24 17:33 01/30/24 17:33 Labs: Lab Results 01/30/24 01/30/24 01/30/24 Range/Units 16:19 17:33 17:35 WBC 11.0 H (4.8-10.8) X10*3/uL RBC 4.74 (4.20-5.50) X10*6/uL Hgb 14.4 (12.0-16.0) g/dl Hct 43.3 (37.0-47.0) % MCV 91.4 (80.0-98.0) fL MCH 30.4 (27.0-33.0) pg MCHC 33.3 (31.0-35.0) g/dl RDW 13.0 (11.0-16.0) % Plt Count 300 (160-400) X10*3/uL MPV 9.3 L (9.4-12.3) fL Immature Gran % (Auto) 0.5 H (0.0-0.4) % Neut % (Auto) 66.1 (45-73) % Lymph % (Auto) 19.0 L (20-40) % Harmon % (Auto) 12.1 H (2-11) % Eos % (Auto) 1.6 (0-4) % Baso % (Auto) 0.7 (0-2) % Lymph # (Auto) 2.1 (1.2-4.9) X10*3/uL Harmon # (Auto) 1.3 H (0.1-1.2) X10*3/uL Eos # (Auto) 0.2 (0.0-0.4) X10*3/uL Baso # (Auto) 0.1 (0.0-0.2) X10*3/uL Abs Immat Gran (auto) 0.05 H (0.00-0.03) X10*3/uL Absolute Neuts (auto) 7.3 (2.0-8.3) x10*3/uL Absolute Nucleated RBC 0.000 (0.0-0.012) X10*3/uL Nucleated RBC % (auto) 0.0 (0.0-0.2) /100WBC PT 11.4 (11.1-13.3) SEC INR 0.9 (0.9-1.1) Sodium 138 (135-145) mmol/L Potassium 4.9 (3.3-5.1) mmol/L Chloride 102 (96-108) mmol/L Carbon Dioxide 28 (22-29) mmol/L Anion Gap 13 (12-20) BUN 13 (9-16) mg/dL Creatinine 0.84 (0.5-1.4) mg/dL Estim Creat Clear Calc 61.5 Estimated GFR > 60 POC Glucose 346 H (60-115) mg/dL Random Glucose 345 H (60-115) mg/dL Calcium 9.9 D (8.4-10.2) mg/dL Total Bilirubin 0.3 (0.0-1.0) mg/dL Direct Bilirubin 0.1 (0.0-0.5) mg/dL AST 16 (5-31) U/L ALT 9 (0-31) U/L Alkaline Phosphatase 74 (39-117) U/L Troponin I High Sens 3.0 D (<3.5-17.0) ng/L Total Protein 7.4 (6.5-8.0) g/dL Albumin 4.0 (3.5-5.0) g/dL Stool Occult Blood POSITIVE (NEGATIVE) Independent Interpretation I performed an independent interpretation of an: CT Scan Interpretation: Extensive colonic diverticulosis. Mild focal wall thickening and induration of surrounding fat involving a proximal sigmoid colon. The findings suggest diverticulitis; occult neoplasm at this location cannot be excluded entirely. Recommend GI consultation. Decreased bone mineral density. Severe compression deformity of L2, new compared with June 27, 2021. Moderate to severe compression deformity of L1, unchanged. Recommend clinical correlation. Additional findings, as above. Radiology Impression Discussion of test interpretation with radiology: I have reviewed the radiologist's reading. Critical Care Time Critical Care Time Critical Care Time: Yes Total Critical Care Time: 75 Attestation: I have personally provided critical care time. Time includes review of lab data, radiology results, discussion with consultants, and monitoring for potential decompensation. Intervention performed as documented. Discharge Plan Discharge Clinical Impression: GI bleed, Hemorrhoids, Diverticulitis Patient Disposition: Home, Self-Care Instructions: Diverticulitis (ED), Hemorrhoids (ED) Additional Instructions: Please follow-up with your primary care physician tomorrow. If you have any worsening or new symptoms, please return to the emergency room or call 911 Prescriptions: New amoxicillin-pot clavulanate [Augmentin] 500-125 mg tablet 1 tab PO TID 10 Days Qty: 30 0RF lidocaine 5 % ointment 1 appl topical QID PRN (Reason: pain) Qty: 50 0RF oxycodone 5 mg tablet 5 mg PO BID PRN (Reason: pain) Qty: 7 0RF Rx Instructions: Partial Fill upon patient request. polyethylene glycol 3350 [Miralax] 17 gram powder in packet 17 g PO DAILY Qty: 14 0RF No Action pravastatin 40 mg Tablet 40 mg PO BEDTIME aspirin 81 mg Tablet,Chewable 81 mg PO DAILY metformin 750 mg Tablet Extended Release 24 Hr 750 mg PO DAILY Januvia 100 mg tablet 1 tab PO DAILY glipizide 5 mg tablet extended release 24hr 5 mg PO DAILY carbidopa-levodopa 25-100 mg tablet 1 tab PO TID bupropion HCl 150 mg tablet extended release 24 hr 150 mg PO QAM amlodipine 10 mg Tablet 10 mg PO DAILY Qty: 30 0RF Protocol: Hold for SBP< HOLD for SBP < : 90 losartan 50 mg Tablet 50 mg PO DAILY Qty: 30 0RF Protocol: Hold for SBP< HOLD for SBP < : 90 Print Language: Czech
[2024-01-30 17:48] LABS: INTERNATIONAL NORM RATIO 0.9 (0.9-1.1); Prothrombin Time 11.4 SEC (11.1-13.3)
[2024-01-30 17:58] LABS: Alanine Aminotransferase 9 U/L (0-31); Alkaline Phosphatase 74 U/L (39-117); Anion Gap 13 (12-20); Aspartate Amino Transferase 16 U/L (5-31); Bilirubin Direct 0.1 mg/dL (0.0-0.5); Bilirubin Total 0.3 mg/dL (0.0-1.0); Blood Urea Nitrogen 13 mg/dL (9-16); Calcium 9.9 mg/dL (8.4-10.2); Carbon Dioxide 28 mmol/L (22-29); Chloride 102 mmol/L (96-108); Creatinine Clr Calc Pharmacy 61.5; Estimated Glomerular Filt Rate > 60; Glucose Random 345 mg/dL (60-115); Potassium 4.9 mmol/L (3.3-5.1); Sodium 138 mmol/L (135-145); Total Protein 7.4 g/dL (6.5-8.0)
--- NOTE | 2024-01-30 18:35 | PC.NURSE ---
20gIV placed in the right forearm - pt waiting to go to CT at this time. plan of care ongoing.
[2024-01-30] MEDS: iohexoL 350 MG/ML 100 ML INFUS..BTL IV (18:39)
--- NOTE | 2024-01-30 18:45 | PC.NURSE ---
pt to CT at this time. plan of care ongoing.
[2024-01-30] MEDS: Lidocaine HCl 1%/Epi 1:100,000 20 ML VIAL INFILTRATI (19:32)
[2024-01-30 22:28] VITALS: BP 145/82; PULSE 80; RESP 14; TEMP 36.9; O2SAT 94
[2024-01-30] MEDS: metroNIDAZOLE/NS 500 MG/100 ML PIGGYBACK 100 MG IV (23:05)
[2024-01-30] MEDS: levoFLOXacin/D5W 500 MG/100 ML PIGGYBACK 100 MG IV (23:05)
[2024-01-31 00:19] VITALS: BP 169/77; PULSE 88; RESP 18; TEMP 37; O2SAT 97
[2024-01-31] MEDS: oxyCODONE HCl Immed Release 5 MG TABLET PO (01:48)
[2024-01-31 02:34] VITALS: BP 170/77; PULSE 86; RESP 18; TEMP 36.9; O2SAT 97
== END 2024-01-31 02:31 | disposition home or self-care (01) ==
PROVIDERS: Emergency Provider Emergency Medicine; PCP Physician Assistant Surgical
DX: K57.32 Diverticulitis of large intestine without perforation or abscess without bleeding (principal); K64.5 Perianal venous thrombosis; E11.9 Type 2 diabetes mellitus without complications; I10 Essential (primary) hypertension; E78.5 Hyperlipidemia, unspecified; Z79.84 Long term (current) use of oral hypoglycemic drugs; Z79.82 Long term (current) use of aspirin; Z79.02 Long term (current) use of antithrombotics/antiplatelets; Z79.899 Other long term (current) drug therapy
CPT/HCPCS: 36415; 46083; 74177; 80048; 80076; 82272; 82947; 84484; 85025; 85610; 93005; 96365; 96366; 96367; 99284; 99285; J1836; J1956; Q9967

== ENCOUNTER 2025-05-20 17:05 | Emergency (ER) | payer MEDICARE, OTHER, SELFPAY ==
[2025-05-20] VITALS (7 sets, daily range): BP systolic 183–205; BP diastolic 55–93; PULSE 74–88; RESP 16–20; TEMP 36.4–36.6; O2SAT 94–95; BMI 30.2
--- NOTE | 2025-05-20 17:15 | ED_ITS ---
HPI - General Adult General Chief complaint: General Medical Stated complaint: weakness Time Seen by Provider: 05/20/25 17:13 Source: patient Mode of arrival: ambulatory Limitations: no limitations History of Present Illness ED Provider: Dr. Cummings HPI narrative: 79-year-old female history of diabetes, hypertension, weakness wheelchair bound at baseline presented hospital today for evaluation of hypertension. Patient stated that she was getting back from her dental procedure today. She was in front of her door where she sat down to the ground because of weakness. This weakness is not acute for her however EMS was called and assess her blood pressure and noted her blood pressure was elevated therefore patient was brought to the hospital for further evaluation. She has not complain of any chest pain not complaining of any shortness of breath or lightheadedness. Denies any headache. Denies any trouble making urine. Related Data Home Medications ?Medication ?Instructions ?Recorded ?Confirmed aspirin 81 mg chewable tablet 81 mg PO DAILY 06/27/21 07/11/23 metformin 750 mg tablet,extended 750 mg PO DAILY 06/2707/11/23 release 24 hr pravastatin 40 mg tablet 40 mg PO BEDTIME 06/27/21 sitagliptin phosphate 100 mg 1 tab PO DAILY 06/27/21 0 07/11/23 tablet (Januvia) bupropion HCl 150 mg 24 hr tablet, 150 mg PO QAM 02/1607/11/23 extended release carbidopa 25 mg-levodopa 100 mg 1 tab PO TID 02/16/23 07/11/23 tablet glipizide 5 mg tablet, extended 5 mg PO DAILY 02/16/23 07/11/23 release 24 hr Previous Rx's ?Medication ?Instructions ?Recorded amlodipine 10 mg tablet 10 mg PO DAILY #30 tabs 02/03 losartan 50 mg tablet 50 mg PO DAILY #30 tabs 02/03 06/26 amoxicillin 500 mg-potassium 1 tab PO TID 10 days #30 tabs 01/30/24 clavulanate 125 mg tablet (Augmentin) lidocaine 5 % topical ointment 1 appl topical QID PRN pain #50 01/30/24 grams oxycodone 5 mg tablet 5 mg PO BID PRN pain #7 tabs 01/30/24 polyethylene glycol 3350 17 gram 17 g PO DAILY #14 ea 01/30/24 oral powder packet (Miralax) Allergies Allergy/AdvReac Type Severity Reaction Status Date / Time No Known Allergies Allergy Verified 05/20/25 17:31 Review of Systems Review of Systems: Pertinent review of systems as mentioned in HPI. All other system otherwise negative. [facility] Past Medical History [facility] Narrative: Medical history as mentioned in HPI Medical History Parkinsonism Type 2 diabetes mellitus Hypertension associated with diabetes Parkinsonian features Diabetes Hyperlipidemia Hypertension Surgical History Status post laparoscopic cholecystectomy History of laparoscopic cholecystectomy (~06/30/21) Social History Social History Household Members: Unknown / Unable to assess Housing: Unknown / Unable to assess Do you presently have visiting nurse or other home services: No Patient Tobacco Use Status: Never used Tobacco Smoked in Last 30 Days: No Use of substances other than those prescribed or required for medical reasons: No Substance Use Type: Unknown Advance Directives: Yes Advance Directives on File: Yes Advance Directives Date on File: 07/05/21 Do you have a plan to hurt others: No Plan service: No Current occupational status: unemployed Physical Exam ED Exam Exam: General: Pleasant, no distress, interacting appropriately Head: Normacephalic, atraumatic ENT: oral mucosa moist, neck supple, no tracheal deviation Cardiovascular: regular rate, regular rhythm, no murmurs, rubbing, gallops Respiratory: CTAB, no wheeze, rales, rhonchi Gastrointestinal: Soft, non distended, non tender, non guarding Extremities: No limb pain or swelling, no calf tenderness Neurological: Awake and alert, no facial droop noted, no focal neurological deficit Skin: Warm and dry Psychiatric: Appropriate mood and thoughts Vital Signs: Vital Signs - 24 hr 05/20/25 17:30 05/20/25 18:33 05/20/25 18:34 Temperature 97.6 F Pulse Rate 86 88 88 Respiratory Rate 16 16 Blood Pressure 205/55 H 189/93 H 189/93 H Pulse Oximetry 94 94 Oxygen Delivery Method Room Air Room Air 05/20/25 19:18 05/20/25 19:47 05/20/25 20:06 Temperature Pulse Rate 74 Respiratory Rate 20 Blood Pressure 183/91 H 183/91 H 183/87 H Pulse Oximetry 95 Oxygen Delivery Method BMI result Body Mass Index 30.2 Medications Administered Discontinued Medications Generic Name Dose Route Start Last Admin Trade Name Jd PRN Reason Stop Dose Admin Clonidine HCl 0.2 mg 05/20/25 19:19 05/20/25 19:47 Clonidine Hcl 0.2 Mg Tablet PO 05/20/25 19:20 0.2 mg ONCE ONE Administration Protocol Metoprolol Tartrate 25 mg 05/20/25 18:02 05/20/25 18:34 Metoprolol Tartrate 25 Mg Tablet PO 05/20/25 18:03 25 mg ONCE ONE Administration Protocol Medical Decision Making Medical Decision Making MDM Narrative: This is a 79-year-old female presented hospital today for evaluation of elevated blood pressure. The patient's blood pressure is 180 systolic on my evaluation. It appears that patient has been on 10 mg amlodipine daily, losartan 50 mg daily. Patient is unable to recall her blood pressure regimen. We will plan to give patient 25 mg of metoprolol tartrate here. Patient has no signs of end-organ damage based on history of presentation. We will continue to monitor the patient's blood pressure at this time. Patient's blood pressure remained elevated I did give her 0.2 mg of clonidine. Blood pressure remains in 180s systolic at this time. Patient remained asymptomatic. No sign of end-organ damage. At this time this is asymptomatic hypertension. She is neurologically intact. We will plan to discharge patient home with a close follow up with her primary care doctor. Patient is agreeable with this plan all questions were addressed. Differential Diagnosis Differential Diagnoses: The differential diagnosis associated with the presentation includes Asymptomatic hypertension, hypertension, chronic hypertension, hypertensive emergency Discharge Plan Discharge Clinical Impression: Asymptomatic hypertension Patient Disposition: Home, Self-Care Instructions: Chronic Hypertension (ED) Additional Instructions: Make sure to follow up with your primary care doctor for your blood pressure. Prescriptions: No Action pravastatin 40 mg Tablet 40 mg PO BEDTIME aspirin 81 mg Tablet,Chewable 81 mg PO DAILY metformin 750 mg Tablet Extended Release 24 Hr 750 mg PO DAILY Januvia 100 mg tablet 1 tab PO DAILY glipizide 5 mg tablet extended release 24hr 5 mg PO DAILY carbidopa-levodopa 25-100 mg tablet 1 tab PO TID bupropion HCl 150 mg tablet extended release 24 hr 150 mg PO QAM amlodipine 10 mg Tablet 10 mg PO DAILY Qty: 30 0RF Protocol: Hold for SBP< HOLD for SBP < : 90 losartan 50 mg Tablet 50 mg PO DAILY Qty: 30 0RF Protocol: Hold for SBP< HOLD for SBP < : 90 amoxicillin-pot clavulanate [Augmentin] 500-125 mg tablet 1 tab PO TID 10 Days Qty: 30 0RF lidocaine 5 % ointment 1 appl topical QID PRN (Reason: pain) Qty: 50 0RF oxycodone 5 mg tablet 5 mg PO BID PRN (Reason: pain) Qty: 7 0RF Rx Instructions: Partial Fill upon patient request. polyethylene glycol 3350 [Miralax] 17 gram powder in packet 17 g PO DAILY Qty: 14 0RF Print Language: [place]
--- OUTSIDE RECORDS SUMMARY | 2025-05-20 21:07 | XMS_ITS | Clinical Summary ---
Author Organization [facility] Address [address] [place] [address] Care Team Providers Care Finishing Pan Operator Name Role Phone Carla Constantino NP Primary Care Provider Unavailabl e Allergies No known active allergies Medications pravastatin (PRAVACHOL) 40 mg tablet 0 Active SITagliptin (JANUVIA) 100 mg tablet TAKE 1 TABLET BY MOUTH DAILY 0 Active glipiZIDE XL (GLUCOTROL XL) 2.5 mg tablet Take 2.5 mg by mouth daily. 1 Active aspirin chewable tablet 81 mg Chew and swallow 81 mg by mouth once a day. Active nystatin (MYCOSTATIN) 100,000 unit/gram powder Apply topically to the affected area 3 times daily as needed. 2 Active amLODIPine (NORVASC) 10 mg tablet Take 10 mg by mouth daily. 4 Active Freestyle Lite test strips 1 each 2 times daily. 4 Active buPROPion XL (WELLBUTRIN XL) 150 mg tablet Take 150 mg by mouth daily. 4 Active losartan (COZAAR) 50 mg tablet Take 50 mg by mouth daily. 4 Active carbidopa-levod opa (SINEMET) 25-100 mg tabletIndicatio ns:Parkinsonian features TAKE 1 AND A HALF TABLETS BY MOUTH 3 TIMES A DAY. 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 08/25/2020 Acute bilateral low back pain without sciatica 0 11/04/2018 Memory change 09/06/2018 Frontal gait 08/14/2018 Mild depression 03/26/2018 Essential hypertension 08/22/2017 Overview (02/17/2020): Last Assessment & Plan: Blood pressure is well controlled, continues on ARB Mixed hyperlipidemia 08/22/2017 Overview (02/17/2020): Last Assessment & Plan: Most recent LDL 151, above goal of <100 Has changed statin to pravachol, if this does not improve cognitive effects then return to high intensity statin would be prudent, or addition of zetia to current pravachol to help with LDL lowering Osteopenia 08/22/2017 Type 2 diabetes mellitus wit h microalbuminuria, without long-term current use of insulin 08/22/2017 Overview (02/17/2020): Last Assessment & Plan: Overall excellent control on current three drug antihyperglycemic medication regimen, tolerating this well We did not make changes to current regimen Encouraged to increase activity with PT sessions and home PT exercises, this will help in general but regular activity will also be helpful for blood sugar management We discussed return visit with our CDE, Micki will return to see me on an as needed basis, she is encouraged to call with any questions or concerns Vertigo 08/22/2017 Family History Relation Name Status Comments Father Mother Social History Tobacco Use Types Packs/Day Years Used Date Smoking Tobacco: Former Cigarettes 0.8 15 1 966 - 1980 Smokeless Tobacco: Never Tobacco Cessation:Counseling Given: Not Answered Alcohol Use Standard Drinks/Week Comments Not Currently 0 (1 standard drink = 0.6 oz pur e alcohol) Comments Unknown Sex and Gender Information Value Date Recorded Sex Assigned at Female 11/28/2023 10:11 AM EDT Legal Sex Female 7:36 AM EDT Gender Identity Female 11/28/2023 10:11 AM EDT Sexual Orientation Not on file Last Filed Vital Signs Vital Sign Reading Time Taken Comments Blood Pressure 134/78 02/07/2024 11:11 AM EDT Pulse 80 02/07/2024 11:11 AM EDT Temperature 36.1 C (97 F) 02/07/2024 11:11 AM EDT Respiratory Rate 16 11/28/2023 10:26 AM EDT Oxygen Saturation 95% 02/07/2024 11:11 AM EDT Inhaled Oxygen Concentration - - Weight 83 kg (183 lb) 02/07/2024 11:11 AM EDT Height 170.2 cm (5' 7 ) 02/07/2024 11:11 AM EDT Body Mass Index 28.66 02/07/2024 11:11 AM EDT Plan of Treatment Health Maintenance Due Date Last Done Comments Medicare AWV 1945 Ophthalmology Exam 1954 Urine Microalbumin 1954 RSV Vaccine (60+ years old and patients) (1 - 1-dose 75+ series) 11/07/2019 Hemoglobin A1C 02/20/2024 11/20/2023, 10/0 09/2021, 08/30/2021, Additional history exists Alcohol/Substance Use Screening 06/04/2024 Depression Screening and Follow-Up 06/04/2024 Fall Risk Screening 06/04/2024 Health Care Proxy Review 06/04/2024 Social Drivers of Health Annual Screening 06/04/2024 Basic Metabolic Panel 11/19/2024 11/20/2023, 022 Influenza Vaccine (#1) 2025 , 03/09/2020, 02/03/2020, Additional history exists COVID-19 Vaccine ( - season) 2025 09/14/2022, 05/12/2021, 08/14/2020, Additional history exists DTaP,Tdap,and Td Vaccines (2 - Td or Tdap) 07/30/2029 07/30/2019 Pneumococcal Vaccine: 50+ Years Completed 07/30/2019, 09/16/2014 Zoster Vaccines Completed 07/07/2020, 03/09/2020 Osteoporosis Screening Completed 05/29/2023 Hepatitis B Vaccines Aged Out No long er eligible based on patient's age to complete this topic Insurance [facility] Member Subscriber Plan / Payer (Ef fective 2016-Present) Name:Micki Lara Relation to Subscriber:Self Name:Micki Lara Payer ID:[id number] Type:Not on file Address: [facility], [address] [phone] MEDICARE Care Teams Finishing Pan Operator Relationship Specialty Start Date End Date Carla Constantino NP PCP - General Family Medicine 01/02/20
--- OUTSIDE RECORDS SUMMARY | 2025-05-20 21:07 | XMS_ITS | Encounter Summary ---
Author Organization [facility] Address [address] [place] [address] Care Team Providers Care Director Clinical Research Name Role Phone Carla Constantino NP Primary Care Provider Unavailabl e Encounter Details Date Type Department Care Team (Late st Contact Info) Description 10/06/2022 Orders Only [facility] [address] [place] [id number] Provider, Unknown, [facility] [place] [address] Social History Tobacco Use Types Packs/Day Years Used Date Smoking Tobacco: Former Cigarettes 0.8 15 1 966 - 1980 Smokeless Tobacco: Never Alcohol Use Standard Drinks/Week Comments Not Currently 0 (1 standard drink = 0.6 oz pur e alcohol) Comments Unknown Sex and Gender Information Value Date Recorded Sex Assigned at Female 11/28/2023 10:11 AM EDT Legal Sex Female 7:36 AM EDT Gender Identity Female 11/28/2023 10:11 AM EDT Sexual Orientation Not on file documented as of this encounter Plan of Treatment Not on file documented as of this encounter Procedures * Due to [place] [employer] law, this organization might not be sharing negative HIV tests. Procedure Name Priority Date/Time Associated Diagnosis Comments AMB EXTERNAL MRI BRAIN, OUTS GRISELDA RESULT Routine 10/06/2022 documented in this encounter Results * Due to [place] [employer] law, this organization might not be sharing negative HIV tests. * MRI Brain, Outside Result (10/06/2022) us Unknown Provider MD JANE EXTERNAL RESULT PROCEDUR ES Final Result documented in this encounter Visit Diagnoses Not on filedocumented in this encounter Care Teams Director Clinical Research Relationship Specialty Start Date End Date Carla Constantino NP PCP - General Family Medicine 01/02/20 documented as of this encounter
--- OUTSIDE RECORDS SUMMARY | 2025-05-20 21:07 | XMS_ITS ---
Author Name [facility] Organization Unknown Care Team Organization Name Specialty Phone Email Start Date End Da te [facility] Karrie [facility] 11/10/20222023
--- OUTSIDE RECORDS SUMMARY | 2025-05-20 21:07 | XMS_ITS | Encounter Summary ---
Author Organization [facility] Address [address] [place] [address] Care Team Providers Care Public Health Dietitian Name Role Phone Carla Constantino MEDICAL INSURANCE CLERK Primary Care Provider Unavailabl e Encounter Details Date Type Department Care Team (Late st Contact Info) Description 06/06/2021 Orders Only [facility] Nuclear Medicine [address] [place] [address] [phone] Rene Pineda MD PhD [address] [place], [place] [phone] Social History Tobacco Use Types Packs/Day Years [...] on file documented as of this encounter Visit Diagnoses Not on filedocumented in this encounter Care Teams Public Health Dietitian Relationship Specialty Start Date End Date Carla Constantino NP PCP - General Family Medicine 01/02/20 documented as of this encounter
== END 2025-05-20 20:34 | disposition home or self-care (01) ==
PROVIDERS: Emergency Provider Student in an Organized Health Care Education/Training Program; PCP Physician Assistant Surgical
DX: I10 Essential (primary) hypertension (principal); R53.1 Weakness; E11.9 Type 2 diabetes mellitus without complications; Z79.899 Other long term (current) drug therapy; Z79.84 Long term (current) use of oral hypoglycemic drugs
CPT/HCPCS: 99283; 99284